=== PATIENT | male | born 1955 | race Caucasian/White ===

== ENCOUNTER 2016-06-21 17:27 | Observation (INO) | payer MEDICAID ==
[~2016-06-21] VITALS: Ht 175.3 cm; Wt 113.5 kg
[~2016-06-21 17:27] MED LIST: ASPI1TAB91 PO; CLOP75TA PO; DICL50TA PO; DONE10TA7 PO; GABA300C5 PO; HYDR-3366 PO; IBUP800T23 PO; LIPI80TA PO; LISI10TA3 PO; METO50TA PO; PANT40TA3 PO; TIZA4CAP3 PO; TRAM50TA PO; WHEEMIS3
[2016-06-21 17:30] VITALS: BP 134/78; PULSE 77; RESP 15; TEMP 98.8; O2SAT 96
[2016-06-21] MEDS ORDERED: METF1000 PO (19:03)
[2016-06-21] MEDS ORDERED: METR250T15 PO (19:03)
[2016-06-21] MEDS ORDERED: ONDA4TAB7 SL (19:03)
[2016-06-21] MEDS ORDERED: NITR1SUB3 SL (19:04)
[2016-06-21] MEDS ORDERED: SERT-129 PO (19:04)
[2016-06-21] MEDS ORDERED: MORPHINE SULFATE 4 MG/ML INJ IV PUSH ONE ×2 (19:30→23:30)
[2016-06-21] MEDS ORDERED: ONDANSETRON HCL 4 MG/2 ML VIAL IVP ONE (19:30)
[2016-06-21] MEDS ORDERED: SODIUM CHLORIDE 0.9% FLUSH 5 ML FLUSH IVF PRN (19:30)
[2016-06-21] MEDS ORDERED: FAMOTIDINE 20 MG/2 ML VIAL IV PUSH ONE (19:30)
[2016-06-21 19:50] LABS: AUTOMATED NEUTROPHIL # 3.4 TH/MM3 (1.8-7.7); BASOPHIL # 0.1 TH/MM3 (0-0.2); BASOPHIL % 2.3 % (0.0-2.0); EOSINOPHIL # 0.4 TH/MM3 (0-0.4); EOSINOPHIL % 7.4 % (0.0-4.0); HEMATOCRIT 41.7 % (39.0-51.0); HEMO FLAGS DIFF FINAL; LYMPH % 21.6 % (9.0-44.0); LYMPHOCYTE # 1.2 TH/MM3 (1.0-4.8); MEAN CELL VOLUME 87.9 FL (80.0-100.0); MEAN CORPUSCULAR HEMOGLOBIN 29.4 PG (27.0-34.0); MEAN CORPUSCULAR HGB CONC 33.4 % (32.0-36.0); MONO % 9.3 % (0.0-8.0); NEUT % 59.4 % (16.0-70.0); PLATELET COUNT 226 TH/MM3 (150-450); RED BLOOD COUNT 4.75 MIL/MM3 (4.50-5.90); RED CELL DISTRIBUTION WIDTH 14.5 % (11.6-17.2); WHITE BLOOD COUNT 5.6 TH/MM3 (4.0-11.0)
[2016-06-21 19:52] VITALS: RESP 18
[2016-06-21 19:58] LABS: APTT (PATIENT) 22.9 SEC (24.3-30.1); PROTHROMBIN TIME - PATIENT 10.7 SEC (9.8-11.6)
[2016-06-21 20:12] LABS: ANION GAP 9 MEQ/L (5-15); AST (GOT) 17 U/L (15-37); BLOOD UREA NITROGEN 5 MG/DL (7-18); CHLORIDE 105 MEQ/L (98-107); GLOMERULAR FILTRATION RATE 77 ML/MIN (>89); POTASSIUM 3.8 MEQ/L (3.5-5.1); SODIUM (NA) 141 MEQ/L (136-145)
[2016-06-21 20:16] VITALS: BP 143/73; PULSE 61; RESP 16; O2SAT 96
[2016-06-21 20:17] LABS: ALKALINE PHOSPHATASE 80 U/L (45-117); ALT (GPT) 31 U/L (12-78); INDIRECT BILIRUBIN 0.3 MG/DL (0.0-0.8); TOTAL BILIRUBIN ADULT 0.4 MG/DL (0.2-1.0)
[2016-06-21] MEDS ORDERED: IOHEXOL 350 MG/ML 10 ML VIAL (for RAD DIAG) IV ONE (20:42)
--- NOTE | 2016-06-21 21:32 | RADRPT ---
EXAM DATE/TIME: 06/21/2016 20:36 [place] COMPARISON: No previous studies available for comparison. INDICATIONS : Diffuse abdominal pain with red stool for 2 weeks. IV CONTRAST: 96 cc Omnipaque 350 (iohexol) IV ORAL CONTRAST: No oral contrast ingested. RADIATION DOSE: 9.96 CTDIvol (mGy) MEDICAL HISTORY : Hypertension. Cardiovascular disease Cerebrovascular disease.Seizures SURGICAL HISTORY : CABG left hip surgery ENCOUNTER: Initial ACUITY: 2 weeks PAIN SCALE: 8/10 LOCATION: Diffuse abdomen/pelvis TECHNIQUE: Volumetric scanning of the abdomen and pelvis was performed. Using automated exposure control and ad justment of the mA and/or kV according to patient size, radiation dose was kept as low as reasonably achievable to obtain optimal diagnostic quality images. FINDINGS: Lung bases are clear except for mild dependent atelectasis. Previous median sternotomy. Mild fatty liver. Spleen, adrenals, kidneys and pancreas unremarkable. Gallstones in gallbladder. There is some apparent mural thickening of the duodenum. No bowel obstruction. No free fluid or free air. No adenopathy. Prostate is enlarged. CONCLUSION: 1. Mural thickening of the duodenum suggesting duodenitis. No obstruction, free fluid or free air. 2. Multiple gallstones in the gallbladder. Fady Shah MD on June 21, 2016 at 21:25 Board Certified Radiologist. This report was verified electronically.
[2016-06-21] MEDS ORDERED: LIDOCAINE VISCOUS 2% SOLN 15 ML UDC PO ONE (22:00)
[2016-06-21] MEDS ORDERED: ALUMINUM/MAGNESIUM/SIMETH 30 ML CUP PO ONE (22:00)
[2016-06-21] MEDS ORDERED: DICYCLOMINE HCL 20 MG/2 ML VIAL IM ONE (22:00)
[2016-06-21 22:09] LABS: BLOOD, URINE NEG (NEG); COMMENT (UR) CULT NOT INDICATED; CULTURE IF INDICATED CULT NOT INDICATED; GLUCOSE,URINE NEG (NEG); HYALINE CAST, URINE 1 /lpf (RARE); KETONE, URINE NEG (NEG); MUCUS URINE FEW /lpf (OCC); NITRITE,URINE NEG (NEG); URINE COLOR YELLOW (YELLW/STRAW)
[2016-06-21 22:21] VITALS: BP 109/63; PULSE 76; RESP 16; O2SAT 98
[2016-06-22] VITALS (8 sets, daily range): BP systolic 98–134; BP diastolic 54–77; PULSE 45–75; RESP 13–20; TEMP 97.7–98.2; O2SAT 95–96
--- NOTE | 2016-06-22 00:48 | PD ---
HPI Chief Complaint: GI Complaint Time Seen by Provider: 19:06 Travel History International Travel<30 days: No Contact w/Intl Traveler<30days: No Traveled to known affect area: No History of Present Illness HPI Patient is a 61-year-old male who comes in complaining of abdominal pain, weakness, blood in his stool for the past 2 weeks. He says that he follows with Dr. Estrada to for GI. He says that she put him on Flagyl, and he took his last pill today. He says that he called her office and they told him to coming to the emergency department right away. He says his last bowel movement was yesterday and that is the last time he saw blood. He says he has been nauseous with some vomiting. Patient is a poor historian. He says he sometimes has chest pain or shortness of breath, but this does not seem to be acute. PFSH Past Medical History Arthritis: No Asthma: Yes Blood Disorders: No Anxiety: Yes Depression: Yes Heart Rhythm Problems: No Cardiac Catheterization: Yes (CORONARY STENT) Cardiovascular Problems: Yes High Cholesterol: Yes Chemotherapy: No Chest Pain: Yes Congestive Heart Failure: No COPD: No Cerebrovascular Accident: Yes Coronary Artery Disease: Yes Diabetes: Yes Patient Takes Glucophage: Yes (06/21/16) Diminished Hearing: No Endocrine: Yes Gastrointestinal Disorders: Yes GERD: Yes Glaucoma: No Genitourinary: No Hypertension: Yes Immune Disorder: No Implanted Vascular Access Dvce: Yes Musculoskeletal: Yes Neurologic: Yes (PREVIOUS STROKE) Psychiatric: No Reproductive: No Respiratory: Yes Immunizations Current: No Migraines: No Myocardial Infarction: No Radiation Therapy: No Sleep Apnea: No Thyroid Disease: No Tetanus Vaccination: > 5 Years Influenza Vaccination: No PNEUMOCCOCAL Vaccine (Year): 1 Past Surgical History Abdominal Surgery: No AICD: No Arteriovenous Shunt: No Body Medical Devices: PIN LEFT HIP Cardiac Surgery: No Coronary Artery Bypass Graft: Yes ( OCTOBER 2011, 5 VESSELS) Ear Surgery: No Endocrine Surgery: No Eye Surgery: No Genitourinary Surgery: No Gynecologic Surgery: No Insulin Pump: No Joint Replacement: No Neurologic Surgery: No Oral Surgery: No Pacemaker: No Thoracic Surgery: Yes (CABG october 2011 ) Tonsillectomy: Yes Other Surgery: Yes (SINUS SURGERY) Social History Alcohol Use: No Tobacco Use: No Substance Use: No Allergies-Medications (Allergen,Severity, Reaction): Coded Allergies: Bee Sting (Verified Allergy, Severe, THROAT SWELLS, 06/21/16) Penicillin (Verified Allergy, Severe, SWELLS UP, 06/21/16) Wasp (Verified Allergy, Severe, SWELLS UP, 06/21/16) Reported Meds & Prescriptions Reported Meds & Active Scripts Active Reported Sertraline (Sertraline HCl) 100 Mg Tab 100 Mg PO DAILY Nitroglycerin SL (Nitroglycerin) 0.4 Mg Subl 0.4 Mg SL DIRECTED PRN ONE TABLET UNDER THE TONGUE NEEDED FOR CHEST PAIN, MAY REPEAT EVERY FIVE MINUTES FOR A TOTAL OF 3 DOSES OR CALL 911 IF NO RELIEF Metformin (Metformin HCl) 1,000 Mg Tab 1,000 Mg PO BIDPC With meals Metronidazole 250 Mg Tab 250 Mg PO TID Ondansetron Odt 4 Mg Tab 4 Mg SL Q6HR PRN Clopidogrel (Clopidogrel Bisulfate) 75 Mg Tab 75 Mg PO DAILY [place] (Hydrocodone-Acetaminophen) 10-325 Mg Tab 1 Tab PO TID PRN Aspirin Adult Low Strength (Aspirin) 81 Mg Tabdr 81 Mg PO DAILY Gabapentin 300 Mg Cap 300 Mg PO TID Lipitor (Atorvastatin Calcium) 80 Mg Tab 80 Mg PO HS Donepezil 10 Mg Tab 10 Mg PO HS Metoprolol Tartrate 50 Mg Tab 50 Mg PO DAILY Pantoprazole (Pantoprazole Sodium) 40 Mg Tab 40 Mg PO DAILY Tizanidine (Tizanidine HCl) 4 Mg Cap 4 Mg PO TID PRN Review of Systems Except as stated in HPI: all other systems reviewed are Neg General / Constitutional: Positive: Fever, No: Chills Eyes: No: Diploplia HENT: No: Headaches Cardiovascular: Positive: Chest Pain or Discomfort Respiratory: Positive: Shortness of Breath Gastrointestinal: Positive: Nausea, Vomiting, Abdominal Pain Genitourinary: No: Dysuria Musculoskeletal: No: Edema, Pain Skin: No Rash, No Change in Pigmentation Neurologic: Positive: Weakness, No: Dizziness Physical Exam Narrative GENERAL: Awake and alert in no acute distress. SKIN: Warm and dry. HEAD: Atraumatic. Normocephalic. EYES: Pupils equal and round. No scleral icterus. ENT: Mucous membranes pink and moist. NECK: Trachea midline. No JVD. CARDIOVASCULAR: Regular rate and rhythm. No murmur appreciated. RESPIRATORY: No accessory muscle use. Clear to auscultation. Breath sounds equal bilaterally. GASTROINTESTINAL: Abdomen soft, nondistended. Diffuse tenderness to palpation, worse in the epigastric area. No rebound or guarding. MUSCULOSKELETAL: No obvious deformities. No clubbing. No cyanosis. No edema. NEUROLOGICAL: Awake and alert. No obvious cranial nerve deficits. Motor grossly within normal limits. Normal speech. PSYCHIATRIC: Appropriate mood and affect; insight and judgment normal. Data Data Last Documented VS Vital Signs Date Time Temp Pulse Resp B/P Pulse Ox O2 Delivery O2 Flow Rate FiO2 06/21/16 22:21 76 16 109/63 98 Room Air 06/21/16 17:30 98.8 Orders Basic Metabolic Panel (Bmp) (06/21/16:18) Complete Blood Count With Diff (06/21/16:18) Lipase (06/21/16:18) Prothrombin Time / Inr (Pt) (06/21/16:18) Act Partial Throm Time (Ptt) (06/21/16:18) Urinalysis - C+S If Indicated (06/21/16:18) Ua Includes Microscopic (06/21/16 19:18) Ct Abd/Pel W Iv Contrast(Rout) (06/21/16 19:18) Iv Access Insert/Monitor (06/21/16 19:18) Ecg Monitoring (06/21/16:18) Oximetry (06/21/16:18) Morphine Inj (Morphine Inj) (06/21/16 19:30) Ondansetron Inj (Zofran Inj) (06/21/16 19:30) Sodium Chloride 0.9% Flush (Ns Flush) (06/21/16 19:30) Electrocardiogram (06/21/16 19:18) Famotidine Inj (Pepcid Inj) (06/21/16 19:30) Hepatic Functional Panel (06/21/16 19:18) Troponin I (06/21/16:18) Iohexol 350 Inj (Omnipaque 350 Inj) (06/21/16 20:42) Dicyclomine Inj (Bentyl Inj) (06/21/16 22:00) Al-Mag Hy-Si 40-40-4 Mg/Ml Liq (Mag-Al P (06/21/16 22:00) Lidocaine 2% Viscous (Xylocaine 2% Visco (06/21/16 22:00) Morphine Inj (Morphine Inj) (06/21/16 23:30) Admit Order (Ed Use Only) (06/22/16 ) Labs Laboratory Tests Test 06/21/16 06/21/16 19:35 21:45 White Blood Count 5.6 TH/MM3 Red Blood Count 4.75 MIL/MM3 Hemoglobin 13.9 GM/DL Hematocrit 41.7 % Mean Corpuscular Volume 87.9 FL Mean Corpuscular Hemoglobin 29.4 PG Mean Corpuscular Hemoglobin 33.4 % Concent Red Cell Distribution Width 14.5 % Platelet Count 226 TH/MM3 Mean Platelet Volume 8.5 FL Neutrophils (%) (Auto) 59.4 % Lymphocytes (%) (Auto) 21.6 % Monocytes (%) (Auto) 9.3 % Eosinophils (%) (Auto) 7.4 % Basophils (%) (Auto) 2.3 % Neutrophils # (Auto) 3.4 TH/MM3 Lymphocytes # (Auto) 1.2 TH/MM3 Monocytes # (Auto) 0.5 TH/MM3 Eosinophils # (Auto) 0.4 TH/MM3 Basophils # (Auto) 0.1 TH/MM3 CBC Comment DIFF FINAL Differential Comment Prothrombin Time 10.7 SEC Prothromb Time International 1.0 RATIO Ratio Activated Partial 22.9 SEC Thromboplast Time Sodium Level 141 MEQ/L Potassium Level 3.8 MEQ/L Chloride Level 105 MEQ/L Carbon Dioxide Level 27.0 MEQ/L Anion Gap 9 MEQ/L Blood Urea Nitrogen 5 MG/DL Creatinine 0.99 MG/DL Estimat Glomerular Filtration 77 ML/MIN Rate Random Glucose 166 MG/DL Calcium Level 8.4 MG/DL Total Bilirubin 0.4 MG/DL Direct Bilirubin 0.1 MG/DL Indirect Bilirubin 0.3 MG/DL Aspartate Amino Transf 17 U/L (AST/SGOT) Alanine Aminotransferase 31 U/L (ALT/SGPT) Alkaline Phosphatase 80 U/L Troponin I LESS THAN 0.02 NG/ML Total Protein 7.1 GM/DL Albumin 3.8 GM/DL Lipase 238 U/L Urine Color YELLOW Urine Turbidity CLEAR Urine pH 6.0 Urine Specific [place] GREATER THAN 1.050 Urine Protein TRACE mg/dL Urine Glucose (UA) NEG mg/dL Urine Ketones NEG mg/dL Urine Occult Blood NEG Urine Nitrite NEG Urine Bilirubin NEG Urine Urobilinogen LESS THAN 2.0 MG/DL Urine Leukocyte Esterase NEG Urine WBC 1 /hpf Urine Hyaline Casts 1 /lpf Urine Mucus FEW /lpf Microscopic Urinalysis Comment CULT NOT INDICATED MDM Medical Decision Making Medical Screen Exam Complete: Yes Emergency Medical Condition: Yes Medical Record Reviewed: Yes Interpretation(s) ECG shows sinus bradycardia at 59, no ST elevation or depression, right bundle branch block. Differential Diagnosis Gastritis versus gastroenteritis versus colitis versus bleeding ulcer versus diverticulitis versus ACS Narrative Course Patient is a 61-year-old male who comes in complaining of abdominal pain and weakness along with some blood in his stool. Exam shows diffuse abdominal tenderness, worse in the epigastric area. On exam, stool is brown and negative for occult blood. IV established, patient connected to the monitor technician. Labs sent show no acute abnormalities. Patient given IV fluids, famotidine, morphine, Zofran. Patient states he still feels pain as well as a burning sensation. Given GI cocktail as well as Bentyl. Patient reports continued pain. Given a second dose of morphine. CT of the abdomen and pelvis shows duodenitis, no other acute abnormalities. Patient states she is still feeling very weak and has a lot of pain. He does not feel comfortable going home. Patient placed in observation for further management. Diagnosis Primary Impression: Abdominal pain Qualified Code: R10.13 - Epigastric pain Additional Impression: Weakness Admitting Information Admitting Physician Requests: Casandra Patrick MD Jun 22, 2016 00:48
[2016-06-22] MEDS ORDERED: SODIUM CHLORIDE 0.9% FLUSH 5 ML FLUSH FLUSH PRN (01:30)
[2016-06-22] MEDS ORDERED: NALOXONE HCL 0.4 MG/ML AMP IV PRN (01:30)
[2016-06-22] MEDS ORDERED: ONDANSETRON HCL 4 MG/2 ML VIAL IVP PRN (01:30)
[2016-06-22] MEDS ORDERED: GLUCAGON 1 MG/ML VIAL OTHER PRN (01:45)
[2016-06-22] MEDS ORDERED: DEXTROSE 50% IN WATER 50 ML VIAL(D50) IV PUSH PRN (01:45)
--- NOTE | 2016-06-22 01:45 | HHI.HP ---
[facility] Jerel Zepeda, DO Admission Diagnosis Abdominal Pain Diagnoses: Chief Complaint: Epigastric pain, hematochezia nausea vomiting Travel History International Travel<30 Days: No Contact w/Intl Traveler <30 Da: No Traveled to Known Affected Are: No History of Present Illness 61 years old male sent to the hospital by his GI due to worsening epigastric pain with some rectal bleed has been going on 3 days ago, no fever or chills, no lightheaded blurry vision or headache dizziness or headache or flulike syndrome, no diarrhea or constipation, abdominal pain is around 7 out of 10, as per the patient and makes him very weak and debilitated, he talked to his GI this morning and he was told to go to ED. In general patient is very poor historian,Patient has been placed on Flagyl by the powerbuilder, patient stated last time he saw blood was yesterday Review of Systems All 10 systems reviewed and was positive for what is mentioned in history of present illness otherwise negative Past Family Social History Past Medical History Arthritis: No Asthma: Yes Blood Disorders: No Anxiety: Yes Depression: Yes Heart Rhythm Problems: No Cardiac Catheterization: Yes (CORONARY STENT) Cardiovascular Problems: Yes High Cholesterol: Yes Chemotherapy: No Chest Pain: Yes Congestive Heart Failure: No COPD: No Cerebrovascular Accident: Yes Coronary Artery Disease: Yes Diabetes: Yes Patient Takes Glucophage: Yes (06/21/16) Diminished Hearing: No Endocrine: Yes Gastrointestinal Disorders: Yes GERD: Yes Hypertension: Yes Immune Disorder: No Implanted Vascular Access Dvce: Yes Musculoskeletal: Yes Neurologic: Yes (PREVIOUS STROKE) Tetanus Vaccination: > 5 Years Influenza Vaccination: No PNEUMOCCOCAL Vaccine (Year): 1 Past Surgical History Body Medical Devices: PIN LEFT HIP Coronary Artery Bypass Graft: Yes ( OCTOBER 2011, 5 VESSELS) Thoracic Surgery: Yes (CABG october 2011 ) Tonsillectomy: Yes Other Surgery: Yes (SINUS SURGERY) Allergies: Coded Allergies: Bee Sting (Verified Allergy, Severe, THROAT SWELLS, 06/21/16) Penicillin (Verified Allergy, Severe, SWELLS UP, 06/21/16) Wasp (Verified Allergy, Severe, SWELLS UP, 06/21/16) Family History Not aware of medical problem Protonix and his family Social History Denied tobacco alcohol or illicit drug abuse Physical Exam Vital Signs Vital Signs Date Time Temp Pulse Resp B/P Pulse Ox O2 Delivery O2 Flow Rate FiO2 06/21/16 22:21 76 16 109/63 98 Room Air 06/21/16 20:16 61 16 143/73 96 Room Air 06/21/16 19:52 18 Room Air 06/21/16 18:50 18 06/21/16 17:30 98.8 77 15 134/78 96 Physical Exam GENERAL: This is a well-nourished, well-developed patient, in no apparent distress. SKIN: No rashes, ecchymoses or lesions. Cool and dry. HEAD: Atraumatic. Normocephalic. No temporal or scalp tenderness. EYES: Pupils equal round and reactive. Extraocular motions intact. No scleral icterus. No injection or drainage. ENT: Nose without bleeding, purulent drainage or septal hematoma. Throat without erythema, tonsillar hypertrophy or exudate. Uvula midline. Airway patent. NECK: Trachea midline. No JVD or lymphadenopathy. Supple, nontender, no meningeal signs. CARDIOVASCULAR: Regular rate and rhythm without murmurs, gallops, or rubs. RESPIRATORY: Clear to auscultation. Breath sounds equal bilaterally. No wheezes , rales, or rhonchi. GASTROINTESTINAL: Abdomen soft, tender to palpation mostly in the epigastric area, nondistended. No hepato-splenomegaly, or palpable masses. No guarding. MUSCULOSKELETAL: Extremities without clubbing, cyanosis, or edema. No joint tenderness, effusion, or edema noted. No calf tenderness. Negative Homans sign bilaterally. NEUROLOGICAL: Awake and alert. Cranial nerves II through XII intact. Motor and sensory grossly within normal limits. Five out of 5 muscle strength in all muscle groups. Normal speech. Laboratory Laboratory Tests Test 06/21/16 06/21/16 19:35 21:45 White Blood Count 5.6 Red Blood Count 4.75 Hemoglobin 13.9 Hematocrit 41.7 Mean Corpuscular Volume 87.9 Mean Corpuscular Hemoglobin 29.4 Mean Corpuscular Hemoglobin 33.4 Concent Red Cell Distribution Width 14.5 Platelet Count 226 Mean Platelet Volume 8.5 Neutrophils (%) (Auto) 59.4 Lymphocytes (%) (Auto) 21.6 Monocytes (%) (Auto) 9.3 Eosinophils (%) (Auto) 7.4 Basophils (%) (Auto) 2.3 Neutrophils # (Auto) 3.4 Lymphocytes # (Auto) 1.2 Monocytes # (Auto) 0.5 Eosinophils # (Auto) 0.4 Basophils # (Auto) 0.1 CBC Comment DIFF FINAL Differential Comment Prothrombin Time 10.7 Prothromb Time International 1.0 Ratio Activated Partial 22.9 Thromboplast Time Sodium Level 141 Potassium Level 3.8 Chloride Level 105 Carbon Dioxide Level 27.0 Anion Gap 9 Blood Urea Nitrogen 5 Creatinine 0.99 Estimat Glomerular Filtration 77 Rate Random Glucose 166 Calcium Level 8.4 Total Bilirubin 0.4 Direct Bilirubin 0.1 Indirect Bilirubin 0.3 Aspartate Amino Transf 17 (AST/SGOT) Alanine Aminotransferase 31 (ALT/SGPT) Alkaline Phosphatase 80 Troponin I LESS THAN 0.02 Total Protein 7.1 Albumin 3.8 Lipase 238 Urine Color YELLOW Urine Turbidity CLEAR Urine pH 6.0 Urine Specific [place] GREATER THAN 1.050 Urine Protein TRACE Urine Glucose (UA) NEG Urine Ketones NEG Urine Occult Blood NEG Urine Nitrite NEG Urine Bilirubin NEG Urine Urobilinogen LESS THAN 2.0 Urine Leukocyte Esterase NEG Urine WBC 1 Urine Hyaline Casts 1 Urine Mucus FEW Microscopic Urinalysis Comment CULT NOT INDICATED Result Diagram: 06/21/[id number] Imaging Last Impressions Abdomen/Pelvis CT 06/21/161917 Signed Impressions: Service Date/Time: Tuesday, June 21, 2016 20:36 - CONCLUSION: 1. Mural thickening of the duodenum suggesting duodenitis. No obstruction, free fluid or free air. 2. Multiple gallstones in the gallbladder. Fady Shah MD Assessment and Plan Assessment and Plan 61 YEARS OLD male admitted with Abdominal/epigastric pain and history of recent rectal bleed Duodenitis on CT scan Weakness generalized Diabetes mellitus Hypertension DVT prophylaxis with SCD, chemical contraindication due to history of recent rectal bleed Plan: Admit for observation Nothing by mouth Protonix iv Consul GI for possible upper EGD colonoscopy Pain management with morphine PT OT CT abdomen reviewed by me No chemical DVT due to history of hematochezia Discussed Condition With He shouldn't in ED physician Katherine Barroso MD Jun 22, 2016 01:44
[2016-06-22] MEDS: PANTOPRAZOLE SODIUM 40 MG VIAL IV PUSH SCH (02:12)
[2016-06-22] MEDS: SODIUM CHLOR 0.9% 1000 ML INJ 1,000 ML IV SCH ×2 (02:12→12:00)
[2016-06-22] MEDS: INSULIN NovoLIN REGULAR SUPPLEMENTAL SCALE SQ SCH ×4 (04:29→19:46)
--- NOTE | 2016-06-22 08:38 | PD.CONS ---
HPI History of Present Illness This is a 61 year old male who came to the ER for evaluation of generalized weakness, abdominal pain, and bloody diarrhea. He started having nausea, vomiting, diarrhea with weight loss towards the beginning of May after eating breakfast in a hotel. His emesis consists of a bilious material, but no hematemesis. He complains of a "twisting-knot like" pain that is intermittent and aggravated by po intake. He also reports that he has been having frequent loose stools. He was seen in the office on 05/30 and cardiac clearance to hold plavix for egd was requested as was stool studies. He was started on Flagyl, Zofran, and a PPI. He reports that he did not have the stool studies done, but completed the course of Flagyl yesterday. His diarrhea did improve slightly while on the Flagyl, but he has continued to have nausea, vomiting, pain, and although the frequency of his diarrhea has decreased, he started having a large amount of blood in his stool earlier in the week. He reports that he actually wanted to come to the ER on Friday, but was just too weak to drive himself here. He has felt warm, but has not actually taken his temperature. He denies any recent abx use other than the Flagyl that was given to him. He denies any any sick contacts. He had a cardiac catheterization back in November with Dr. Schultz and is on Plavix. Flexible sigmoidoscopy (07/14/15)---> colonic mucosa appeared normal in the distal sigmoid colon, retroflexed views revealed internal Grade II hemorrhoids, rectal exam revealed external hemorrhoids. EGD/ Colonoscopy (12/01/14)-----> gastritis in gastric body, retroflexed views revealed no abnormalities; colonic mucosa appeared normal, retroflexed views revealed no abnormalities, no abnormalities of the rectum. 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 (Ness Song) PFSH Past Medical History N/V/D since May Anemia Asthma Hemorrhoids Gastritis CAD Cholelithiasis DM GERD Hx TIA HTN Hyperlipidemia Hx GI bleeding Hx colitis Past Surgical History EGD/Colonoscopy Flexible sigmiodoscopy CABG Cardiac catheterization Left hip surgery Sinus surgery Tonsillectomy (Ness Song) Coded Allergies: Bee Sting (Verified Allergy, Severe, THROAT SWELLS, 06/21/16) Penicillin (Verified Allergy, Severe, SWELLS UP, 06/21/16) Wasp (Verified Allergy, Severe, SWELLS UP, 06/21/16) Medications Allergies Coded Allergies Type Severity Reaction Last Updated Verified Bee Sting Allergy Severe THROAT SWELLS 06/21/16 Yes Penicillin Allergy Severe SWELLS UP 06/21/16 Yes Wasp Allergy Severe SWELLS UP 06/21/16 Yes Active Scripts Medications Dose Route/Sig Days Date Category Dose Instructions Sertraline (Sertraline HCl) 100 Mg Tab 100 Mg PO DAILY 06/21/16 Reported Nitroglycerin SL (Nitroglycerin) 0.4 Mg Subl 0.4 Mg SL DIRECTED PRN 06/21/16 Reported ONE TABLET UNDER THE TONGUE NEEDED FOR CHEST PAIN, MAY REPEAT EVERY FIVE MINUTES FOR A TOTAL OF 3 DOSES OR CALL 911 IF NO RELIEF Metformin (Metformin HCl) 1,000 Mg Tab 1,000 Mg PO BIDPC 06/21/16 Reported With meals Metronidazole 250 Mg Tab 250 Mg PO TID 06/21/16 Reported Ondansetron Odt 4 Mg Tab 4 Mg SL Q6HR PRN 06/21/16 Reported Clopidogrel (Clopidogrel Bisulfate) 75 Mg Tab 75 Mg PO DAILY 04/21/16 Reported [place] (Hydrocodone-Acetaminophen) 10-325 Mg Tab 1 Tab PO TID PRN 04/21/16 Reported Aspirin Adult Low Strength (Aspirin) 81 Mg Tabdr 81 Mg PO DAILY 04/21/16 Reported Gabapentin 300 Mg Cap 300 Mg PO TID 04/21/16 Reported Lipitor (Atorvastatin Calcium) 80 Mg Tab 80 Mg PO HS 04/21/16 Reported Donepezil 10 Mg Tab 10 Mg PO HS 04/21/16 Reported Metoprolol Tartrate 50 Mg Tab 50 Mg PO DAILY 04/21/16 Reported Pantoprazole (Pantoprazole Sodium) 40 Mg Tab 40 Mg PO DAILY 04/21/16 Reported Tizanidine (Tizanidine HCl) 4 Mg Cap 4 Mg PO TID PRN 04/21/16 Reported Family History Father had acute IN Social History Denied tobacco alcohol or illicit drug abuse (Ness Song) Review of Systems Constitutional: COMPLAINS OF: Diaphoretic episodes, Fatigue, Fever, Weight loss Respiratory: DENIES: Cough Cardiovascular: DENIES: Chest pain Gastrointestinal: COMPLAINS OF: Abdominal pain, Bloody stools, Diarrhea, Nausea , Vomiting, Swelling of Abdomen, Heartburn, DENIES: Black stools, Constipation , Hematemesis Musculoskeletal: COMPLAINS OF: Joint pain Integumentary: DENIES: Abnormal pigmentation Neurologic: COMPLAINS OF: Headache Psychiatric: DENIES: Confusion (Ness Song CHASTITY) GI Exam Vitals I&O Vital Signs Date Time Temp Pulse Resp B/P Pulse Ox O2 Delivery O2 Flow Rate FiO2 06/22/16 04:30 60 06/22/16 04:20 98.0 52 18 98/54 95 06/22/16 02:00 56 13 109/63 95 Room Air 06/21/16 22:21 76 16 109/63 98 Room Air 06/21/16 20:16 61 16 143/73 96 Room Air 06/21/16 19:52 18 Room Air 06/21/16 18:50 18 06/21/16 17:30 98.8 77 15 134/78 96 Imaging Last 24 hours Impressions Abdomen/Pelvis CT 06/21/161917 Signed Impressions: Service Date/Time: Tuesday, June 21, 2016 20:36 - CONCLUSION: 1. Mural thickening of the duodenum suggesting duodenitis. No obstruction, free fluid or free air. 2. Multiple gallstones in the gallbladder. Fady Shah MD Laboratory Test 06/21/16 06/21/16 19:35 21:45 White Blood Count 5.6 TH/MM3 Red Blood Count 4.75 MIL/MM3 Hemoglobin 13.9 GM/DL Hematocrit 41.7 % Mean Corpuscular Volume 87.9 FL Mean Corpuscular Hemoglobin 29.4 PG Mean Corpuscular Hemoglobin 33.4 % Concent Red Cell Distribution Width 14.5 % Platelet Count 226 TH/MM3 Mean Platelet Volume 8.5 FL Neutrophils (%) (Auto) 59.4 % Lymphocytes (%) (Auto) 21.6 % Monocytes (%) (Auto) 9.3 % Eosinophils (%) (Auto) 7.4 % Basophils (%) (Auto) 2.3 % Neutrophils # (Auto) 3.4 TH/MM3 Lymphocytes # (Auto) 1.2 TH/MM3 Monocytes # (Auto) 0.5 TH/MM3 Eosinophils # (Auto) 0.4 TH/MM3 Basophils # (Auto) 0.1 TH/MM3 CBC Comment DIFF FINAL Differential Comment Prothrombin Time 10.7 SEC Prothromb Time International 1.0 RATIO Ratio Activated Partial 22.9 SEC Thromboplast Time Sodium Level 141 MEQ/L Potassium Level 3.8 MEQ/L Chloride Level 105 MEQ/L Carbon Dioxide Level 27.0 MEQ/L Anion Gap 9 MEQ/L Blood Urea Nitrogen 5 MG/DL Creatinine 0.99 MG/DL Estimat Glomerular Filtration 77 ML/MIN Rate Random Glucose 166 MG/DL Calcium Level 8.4 MG/DL Total Bilirubin 0.4 MG/DL Direct Bilirubin 0.1 MG/DL Indirect Bilirubin 0.3 MG/DL Aspartate Amino Transf 17 U/L (AST/SGOT) Alanine Aminotransferase 31 U/L (ALT/SGPT) Alkaline Phosphatase 80 U/L Troponin I LESS THAN 0.02 NG/ML Total Protein 7.1 GM/DL Albumin 3.8 GM/DL Lipase 238 U/L Urine Color YELLOW Urine Turbidity CLEAR Urine pH 6.0 Urine Specific [place] GREATER THAN 1.050 Urine Protein TRACE mg/dL Urine Glucose (UA) NEG mg/dL Urine Ketones NEG mg/dL Urine Occult Blood NEG Urine Nitrite NEG Urine Bilirubin NEG Urine Urobilinogen LESS THAN 2.0 MG/DL Urine Leukocyte Esterase NEG Urine WBC 1 /hpf Urine Hyaline Casts 1 /lpf Urine Mucus FEW /lpf Microscopic Urinalysis Comment CULT NOT INDICATED Physical Examination HEENT: Normocephalic; atraumatic; no jaundice. CHEST: Chest is clear to auscultation and percussion. CARDIAC: RRR ABDOMEN: Soft, nondistended, mild mid abdominal tenderness; no hepatosplenomegaly; bowel sounds are present in all four quadrants. EXTREMITIES: No clubbing, cyanosis, or edema. SKIN: Normal; no rash; no jaundice. [employer]: No focal deficits; alert and oriented times three. (Ness SongP) Assessment and Plan Plan ASSESSMENT: - GIB with hematochezia. Pt has been having n/v/d x 1 month and started having bloody diarrhea earlier in week. States he is having one loose stool per day with large amount of red blood. Flexible sigmoidoscopy ()---> colonic mucosa appeared normal in the distal sigmoid colon, retroflexed views revealed internal Grade II hemorrhoids, rectal exam revealed external hemorrhoids. EGD/Colonoscopy (12/01/14)-----> gastritis in gastric body, retroflexed views revealed no abnormalities; colonic mucosa appeared normal, retroflexed views revealed no abnormalities, no abnormalities of the rectum. 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 HH Stable - N/V/D. Abdomen/Pelvis CT (06/21/16)----> 1. Mural thickening of the duodenum suggesting duodenitis. No obstruction, free fluid or free air. 2. Multiple gallstones in the gallbladder. LFT and Lipase normal. He was seen in the office on 05/30 and cardiac clearance to hold plavix for egd was requested as was stool studies. He was started on Flagyl, Zofran, and a PPI. He reports that he did not have the stool studies done, but completed the course of Flagyl yesterday. - Abdominal pain. Mid abdominal pain associated with food intake. - Abn. imaging of the duodenum suggesting duodenitis. PPI - CAD. S/P Cardiac cath with drug eluding stent placement in November by Dr. Welch, on Plavix at home. - Asthma, DM, Hx TIA, HTN, Hyperlipidemia. Per primary PLAN: - Clear liquids - Stool studies for CDiff, O&P, Giardia, C/S - Cont. Protonix - Plan for EGD/Colonoscopy if stool studies negative. - Clear liquids tomorrow - Golytely prep tomorrow afternon. - NPO after MN Friday night - CBC, CMP in am - Supportive care - Further recommendations to follow based on results of above - PT seen and examined by Dr. Rothman and myself and this note is written on his behalf (Ness Song) Physician Comments Seen an examined with Ms. Duncan HAYWOOD, stool studies and egd/colonoscopy ordered. Monitor for bleeding. Discussed with patient and son at the bedside. Thank you (Jia Rothman MD) Ness Song Jun 22, 2016 08:38 Jia Rothman MD Jun 22, 2016 12:50
[2016-06-22] MEDS ORDERED: CLOPIDOGREL 75 MG TAB PO SCH (09:00)
[2016-06-22] MEDS: SODIUM CHLORIDE 0.9% FLUSH 5 ML FLUSH FLUSH SCH ×2 (09:00→19:43)
[2016-06-22] MEDS ORDERED: PANTOPRAZOLE SOD 40 MG DELAYED RELEASE TAB PO SCH (09:00)
[2016-06-22 09:30] LABS: AUTOMATED NEUTROPHIL # 1.8 TH/MM3 (1.8-7.7); BASOPHIL # 0.1 TH/MM3 (0-0.2); BASOPHIL % 2.1 % (0.0-2.0); EOSINOPHIL # 0.4 TH/MM3 (0-0.4); EOSINOPHIL % 9.7 % (0.0-4.0); HEMATOCRIT 37.5 % (39.0-51.0); HEMO FLAGS DIFF FINAL; LYMPH % 35.7 % (9.0-44.0); LYMPHOCYTE # 1.5 TH/MM3 (1.0-4.8); MEAN CELL VOLUME 87.6 FL (80.0-100.0); MEAN CORPUSCULAR HEMOGLOBIN 29.2 PG (27.0-34.0); MEAN CORPUSCULAR HGB CONC 33.3 % (32.0-36.0); MONO % 10.3 % (0.0-8.0); NEUT % 42.2 % (16.0-70.0); PLATELET COUNT 181 TH/MM3 (150-450); RED BLOOD COUNT 4.28 MIL/MM3 (4.50-5.90); RED CELL DISTRIBUTION WIDTH 14.1 % (11.6-17.2); WHITE BLOOD COUNT 4.2 TH/MM3 (4.0-11.0)
--- NOTE | 2016-06-22 09:41 | HHI.PR ---
Addendum to Inpatient Note Addendum Reason: Additional Documentation Additional Information On Plavix for history of drug-eluting stent placed 11/24. Discussed with GI, recommends holding Plavix if okay with cardiology. Discussed with Dr. Madrid, okay to hold Plavix after 6 months in this situation if there significant GI bleeding and it has been 7 months, cleared to hold by cardiology. (Cayetano Mcfarlane) Cayetano Mcfarlane Jun 22, 2016 09:41 Izzy Langford MD Jun 22, 2016 14:31
[2016-06-22] MEDS: METOPROLOL TARTRATE 50 MG TAB PO SCH (09:51)
[2016-06-22] MEDS: GABAPENTIN 300 MG CAP PO SCH ×3 (09:51→17:14)
[2016-06-22 09:53] LABS: BICARBONATE 30.9 MEQ/L (21.0-32.0); POTASSIUM 3.7 MEQ/L (3.5-5.1)
[2016-06-22] MEDS: SERTRALINE HCL 100 MG TAB PO SCH (10:00)
--- NOTE | 2016-06-22 13:14 | EKG ---
Date Performed: 06/21/2016 Time Performed: 20:00:35 PTAGE: 61 years EKG: SINUS BRADYCARDIA MARKED LEFT AXIS DEVIATION RIGHT BUNDLE BRANCH BLOCK MODERATE VOLTAGE CRI TERIA FOR LVH, CONSIDER NORMAL VARIANT Compared to prior tracing no significant change ABNORMAL ECG PREVIOUS TRACING : 04/21/2016 18.15 DOCTOR: Neil Madrid Interpretating Date/Time 06/22/2016 13:12:02
[2016-06-22] MEDS: DONEPEZIL HCL 5 MG TAB PO SCH (19:42)
[2016-06-22] MEDS: ATORVASTATIN 80 MG TAB PO SCH (19:42)
[2016-06-22 22:09] LABS: C. DIFF EPI 027 PRESUMPTIVE NEGATIVE (NEGATIVE); C. DIFF TOXIN PCR NEGATIVE (NEGATIVE)
[2016-06-22] MEDS: MORPHINE SULFATE 4 MG/ML INJ IV PUSH PRN (23:46)
[2016-06-23] VITALS (10 sets, daily range): BP systolic 82–135; BP diastolic 52–74; PULSE 50–69; RESP 17–19; TEMP 97.8–98.5; O2SAT 93–98
[2016-06-23] MEDS: PANTOPRAZOLE SODIUM 40 MG VIAL IV PUSH SCH ×2 (02:04→21:56)
[2016-06-23] MEDS: SODIUM CHLOR 0.9% 1000 ML INJ 1,000 ML IV SCH ×2 (02:17→16:35)
[2016-06-23] MEDS: MORPHINE SULFATE 4 MG/ML INJ IV PUSH PRN ×3 (03:50→21:56)
[2016-06-23 05:52] LABS: AUTOMATED NEUTROPHIL # 1.9 TH/MM3 (1.8-7.7); BASOPHIL # 0.1 TH/MM3 (0-0.2); BASOPHIL % 1.4 % (0.0-2.0); EOSINOPHIL # 0.5 TH/MM3 (0-0.4); EOSINOPHIL % 12.6 % (0.0-4.0); HEMATOCRIT 36.1 % (39.0-51.0); HEMO FLAGS DIFF FINAL; LYMPH % 33.9 % (9.0-44.0); LYMPHOCYTE # 1.5 TH/MM3 (1.0-4.8); MEAN CELL VOLUME 87.9 FL (80.0-100.0); MEAN CORPUSCULAR HEMOGLOBIN 29.1 PG (27.0-34.0); MEAN CORPUSCULAR HGB CONC 33.2 % (32.0-36.0); MONO % 8.5 % (0.0-8.0); NEUT % 43.6 % (16.0-70.0); PLATELET COUNT 170 TH/MM3 (150-450); RED BLOOD COUNT 4.11 MIL/MM3 (4.50-5.90); WHITE BLOOD COUNT 4.3 TH/MM3 (4.0-11.0)
[2016-06-23] MEDS: INSULIN NovoLIN REGULAR SUPPLEMENTAL SCALE SQ SCH ×3 (05:58→21:00)
[2016-06-23 06:42] LABS: BICARBONATE 29.3 MEQ/L (21.0-32.0); INDIRECT BILIRUBIN 0.3 MG/DL (0.0-0.8); TOTAL BILIRUBIN ADULT 0.4 MG/DL (0.2-1.0)
--- NOTE | 2016-06-23 08:52 | HHI.PR ---
Subjective Remarks Follow up for epigastric pain, nausea/vomiting, diarrhea, GIB with hematochezia. The patient is able to tolerate his clear liquids today, no nausea /vomiting. He reports another episode of rectal bleeding last night. He continues to report feeling very weak. Objective Vitals Vital Signs Date Time Temp Pulse Resp B/P Pulse Ox O2 Delivery O2 Flow Rate FiO2 06/23/16 07:10 97.8 58 19 87/52 96 06/23/16 04:41 98.0 62 19 116/60 96 06/23/16 01:15 98.0 50 19 125/65 96 06/22/16 21:40 98.2 49 19 134/69 95 06/22/16 20:00 45 06/22/16 18:11 51 18 110/64 95 06/22/16 11:41 97.7 52 19 105/65 95 06/22/16 10:33 21 06/22/16 08:51 97.7 75 20 123/77 96 I/O 06/22/16 06/22/16 06/22/16 06/23/16 06/23/16 06/23/16 07:00 15:00 23:00 07:00 15:00 23:00 Intake Total 6204 ml 1836 ml Output Total 300 ml 450 ml 1300 ml Balance -300 ml 5754 ml 536 ml Intake Oral 4240 ml 1040 ml IV Total 1964 ml 796 ml Output Urine Total 300 ml 450 ml 1300 ml # Voids 1 1 # Bowel Movements 3 4 Result Diagram: 06/23/16 0340 06/23/16 0340 Imaging Last Impressions Abdomen/Pelvis CT 06/21/161917 Signed Impressions: Service Date/Time: Tuesday, June 21, 2016 20:36 - CONCLUSION: 1. Mural thickening of the duodenum suggesting duodenitis. No obstruction, free fluid or free air. 2. Multiple gallstones in the gallbladder. Fady Shah MD Objective Remarks GENERAL: Well-nourished, well-developed middle aged male patient in [facility]. SKIN: Warm and dry. No rash. HEAD: Normocephalic. Atraumatic. EYES: Pupils equal and round. No scleral icterus. No injection or drainage. ENT: No nasal bleeding or discharge. Mucous membranes pink and moist. NECK: Supple. Trachea midline. CARDIOVASCULAR: Regular rate and rhythm. S1, S2 noted. No murmur appreciated. RESPIRATORY: No accessory muscle use. Clear to auscultation. Breath sounds equal bilaterally. GASTROINTESTINAL: Abdomen soft, nondistended, mild epigastric TTP. Normoactive bowel sounds x4. MUSCULOSKELETAL: No obvious deformities. Extremities without clubbing, cyanosis , or edema. NEUROLOGICAL: Awake and alert. No obvious cranial nerve deficits. Motor grossly within normal limits. Normal speech. PSYCHIATRIC: Appropriate mood and affect; insight and judgment normal. Medications and IVs Current Medications Medications (Trade) Dose Ordered Sig/Pilar Route Start Time Stop Time Status Last Admin (NS 1000 ml Inj) 1,000 ml @ 70 mls/hr [id number] IV 06/22/16 02:00 06/23/16 02:17 (NS Flush) 2 ml UNSCH PRN FLUSH 06/22/16 01:30 (NS Flush) 2 ml BID FLUSH 06/22/16 09:00 (Tylenol) 650 mg Q4H PRN PO 06/22/16 01:30 (Zofran Inj) 4 mg Q6H PRN IVP 06/22/16 01:30 (Narcan Inj) 0.4 mg UNSCH PRN IV 06/22/16 01:30 (Lipitor) 80 mg HS PO 06/22/16 21:00 06/22/16 19:42 (Aricept) 10 mg HS PO 06/22/16 21:00 06/22/16 19:42 (Neurontin) 300 mg TID PO 06/22/16 09:00 06/22/16 17:14 (Lopressor) 50 mg DAILY PO 06/22/16 09:00 06/22/16 09:51 (Zoloft) 100 mg DAILY PO 06/22/16 09:00 06/22/16 10:00 (D50w (Vial) Inj) 25 ml UNSCH PRN IV PUSH 06/22/16 01:45 (Glucagon Inj) 1 mg UNSCH PRN OTHER 06/22/16 01:45 (Protonix Inj) 40 mg Q24H IV PUSH 06/22/16 02:00 06/23/16 02:04 (Morphine Inj) 1 mg Q4H PRN IV PUSH 06/22/16 01:45 (Morphine Inj) 2 mg Q4H PRN IV PUSH 06/22/16 01:45 06/23/16 03:50 (Colyte Liq) 4,000 ml ONCE ONCE PO 06/23/16 16:00 06/23/16 16:01 06/22/16 17:15 Tizanidine HCl 4 mg 4 mg TID PRN PO 06/22/16 12:00 (Lr 1000 ml Inj) 1,000 ml @ 30 mls/hr Q24H IV 06/22/16 23:45 Urinary Catheter: No Vascular Central Line Catheter: No A/P Problem List: (1) GIB (gastrointestinal bleeding) ICD Code: K92.2 Status: Acute (2) Abdominal pain ICD Code: R10.9 Status: Acute (3) Weakness ICD Code: R53.1 Status: Acute Assessment and Plan 61-year-old male with hx of anemia, asthma, hemorrhoids, gastritis, CAD, cholelithiasis, DM, GERD, TIA, HTN, HLD, GI bleeding, colitis, presents with: Abdominal Pain/Nausea/Vomiting/Diarrhea with GIB, Hematochezia: Failed outpatient management. CT abd images reviewed, showed mural thickening of duodenum suggesting duodenitis; multiple gallstones. Completed course of flagyl recently as outpatient. Stool studies for CDiff, O&P, Giardia, C/S. GI consulted. Continue clear liquids. Continue Protonix IV bid. Hold aspirin/ plavix. Plan for EGD/Colonoscopy tomorrow if stool studies negative. Golytely prep today, NPO after midnight. CAD with stent: On Plavix for history of drug-eluting stent placed 11/24. Discussed with GI, recommends holding Plavix if okay with cardiology. Discussed with Dr. Madird, okay to hold Plavix after 6 months in this situation if there significant GI bleeding. It has been 7 months, cleared to hold by cardiology. Generalized Weakness: likely related to dehydration with ongoing nausea/vomiting /diarrhea. Continue IVF. PT consult. HTN: chronic, continue patient's metoprolol. BP well controlled, slightly hypotensive this morning, given IVF bolus. HLD: chronic, continue patient's statin. Diabetes: chronic, hold patient's metformin for now, monitor Accu-cheks and cover with SSI. All other medical conditions stable, continue home medications as appropriate. DVT prophylaxis: SCD, chemical contraindication due to rectal bleed Written by Maribel Moya, acting as scribe for Dr. Langford on 06/23/16 at 09:32 The documentation accurately reflects the work performed [id number] by me Dr. Langford on 06/23/16 at 09:32 Problem Qualifiers (1) Abdominal pain: Qualified Code: R10.13 - Epigastric pain Maribel Moya PA-C Jun 23, 2016 08:52 Izzy Langford MD Jun 23, 2016 17:38
[2016-06-23] MEDS: METOPROLOL TARTRATE 50 MG TAB PO SCH (09:00)
[2016-06-23] MEDS: SODIUM CHLORIDE 0.9% FLUSH 5 ML FLUSH FLUSH SCH ×2 (09:00→21:00)
[2016-06-23] MEDS ORDERED: SODIUM CHLORID 0.9% 500 ML INJ 500 ML IV ONE (09:00)
[2016-06-23] MEDS: SERTRALINE HCL 100 MG TAB PO SCH (09:37)
[2016-06-23] MEDS: GABAPENTIN 300 MG CAP PO SCH ×3 (09:37→18:00)
[2016-06-23] MEDS ORDERED: SODIUM CHLOR 0.9% 1000 ML INJ 1,000 ML IV ONE (12:45)
[2016-06-23] MEDS ORDERED: PEG (High)/E-LYTE SOLN 4000 ML BTL PO ONE ×2 (16:00)
[2016-06-23] MEDS: ACETAMINOPHEN 325 MG TAB PO PRN (18:05)
[2016-06-23 19:59] LABS: CREATINE KINASE 132 U/L (39-308)
[2016-06-23] MEDS: DONEPEZIL HCL 5 MG TAB PO SCH (21:00)
[2016-06-23] MEDS: ATORVASTATIN 80 MG TAB PO SCH (21:55)
[2016-06-23] MEDS: LACTATED RINGER'S 1000 ML IV SCH (23:45)
[2016-06-24 01:12] VITALS: BP 132/76; PULSE 91; RESP 18; TEMP 97.9; O2SAT 97
[2016-06-24 02:26] LABS: AUTOMATED NEUTROPHIL # 2.2 TH/MM3 (1.8-7.7); BASOPHIL # 0.1 TH/MM3 (0-0.2); BASOPHIL % 1.2 % (0.0-2.0); EOSINOPHIL # 0.8 TH/MM3 (0-0.4); EOSINOPHIL % 16.5 % (0.0-4.0); HEMATOCRIT 36.5 % (39.0-51.0); HEMO FLAGS DIFF FINAL; LYMPH % 30.1 % (9.0-44.0); LYMPHOCYTE # 1.5 TH/MM3 (1.0-4.8); MEAN CELL VOLUME 86.7 FL (80.0-100.0); MEAN CORPUSCULAR HEMOGLOBIN 29.4 PG (27.0-34.0); MEAN CORPUSCULAR HGB CONC 33.9 % (32.0-36.0); MONO % 7.7 % (0.0-8.0); NEUT % 44.5 % (16.0-70.0); PLATELET COUNT 166 TH/MM3 (150-450); RED CELL DISTRIBUTION WIDTH 13.9 % (11.6-17.2); WHITE BLOOD COUNT 5.1 TH/MM3 (4.0-11.0)
[2016-06-24 02:28] LABS: ANION GAP 5 MEQ/L (5-15); BICARBONATE 32.3 MEQ/L (21.0-32.0); BLOOD UREA NITROGEN LESS THAN 1 MG/DL (7-18); CHLORIDE 108 MEQ/L (98-107); GLOMERULAR FILTRATION RATE 109 ML/MIN (>89); POTASSIUM 3.8 MEQ/L (3.5-5.1); SODIUM (NA) 145 MEQ/L (136-145)
[2016-06-24 02:32] LABS: CREATINE KINASE 130 U/L (39-308)
[2016-06-24] MEDS: MORPHINE SULFATE 4 MG/ML INJ IV PUSH PRN (02:52)
[2016-06-24] MEDS: SODIUM CHLOR 0.9% 1000 ML INJ 1,000 ML IV SCH ×2 (03:00→20:37)
[2016-06-24 04:50] VITALS: BP 116/81; PULSE 85; RESP 18; TEMP 98.1; O2SAT 96
[2016-06-24] MEDS: INSULIN NovoLIN REGULAR SUPPLEMENTAL SCALE SQ SCH ×4 (06:25→20:36)
--- NOTE | 2016-06-24 07:24 | HHI.PR ---
Subjective Remarks Follow up for epigastric pain, nausea/vomiting, diarrhea, GIB with hematochezia. The patient had an episode of chest "pounding" yesterday, telemetry reviewed and unremarkable, serial troponins/EKG without acute ischemic changes. Today he just has a slight discomfort of the chest substernally without radiation, states he has some mild shortness of breath, no diaphoresis/nausea/vomiting. The patient is going for EGD/colonoscopy today. He reports continued rectal bleeding overnight associated with diarrhea after bowel prep. He has continued abdominal pain located diffusely however worse at the epigastric and RUQ. No fevers/chills. He has no other medical complaints at this time. Objective Vitals Vital Signs Date Time Temp Pulse Resp B/P Pulse Ox O2 Delivery O2 Flow Rate FiO2 06/24/16 04:50 98.1 85 18 116/81 96 06/24/16 01:12 97.9 91 18 132/76 97 06/23/16 20:37 21 06/23/16 20:08 98.4 56 18 118/62 98 06/23/16 20:00 63 06/23/16 16:26 18 06/23/16 15:36 98.2 69 17 135/74 95 06/23/16 12:30 82/60 06/23/16 11:30 98.5 68 18 83/59 93 06/23/16 09:31 96 21 06/23/16 08:00 69 I/O 06/23/16 06/23/16 06/23/16 06/24/16 06/24/16 06/24/16 07:00 15:00 23:00 07:00 15:00 23:00 Intake Total 1836 ml 2700 ml 840 ml Output Total 1300 ml 2400 ml 400 ml Balance 536 ml 300 ml 440 ml Intake Oral 1040 ml 1200 ml IV Total 796 ml 1500 ml 840 ml Output Urine Total 1300 ml 2400 ml 400 ml # Voids 1 6 # Bowel Movements 4 0 Result Diagram: 06/24/16 01506/24/16156 Imaging Last Impressions Abdomen/Pelvis CT 06/21/161917 Signed Impressions: Service Date/Time: Tuesday, June 21, 2016 20:36 - CONCLUSION: 1. Mural thickening of the duodenum suggesting duodenitis. No obstruction, free fluid or free air. 2. Multiple gallstones in the gallbladder. Fady Shah MD Objective Remarks GENERAL: Well-nourished, well-developed middle aged male patient in [facility]. SKIN: Warm and dry. No rash. HEENT: Normocephalic. Atraumatic. Pupils equal and round. No scleral icterus. No injection or drainage. Mucous membranes pink and moist. NECK: Supple. Trachea midline. CARDIOVASCULAR: Regular rate and rhythm. S1, S2 noted. No murmur appreciated. RESPIRATORY: No accessory muscle use. Clear to auscultation. Breath sounds equal bilaterally. GASTROINTESTINAL: Abdomen soft, nondistended, mild RUQ TTP. Normoactive bowel sounds x4. MUSCULOSKELETAL: No obvious deformities. Extremities without clubbing, cyanosis , or edema. NEUROLOGICAL: Awake and alert. No obvious cranial nerve deficits. Motor grossly within normal limits. Normal speech. PSYCHIATRIC: Appropriate mood and affect; insight and judgment normal. Medications and IVs Current Medications Medications (Trade) Dose Ordered Sig/Pilar Route Start Time Stop Time Status Last Admin (NS 1000 ml Inj) 1,000 ml @ 70 mls/hr [id number] IV 06/22/16 02:00 06/24/16 03:00 (NS Flush) 2 ml UNSCH PRN FLUSH 06/22/16 01:30 (NS Flush) 2 ml BID FLUSH 06/22/16 09:00 (Tylenol) 650 mg Q4H PRN PO 06/22/16 01:30 06/23/16 18:05 (Zofran Inj) 4 mg Q6H PRN IVP 06/22/16 01:30 (Narcan Inj) 0.4 mg UNSCH PRN IV 06/22/16 01:30 (Lipitor) 80 mg HS PO 06/22/16 21:00 06/23/16 21:55 (Aricept) 10 mg HS PO 06/22/16 21:00 06/23/16 21:00 (Neurontin) 300 mg TID PO 06/22/16 09:00 06/23/16 16:20 (Lopressor) 50 mg DAILY PO 06/22/16 09:00 06/22/16 09:51 (Zoloft) 100 mg DAILY PO 06/22/16 09:00 06/23/16 09:37 (D50w (Vial) Inj) 25 ml UNSCH PRN IV PUSH 06/22/16 01:45 (Glucagon Inj) 1 mg UNSCH PRN OTHER 06/22/16 01:45 (Morphine Inj) 1 mg Q4H PRN IV PUSH 06/22/16 01:45 06/23/16 21:56 (Morphine Inj) 2 mg Q4H PRN IV PUSH 06/22/16 01:45 06/24/16 02:52 Tizanidine HCl 4 mg 4 mg TID PRN PO 06/22/16 12:00 06/23/16 18:04 (Lr 1000 ml Inj) 1,000 ml @ 30 mls/hr Q24H IV 06/22/16 23:45 (Protonix Inj) 40 mg BID IV PUSH 06/23/16 21:00 06/23/16 21:56 Urinary Catheter: No Vascular Central Line Catheter: No A/P Problem List: (1) GIB (gastrointestinal bleeding) ICD Code: K92.2 Status: Acute (2) Abdominal pain ICD Code: R10.9 Status: Acute (3) Weakness ICD Code: R53.1 Status: Acute Assessment and Plan 61-year-old male with hx of anemia, asthma, hemorrhoids, gastritis, CAD, cholelithiasis, DM, GERD, TIA, HTN, HLD, GI bleeding, colitis, presents with: Abdominal Pain/Nausea/Vomiting/Diarrhea with GIB, Hematochezia: Failed outpatient management. CT abd images reviewed, showed mural thickening of duodenum suggesting duodenitis; multiple gallstones. Completed course of flagyl recently as outpatient. Stool studies for CDiff, O&P, Giardia, C/S, negative so far. Continue clear liquids. Continue Protonix IV bid. Hold aspirin/plavix. GI consulted. Plan for EGD/Colonoscopy today. CAD with stent: On Plavix for history of drug-eluting stent placed 11/24. Discussed with GI, recommends holding Plavix if okay with cardiology. Discussed with Dr. Madrid, okay to hold Plavix after 6 months in this situation if there significant GI bleeding. It has been 7 months, cleared to hold by cardiology. Patient with episode of "heart pounding" yesterday, no specific pains, telemetry reviewed and unremarkable, serial troponins/EKG without acute ischemic changes. Generalized Weakness: likely related to dehydration with ongoing nausea/vomiting /diarrhea. Continue IVF. PT consult, recommends [facility] PT. HTN: chronic, continue patient's metoprolol. BP well controlled, slightly hypotensive at times, given IVF bolus, improved today. HLD: chronic, continue patient's statin. Diabetes: chronic, hold patient's metformin for now, monitor Accu-cheks and cover with SSI. All other medical conditions stable, continue home medications as appropriate. DVT prophylaxis: SCD, chemical contraindication due to rectal bleed Written by Maribel Moya, acting as scribe for Dr. Langford on 06/24/16 at 08:05. The documentation accurately reflects the work performed [id number] by me Dr. Langford on 06/24/16 at 08:05. Problem Qualifiers (1) Abdominal pain: Qualified Code: R10.13 - Epigastric pain Maribel Moya PA-C Jun 24, 2016 07:24 Izzy Langford MD Jun 24, 2016 14:26
[2016-06-24 08:00] VITALS: BP 127/67; PULSE 54; RESP 18; TEMP 97.3; O2SAT 97
[2016-06-24] MEDS: SODIUM CHLORIDE 0.9% FLUSH 5 ML FLUSH FLUSH SCH ×2 (09:00→20:29)
[2016-06-24] MEDS: GABAPENTIN 300 MG CAP PO SCH ×3 (09:00→17:07)
[2016-06-24] MEDS: METOPROLOL TARTRATE 50 MG TAB PO SCH (09:00)
[2016-06-24 10:00] VITALS: BP 127/67; PULSE 54; RESP 18; TEMP 97.3; O2SAT 97
--- NOTE | 2016-06-24 10:25 | EKG ---
Date Performed: 06/24/2016 Time Performed: 02:08:09 PTAGE: 61 years EKG: SINUS BRADYCARDIA MARKED LEFT AXIS DEVIATION RIGHT BUNDLE BRANCH BLOCK VOLTAGE CRITERIA FOR LVH ABNORMAL ECG Compared to prior tracing no significant change PREVIOUS TRACING : 06/23/2016 17.23 DOCTOR: Fausto Walker Interpretating Date/Time 06/24/2016 10:23:43
--- NOTE | 2016-06-24 10:25 | EKG ---
Date Performed: 06/23/2016 Time Performed: 17:23:46 PTAGE: 61 years EKG: SINUS BRADYCARDIA MARKED LEFT AXIS DEVIATION RIGHT BUNDLE BRANCH BLOCK VOLTAGE CRITERIA FOR LVH ABNORMAL ECG Compared to prior tracing no significant change PREVIOUS TRACING : 06/21/2016 20.00 DOCTOR: Fausto Walker Interpretating Date/Time 06/24/2016 10:23:51
[2016-06-24] MEDS ORDERED: PROPOFOL 200 MG/20 ML AMP IV ONE (14:30)
[2016-06-24 16:01] VITALS: BP 134/75; PULSE 61; RESP 18; TEMP 96.4; O2SAT 99
[2016-06-24] MEDS: SERTRALINE HCL 100 MG TAB PO SCH (16:12)
[2016-06-24] MEDS: PANTOPRAZOLE SODIUM 40 MG VIAL IV PUSH SCH ×2 (16:12→20:29)
[2016-06-24] MEDS: ACETAMINOPHEN 325 MG TAB PO PRN ×2 (18:58→23:46)
[2016-06-24 19:55] VITALS: BP 128/78; PULSE 91; RESP 18; TEMP 97.4; O2SAT 93
[2016-06-24] MEDS: DONEPEZIL HCL 5 MG TAB PO SCH (20:29)
[2016-06-24] MEDS: ATORVASTATIN 80 MG TAB PO SCH (20:29)
[2016-06-24] MEDS: LACTATED RINGER'S 1000 ML IV SCH (23:39)
[2016-06-25] VITALS (7 sets, daily range): BP systolic 96–130; BP diastolic 60–83; PULSE 56–98; RESP 18–19; TEMP 97.1–97.6; O2SAT 79–96
[2016-06-25] MEDS: INSULIN NovoLIN REGULAR SUPPLEMENTAL SCALE SQ SCH ×3 (06:29→17:55)
[2016-06-25] MEDS: MORPHINE SULFATE 4 MG/ML INJ IV PUSH PRN (06:33)
[2016-06-25] MEDS ORDERED: ACETAMINOPHEN/HYDROcodone 325 MG/10 MG TAB PO PRN (08:00)
[2016-06-25] MEDS ORDERED: PANTOPRAZOLE SOD 40 MG DELAYED RELEASE TAB PO SCH (09:00)
[2016-06-25] MEDS ORDERED: CLOPIDOGREL 75 MG TAB PO SCH (09:00)
[2016-06-25] MEDS: SODIUM CHLORIDE 0.9% FLUSH 5 ML FLUSH FLUSH SCH (09:00)
[2016-06-25] MEDS: GABAPENTIN 300 MG CAP PO SCH ×3 (09:07→17:55)
[2016-06-25] MEDS: METOPROLOL TARTRATE 50 MG TAB PO SCH (09:07)
[2016-06-25] MEDS: SERTRALINE HCL 100 MG TAB PO SCH (09:07)
[2016-06-25] MEDS ORDERED: DICYCLOMINE HCL 20 MG TAB PO PRN (12:15)
--- NOTE | 2016-06-25 12:23 | HHI.GIFU ---
Subjective Remarks Resting in bed. The patient states he is feeling better although he still has some mild abdominal cramping and generalized weakness/fatigue. Tolerating diet. (Ness Song) Objective Vitals I&O Vital Signs Date Time Temp Pulse Resp B/P Pulse Ox O2 Delivery O2 Flow Rate FiO2 06/25/16 11:46 97.4 63 19 129/66 96 06/25/16 07:55 97.1 81 18 130/83 79 06/25/16 05:17 97.4 81 18 96/60 93 06/25/16 04:16 64 06/25/16 00:17 97.4 98 18 123/67 93 06/24/16 19:55 97.4 91 18 128/78 93 06/24/16 16:01 96.4 61 18 134/75 99 06/24/16 14:51 54 16 126/66 98 06/24/16 14:46 56 16 112/65 97 06/24/16 14:41 97.9 67 16 116/64 93 I/O 06/24/16 06/24/16 06/24/16 06/25/16 06/25/16 06/25/16 07:00 15:00 23:00 07:00 15:00 23:00 Intake Total 840 ml Output Total 400 ml 750 ml Balance 440 ml -750 ml IV Total 840 ml Output Urine Total 400 ml 750 ml # Voids 6 1 2 # Bowel Movements 2 Laboratory Date/Time Procedure Status Source Growth 06/22/16 18:50 Cryptosporidium Exam - Final Complete Stool Stool NEGATIVE - NO CRYPTOSPORIDIUM ANTIGEN... 06/22/16 18:50 Stool Pus (ANETA) - Final Complete Stool Stool MODERATE WBC'S 06/22/16 18:50 Giardia Antigen (ANETA) - Final Complete Stool Stool NEGATIVE - NO GIARDIA ANTIGEN DETECTE... 06/22/16 18:50 - Final Complete Stool Stool NO ENTERIC PATHOGENS DETECTED BY PCR... Imaging Last Impressions Abdomen/Pelvis CT 06/21/161917 Signed Impressions: Service Date/Time: Tuesday, June 21, 2016 20:36 - CONCLUSION: 1. Mural thickening of the duodenum suggesting duodenitis. No obstruction, free fluid or free air. 2. Multiple gallstones in the gallbladder. Fady Shah MD Physical Exam HEENT: Normocephalic; atraumatic; no jaundice. Throat is clear. NECK: Neck is supple, no JVD, no lymphadenopathy. CHEST: CTA CARDIAC: RRR ABDOMEN: Soft, nondistended, nontender; no hepatosplenomegaly; bowel sounds are present in all four quadrants. EXTREMITIES: No clubbing, cyanosis, or edema. SKIN: Normal; no rash; no jaundice. INSIDE SALES REPRESENTATIVE: No focal deficits; alert and oriented times three. (Ness Song) Assessment and Plan Plan ASSESSMENT: - GIB with hematochezia. Pt has been having n/v/d x 1 month and started having bloody diarrhea earlier in week. States he is having one loose stool per day with large amount of red blood. S/P EGD/Colonoscopy (06/24/16) ---> gastritis, irregular Z line, internal hemorrhoids. Pathology pending. H&H 12.4/36.5 - N/V/D. Abdomen/Pelvis CT (06/21/16)----> 1. Mural thickening of the duodenum suggesting duodenitis. No obstruction, free fluid or free air. 2. Multiple gallstones in the gallbladder. LFT and Lipase normal. EGD/ colonoscopy as above. Stool studies unremarkable. Patient had a negative HIDA scan in April. Improved - Abdominal pain. Mid abdominal pain associated with food intake. States that his symptoms have been improved although he still having some mild abdominal cramping. We'll give trial of probiotics and dicyclomine as needed - Abn. imaging of the duodenum suggesting duodenitis. EGD with gastritis, irregular Z line. Pathology pending PPI - CAD. S/P Cardiac cath with drug eluding stent placement in November by Dr. Welch, Plavix resumed. - Asthma, DM, Hx TIA, HTN, Hyperlipidemia. Per primary PLAN: - Okay to d/c home from GI standpoint - Await pathology - DIMAS - Cont. PPI - Trial of probiotics - Trial of dicyclomine - FU GI 2 weeks - PT seen and examined by Dr. Rothman and myself and this note is written on his behalf (Ness Song) Physician Comments seen, examined agree with above (Paige Munson MD) Ness Song Jun 25, 2016 12:23 Paige Munson MD Jun 25, 2016 17:26
[2016-06-25] MEDS: LACTOBACILLUS ACIDOPHILUS TAB PO SCH ×2 (13:10→17:55)
[2016-06-25] MEDS: SODIUM CHLOR 0.9% 1000 ML INJ 1,000 ML IV SCH (13:10)
[2016-06-25] MEDS ORDERED: DICY20TA10 PO (13:25)
[2016-06-25] MEDS ORDERED: LACT PO (13:25)
[2016-06-25] MEDS ORDERED: PANT40TA3 PO (13:25)
--- NOTE | 2016-06-25 13:29 | HHI.DS ---
Discharge Summary Admission Date Jun 22, 2016 at 00:33 Discharge Date: Jun 25, 2016 Admitting Diagnosis Abdominal Pain (1) GIB (gastrointestinal bleeding) ICD Code: K92.2 Diagnosis: Principal (2) Abdominal pain ICD Code: R10.9 Diagnosis: Principal (3) Weakness ICD Code: R53.1 Diagnosis: Secondary Procedures Colonoscopy 06/24/16 Brief History - From Admission 61 years old male sent to the hospital by his GI due to worsening epigastric pain with some rectal bleed has been going on 3 days ago, no fever or chills, no lightheaded blurry vision or headache dizziness or headache or flulike syndrome, no diarrhea or constipation, abdominal pain is around 7 out of 10, as per the patient and makes him very weak and debilitated, he talked to his GI this morning and he was told to go to ED. In general patient is very poor historian,Patient has been placed on Flagyl by the material coordinator, patient stated last time he saw blood was yesterday CBC/BMP: 06/24/16 0157 06/24/16 015 Significant Findings Laboratory Tests Test 06/23/16 06/23/16 06/24/16 03:40 19:04 01:57 Red Blood Count 4.11 MIL/MM3 4.20 MIL/MM3 (4.50-5.90) (4.50-5.90) Hemoglobin 12.0 GM/DL 12.4 GM/DL (13.0-17.0) (13.0-17.0) Hematocrit 36.1 % 36.5 % (39.0-51.0) (39.0-51.0) Monocytes (%) (Auto) 8.5 % (0.0-8.0) Eosinophils (%) (Auto) 12.6 % 16.5 % (0.0-4.0) (0.0-4.0) Eosinophils # (Auto) 0.5 TH/MM3 0.8 TH/MM3 (0-0.4) (0-0.4) Chloride Level 108 MEQ/L 108 MEQ/L (98-107) (98-107) Blood Urea Nitrogen 2 MG/DL (7-18) LESS THAN 1 MG/DL (7-18) Calcium Level 8.3 MG/DL 8.2 MG/DL (8.5-10.1) (8.5-10.1) Total Protein 5.6 GM/DL (6.4-8.2) Albumin 3.0 GM/DL (3.4-5.0) Troponin I LESS THAN 0.02 LESS THAN 0.02 NG/ML NG/ML (0.02-0.05) (0.02-0.05) Carbon Dioxide Level 32.3 MEQ/L (21.0-32.0) Imaging Last Impressions Abdomen/Pelvis CT 06/21/161917 Signed Impressions: Service Date/Time: Tuesday, June 21, 2016 20:36 - CONCLUSION: 1. Mural thickening of the duodenum suggesting duodenitis. No obstruction, free fluid or free air. 2. Multiple gallstones in the gallbladder. Fady Shah MD PE at Discharge GENERAL: Well-nourished, well-developed middle aged male patient in [facility]. SKIN: Warm and dry. No rash. HEENT: Normocephalic. Atraumatic. Pupils equal and round. No scleral icterus. No injection or drainage. Mucous membranes pink and moist. NECK: Supple. Trachea midline. CARDIOVASCULAR: Regular rate and rhythm. S1, S2 noted. No murmur appreciated. RESPIRATORY: No accessory muscle use. Clear to auscultation. Breath sounds equal bilaterally. GASTROINTESTINAL: Abdomen soft, nondistended, mild RUQ TTP. Normoactive bowel sounds x4. MUSCULOSKELETAL: No obvious deformities. Extremities without clubbing, cyanosis , or edema. NEUROLOGICAL: Awake and alert. No obvious cranial nerve deficits. Motor grossly within normal limits. Normal speech. PSYCHIATRIC: Appropriate mood and affect; insight and judgment normal. Pt update on day of discharge Patient reports that the weakness he had when he presented with has improved. He has been ambulating. He lives at home with his godson. He still has some abdominal cramping. He states he has some pain medication at home. Hospital Course 61-year-old male with hx of anemia, asthma, hemorrhoids, gastritis, CAD, cholelithiasis, DM, GERD, TIA, HTN, HLD, GI bleeding, colitis, presents with: Abdominal Pain/Nausea/Vomiting/Diarrhea with GIB, Hematochezia: Failed outpatient management. CT abd images reviewed, showed mural thickening of duodenum suggesting duodenitis; multiple gallstones. Completed course of flagyl recently as outpatient. Stool studies for CDiff, O&P, Giardia, C/S, negative. Full diet as tolerated. Continue Protonix. Held aspirin/plavix. GI consulted and performed EGD and colonoscopy. Colonoscopy showed internal and external hemorrhoids; no signs of bleeding on enteroscopy. She had prescribed trial of Bentyl and recommended outpatient follow-up. CAD with stent: On Plavix for history of drug-eluting stent placed 11/24. Plavix held secondary to bleeding as above with cardiology permission, and bleeding improved. Cleared by GI to resume Plavix. Patient with episode of "heart pounding" during admission, no specific chest pains, telemetry unremarkable, serial troponins/EKG without acute ischemic changes. Generalized Weakness: likely related to dehydration with ongoing nausea/vomiting /diarrhea. Received IVF. PT consult, recommends [facility] PT, case management consulted to arrange. HTN: chronic, continue patient's metoprolol. BP well controlled at this time HLD: chronic, continue patient's statin. Diabetes: Continue home metformin. All other medical conditions stable, continue home medications as appropriate. Pt Condition on Discharge: Stable Discharge Disposition: Disch w/ Home Health Serv Discharge Time: > 30 minutes Discharge Instructions DIET: Follow Instructions for: Heart Healthy Diet, Diabetic Diet Activities you can perform: Regular-No Restrictions Follow up Referrals: Gastroenterology - 2 Weeks @ [facility] PCP Follow-up - 1 Week with Jerel Zepeda DO New Medications: Dicyclomine (Dicyclomine) 20 Mg Tab 20 MG PO TID PRN cramping #20 TAB Lactobacillus Acidophilus (Acidophilus/l-Sporogenes) 1 Tab Tab 1 TAB PO TID probiotic #21 TAB Pantoprazole (Pantoprazole) 40 Mg Tab 40 MG PO DAILY Reflux #30 TAB Continued Medications: Aspirin DR (Aspirin Adult Low Strength) 81 Mg Tabdr 81 MG PO DAILY TAB Atorvastatin (Lipitor) 80 Mg Tab 80 MG PO HS Cholesterol Management #30 Ref 0 TAB Clopidogrel (Clopidogrel) 75 Mg Tab 75 MG PO DAILY Blood Clot Prevention #30 Ref 0 TAB Donepezil (Donepezil) 10 Mg Tab 10 MG PO HS Dementia #30 Ref 0 TAB Gabapentin (Gabapentin) 300 Mg Cap 300 MG PO TID #90 Ref 0 CAP Hydrocodone-Acetaminophen ([place]) 10-325 Mg Tab 1 TAB PO TID PRN PAIN Ref 0 TAB Metformin (Metformin) 1,000 Mg Tab 1000 MG PO BIDPC With meals Blood Sugar Management #60 Ref 0 TAB Metoprolol Tartrate (Metoprolol Tartrate) 50 Mg Tab 50 MG PO DAILY #30 Ref 0 TAB Nitroglycerin SL (Nitroglycerin SL) 0.4 Mg Subl 0.4 MG SL DIRECTED ONE TABLET UNDER THE TONGUE NEEDED FOR CHEST PAIN, MAY REPEAT EVERY FIVE MINUTES FOR A TOTAL OF 3 DOSES OR CALL 911 IF NO RELIEF PRN CHEST PAIN #100 Ref 0 TAB.SL Ondansetron Odt (Ondansetron Odt) 4 Mg Tab 4 MG SL Q6HR PRN Nausea/Vomiting Ref 0 TAB Pantoprazole (Pantoprazole) 40 Mg Tab 40 MG PO DAILY Reflux #30 Ref 0 TAB Sertraline (Sertraline) 100 Mg Tab 100 MG PO DAILY #30 Ref 0 TAB Tizanidine (Tizanidine) 4 Mg Cap 4 MG PO TID PRN MUSCLE SPASM Ref 0 CAP Discontinued Medications: Metronidazole (Metronidazole) 250 Mg Tab 250 MG PO TID Infection Ref 0 TAB Additional Information Written by Cayetano Mcfarlane, acting as scribe for Dr. Preston on 06/25/16 at 13:29. The documentation accurately reflects the work performed [id number] by dc on at 1329. Cayetano Mcfarlane Jun 25, 2016 1:29 pm Jose Preston DO Jun 25, 2016 4:31 pm
--- NOTE | 2016-06-25 13:29 | HHI.FF ---
Face to Face Verification Diagnosis: (1) GIB (gastrointestinal bleeding) (2) Abdominal pain (3) Weakness (4) Physical deconditioning (5) History of CVA (cerebrovascular accident) Physical Therapy Order: Evaluate and Treat, Improve ambulation, Strength and gait training Home Health Nursing Order: Medical education Signs/symptoms of disease process Diabetic education Medication education-adverse effect Nursing assessment with vital signs I have seen patient Jonnathan Keller on 06/25/16. My clinical findings support the need for the requested home health care services because: Ltd mobility - disease progression Deconditioned w/ increased weakness Limited ability to care for self Need for psychosocial assistance I certify that my clinical findings support that this patient is homebound because: Unsteady gait/balance Need for psychosocial assistance Poor cardiac reserve Cayetano Mcfarlane Jun 25, 2016 13:29
== END 2016-06-25 18:50 | disposition home or self-care (01) ==
LOC: NEPA 17:27 → NEDA 06-22 00:33 → NEPFCDU 06-22 03:32
PROVIDERS: ADMIT Hospitalist; ATTEND Hospitalist
DX: K64.1 Second degree hemorrhoids (principal); K64.4 Residual hemorrhoidal skin tags; K52.9 Noninfective gastroenteritis and colitis, unspecified; K29.80 Duodenitis without bleeding; K21.9 Gastro-esophageal reflux disease without esophagitis; K80.20 Calculus of gallbladder without cholecystitis without obstruction; I10 Essential (primary) hypertension; E86.0 Dehydration; I25.10 Atherosclerotic heart disease of native coronary artery without angina pectoris; R94.31 Abnormal electrocardiogram [ECG] [EKG]; E78.5 Hyperlipidemia, unspecified; E11.9 Type 2 diabetes mellitus without complications; E78.00 Pure hypercholesterolemia, unspecified; J45.909 Unspecified asthma, uncomplicated; K31.9 Disease of stomach and duodenum, unspecified; Z95.1 Presence of aortocoronary bypass graft; Z95.5 Presence of coronary angioplasty implant and graft; Z86.73 Personal history of transient ischemic attack (TIA), and cerebral infarction without residual deficits
CPT/HCPCS: 00810; 43239; 45380; 74177; 80048; 80076; 81001; 82550; 82948; 83690; 84484; 85025; 85610; 85730; 87205; 87328; 87493; 87506; 88305; 93005; 96372; 96374; 96375; 96376; 97162; 97530; 99285; C9113; G0378; G8987; G8988; J0500; J2270; J2405; J7030; J7040; Q9967; 87329

== ENCOUNTER 2016-07-13 04:43 | Emergency (ER) | payer MEDICAID ==
[~2016-07-13] VITALS: Ht 175.3 cm; Wt 68.0 kg
[~2016-07-13 04:43] MED LIST changes: -DICL50TA PO; +DICY20TA10 PO; -IBUP800T23 PO; +LACT PO; -LISI10TA3 PO; +METF1000 PO; +NITR1SUB3 SL; +ONDA4TAB7 SL; +SERT-129 PO; -TRAM50TA PO; -WHEEMIS3
[2016-07-13 04:47] VITALS: BP 167/101; PULSE 98; RESP 16; TEMP 97.6; O2SAT 98
[2016-07-13] MEDS ORDERED: DIPHTH/TETANUS/ACEL PERTUSSIS (BOOSTER) 0.5 ML VIAL/PFS IM ONE (05:45)
--- NOTE | 2016-07-13 06:35 | RADRPT ---
EXAM DATE/TIME: 07/13/2016 05:45 [facility] COMPARISON: CT BRAIN W/O CONTRAST, April 21, 2016, 8:02. INDICATIONS : Trauma, fall. RADIATION DOSE: 56.35 CTDIvol (mGy) MEDICAL HISTORY : Hypertension. Cerebrovascular disease. SURGICAL HISTORY : None. ENCOUNTER: Initial ACUITY: 1 day PAIN SCALE: 5/10 LOCATION: cranial TECHNIQUE: Multiple contiguous axial images were obtained of the head. Using automated exposure control and adj ustment of the mA and/or kV according to patient size, radiation dose was kept as low as reasonably a chievable to obtain optimal diagnostic quality images. FINDINGS: There is stable left parietal and bilateral temporal encephalomalacia. A small area of encephalomalac ia in the left occipital region appears to been evolving at the time of the prior scan. There is no e vidence of intracranial hemorrhage or mass. There is nothing to indicate acute infarction. There is s table mucosal disease mainly in the ethmoid sinuses. There is no evidence of skull fracture. CONCLUSION: No acute intracranial injury Tin Reynoso MD on July 13, 2016 at 6:31 Board Certified Radiologist. This report was verified electronically.
--- NOTE | 2016-07-13 06:38 | RADRPT ---
EXAM DATE/TIME: 07/13/2016 05:45 [facility] COMPARISON: CT CERVICAL SPINE W/O CONTRAST, April 21, 2016, 8:02. INDICATIONS : Trauma, fall. RADIATION DOSE: 23.41 CTDIvol (mGy) MEDICAL HISTORY : Hypertension. SURGICAL HISTORY : None. ENCOUNTER: Initial ACUITY: 1 day PAIN SCALE: 5/10 LOCATION: neck TECHNIQUE: Volumetric scanning of the cervical spine was performed. Multiplanar reconstructions in the sagittal, coronal and oblique axial planes were performed. Using automated exposure control and adjustment o f the mA and/or kV according to patient size, radiation dose was kept as low as reasonably achievable to obtain optimal diagnostic quality images. FINDINGS: Cervical spine alignment is satisfactory. There is no evidence of cervical spine fracture. There are degenerative changes with disc space narrowing and endplate osteophyte formation most notably at C4-5 , C5-6 and C6-7 levels which appear basically stable. Stable mild associated canal compromise and mod erate asymmetrically left-sided foraminal stenosis in the lower cervical spine. There is no evidence of paraspinal hematoma. Right lobe thyroid cyst again noted CONCLUSION: No evidence of acute bony injury in the cervical spine Tin Reynoso MD on July 13, 2016 at 6:33 Board Certified Radiologist. This report was verified electronically.
--- NOTE | 2016-07-13 06:39 | RADRPT ---
EXAM DATE/TIME: 07/13/2016 05:45 [facility] COMPARISON: No previous studies available for comparison. INDICATIONS : Trauma, fall. RADIATION DOSE: 36.81 CTDIvol (mGy) MEDICAL HISTORY : Hypertension. SURGICAL HISTORY : None. ENCOUNTER: Initial ACUITY: 1 day PAIN SCORE: 5/10 LOCATION: facial TECHNIQUE: Volumetric scanning of the facial bones was performed. Using automated exposure control and adjustme nt of the mA and/or kV according to patient size, radiation dose was kept as low as reasonably achiev able to obtain optimal diagnostic quality images. FINDINGS: There is no evidence of facial fracture. The orbits are symmetric and intact. There is moderate mucos al sinus disease with involvement of the frontal recesses, the ethmoid sinuses and the right maxillar y antrum. CONCLUSION: Sinus disease. No evidence of facial fracture Tin Reynoso MD on July 13, 2016 at 6:37 Board Certified Radiologist. This report was verified electronically.
[2016-07-13 07:09] LABS: APTT (PATIENT) 24.8 SEC (24.3-30.1); PROTHROMBIN TIME - PATIENT 11.4 SEC (9.8-11.6)
--- NOTE | 2016-07-13 07:14 | RADRPT ---
EXAM DATE/TIME: 07/13/2016 06:00 [facility] COMPARISON: No previous studies available for comparison. INDICATIONS : Trauma, fall. MEDICAL HISTORY : None. SURGICAL HISTORY : None. ENCOUNTER: Initial ACUITY: 1 day PAIN SCORE: 5/10 LOCATION: Right wrist. FINDINGS: Three view examination of the right wrist demonstrates no soft tissue swelling, dislocation, or fract ure. The carpal bones are in normal alignment. The joint spaces are maintained. Bony mineralizatio n is normal. CONCLUSION: No acute bony injury Tin Reynoso MD on July 13, 2016 at 7:11 Board Certified Radiologist. This report was verified electronically.
--- NOTE | 2016-07-13 07:15 | RADRPT ---
EXAM DATE/TIME: 07/13/2016 06:03 [facility] COMPARISON: No previous studies available for comparison. INDICATIONS : Trauma, fall. MEDICAL HISTORY : None. SURGICAL HISTORY : None. ENCOUNTER: Initial ACUITY: 1 day PAIN SCORE: 4/10 LOCATION: Left wrist. FINDINGS: Three view examination of the left wrist demonstrates no soft tissue swelling, dislocation, or fractu re. The carpal bones are in normal alignment. The joint spaces are maintained. Bony mineralization is normal. CONCLUSION: No acute bony injury Tin Reynoso MD on July 13, 2016 at 7:13 Board Certified Radiologist. This report was verified electronically.
--- NOTE | 2016-07-13 07:15 | RADRPT ---
EXAM DATE/TIME: 07/13/2016 06:04 [facility] COMPARISON: No previous studies available for comparison. INDICATIONS : Trauma, fall. MEDICAL HISTORY : None. SURGICAL HISTORY : None. ENCOUNTER: Initial ACUITY: 1 day PAIN SCORE: 5/10 LOCATION: Left hand. FINDINGS: Three view examination of the left hand demonstrates no soft tissue swelling, dislocation, or fractur e. The carpal bones appear intact. The interphalangeal and metacarpophalangeal joints are intact. Bony mineralization is normal. CONCLUSION: No acute bony injury Tin Reynoso MD on July 13, 2016 at 7:13 Board Certified Radiologist. This report was verified electronically.
--- NOTE | 2016-07-13 08:14 | PD ---
HPI Chief Complaint: General Weakness Time Seen by Provider: 05:25 Travel History International Travel<30 days: No Contact w/Intl Traveler<30days: No Traveled to known affect area: No History of Present Illness HPI Patient is a 61-year-old male comes in after a fall today. He says he lost his balance and fell into a cactus. He tried to brace his fall with his hands, but hit his face. He has small cuts to his arms and his face. He denies any loss of consciousness. He says he has some mild neck pain. Denies any numbness or tingling of his extremities. He denies any dizziness, nausea or vomiting. He denies any chest pain or shortness of breath. PFSH Past Medical History Arthritis: No Asthma: Yes Blood Disorders: No Anxiety: Yes Depression: Yes Heart Rhythm Problems: No Cardiac Catheterization: Yes (CORONARY STENT) Cardiovascular Problems: Yes (CAGB,STENTS, HTN) High Cholesterol: Yes Chemotherapy: No Chest Pain: Yes Congestive Heart Failure: No COPD: No Cerebrovascular Accident: Yes (CVA X3) Coronary Artery Disease: Yes Diabetes: Yes Patient Takes Glucophage: No Diminished Hearing: No Endocrine: Yes Gastrointestinal Disorders: Yes GERD: Yes Glaucoma: No Genitourinary: No Heparin Induced Thrombocytopen: No Hypertension: Yes Immune Disorder: No Implanted Vascular Access Dvce: Yes Musculoskeletal: Yes Neurologic: Yes (PREVIOUS STROKE) Psychiatric: No Reproductive: No Respiratory: Yes Immunizations Current: No Migraines: No Myocardial Infarction: No Radiation Therapy: No Sleep Apnea: No Thyroid Disease: No PNEUMOCCOCAL Vaccine (Year): 1 Past Surgical History Abdominal Surgery: No AICD: No Arteriovenous Shunt: No Body Medical Devices: PIN LEFT HIP Cardiac Surgery: No Coronary Artery Bypass Graft: Yes ( OCTOBER 2011, 5 VESSELS) Ear Surgery: No Endocrine Surgery: No Eye Surgery: No Genitourinary Surgery: No Gynecologic Surgery: No Insulin Pump: No Joint Replacement: No Neurologic Surgery: No Oral Surgery: No Pacemaker: No Thoracic Surgery: Yes (CABG october 2011 ) Tonsillectomy: Yes Other Surgery: Yes (SINUS SURGERY) Family History Family Myocardial Infarction: No Social History Alcohol Use: No Tobacco Use: No Substance Use: No Allergies-Medications (Allergen,Severity, Reaction): Coded Allergies: Bee Sting (Verified Allergy, Severe, THROAT SWELLS, 07/13/16) Penicillin (Verified Allergy, Severe, SWELLS UP, 07/13/16) Wasp (Verified Allergy, Severe, SWELLS UP, 07/13/16) Reported Meds & Prescriptions Reported Meds & Active Scripts Active Acidophilus/l-Sporogenes (Lactobacillus Acidophilus) 1 Tab Tab 1 Tab PO TID Pantoprazole (Pantoprazole Sodium) 40 Mg Tab 40 Mg PO DAILY Dicyclomine (Dicyclomine HCl) 20 Mg Tab 20 Mg PO TID PRN Reported Sertraline (Sertraline HCl) 100 Mg Tab 100 Mg PO DAILY Nitroglycerin SL (Nitroglycerin) 0.4 Mg Subl 0.4 Mg SL DIRECTED PRN ONE TABLET UNDER THE TONGUE NEEDED FOR CHEST PAIN, MAY REPEAT EVERY FIVE MINUTES FOR A TOTAL OF 3 DOSES OR CALL 911 IF NO RELIEF Metformin (Metformin HCl) 1,000 Mg Tab 1,000 Mg PO BIDPC With meals Ondansetron Odt 4 Mg Tab 4 Mg SL Q6HR PRN Clopidogrel (Clopidogrel Bisulfate) 75 Mg Tab 75 Mg PO DAILY [place] (Hydrocodone-Acetaminophen) 10-325 Mg Tab 1 Tab PO TID PRN Aspirin Adult Low Strength (Aspirin) 81 Mg Tabdr 81 Mg PO DAILY Gabapentin 300 Mg Cap 300 Mg PO TID Lipitor (Atorvastatin Calcium) 80 Mg Tab 80 Mg PO HS Donepezil 10 Mg Tab 10 Mg PO HS Metoprolol Tartrate 50 Mg Tab 50 Mg PO DAILY Pantoprazole (Pantoprazole Sodium) 40 Mg Tab 40 Mg PO DAILY Tizanidine (Tizanidine HCl) 4 Mg Cap 4 Mg PO TID PRN Review of Systems Except as stated in HPI: all other systems reviewed are Neg General / Constitutional: No: Fever Eyes: No: Blurred Vision HENT: No: Headaches, Lightheadedness Cardiovascular: No: Chest Pain or Discomfort Respiratory: No: Shortness of Breath Gastrointestinal: No: Nausea, Vomiting Musculoskeletal: Positive: Pain Skin: Positive Lesions Neurologic: No: Weakness, Dizziness, Syncope Physical Exam Narrative GENERAL: Awake and alert, in no acute distress. SKIN: Warm and dry. Small abrasions to the face as well as both arms. HEAD: Atraumatic. Normocephalic. EYES: Pupils equal and round. No scleral icterus. Extraocular movements intact. ENT: Mucous membranes pink and moist. NECK: Trachea midline. No JVD. No cervical spine tenderness. CARDIOVASCULAR: Regular rate and rhythm. No murmur appreciated. RESPIRATORY: No accessory muscle use. Clear to auscultation. Breath sounds equal bilaterally. MUSCULOSKELETAL: No obvious deformities. No clubbing. No cyanosis. No edema. Tender to palpation of both elbows as well as the left hand and wrist. Pulses intact. Sensation intact. No thoracic or lumbar spine tenderness. No pelvic tenderness. NEUROLOGICAL: Awake and alert. No obvious cranial nerve deficits. Motor grossly within normal limits. Normal speech. PSYCHIATRIC: Appropriate mood and affect; insight and judgment normal. Data Data Last Documented VS Vital Signs Date Time Temp Pulse Resp B/P Pulse Ox O2 Delivery O2 Flow Rate FiO2 07/13/16 04:47 97.6 98 16 167/[address] Brain W/O Iv Contrast(Rout) (07/13/16 ) Ct Cerv Spine W/O Contrast (07/13/16 ) Ct Facial Bones W/O Iv Cont (07/13/16 ) Hand, Complete ([id number]) (07/13/16 ) Wrist, Complete ([id number]) (07/13/16 ) Wrist, Complete ([id number]) (07/13/16 ) Act Partial Throm Time (Ptt) (07/13/16 05:38) Prothrombin Time / Inr (Pt) (07/13/16 05:38) [id number] (Booster) Inj (Boostrix (07/13/16 05:45) Wound Care (07/13/16 07:41) Labs Laboratory Tests Test 07/13/16 06:30 Prothrombin Time 11.4 SEC Prothromb Time International 1.0 RATIO Ratio Activated Partial 24.8 SEC Thromboplast Time MDM Medical Decision Making Medical Screen Exam Complete: Yes Emergency Medical Condition: Yes Medical Record Reviewed: Yes Differential Diagnosis Hand fracture versus wrist fracture versus nasal bone fracture versus ICH Narrative Course Patient is a 61-year-old male comes in after a fall today. Exam shows several small abrasions. CT head, C-spine, facial bones performed, show no acute abnormalities. X-ray of the elbow and wrists performed show no acute abnormalities. Patient given tetanus vaccine. Wounds cleaned and dressed. He is advised to keep his wounds clean and dry. Advised to return any time for any worsening symptoms. Diagnosis Primary Impression: Fall Qualified Code: W19.XXXA - Fall, initial encounter Additional Impression: Abrasion Patient Instructions: Abrasion (ED), Fall Prevention (ED), General Instructions Departure Forms: Tests/Procedures Additional Instructions: Follow up with your doctor. Keep your wounds clean and dry. Return to the ED as needed for any worsening symptoms. Disposition: 01 DISCHARGE HOME Condition: Stable Casandra Cason MD Jul 13, 2016 08:14
== END 2016-07-13 09:05 | disposition home or self-care (01) ==
LOC: NEPC 04:43
DX: S00.81XA Abrasion of other part of head, initial encounter (principal); S40.812A Abrasion of left upper arm, initial encounter; S40.811A Abrasion of right upper arm, initial encounter; E11.9 Type 2 diabetes mellitus without complications; I10 Essential (primary) hypertension; I25.10 Atherosclerotic heart disease of native coronary artery without angina pectoris; F41.8 Other specified anxiety disorders; Z95.1 Presence of aortocoronary bypass graft; Z79.4 Long term (current) use of insulin; Z86.73 Personal history of transient ischemic attack (TIA), and cerebral infarction without residual deficits; Z23 Encounter for immunization; W19.XXXA Unspecified fall, initial encounter; Y93.9 Activity, unspecified; Y92.9 Unspecified place or not applicable; Y99.9 Unspecified external cause status
CPT/HCPCS: 70450; 70486; 72125; 73110; 73130; 85610; 85730; 90471; 90715

== ENCOUNTER 2016-07-13 09:46 | Inpatient (IN) | payer MEDICAID ==
[~2016-07-13] VITALS: Ht 175.3 cm; Wt 70.1 kg
[2016-07-13] VITALS (7 sets, daily range): BP systolic 124–151; BP diastolic 62–93; PULSE 88–119; RESP 18–20; TEMP 98.3–99; O2SAT 95–99
--- NOTE | 2016-07-13 09:56 | PD ---
HPI Chief Complaint: Fall Time Seen by Provider: 09:50 Travel History International Travel<30 days: No Contact w/Intl Traveler<30days: No Traveled to known affect area: No History of Present Illness HPI 61-year-old male with history of diabetes, CAD, CABG, CVA with left-sided weakness, recently discharged from the emergency department for a fall, returns by ambulance for evaluation of another fall. The patient does not recall the details of the fall, but states he woke up on the ground. He is unsure if he lost consciousness. 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 He had CT head, facial bones, cervical spine, x-rays of the left forearm and left hand which were all negative for acute process. He is now complaining of facial pain and has an obvious forehead hematoma with abrasions over his nose. He is also complaining of some neck pain as well as some chest discomfort. He is on plavix and aspirin. PFSH Past Medical History Arthritis: No Asthma: Yes Blood Disorders: No Anxiety: Yes Depression: Yes Heart Rhythm Problems: No Cardiac Catheterization: Yes (CORONARY STENT) Cardiovascular Problems: Yes (CAGB,STENTS, HTN) High Cholesterol: Yes Chemotherapy: No Chest Pain: Yes Congestive Heart Failure: No COPD: No Cerebrovascular Accident: Yes (CVA X3) Coronary Artery Disease: Yes Diabetes: Yes Diminished Hearing: No Endocrine: Yes Gastrointestinal Disorders: Yes GERD: Yes Glaucoma: No Genitourinary: No Heparin Induced Thrombocytopen: No Hypertension: Yes Immune Disorder: No Implanted Vascular Access Dvce: Yes Musculoskeletal: Yes Neurologic: Yes (PREVIOUS STROKE) Psychiatric: No Reproductive: No Respiratory: Yes Immunizations Current: No Migraines: No Myocardial Infarction: No Radiation Therapy: No Sleep Apnea: No Thyroid Disease: No PNEUMOCCOCAL Vaccine (Year): 1 Past Surgical History Abdominal Surgery: No AICD: No Arteriovenous Shunt: No Body Medical Devices: PIN LEFT HIP Cardiac Surgery: No Coronary Artery Bypass Graft: Yes ( OCTOBER 2011, 5 VESSELS) Ear Surgery: No Endocrine Surgery: No Eye Surgery: No Genitourinary Surgery: No Gynecologic Surgery: No Insulin Pump: No Joint Replacement: No Neurologic Surgery: No Oral Surgery: No Pacemaker: No Thoracic Surgery: Yes (CABG october 2011 ) Tonsillectomy: Yes Other Surgery: Yes (SINUS SURGERY) Social History Alcohol Use: No Tobacco Use: No Substance Use: No Allergies-Medications (Allergen,Severity, Reaction): Coded Allergies: Bee Sting (Verified Allergy, Severe, THROAT SWELLS, 07/13/16) Penicillin (Verified Allergy, Severe, SWELLS UP, 07/13/16) Wasp (Verified Allergy, Severe, SWELLS UP, 07/13/16) Reported Meds & Prescriptions Reported Meds & Active Scripts Active Pantoprazole (Pantoprazole Sodium) 40 Mg Tab 40 Mg PO DAILY Dicyclomine (Dicyclomine HCl) 20 Mg Tab 20 Mg PO TID PRN Reported Sertraline (Sertraline HCl) 100 Mg Tab 100 Mg PO DAILY Nitroglycerin SL (Nitroglycerin) 0.4 Mg Subl 0.4 Mg SL DIRECTED PRN ONE TABLET UNDER THE TONGUE NEEDED FOR CHEST PAIN, MAY REPEAT EVERY FIVE MINUTES FOR A TOTAL OF 3 DOSES OR CALL 911 IF NO RELIEF Metformin (Metformin HCl) 1,000 Mg Tab 1,000 Mg PO BIDPC With meals Ondansetron Odt 4 Mg Tab 4 Mg SL Q6HR PRN Clopidogrel (Clopidogrel Bisulfate) 75 Mg Tab 75 Mg PO DAILY [place] (Hydrocodone-Acetaminophen) 10-325 Mg Tab 1 Tab PO TID PRN Aspirin Adult Low Strength (Aspirin) 81 Mg Tabdr 81 Mg PO DAILY Gabapentin 300 Mg Cap 300 Mg PO TID Lipitor (Atorvastatin Calcium) 80 Mg Tab 80 Mg PO HS Donepezil 10 Mg Tab 10 Mg PO HS Metoprolol Tartrate 50 Mg Tab 50 Mg PO DAILY Tizanidine (Tizanidine HCl) 4 Mg Cap 4 Mg PO TID PRN Review of Systems Except as stated in HPI: all other systems reviewed are Neg Physical Exam Narrative GENERAL: Well-developed, well-nourished, awake, alert, GCS 15. SKIN: Warm and dry. Superficial abrasions over her nose. HEAD: Normocephalic. Superficial abrasions of her nose. Significant for head hematoma as well as anterior no swelling. No nasal septal hematoma. EYES: Pupils equal, round, 3 mm, reactive to light. EOMI. No scleral icterus. No injection or drainage. ENT: Skin exam as above. No nasal septal hematoma. Mucous membranes pink and moist. NECK: Trachea midline. No JVD. No midline cervical spine step-off or tenderness. CARDIOVASCULAR: Regular rate and rhythm. RESPIRATORY: No accessory muscle use. Clear to auscultation. Breath sounds equal bilaterally. GASTROINTESTINAL: Abdomen soft, non-tender, nondistended. MUSCULOSKELETAL: Left hand/forearm with clean/dry/intact sterile dressing. No clubbing. No cyanosis. No edema. NEUROLOGICAL: Awake and alert. No obvious cranial nerve deficits. Motor grossly within normal limits. Normal speech. PSYCHIATRIC: Appropriate mood and affect; insight and judgment normal. Data Data Last Documented VS Vital Signs Date Time Temp Pulse Resp B/P Pulse Ox O2 Delivery O2 Flow Rate FiO2 07/13/16 09:55 119 18 128/86 98 Room Air 07/13/16 09:51 98.3 Orders Electrocardiogram (07/13/16 09:51) Complete Blood Count With Diff (07/13/16 09:51) Comprehensive Metabolic Panel (07/13/16 09:51) Ckmb (Isoenzyme) Profile (07/13/16 09:51) Troponin I (07/13/16 09:51) Act Partial Throm Time (Ptt) (07/13/16 09:51) Prothrombin Time / Inr (Pt) (07/13/16 09:51) Chest, Single Ap (07/13/16 09:51) Ct Brain W/O Iv Contrast(Rout) (07/13/16 09:51) Ct Cerv Spine W/O Contrast (07/13/16 09:51) Blood Glucose (07/13/16 09:51) Ecg Monitoring (07/13/16 09:51) Iv Access Insert/Monitor (07/13/16 09:51) Oximetry (07/13/16 09:51) Sodium Chloride 0.9% Flush (Ns Flush) (07/13/16 10:00) Ct Facial Bones W/O Iv Cont (07/13/16 ) Urinalysis - C+S If Indicated (07/13/16 10:03) Lactic Acid (07/13/16 10:03) Blood Culture (07/13/16 10:03) Sodium Chlor 0.9% 1000 Ml Inj (Ns 1000 M (07/13/16 10:15) CKMB (07/13/16 10:13) CKMB% (07/13/16 10:13) Sodium Chlor 0.9% 1000 Ml Inj (Ns 1000 M (07/13/16 12:00) Sodium Chlor 0.9% 1000 Ml Inj (Ns 1000 M (07/13/16 12:00) Hand, Complete ([id number]) (07/13/16 ) Wrist, Limited (Ap&Lat) (07/13/16 ) Lactic Acid (07/13/16 13:15) Admit Order (Ed Use Only) (07/13/16 12:21) Labs Laboratory Tests Test 07/13/16 07/13/16 10:13 10:25 White Blood Count 9.9 TH/MM3 Red Blood Count 4.39 MIL/MM3 Hemoglobin 12.9 GM/DL Hematocrit 38.4 % Mean Corpuscular Volume 87.3 FL Mean Corpuscular Hemoglobin 29.4 PG Mean Corpuscular Hemoglobin 33.6 % Concent Red Cell Distribution Width 13.8 % Platelet Count 216 TH/MM3 Mean Platelet Volume 8.9 FL Neutrophils (%) (Auto) 79.7 % Lymphocytes (%) (Auto) 8.8 % Monocytes (%) (Auto) 8.2 % Eosinophils (%) (Auto) 2.7 % Basophils (%) (Auto) 0.6 % Neutrophils # (Auto) 7.9 TH/MM3 Lymphocytes # (Auto) 0.9 TH/MM3 Monocytes # (Auto) 0.8 TH/MM3 Eosinophils # (Auto) 0.3 TH/MM3 Basophils # (Auto) 0.1 TH/MM3 CBC Comment DIFF FINAL Differential Comment Prothrombin Time 11.2 SEC Prothromb Time International 1.0 RATIO Ratio Activated Partial 24.7 SEC Thromboplast Time Sodium Level 140 MEQ/L Potassium Level 3.8 MEQ/L Chloride Level 102 MEQ/L Carbon Dioxide Level 26.6 MEQ/L Anion Gap 11 MEQ/L Blood Urea Nitrogen 9 MG/DL Creatinine 1.25 MG/DL Estimat Glomerular Filtration 59 ML/MIN Rate Random Glucose 172 MG/DL Lactic Acid Level 6.0 mmol/L Calcium Level 8.8 MG/DL Total Bilirubin 0.4 MG/DL Aspartate Amino Transf 23 U/L (AST/SGOT) Alanine Aminotransferase 26 U/L (ALT/SGPT) Alkaline Phosphatase 95 U/L Total Creatine Kinase 309 U/L Creatine Kinase MB 3.9 NG/ML Creatine Kinase MB % 1.3 % Troponin I 0.02 NG/ML Total Protein 6.8 GM/DL Albumin 3.8 GM/DL Urine Color LIGHT-YELLOW Urine Turbidity CLEAR Urine pH 6.0 Urine Specific [place] 1.004 Urine Protein NEG mg/dL Urine Glucose (UA) NEG mg/dL Urine Ketones 10 mg/dL Urine Occult Blood NEG Urine Nitrite NEG Urine Bilirubin NEG Urine Urobilinogen LESS THAN 2.0 MG/DL Urine Leukocyte Esterase NEG Urine WBC LESS THAN 1 /hpf Urine Squamous Epithelial <1 /hpf Cells Urine Transitional Epithelial <1 /hpf Cells Microscopic Urinalysis Comment CULT NOT INDICATED MDM Medical Decision Making Medical Screen Exam Complete: Yes Emergency Medical Condition: Yes Medical Record Reviewed: Yes Differential Diagnosis Syncope, dysrhythmia, intracranial injury, facial bone fracture, cervical spine injury, ACS, PE Narrative Course Initial vital signs show heart rate 117, blood pressure 128/86, pulse ox 95% on room air, oral temp of 98.3F. Heart rate improved to 85 after a liter of normal saline. EKG reading reports atrial flutter, however I believe this is sinus tachycardia. CBC shows WBC 9.9, hemoglobin 12.9, hematocrit 38.4, platelets 216, neutrophils 79.7%. CMP is essentially unremarkable. Troponin is 0.02. UA is not suggestive of UTI. Lactic acid is 6.0. CT head: New frontal scalp hematoma, no skull fracture, bilateral nasal bone fractures. Cranial no acute interval change. CT facial bones: New midline frontal scalp hematoma, no adjacent fracture present, new bilateral minimally displaced nasal bone fractures, 2.3 cm polyp versus mucous retention cyst in the right maxillary antrum. CT cervical spine: No acute cervical spine abnormality, degenerative disc disease, 7 mm right thyroid nodule. Chest x-ray: No acute cardiopulmonary abnormality is identified. On exam there is marked anterior nose swelling and deformity without nasal septal hematoma. Tetanus was updated earlier today on previous visit. Patient was made aware of all findings. Again his rhythm looks to be sinus tachycardia to me. Heart rate improved from 114-85 with a liter of normal saline. Patient was seen in the emergency room and earlier today for similar presentation after a fall. He had x-rays of his left forearm and hand. After he was made aware of all findings, he is complaining of increased pain in his hand, believing that he may reinjured it. X-rays will be ordered. It is unclear why the patient keeps falling. He could be having syncopal episodes. He is clearly unsafe for discharge home. His lactic acid is 6.0. He will be given another liter of normal saline. He is afebrile, chest x-ray shows no infiltrate, UA is not suggestive of UTI. Blood cultures ordered. He will be admitted for further workup. Case discussed with hospitalist Dr. Del Angel who will admit the patient to his service. He would like the patient to be placed in the ICU. Diagnosis Primary Impression: Syncope Qualified Code: R55 - Syncope, unspecified syncope type Additional Impressions: Nasal bone fracture Qualified Code: S02.2XXA - Closed fracture of nasal bone, initial encounter Closed head injury Qualified Code: S09.90XA - Closed head injury, initial encounter Facial abrasion Qualified Code: S00.81XA - Facial abrasion, initial encounter Lactic acidosis Admitting Information Admitting Physician Requests: Admit Irwin Pizarro MD Jul 13, 2016 09:56
[2016-07-13] MEDS ORDERED: SODIUM CHLORIDE 0.9% FLUSH 5 ML FLUSH IVF PRN (10:00)
[2016-07-13] MEDS ORDERED: SODIUM CHLOR 0.9% 1000 ML INJ 1,000 ML IV ONE ×3 (10:15→12:00)
--- NOTE | 2016-07-13 10:23 | RADRPT ---
EXAM DATE/TIME: 07/13/2016 09:50 [facility] COMPARISON: CHEST SINGLE AP, April 21, 2016, 7:31. INDICATIONS : Syncope, Short of Breath, Cheest Pain after fall. MEDICAL HISTORY : Hypertension. Cerebrovascular disease. Asthma. Bronchitis. SURGICAL HISTORY : None. ENCOUNTER: Initial ACUITY: 1 day PAIN SCORE: 2/10 LOCATION: Bilateral chest FINDINGS: Portable AP view of the chest demonstrates a normal-sized cardiac silhouette with calcification of th e aorta in this patient post median sternotomy and CABG. No effusion, consolidation, or pneumothorax is visualized. Bones and soft tissues demonstrate no acute finding. CONCLUSION: No acute cardiopulmonary abnormality is identified. Tin Chauhan MD on July 13, 2016 at 10:21 Board Certified Radiologist. This report was verified electronically.
[2016-07-13 11:04] LABS: BLOOD, URINE NEG (NEG); COMMENT (UR) CULT NOT INDICATED; CULTURE IF INDICATED CULT NOT INDICATED; GLUCOSE,URINE NEG (NEG); KETONE, URINE 10 mg/dL (NEG); NITRITE,URINE NEG (NEG); SQUAMOUS EPITHELIAL CELL URINE <1 /hpf (0-5); TRANSITIONAL EPI CELLS, URINE <1 /hpf; URINE COLOR LIGHT-YELLOW (YELLW/STRAW)
--- NOTE | 2016-07-13 11:07 | RADRPT ---
EXAM DATE/TIME: 07/13/2016 10:42 [facility] COMPARISON: CT BRAIN W/O CONTRAST, July 13, 2016, 5:45. INDICATIONS : Syncope. RADIATION DOSE: 44.98 CTDIvol (mGy) MEDICAL HISTORY : Hypertension. Stroke SURGICAL HISTORY : Tonsillectomy. Sinus. ENCOUNTER: Initial ACUITY: 1 day PAIN SCALE: 4/10 LOCATION: cranial TECHNIQUE: Multiple contiguous axial images were obtained of the head. Using automated exposure control and adj ustment of the mA and/or kV according to patient size, radiation dose was kept as low as reasonably a chievable to obtain optimal diagnostic quality images. FINDINGS: Since the examination from earlier today there is a new frontal scalp hematoma measuring approximatel y 4.4 x 1.4 cm. No adjacent skull fracture is identified. However, there are bilateral minimally disp laced nasal bone fractures present. Stable mucoperiosteal thickening is present within the ethmoid si nus. Intracranially no acute abnormality or interval change is identified. There is generalized cereb ral atrophy and there is stable left parietal and temporal region encephalomalacia. No mass lesion or signs of acute infarct are identified. CONCLUSION: 1. There is a new frontal scalp hematoma since the earlier examination. No skull fracture is identifi ed but there are bilateral nasal bone fractures. 2. Intracranially no acute interval change is identified. Tin Chauhan MD on July 13, 2016 at 11:03 Board Certified Radiologist. This report was verified electronically.
--- NOTE | 2016-07-13 11:14 | RADRPT ---
EXAM DATE/TIME: 07/13/2016 10:42 [facility] COMPARISON: CT CERVICAL SPINE W/O CONTRAST, July 13, 2016, 5:45. INDICATIONS : Syncopal episode. RADIATION DOSE: 18.82 CTDIvol (mGy) MEDICAL HISTORY : Hypertension. SURGICAL HISTORY : Tonsillectomy. ENCOUNTER: Initial ACUITY: 1 day PAIN SCALE: 3/10 LOCATION: cranial TECHNIQUE: Volumetric scanning of the cervical spine was performed. Multiplanar reconstructions in the sagittal, coronal and oblique axial planes were performed. Using automated exposure control and adjustment o f the mA and/or kV according to patient size, radiation dose was kept as low as reasonably achievable to obtain optimal diagnostic quality images. FINDINGS: There is normal sagittal spine alignment of the cervical spine. No anterolisthesis or retrolisthesis is present. The atlantoaxial relationship is within normal limits. There is no prevertebral soft tiss ue swelling present. No fracture or dislocation is identified. There is degenerative disc disease at C3-C4 through C6-C7. Accessory ossicle is present at the base of the clivus. There is a 7 mm hypodense right thyroid nodule. Otherwise, the visualized portions of the posterior f anette, paraspinous soft tissues, and upper lung zones demonstrate no acute abnormality. CONCLUSION: 1. No acute cervical spine abnormality is identified. There is degenerative disc disease at C3-C4 thr ough C6-C7. 2. There is a 7 mm right thyroid nodule. Tin Chauhan MD on July 13, 2016 at 11:09 Board Certified Radiologist. This report was verified electronically.
--- NOTE | 2016-07-13 11:21 | RADRPT ---
EXAM DATE/TIME: 07/13/2016 10:42 [facility] COMPARISON: CT FACIAL BONES W/O CONTRAST, July 13, 2016, 5:45. INDICATIONS : Syncopal episode, forehead and nasal swelling. RADIATION DOSE: 64.43 CTDIvol (mGy) MEDICAL HISTORY : Hypertension. Stroke SURGICAL HISTORY : Tonsillectomy. ENCOUNTER: Initial ACUITY: 1 day PAIN SCORE: 3/10 LOCATION: Bilateral facial TECHNIQUE: Volumetric scanning of the facial bones was performed. Using automated exposure control and adjustme nt of the mA and/or kV according to patient size, radiation dose was kept as low as reasonably achiev able to obtain optimal diagnostic quality images. FINDINGS: ORBITS: The orbital structures are intact. The retroconal structures have a normal configuration. No radiop aque foreign bodies are seen. The lenses are normally located. NASAL BONE: There are bilateral nasal bone fractures that are minimally displaced and deviated to the right. ZYGOMATIC ARCHES: Symmetric without evidence of fracture. SINUSES: There is mucoperiosteal thickening within the frontal and ethmoid sinus. Mucous retention cyst versus polyp is present in the right maxillary antrum measuring 2.3 cm. No air-fluid level is present. NASAL CAVITY: The nasal septum is intact and midline. The lacrimal ducts are intact. SOFT TISSUES: No radiopaque foreign bodies seen. There is midline frontal scalp hematoma. INTRACRANIAL: No acute intracranial abnormality is seen. OTHER: The mandible and pterygoid plates are intact. CONCLUSION: 1. There is a new midline frontal scalp hematoma. No adjacent fracture is present. 2. New bilateral minimally displaced nasal bone fractures. 3. There is a 2.3 cm polyp versus mucous retention cyst in the right maxillary antrum. Tin Chauhan MD on July 13, 2016 at 11:16 Board Certified Radiologist. This report was verified electronically.
[2016-07-13 11:28] LABS: AUTOMATED NEUTROPHIL # 7.9 TH/MM3 (1.8-7.7); BASOPHIL # 0.1 TH/MM3 (0-0.2); BASOPHIL % 0.6 % (0.0-2.0); EOSINOPHIL # 0.3 TH/MM3 (0-0.4); EOSINOPHIL % 2.7 % (0.0-4.0); HEMATOCRIT 38.4 % (39.0-51.0); HEMO FLAGS DIFF FINAL; LYMPH % 8.8 % (9.0-44.0); LYMPHOCYTE # 0.9 TH/MM3 (1.0-4.8); MEAN CELL VOLUME 87.3 FL (80.0-100.0); MEAN CORPUSCULAR HEMOGLOBIN 29.4 PG (27.0-34.0); MEAN CORPUSCULAR HGB CONC 33.6 % (32.0-36.0); MONO % 8.2 % (0.0-8.0); NEUT % 79.7 % (16.0-70.0); PLATELET COUNT 216 TH/MM3 (150-450); RED BLOOD COUNT 4.39 MIL/MM3 (4.50-5.90); RED CELL DISTRIBUTION WIDTH 13.8 % (11.6-17.2); WHITE BLOOD COUNT 9.9 TH/MM3 (4.0-11.0)
[2016-07-13 11:37] LABS: APTT (PATIENT) 24.7 SEC (24.3-30.1); PROTHROMBIN TIME - PATIENT 11.2 SEC (9.8-11.6)
[2016-07-13 11:41] LABS: ANION GAP 11 MEQ/L (5-15); AST (GOT) 23 U/L (15-37); BICARBONATE 26.6 MEQ/L (21.0-32.0); BLOOD UREA NITROGEN 9 MG/DL (7-18); CHLORIDE 102 MEQ/L (98-107); GLOMERULAR FILTRATION RATE 59 ML/MIN (>89); POTASSIUM 3.8 MEQ/L (3.5-5.1); SODIUM (NA) 140 MEQ/L (136-145)
[2016-07-13 11:46] LABS: ALKALINE PHOSPHATASE 95 U/L (45-117); ALT (GPT) 26 U/L (12-78); CREATINE KINASE 309 U/L (39-308); TOTAL BILIRUBIN ADULT 0.4 MG/DL (0.2-1.0)
[2016-07-13 11:58] LABS: CKMB 3.9 NG/ML (0.5-3.6)
--- NOTE | 2016-07-13 12:52 | RADRPT ---
EXAM DATE/TIME: 07/13/2016 12:33 [facility] COMPARISON: HAND LEFT COMPLETE ([id number]), July 13, 2016, 6:04. INDICATIONS : Left hand Pain post fall MEDICAL HISTORY : None. SURGICAL HISTORY : None. ENCOUNTER: Initial ACUITY: 2 days PAIN SCORE: 8/10 LOCATION: Left upper extremity FINDINGS: Three views of the left hand demonstrate no fracture or dislocation. Mineralization is within normal limits and there is no significant arthropathy. No soft tissue abnormality or radiopaque foreign body is identified. CONCLUSION: No acute abnormality is identified. Tin Chauhan MD on July 13, 2016 at 12:48 Board Certified Radiologist. This report was verified electronically.
--- NOTE | 2016-07-13 12:53 | RADRPT ---
EXAM DATE/TIME: 07/13/2016 12:39 [facility] COMPARISON: No previous studies available for comparison. INDICATIONS : Left wrist pain post fall MEDICAL HISTORY : None. SURGICAL HISTORY : None. ENCOUNTER: Initial ACUITY: 2 days PAIN SCORE: 9/10 LOCATION: Left upper extremity FINDINGS: 2 views of the left wrist demonstrate no fracture or dislocation. Mineralization is within normal hdz its. There is no significant arthropathy. No soft tissue abnormality or radiopaque foreign body is id entified. CONCLUSION: No acute abnormality is identified. Tin Chauhan MD on July 13, 2016 at 12:50 Board Certified Radiologist. This report was verified electronically.
[2016-07-13] MEDS: SODIUM CHLOR 0.9% 1000 ML INJ 1,000 ML IV SCH ×2 (13:27→16:02)
[2016-07-13] MEDS ORDERED: NALOXONE HCL 0.4 MG/ML AMP IV PRN (13:30)
[2016-07-13] MEDS ORDERED: ACETAMINOPHEN 325 MG TAB PO PRN ×2 (13:30)
[2016-07-13] MEDS ORDERED: SODIUM CHLORIDE 0.9% FLUSH 5 ML FLUSH FLUSH PRN (13:30)
--- NOTE | 2016-07-13 16:28 | HHI.HP ---
[facility] No Primary Care Physician Admission Diagnosis syncope, head injury, nasal bone fracture, lactic acidosis Diagnoses: Chief Complaint: Falls Travel History International Travel<30 Days: No Contact w/Intl Traveler <30 Da: No Traveled to Known Affected Are: No History of Present Illness The patient is a 61-year-old male with a past medical history of CAD and CVA with left-sided weakness was presenting to the hospital after having multiple falls. The patient says that early this morning at about 3 AM he was walking outside and he fell into a cactus. He said he felt on prior to the fall but he doesn't know how to describe the sensation otherwise. He is not sure if he lost consciousness or not. He talked to his stepson who recommended the patient be taken in the hospital for treatment. The patient was evaluated in the emergency department and his wounds were dressed and he was discharged. The patient says he was walking to [employer] when once again he felt odd and fell down. He is not sure if he had any symptoms. The patient does endorse recently feeling like his heart was going to give out on him. He is unable to elaborate on the sensation further. He denies any outright chest pain. He also endorses a low energy stay and some shortness of breath. The patient is feeling like his pain level is a 9 out of 10 at this time. He denies any history of seizure. He does not endorse any palpitations. Review of Systems Except as stated in HPI: all other systems reviewed are Neg Past Family Social History Past Medical History CAD s/p CABG x 5 and 4 stents Asthma Anxiety/ Depression Dementia HTN HLP Cerebrovascular accident x 3 with left sided weakness Diabetes GERD Broken legs Broken right elbow Past Surgical History Sinus surgery Pin left hip Tonsillectomy Allergies: Coded Allergies: Bee Sting (Verified Allergy, Severe, THROAT SWELLS, 07/13/16) Penicillin (Verified Allergy, Severe, SWELLS UP, 07/13/16) Wasp (Verified Allergy, Severe, SWELLS UP, 07/13/16) Active Ordered Medications Current Medications Medications (Trade) Dose Ordered Sig/Pilar Route Start Time Stop Time Status Last Admin IV Flush 2 ml 2 ml UNSCH PRN IVF 07/13/16 10:00 (NS 1000 ml Inj) 1,000 ml @ 100 mls/hr Q10H IV 07/13/16 13:27 07/13/16 16:02 (NS Flush) 2 ml UNSCH PRN FLUSH 07/13/16 13:30 (NS Flush) 2 ml BID FLUSH 07/13/16 21:00 (Tylenol) 650 mg Q4H PRN PO 07/13/16 13:30 (Tylenol) 650 mg Q6H PRN PO 07/13/16 13:30 (Narcan Inj) 0.4 mg UNSCH PRN IV 07/13/16 13:30 (Roxicodone) 5 mg Q4H PRN PO 07/13/16 16:15 UNV (Colace) 100 mg BID PO 07/13/16 21:00 UNV (Ecotrin Ec) 81 mg DAILY PO 07/14/16 09:00 UNV (Lipitor) 80 mg HS PO 07/13/16 21:00 UNV (Plavix) 75 mg DAILY PO 07/14/16 09:00 UNV (Aricept) 10 mg HS PO 07/13/16 21:00 UNV (Neurontin) 300 mg TID PO 07/13/16 18:00 UNV (Lopressor) 50 mg DAILY PO 07/14/16 09:00 UNV (Protonix) 40 mg DAILY PO 07/14/16 09:00 UNV (Zoloft) 100 mg DAILY PO 07/14/16 09:00 UNV Family History Lung cancer Stomach cancer Social History The patient does not smoke, drink or use illicit substances. Physical Exam Vital Signs Vital Signs Date Time Temp Pulse Resp B/P Pulse Ox O2 Delivery O2 Flow Rate FiO2 07/13/16 13:00 98.5 103 18 136/76 98 07/13/16 09:55 119 18 128/86 98 Room Air 07/13/16 09:55 117 18 95 Room Air 07/13/16 09:55 18 96 Room Air 07/13/16 09:51 98.3 117 18 128/86 95 Physical Exam GENERAL: Awake and alert and in no acute distress. SKIN: Warm and dry. Superficial abrasions over nose. Left hand with multiple small wounds and evidence of gravel of sort embedded in the skin. HEAD: Normocephalic. Superficial abrasions over the nose. Significant for head hematoma as well as anterior nose swelling. No nasal septal hematoma. EYES: Pupils equal, round, 3 mm, reactive to light. EOMI. No scleral icterus. No injection or drainage. ENT: Skin exam as above. No nasal septal hematoma. Mucous membranes pink and moist. NECK: Trachea midline. No JVD. No midline cervical spine step-off or tenderness. CARDIOVASCULAR: Tachycardic and without murmur. RESPIRATORY: No accessory muscle use. Clear to auscultation. Breath sounds equal bilaterally. GASTROINTESTINAL: Abdomen soft, non-tender, nondistended. MUSCULOSKELETAL: No clubbing. No cyanosis. No edema. NEUROLOGICAL: Awake and alert. No obvious cranial nerve deficits. Weakness in the left upper extremity and left lower extremity. Normal speech. No nystagmus appreciated. Normal finger to nose test. PSYCHIATRIC: Anxious. Laboratory Laboratory Tests Test 07/13/16 07/13/16 07/13/16 10:13 10:25 13:15 White Blood Count 9.9 Red Blood Count 4.39 Hemoglobin 12.9 Hematocrit 38.4 Mean Corpuscular Volume 87.3 Mean Corpuscular Hemoglobin 29.4 Mean Corpuscular Hemoglobin 33.6 Concent Red Cell Distribution Width 13.8 Platelet Count 216 Mean Platelet Volume 8.9 Neutrophils (%) (Auto) 79.7 Lymphocytes (%) (Auto) 8.8 Monocytes (%) (Auto) 8.2 Eosinophils (%) (Auto) 2.7 Basophils (%) (Auto) 0.6 Neutrophils # (Auto) 7.9 Lymphocytes # (Auto) 0.9 Monocytes # (Auto) 0.8 Eosinophils # (Auto) 0.3 Basophils # (Auto) 0.1 CBC Comment DIFF FINAL Differential Comment Prothrombin Time 11.2 Prothromb Time International 1.0 Ratio Activated Partial 24.7 Thromboplast Time Sodium Level 140 Potassium Level 3.8 Chloride Level 102 Carbon Dioxide Level 26.6 Anion Gap 11 Blood Urea Nitrogen 9 Creatinine 1.25 Estimat Glomerular Filtration 59 Rate Random Glucose 172 Lactic Acid Level 6.0 2.7 Calcium Level 8.8 Total Bilirubin 0.4 Aspartate Amino Transf 23 (AST/SGOT) Alanine Aminotransferase 26 (ALT/SGPT) Alkaline Phosphatase 95 Total Creatine Kinase 309 Creatine Kinase MB 3.9 Creatine Kinase MB % 1.3 Troponin I 0.02 Total Protein 6.8 Albumin 3.8 Urine Color LIGHT-YELLOW Urine Turbidity CLEAR Urine pH 6.0 Urine Specific [place] 1.004 Urine Protein NEG Urine Glucose (UA) NEG Urine Ketones 10 Urine Occult Blood NEG Urine Nitrite NEG Urine Bilirubin NEG Urine Urobilinogen LESS THAN 2.0 Urine Leukocyte Esterase NEG Urine WBC LESS THAN 1 Urine Squamous Epithelial <1 Cells Urine Transitional Epithelial <1 Cells Microscopic Urinalysis Comment CULT NOT INDICATED Date/Time Procedure Status Source Growth 07/13/16 10:13 Aerobic Blood Culture Received Blood Peripheral Pending 07/13/16 10:13 Anaerobic Blood Culture Received Blood Peripheral Pending Result Diagram: 07/13/16 1013 07/13/16 1013 Imaging Last Impressions Head CT 07/13/1651 Signed Impressions: Service Date/Time: Wednesday, July 13, 2016 10:42 - CONCLUSION: 1. There is a new frontal scalp hematoma since the earlier examination. No skull fracture is identified but there are bilateral nasal bone fractures. 2. Intracranially no acute interval change is identified. Tin Chauhan MD Chest X-Ray 07/13/1651 Signed Impressions: Service Date/Time: Wednesday, July 13, 2016 09:50 - CONCLUSION: No acute cardiopulmonary abnormality is identified. Tin Chauhan MD Cervical Spine CT 07/13/1651 Signed Impressions: Service Date/Time: Wednesday, July 13, 2016 10:42 - CONCLUSION: 1. No acute cervical spine abnormality is identified. There is degenerative disc disease at C3-C4 through C6-C7. 2. There is a 7 mm right thyroid nodule. Tin Chauhan MD Wrist X-Ray 07/13/16 0000 Signed Impressions: Service Date/Time: Wednesday, July 13, 2016 12:39 - CONCLUSION: No acute abnormality is identified. Tin Chauhan MD Maxillofacial CT 07/13/16 0000 Signed Impressions: Service Date/Time: Wednesday, July 13, 2016 10:42 - CONCLUSION: 1. There is a new midline frontal scalp hematoma. No adjacent fracture is present. 2. New bilateral minimally displaced nasal bone fractures. 3. There is a 2.3 cm polyp versus mucous retention cyst in the right maxillary antrum. Tin Chauhan MD Hand X-Ray 07/13/16 0000 Signed Impressions: Service Date/Time: Wednesday, July 13, 2016 12:33 - CONCLUSION: No acute abnormality is identified. Tin Chauhan MD Assessment and Plan Assessment and Plan Repeated falls The patient fell twice on the day of admission. He describes an odd sensation but is unable to explain further. He did sustain minimally displaced bilateral nasal bone fractures. He also had a frontal hematoma. He denies any history of seizure. He appears to have a history of dementia with psychotic features. Possibly orthostatic. The patient endorses feeling like his heart may give out on him at certain times. Questionable dysrhythmia. EKG shows tachycardia, possibly atrial flutter. - Check orthostatic vital signs. - IV fluids. - carotid US, echo. - check TSH, B12, ammonia, A1c levels. - telemetry. - EKG in AM. - trend trops. - EEG to rule out seizure. - wound care nurse consult for wounds sustained from the falls. - PT/OT evals. Lactic acidosis Unsure of cause. The pt does not have an increased anion gap. Improved with fluids. CXR and UA unremarkable. - continue IVFs. - follow lactic acid level. - blood cultures pending. DM The pt is on metformin. Falls may be s/t hypoglycemic episodes. - check A1c. - insulin sliding scale. - hold metformin. Tyroid nodule 7mm, noted on imaging. - check a TSH. - outpt followup. PPx: SCDs. Discussed Condition With Pt, nurse, Dr. Pizarro. Physician Certification 2 Midnight Certification Type: Admission for Inpatient Services Order for Inpatient Services The services are ordered in accordance with Medicare regulations or non- Medicare payer requirements, as applicable. In the case of services not specified as inpatient-only, they are appropriately provided as inpatient services in accordance with the 2-midnight benchmark. Estimated LOS (days): 2 days is the estimated time the patient will need to remain in the hospital, assuming treatment plan goals are met and no additional complications. Post-Hospital Plan: Not yet determined Michael Del Angel DO Jul 13, 2016 16:28
[2016-07-13] MEDS: GABAPENTIN 300 MG CAP PO SCH (16:59)
--- NOTE | 2016-07-13 18:37 | EKG ---
Date Performed: 07/13/2016 Time Performed: 09:59:47 PTAGE: 61 years EKG: Sinus tachycardia MARKED LEFT AXIS DEVIATION RIGHT BUNDLE BRANCH BLOCK VOLTAGE CRITERIA FOR LVH ABNORMAL ECG PREVIOUS TRACING : 06/24/2016 02.08 DOCTOR: Saw Ty Interpretating Date/Time 07/13/2016 18:35:48
[2016-07-13] MEDS: INSULIN ASPART SUPPLEMENTAL SCALE SQ SCH (21:00)
[2016-07-13] MEDS: SODIUM CHLORIDE 0.9% FLUSH 5 ML FLUSH FLUSH SCH (21:00)
[2016-07-13] MEDS: DONEPEZIL HCL 5 MG TAB PO SCH (21:04)
[2016-07-13] MEDS: ATORVASTATIN 80 MG TAB PO SCH (21:04)
[2016-07-13] MEDS: DOCUSATE SODIUM 100 MG CAP PO SCH (21:04)
--- NOTE | 2016-07-13 23:39 | RADRPT ---
EXAM DATE/TIME: 07/13/2016 22:39 [facility] COMPARISON: No previous studies available for comparison. INDICATIONS : Syncope. MEDICAL HISTORY : Hypercholesterolemia. Gastroesophageal reflux disease. Hypertension. Transient ischemic attack. Seizu res. Coronary artery disease. Hyperlipidemia. Asthma. Gastritis. Diabetes. Depression. Anxiety. Blood transrusion. SURGICAL HISTORY : Tonsillectomy. CABG. Coronary artery stent. Left hip surgery. Sinus surgery. ENCOUNTER: Initial ACUITY: 1 day PAIN SCORE: 3/10 LOCATION: Bilateral neck PEAK SYSTOLIC VELOCITIES (cm/sec): ICA/CCA RATIO: Right: 1.3 Left: 0.6 ICA: Right: 156 Left: 92 CCA: Right: 123 Left: 159 ECA: Right: 163 Left: 126 VERTEBRAL: Right: 58 antegrade Left: 81 antegrade Elevated flow velocities and ICA/CCA ratios have been found to correlate with increased degrees of vessel stenosis, calculated as percentage of diameter relative to a normal segment of distal ICA/CCA FINDINGS: RIGHT CAROTID: No significant stenosis is visualized. The waveforms are within normal limits. LEFT CAROTID: No significant stenosis is visualized. The waveforms are within normal limits. VERTEBRAL ARTERIES: Antegrade flow is seen in both vertebral arteries. MISCELLANEOUS: None. CONCLUSION: No evidence of flow-limiting carotid stenosis. Tin Reynoso MD on July 13, 2016 at 23:36 Board Certified Radiologist. This report was verified electronically.
[2016-07-14] VITALS (9 sets, daily range): BP systolic 101–135; BP diastolic 51–78; PULSE 56–85; RESP 18–20; TEMP 97.6–99.3; O2SAT 93–98
[2016-07-14] MEDS: SODIUM CHLOR 0.9% 1000 ML INJ 1,000 ML IV SCH ×2 (01:14→09:19)
[2016-07-14] MEDS: INSULIN ASPART SUPPLEMENTAL SCALE SQ SCH ×4 (05:35→20:15)
[2016-07-14] MEDS: SODIUM CHLORIDE 0.9% FLUSH 5 ML FLUSH FLUSH SCH ×2 (09:00→20:14)
[2016-07-14 09:02] LABS: AUTOMATED NEUTROPHIL # 2.2 TH/MM3 (1.8-7.7); BASOPHIL % 0.9 % (0.0-2.0); EOSINOPHIL # 0.5 TH/MM3 (0-0.4); EOSINOPHIL % 10.5 % (0.0-4.0); HEMATOCRIT 32.5 % (39.0-51.0); HEMO FLAGS DIFF FINAL; LYMPH % 27.7 % (9.0-44.0); LYMPHOCYTE # 1.2 TH/MM3 (1.0-4.8); MEAN CELL VOLUME 88.3 FL (80.0-100.0); MEAN CORPUSCULAR HEMOGLOBIN 29.1 PG (27.0-34.0); MONO % 10.2 % (0.0-8.0); NEUT % 50.7 % (16.0-70.0); PLATELET COUNT 137 TH/MM3 (150-450); RED BLOOD COUNT 3.69 MIL/MM3 (4.50-5.90); RED CELL DISTRIBUTION WIDTH 13.7 % (11.6-17.2); WHITE BLOOD COUNT 4.4 TH/MM3 (4.0-11.0)
[2016-07-14] MEDS: METOPROLOL TARTRATE 50 MG TAB PO SCH (09:20)
[2016-07-14] MEDS: GABAPENTIN 300 MG CAP PO SCH ×4 (09:20→16:25)
[2016-07-14] MEDS: CLOPIDOGREL 75 MG TAB PO SCH (09:20)
[2016-07-14] MEDS: DOCUSATE SODIUM 100 MG CAP PO SCH ×2 (09:21→20:12)
[2016-07-14] MEDS: SERTRALINE HCL 100 MG TAB PO SCH (09:21)
[2016-07-14] MEDS: PANTOPRAZOLE SOD 40 MG DELAYED RELEASE TAB PO SCH (09:21)
[2016-07-14] MEDS: ASPIRIN EC 81 MG TABEC PO SCH (09:22)
[2016-07-14 09:30] LABS: BICARBONATE 26.1 MEQ/L (21.0-32.0); CALCIUM-PROTEIN CORRECTED 8.3 MG/DL (8.5-10.1); POTASSIUM 3.4 MEQ/L (3.5-5.1); TOTAL BILIRUBIN ADULT 0.3 MG/DL (0.2-1.0)
[2016-07-14] MEDS ORDERED: POTASSIUM CHLORIDE 20 MEQ CONTROLLED RELEASE TAB PO ONE (12:00)
--- NOTE | 2016-07-14 13:09 | HHI.PR ---
Subjective Remarks The patient said that his pain was still poorly controlled. He wants to know why he fell twice yesterday. He was talking to his godson on the phone and he wanted me to talk to the godson, which I did. All questions were answered. Discussed with nursing. Objective Vitals Vital Signs Date Time Temp Pulse Resp B/P Pulse Ox O2 Delivery O2 Flow Rate FiO2 07/14/16 12:00 98.0 85 20 135/78 98 07/14/16 09:34 56 07/14/16 09:05 Room Air 07/14/16 08:00 97.6 69 18 131/69 97 07/14/16 04:18 98.6 71 18 101/56 97 07/14/16 00:00 98.2 83 18 104/51 96 07/13/16 21:04 Room Air 07/13/16 20:29 99.0 93 18 124/62 96 151/71 142/74 07/13/16 20:23 107 07/13/16 18:53 88 07/13/16 18:47 18 07/13/16 16:00 98.3 88 20 139/80 99 07/13/16 16:00 149/93 07/13/16 16:00 146/89 I/O 07/13/16 07/13/16 07/13/16 07/14/16 07/14/16 07/14/16 07:00 15:00 23:00 07:00 15:00 23:00 Intake Total 1497 ml 1550 ml Output Total 1100 ml 1800 ml Balance 397 ml -250 ml Intake Oral 750 ml 1000 ml IV Total 747 ml 550 ml Output Urine Total 1100 ml 1800 ml # Bowel Movements 0 0 Result Diagram: 07/14/1672507/14/16725 Imaging Last Impressions Head CT 07/13/16950 Signed Impressions: Service Date/Time: Wednesday, July 13, 2016 10:42 - CONCLUSION: 1. There is a new frontal scalp hematoma since the earlier examination. No skull fracture is identified but there are bilateral nasal bone fractures. 2. Intracranially no acute interval change is identified. Tin Chauhan MD Chest X-Ray 07/13/16950 Signed Impressions: Service Date/Time: Wednesday, July 13, 2016 09:50 - CONCLUSION: No acute cardiopulmonary abnormality is identified. Tin Chauhan MD Cervical Spine CT 07/13/16 0951 Signed Impressions: Service Date/Time: Wednesday, July 13, 2016 10:42 - CONCLUSION: 1. No acute cervical spine abnormality is identified. There is degenerative disc disease at C3-C4 through C6-C7. 2. There is a 7 mm right thyroid nodule. Tin Chauhan MD Wrist X-Ray 07/13/16 0000 Signed Impressions: Service Date/Time: Wednesday, July 13, 2016 12:39 - CONCLUSION: No acute abnormality is identified. Tin Chauhan MD Maxillofacial CT 07/13/16 0000 Signed Impressions: Service Date/Time: Wednesday, July 13, 2016 10:42 - CONCLUSION: 1. There is a new midline frontal scalp hematoma. No adjacent fracture is present. 2. New bilateral minimally displaced nasal bone fractures. 3. There is a 2.3 cm polyp versus mucous retention cyst in the right maxillary antrum. Tin Chauhan MD Hand X-Ray 07/13/16 0000 Signed Impressions: Service Date/Time: Wednesday, July 13, 2016 12:33 - CONCLUSION: No acute abnormality is identified. Tin Chauhan MD Carotid Artery Ultrasound 07/13/16 0000 Signed Impressions: Service Date/Time: Wednesday, July 13, 2016 22:39 - CONCLUSION: No evidence of flow-limiting carotid stenosis. Tin Reynoso MD Objective Remarks GENERAL: Awake and alert and in no acute distress. SKIN: Warm and dry. Superficial abrasions over nose. Left hand with multiple small wounds and evidence of gravel embedded in the skin. HEAD: Normocephalic. Superficial abrasions over the nose. Significant for head hematoma as well as anterior nose swelling. No nasal septal hematoma. EYES: Pupils equal, round, 3 mm, reactive to light. EOMI. No scleral icterus. No injection or drainage. ENT: Skin exam as above. No nasal septal hematoma. Mucous membranes pink and moist. NECK: Trachea midline. No JVD. No midline cervical spine step-off or tenderness. CARDIOVASCULAR: Regular rate and rhythm and without murmur. RESPIRATORY: No accessory muscle use. Clear to auscultation. Breath sounds equal bilaterally. GASTROINTESTINAL: Abdomen soft, non-tender, nondistended. MUSCULOSKELETAL: No clubbing. No cyanosis. No edema. NEUROLOGICAL: Awake and alert. No obvious cranial nerve deficits. Weakness in the left upper extremity and left lower extremity. Normal speech. No nystagmus appreciated. Normal finger to nose test. PSYCHIATRIC: Mood and affect appropriate. Medications and IVs Current Medications Medications (Trade) Dose Ordered Sig/Pilar Route Start Time Stop Time Status Last Admin IV Flush 2 ml 2 ml UNSCH PRN IVF 07/13/16 10:00 (NS 1000 ml Inj) 1,000 ml @ 100 mls/hr Q10H IV 07/13/16 13:27 07/14/16 09:19 (NS Flush) 2 ml UNSCH PRN FLUSH 07/13/16 13:30 (NS Flush) 2 ml BID FLUSH 07/13/16 21:00 (Tylenol) 650 mg Q4H PRN PO 07/13/16 13:30 (Tylenol) 650 mg Q6H PRN PO 07/13/16 13:30 (Narcan Inj) 0.4 mg UNSCH PRN IV 07/13/16 13:30 (Roxicodone) 5 mg Q4H PRN PO 07/13/16 16:15 07/14/16 05:28 (Colace) 100 mg BID PO 07/13/16 21:00 07/14/16 09:21 (Ecotrin Ec) 81 mg DAILY PO 07/14/16 09:00 07/14/16 09:22 (Lipitor) 80 mg HS PO 07/13/16 21:00 07/13/16 21:04 (Plavix) 75 mg DAILY PO 07/14/16 09:00 07/14/16 09:20 (Aricept) 10 mg HS PO 07/13/16 21:00 07/13/16 21:04 (Neurontin) 300 mg TID PO 07/13/16 18:00 07/14/16 11:24 (Lopressor) 50 mg DAILY PO 07/14/16 09:00 07/14/16 09:20 (Protonix) 40 mg DAILY PO 07/14/16 09:00 07/14/16 09:21 (Zoloft) 100 mg DAILY PO 07/14/16 09:00 07/14/16 09:21 (Roxicodone) 10 mg Q4H PRN PO 3/5/17 13:15 (Senokot) 17.2 mg DAILY PO 07/15/16 09:00 A/P Assessment and Plan Repeated falls The patient fell twice on the day of admission. He describes an odd sensation but is unable to explain further. He did sustain minimally displaced bilateral nasal bone fractures. He also had a frontal hematoma. He denies any history of seizure. He appears to have a history of dementia with psychotic features. Possibly orthostatic. The patient endorses feeling like his heart may give out on him at certain times. Questionable dysrhythmia. EKG shows tachycardia, possibly atrial flutter. Orthostatic vital signs negative. Carotid ultrasound unremarkable. Ammonia level minimally elevated. Troponins have been flat. - IV fluids. - Check echo. - telemetry. - Repeat EKG. - EEG to rule out seizure. - wound care nurse consult for wounds sustained from the falls. - PT/OT evals. - MRI of the brain pending. - Consult neurology in a.m. Lactic acidosis Unsure of cause. The pt does not have an increased anion gap. Improved with fluids. CXR and UA unremarkable. Resolved. - continue IVFs. - blood cultures pending. DM The pt is on metformin. Falls may be s/t hypoglycemic episodes. - check A1c. - insulin sliding scale. - hold metformin. Tyroid nodule 7mm, noted on imaging. TSH unremarkable. - outpt followup. PPx: SCDs. Discharge Planning Awaiting clinical improvement. Michael Del Angel DO Jul 14, 2016 13:09
--- NOTE | 2016-07-14 16:25 | RADRPT ---
EXAM DATE/TIME: 07/14/2016 15:42 [facility] COMPARISON: CT BRAIN W/O CONTRAST, July 13, 2016, 10:42. INDICATIONS : Frequent falls. Ataxia, Head trama. MEDICAL HISTORY : Hypertension. Cardiovascular disease Diabetes mellitus type 2. CVAs SURGICAL HISTORY : Coronary artery stent. CABG ENCOUNTER: Initial ACUITY: 1 day PAIN SCORE: 0/10 LOCATION: cranial TECHNIQUE: Multiplanar, multisequence MRI of the brain was performed without contrast. FINDINGS: No evidence for acute infarction. Encephalomalacia from remote left temporoparietal infarct with surr ounding gliosis and mild ex vacuo dilatation of the left posterior horn. No intracranial hemorrhage i s seen. Remote right frontal periventricular lacunar infarct. Mucous retention cyst in the right maxi llary sinus. Bilateral ethmoid air cell opacification. Frontal scalp hematoma. CONCLUSION: 1. Sinusitis. 2. Remote left cerebral infarct. 3. Frontal scalp hematoma. Johnny Hernandez MD on July 14, 2016 at 16:22 Board Certified Radiologist. This report was verified electronically.
[2016-07-14] MEDS: DONEPEZIL HCL 5 MG TAB PO SCH (20:11)
[2016-07-14] MEDS: ATORVASTATIN 80 MG TAB PO SCH (20:12)
[2016-07-15] VITALS (9 sets, daily range): BP systolic 109–146; BP diastolic 55–70; PULSE 51–65; RESP 18–20; TEMP 97.1–99.1; O2SAT 94–98
[2016-07-15] MEDS: SODIUM CHLOR 0.9% 1000 ML INJ 1,000 ML IV SCH ×2 (00:32→09:32)
[2016-07-15] MEDS: INSULIN ASPART SUPPLEMENTAL SCALE SQ SCH ×4 (06:17→20:50)
[2016-07-15 07:13] LABS: HEMATOCRIT 34.1 % (39.0-51.0); MEAN CELL VOLUME 87.5 FL (80.0-100.0); MEAN CORPUSCULAR HEMOGLOBIN 29.8 PG (27.0-34.0); MEAN CORPUSCULAR HGB CONC 34.1 % (32.0-36.0); PLATELET COUNT 151 TH/MM3 (150-450); RED CELL DISTRIBUTION WIDTH 13.8 % (11.6-17.2); REVIEW FLAG FINAL; WHITE BLOOD COUNT 7.4 TH/MM3 (4.0-11.0)
[2016-07-15 07:37] LABS: BICARBONATE 28.3 MEQ/L (21.0-32.0); MAGNESIUM 1.3 MG/DL (1.5-2.5); POTASSIUM 3.7 MEQ/L (3.5-5.1)
[2016-07-15 08:51] LABS: HEMOGLOBIN A1a 0.9 %; HEMOGLOBIN LA1C 2.1 %; HEMOGLOBIN P3 3.9 %
[2016-07-15] MEDS: PANTOPRAZOLE SOD 40 MG DELAYED RELEASE TAB PO SCH (09:22)
[2016-07-15] MEDS: ASPIRIN EC 81 MG TABEC PO SCH (09:22)
[2016-07-15] MEDS: GABAPENTIN 300 MG CAP PO SCH ×3 (09:23→16:26)
[2016-07-15] MEDS: SENNOSIDES 8.6 MG TAB PO SCH (09:23)
[2016-07-15] MEDS: CLOPIDOGREL 75 MG TAB PO SCH (09:23)
[2016-07-15] MEDS: METOPROLOL TARTRATE 50 MG TAB PO SCH (09:23)
[2016-07-15] MEDS: SERTRALINE HCL 100 MG TAB PO SCH (09:23)
[2016-07-15] MEDS: DOCUSATE SODIUM 100 MG CAP PO SCH ×2 (09:23→20:49)
[2016-07-15] MEDS: SODIUM CHLORIDE 0.9% FLUSH 5 ML FLUSH FLUSH SCH ×2 (09:23→20:49)
[2016-07-15] MEDS: MAGNESIUM SULFATE 1 GM PREMIX 100 ML IV SCH ×3 (09:31→12:57)
--- NOTE | 2016-07-15 10:17 | MB ---
cc: ADRIANO STOLL DATE OF CONSULTATION: 07/15/2016 HISTORY OF PRESENT ILLNESS The patient is a 61-year-old left-handed man who actually started Q.branch, hypertension, non-insulin dependent diabetes, hypercholesterolemia, CABG x5, four stents, asthma, some chest pain recently, gallbladder problems, three strokes which left him with some mild left-sided weakness, although he does not use a cane or a walker. He is followed by Dr. Alonso. He has seen neurology several times over the years, the last was Dr. Vivas in December of 2014 with a history of prior stroke. He was having some headaches. At that time he was on some Aricept. He had recommended an LP. The LP was negative. He was put on Topamax. Nevertheless, he says in November of last year he had a brief episode of syncope. He saw Dr. Alonso at that time and ___ with chest pain. He was admitted two days ago. He says he lost his balance, fell into a cactus and then he had another fall at [facility]. It is unclear if he actually passed out. About 3:00 a.m. he was walking outside. From his history it is unclear because he has had the strokes, he does not articulate himself all that well, but I get the impression that he may have passed out. PAST MEDICAL HISTORY 1. CAD. 2. CABG x 5, four stents. 3. Asthma. 4. Anxiety. 5. Depression. 6. Some dementia. 7. Hypertension. 8. Left-sided weakness. 9. Stroke. 10. Diabetes. 11. GERD. 12. Broken legs and elbows. ALLERGIES BEE STINGS, PENICILLIN, WASPS. MEDICATIONS Meds at home: 1. Zoloft. 2. Protonix. 3. Dicyclomine. 4. Nitroglycerin. 5. Metformin. 6. Zofran. 7. Plavix 75 a day. 8. Elkins. 9. 81 of Aspirin. 10. Neurontin 300 t.i.d. 11. Lipitor. 12. Metoprolol. 13. Tizanidine. PHYSICAL EXAMINATION VITAL SIGNS: On exam it looks like he may have some kind of conduction block on his EKG, otherwise sinus rhythm, afebrile, 64, 20, 146/70. A standing blood pressure was 142/74, he had several standing blood pressures checked. NECK: There were no carotid bruits. HEART: Heart was regular rhythm, I do not detect a murmur. Pupils are equal, visual costello are full. Extraocular movements intact without nystagmus. Face is symmetric with normal sensation. Tongue was midline. No drift. He had normal strength in upper and lower extremities bilaterally, except the left wrist is swollen and limited there, also says he is a little weak on that left arm from his old stroke, so a little hard to test due to the pain in the wrist. Toes are downgoing bilaterally. Pinprick is intact throughout. There is no Sheffield's sign. He has some ecchymosis around both eyes. LABORATORY DATA HIV has been negative in the past. ROBIN was positive 1:640 in 2010. Rheumatoid factor is negative in the past. His LP was essentially unremarkable in the past, except for elevated protein to 108. UA on this admission normal. Urine drug screen negative in April of last year. Coags normal. Basic metabolic profile has been essentially normal. Calcium a little bit low. Magnesium low 1.3, albumin is only 2.7. B12 and thyroid are normal. LDL cholesterol has been normal in November of last year. CPK on this admission was 309. Troponin this admission was normal. CBC is generally unremarkable. IMAGING STUDIES He had MRI of his brain done yesterday, remote left stroke, otherwise negative. Review of those films, MRI does not show any acute infarct, he has an old large left posterior MCA infarct which gives him some aphasia and a small left occipital lobe infarct all old, no hemorrhage is noted except some residual in the old infarct. He had a CT scan of the cervical spine, this showed some DJD, right thyroid nodule. Carotid ultrasound done two days ago was normal. IMPRESSION I think probably more likely cardiac. I would have cardiology see him for syncope or what was likely a syncopal episode considering what his face looks like. Will check an EEG, but otherwise I thought he looked well neurologically. MD PEACE Acevedo/GRIS /9:14 AM /9:42 AM
--- NOTE | 2016-07-15 11:16 | HHI.PR ---
Subjective Remarks The pt wanted to know what was going on with him. He said he still has pain. He feels tired. He said he spoke with neurology earlier. Objective Vitals Vital Signs Date Time Temp Pulse Resp B/P Pulse Ox O2 Delivery O2 Flow Rate FiO2 07/15/16 10:41 51 07/15/16 10:04 97 21 07/15/16 09:36 Room Air 07/15/16 08:00 97.5 64 20 146/70 96 07/15/16 00:00 97.6 55 18 113/63 96 07/14/16 20:42 93 21 07/14/16 20:20 76 07/14/16 20:12 Room Air 07/14/16 20:00 98.2 84 20 105/56 95 07/14/16 16:00 99.3 66 18 122/72 96 07/14/16 12:00 98.0 85 20 135/78 98 I/O 07/14/16 07/14/16 07/14/16 07/15/16 07/15/16 07/15/16 07:00 15:00 23:00 07:00 15:00 23:00 Intake Total 1550 ml 1959 ml 464 ml 739 ml Output Total 1800 ml 2150 ml 750 ml 2550 ml Balance -250 ml -191 ml -286 ml -1811 ml Intake Oral 1000 ml 1080 ml 464 ml IV Total 550 ml 879 ml 739 ml Output Urine Total 1800 ml 2150 ml 750 ml 2550 ml # Bowel Movements 0 0 Result Diagram: 07/15/16 0551 07/15/16 0551 Imaging Last Impressions Brain MRI 07/14/16 0000 Signed Impressions: Service Date/Time: Thursday, July 14, 2016 15:42 - CONCLUSION: 1. Sinusitis. 2. Remote left cerebral infarct. 3. Frontal scalp hematoma. Johnny Hernandez MD Head CT 07/13/16950 Signed Impressions: Service Date/Time: Wednesday, July 13, 2016 10:42 - CONCLUSION: 1. There is a new frontal scalp hematoma since the earlier examination. No skull fracture is identified but there are bilateral nasal bone fractures. 2. Intracranially no acute interval change is identified. Tin Chauhan MD Chest X-Ray 07/13/16950 Signed Impressions: Service Date/Time: Wednesday, July 13, 2016 09:50 - CONCLUSION: No acute cardiopulmonary abnormality is identified. Tin Chauhan MD Cervical Spine CT 07/13/16 0951 Signed Impressions: Service Date/Time: Wednesday, July 13, 2016 10:42 - CONCLUSION: 1. No acute cervical spine abnormality is identified. There is degenerative disc disease at C3-C4 through C6-C7. 2. There is a 7 mm right thyroid nodule. Tin Chauhan MD Wrist X-Ray 07/13/16 0000 Signed Impressions: Service Date/Time: Wednesday, July 13, 2016 12:39 - CONCLUSION: No acute abnormality is identified. Tin Chauhan MD Maxillofacial CT 07/13/16 0000 Signed Impressions: Service Date/Time: Wednesday, July 13, 2016 10:42 - CONCLUSION: 1. There is a new midline frontal scalp hematoma. No adjacent fracture is present. 2. New bilateral minimally displaced nasal bone fractures. 3. There is a 2.3 cm polyp versus mucous retention cyst in the right maxillary antrum. Tin Chauhan MD Hand X-Ray 07/13/16 0000 Signed Impressions: Service Date/Time: Wednesday, July 13, 2016 12:33 - CONCLUSION: No acute abnormality is identified. Tin Chauhan MD Carotid Artery Ultrasound 07/13/16 0000 Signed Impressions: Service Date/Time: Wednesday, July 13, 2016 22:39 - CONCLUSION: No evidence of flow-limiting carotid stenosis. Tin Reynoso MD Objective Remarks GENERAL: Awake and alert and in no acute distress. SKIN: Warm and dry. Superficial abrasions over nose. Left hand with multiple small wounds and evidence of gravel embedded in the skin. Circular clear to brown lesions on upper chest. HEAD: Normocephalic. Superficial abrasions over the nose. Significant for head hematoma as well as anterior nose swelling. No nasal septal hematoma. EYES: Pupils equal, round, 3 mm, reactive to light. EOMI. No scleral icterus. No injection or drainage. ENT: Skin exam as above. No nasal septal hematoma. Mucous membranes pink and moist. NECK: Trachea midline. No JVD. No midline cervical spine step-off or tenderness. CARDIOVASCULAR: Regular rate and rhythm and without murmur. RESPIRATORY: No accessory muscle use. Clear to auscultation. Breath sounds equal bilaterally. GASTROINTESTINAL: Abdomen soft, non-tender, nondistended. MUSCULOSKELETAL: No clubbing. No cyanosis. No edema. NEUROLOGICAL: Awake and alert. No obvious cranial nerve deficits. Weakness in the left upper extremity and left lower extremity. Normal speech. No nystagmus appreciated. Normal finger to nose test. PSYCHIATRIC: Mood and affect appropriate. Medications and IVs Current Medications Medications (Trade) Dose Ordered Sig/Pilar Route Start Time Stop Time Status Last Admin IV Flush 2 ml 2 ml UNSCH PRN IVF 07/13/16 10:00 (NS 1000 ml Inj) 1,000 ml @ 100 mls/hr Q10H IV 07/13/16 13:27 07/15/16 09:32 (NS Flush) 2 ml UNSCH PRN FLUSH 07/13/16 13:30 (NS Flush) 2 ml BID FLUSH 07/13/16 21:00 (Tylenol) 650 mg Q4H PRN PO 07/13/16 13:30 (Tylenol) 650 mg Q6H PRN PO 07/13/16 13:30 (Narcan Inj) 0.4 mg UNSCH PRN IV 07/13/16 13:30 (Roxicodone) 5 mg Q4H PRN PO 07/13/16 16:15 07/14/16 05:28 (Colace) 100 mg BID PO 07/13/16 21:00 07/15/16 09:23 (Ecotrin Ec) 81 mg DAILY PO 07/14/16 09:00 07/15/16 09:22 (Lipitor) 80 mg HS PO 07/13/16 21:00 07/14/16 20:12 (Plavix) 75 mg DAILY PO 07/14/16 09:00 07/15/16 09:23 (Aricept) 10 mg HS PO 07/13/16 21:00 07/14/16 20:11 (Neurontin) 300 mg TID PO 07/13/16 18:00 07/15/16 09:23 (Protonix) 40 mg DAILY PO 07/14/16 09:00 07/15/16 09:22 (Zoloft) 100 mg DAILY PO 07/14/16 09:00 07/15/16 09:23 (Roxicodone) 10 mg Q4H PRN PO 07/14/16 13:15 3/6/17 09:31 Sennosides 17.2 mg 17.2 mg DAILY PO 07/15/16 09:00 07/15/16 09:23 (Magnesium Sulfate 1 Gm Premix) 100 ml @ 100 mls/hr Q1H IV 07/15/16 09:00 07/15/16 11:59 07/15/16 09:31 A/P Assessment and Plan Repeated falls The patient fell twice on the day of admission. He describes an odd sensation but is unable to explain further. He did sustain minimally displaced bilateral nasal bone fractures. He also had a frontal hematoma. He denies any history of seizure. He appears to have a history of dementia with psychotic features. Possibly orthostatic. The patient endorses feeling like his heart may give out on him at certain times. Questionable dysrhythmia. EKG shows tachycardia, possibly atrial flutter. Orthostatic vital signs negative. Carotid ultrasound unremarkable. Ammonia level minimally elevated. Troponins have been flat. MRI brain without acute process. - Check echo. - telemetry. - EEG to rule out seizure. - wound care nurse consult for wounds sustained from the falls. - PT/OT evals. - MRI of the brain pending. - neurology following and requested cardiology evaluation which is pending. - change Lopressor to 25 mg BID as pt has been having bradycardia on the monitor. Reduce as needed. Lactic acidosis Unsure of cause. The pt does not have an increased anion gap. Improved with fluids. CXR and UA unremarkable. Resolved. - blood cultures NGTD. Rash On upper chest, appears fungal. - start clotrimazole cream and monitor. DM The pt is on metformin. Falls may be s/t hypoglycemic episodes. A1c 6.6%. - insulin sliding scale. - hold metformin. Tyroid nodule 7mm, noted on imaging. TSH unremarkable. - outpt followup. PPx: SCDs. Discharge Planning Awaiting clinical improvement. Michael Del Angel DO Jul 15, 2016 11:16
--- NOTE | 2016-07-15 11:53 | MB ---
cc: KAREEM ALONSO MD DATE OF CONSULTATION 07/15/2016 REASON FOR CONSULTATION Syncope. HISTORY OF PRESENT ILLNESS Mr. Keller is a 61-year-old man who does have a history of CABG x 5 with subsequent stenting. He had a cardiac catheterization in November of 2014 that she showed three out of five patent vein grafts to the LAD, OM and PDA/RCA. The vein graft to the ramus 1 and 2 were noted to be occluded. Subsequently, he had a nuclear stress test in November of 2015 that showed a moderate-sized, predominantly fixed lateral defect which was felt to be consistent with his occluded ramus 1 and 2 vein gragfts. The patient has done well with medical management. The patient also follows with Neurology for history of CVA and some dementia. The patient was admitted after losing his balance and falling into a cactus. He apparently had another fall at [facility]. It is not clear if he passed out or not. The patient denies any cardiac complaints or any prodromal symptoms other than not feeling right. PAST MEDICAL HISTORY 1. Significant for CAD with previous CABG and stents as above. 2. Asthma. 3. Anxiety. 4. Depression. 5. Dementia. 6. CVA with residual left-sided weakness. 7. Hypertension. 8. Diabetes. 9. GERD. ALLERGIES BEE STINGS. PENICILLIN. WASPS. OUTPATIENT MEDICATIONS 1. Zoloft. 2. Protonix. 3. Dicyclomine. 4. Nitroglycerin. 5. Metformin. 6. Zofran. 7. Plavix. 8. Atlantic. 9. Neurontin. 10. Lipitor. 11. Metoprolol. 12. Tizanidine. REVIEW OF SYSTEMS Except as mentioned in the HPI, all 12 systems are negative. FAMILY HISTORY Noncontributory. PHYSICAL EXAMINATION VITAL SIGNS: 97.5, 64, 20, 146/70. IN GENERAL: He is well-appearing man who is in no apparent distress. NECK: Free from JVD. LUNGS: Bilaterally clear to auscultation. CARDIOVASCULAR EXAMINATION: He has a normal S1 and S2. I did not appreciate any murmurs, rubs or gallops. ABDOMEN: Soft. EXTREMITIES: Free from edema. HEENT: His face is noted for ecchymotic lesions over the periorbital area. LAB VALUES Significant for creatinine of 0.62. His troponin is 0.03/0.04/ 0.0 cm. His initial lactic acid was 6.0 and total CK was 309 with an MB of 3.9 and MB% of 1.3 TELEMETRY Shows sinus rhythm with right bundle branch block. IMPRESSION Syncope - there is no overt cardiac etiology. The patient does not give any real prodrome. He has been a bit bradycardiac and thus I will stop his metoprolol. The patient has had multiple falls and this is not clear if this is simply another fall or a true syncopal episode. I do agree with following him on telemetry. At this point I would not repeat the stress test as it was done approximately eight months ago. An echocardiogram has been requested. CAD - The patient is seemingly stable without any CV complaints. His troponin and CK-MB percent are negative. Elevated lactic acid - This occurs in the setting of mildly elevated CPK. This is being managed by the primary team. Sincerely, Kareem Alonso M.D. AGA/JOSE CARLOS /10:58 AM /11:38 AM
[2016-07-15] MEDS: CLOTRIMAZOLE 1% CREAM 15 GM TOPICAL SCH ×2 (12:57→22:50)
--- NOTE | 2016-07-15 15:34 | EC ---
Study Study Date:07/15/2016 STUDY CONCLUSIONS SUMMARY - Left ventricle: The cavity size was normal. Wall thickness was normal. Systolic function was normal. The estimated ejection fraction was in the range of 55% to 60%. Wall motion was normal; there were no regional wall motion abnormalities. - Aortic valve: Mild regurgitation. Valve area: 2.13cm^2(VTI). Valve area: 2.23cm^2 (Vmax). - Mitral valve: Mild regurgitation. If LV function is below 40, please consider prescribing an ACEI or ARB or document rationale for non-use. PROCEDURE DATA STUDY STATUS: Elective. Procedure: Transthoracic echocardiography. Image quality was good. Scanning was performed from the parasternal, apical, and subcostal acoustic windows. Study completion: The patient tolerated the procedure well. Transthoracic echocardiography. M-mode, complete 2D, complete spectral Doppler, and color Doppler. Height: Height: 69in. Weight: Weight: 153.7lb. Body mass index: BMI: 22.7kg/m^2. Body surface area: BSA: 1.85m^2. Patient status: Inpatient. CARDIAC ANATOMY LEFT VENTRICLE: The cavity size was normal. Wall thickness was normal. Systolic function was normal. The estimated ejection fraction was in the range of 55% to 60%. Wall motion was normal; there were no regional wall motion abnormalities. AORTIC VALVE: Trileaflet; normal thickness leaflets. Doppler: Transvalvular velocity was within the normal range. There was no stenosis. Mild regurgitation. Valve area: 2.13cm^2(VTI). Indexed valve area: 1.15cm^2/m^2 (VTI). Valve area: 2.23cm^2 (Vmax). Indexed valve area: 1.21cm^2/m^2 (Vmax). Mean gradient: 5mm Hg (S). AORTA: Aortic root: The aortic root was normal in size. MITRAL VALVE: Structurally normal valve. Doppler: Transvalvular velocity was within the normal range. There was no evidence for stenosis. Mild regurgitation. Peak gradient: 5mm Hg (D). LEFT ATRIUM: The atrium was normal in size. RIGHT VENTRICLE: The cavity size was normal. Wall thickness was normal. PULMONIC VALVE: Doppler: Transvalvular velocity was within the normal range. There was no evidence for stenosis. Trace to mild regurgitation. TRICUSPID VALVE: Structurally normal valve. Doppler: Transvalvular velocity was within the normal range. Trace to mild regurgitation. PULMONARY ARTERY: The main pulmonary artery was normal-sized. Systolic pressure was within the normal range. RIGHT ATRIUM: The atrium was normal in size. PERICARDIUM: There was no pericardial effusion. SYSTEMIC VEINS: Inferior vena cava: The vessel was normal in size. Patient weight: 153.7lb _Ejection fraction:_ 65-75% _Fractional shortening:_ 32% up to 5Kg 5-11.5Kg 11.6-22.9Kg 23-45Kg 45-57Kg Aortic Root 7-13 <17 13-22 17-27 17-27 LA diam 6-13 <23 24-38 33-47 37-40 RVID 10-17 7-15 7-15 7-18 8-17 LVIDd 12-22 <32 24-38 33-47 37-40 LVPW 2-4 3-6 5-7 6-8 7-8 IVS 2-4 3-6 5-7 6-8 7-8 BASIC MEASUREMENTS ADULT NORMAL Left ventricle LV internal dimension, ED, chordal 45.3 mm 43-52 level, PLAX LV internal dimension, ES, chordal 31.7 mm 23-38 level, PLAX Fractional shortening, chordal level, 30 % >29 PLAX LV posterior wall thickness, ED 10.4 mm IVS/LVPW ratio, ED 0.98 <1.3 Ventricular septum Septal thickness, ED 10.2 mm Aortic valve Leaflet separation 23 mm 15-26 Aorta Root diameter, ED 36 mm Left atrium Anterior-posterior dimension 38 mm Anterior-posterior dimension index 2.05 cm/m^2 <2.2 BASIC MEASUREMENTS ADULT NORMAL Aortic valve Leaflet separation 23 mm 15-26 DOPPLER MEASUREMENTS ADULT NORMAL Main pulmonary artery Pressure, S 26 mm Hg =30 Aortic valve Peak velocity, S 141 cm/s Mean velocity, S 107 cm/s VTI, S 32.6 cm Mean gradient, S 5 mm Hg Valve area, VTI 2.13 cm^2 Valve area index, VTI 1.15 cm^2/m^2 Valve area, Vmax 2.23 cm^2 Valve area index, Vmax 1.21 cm^2/m^2 Regurgitant velocity, ED 400 cm/s Regurgitant deceleration 1740 cm/s^2 Regurgitant pressure half-time 673 ms Regurgitant gradient, ED 64 mm Hg Mitral valve Peak E-wave velocity 110 cm/s Peak A-wave velocity 37.5 cm/s Deceleration time 180 ms 150-230 Peak gradient, D 5 mm Hg Peak E/A ratio 2.9 Tricuspid valve Regurgitant peak velocity 241 cm/s Peak RV-RA gradient, S 23 mm Hg Maximal regurgitant velocity 241 cm/s Systemic veins Estimated CVP 5 mm Hg Right ventricle RV pressure, S 28 mm Hg <30 Pulmonic valve Peak velocity, S 65.6 cm/s LEGEND: Mean values are shown as u=mean value. Asterisk (*) parekh values outside specified normal range. Prepared and signed by Miles Coelho [id number]
[2016-07-15] MEDS: DONEPEZIL HCL 5 MG TAB PO SCH (20:49)
[2016-07-15] MEDS: ATORVASTATIN 80 MG TAB PO SCH (20:49)
[2016-07-16] VITALS (9 sets, daily range): BP systolic 103–139; BP diastolic 56–78; PULSE 51–70; RESP 18; TEMP 97–98.2; O2SAT 94–97
[2016-07-16] MEDS: SODIUM CHLOR 0.9% 1000 ML INJ 1,000 ML IV SCH ×3 (03:22→20:17)
[2016-07-16] MEDS: INSULIN ASPART SUPPLEMENTAL SCALE SQ SCH ×4 (06:38→20:21)
--- NOTE | 2016-07-16 07:01 | PD.CARD.PN ---
Subjective Subjective Remarks Pt without complaints Objective Medications Current Medications Medications (Trade) Dose Ordered Sig/Pilar Route Start Time Stop Time Status Last Admin IV Flush 2 ml 2 ml UNSCH PRN IVF 07/13/16 10:00 (NS 1000 ml Inj) 1,000 ml @ 100 mls/hr Q10H IV 07/13/16 13:27 07/16/16 03:22 (NS Flush) 2 ml UNSCH PRN FLUSH 07/13/16 13:30 (NS Flush) 2 ml BID FLUSH 07/13/16 21:00 (Tylenol) 650 mg Q4H PRN PO 07/13/16 13:30 (Tylenol) 650 mg Q6H PRN PO 07/13/16 13:30 (Narcan Inj) 0.4 mg UNSCH PRN IV 07/13/16 13:30 (Roxicodone) 5 mg Q4H PRN PO 07/13/16 16:15 07/14/16 05:28 (Colace) 100 mg BID PO 07/13/16 21:00 07/15/16 20:49 (Ecotrin Ec) 81 mg DAILY PO 07/14/16 09:00 07/15/16 09:22 (Lipitor) 80 mg HS PO 07/13/16 21:00 07/15/16 20:49 (Plavix) 75 mg DAILY PO 07/14/16 09:00 07/15/16 09:23 (Aricept) 10 mg HS PO 07/13/16 21:00 07/15/16 20:49 (Neurontin) 300 mg TID PO 07/13/16 18:00 07/15/16 16:26 (Protonix) 40 mg DAILY PO 07/14/16 09:00 07/15/16 09:22 (Zoloft) 100 mg DAILY PO 07/14/16 09:00 07/15/16 09:23 (Roxicodone) 10 mg Q4H PRN PO 07/14/16 13:15 07/16/16 03:20 (Senokot) 17.2 mg DAILY PO 07/15/16 09:00 07/15/16 09:23 (Lotrimin 1% Cream) 1 applic Q12HR TOPICAL 07/15/16 11:15 07/15/16 22:50 Vital Signs / I&O Vital Signs Date Time Temp Pulse Resp B/P Pulse Ox O2 Delivery O2 Flow Rate FiO2 07/16/16 04:00 98.2 66 18 103/56 96 07/16/16 00:00 98.2 55 18 109/61 94 07/15/16 21:00 56 07/15/16 20:50 Room Air 07/15/16 20:05 94 21 07/15/16 20:00 97.3 57 18 121/64 96 07/15/16 16:00 98.2 57 20 119/69 98 07/15/16 12:00 97.1 60 20 128/68 96 07/15/16 10:41 51 07/15/16 10:04 97 21 07/15/16 09:36 Room Air 07/15/16 08:00 97.5 64 20 146/70 96 I/O 07/15/16 07/15/16 07/15/16 07/16/16 07/16/16 07/16/16 07:00 15:00 23:00 07:00 15:00 23:00 Intake Total 739 ml 480 ml 1939 ml 870 ml Output Total 2550 ml 2855 ml 970 ml 550 ml Balance -1811 ml -2375 ml 969 ml 320 ml Intake Oral 480 ml 720 ml 240 ml IV Total 739 ml 1219 ml 630 ml Output Urine Total 2550 ml 2855 ml 970 ml 550 ml # Voids 1 # Bowel Movements 0 0 0 Physical Exam GENERAL: Well developed, well nourished. No acute distress. HEENT: Jugular venous pressure is normal. CHEST: Lungs clear to auscultation bilaterally. Unlabored respiratory effort. CARDIAC: Regular rate and rhythm without S3, S4, or murmur. ABDOMEN: Soft, nontender, no hepatosplenomegaly. Bowel sounds present. EXTREMITIES: No clubbing, cyanosis, or edema. Assessment and Plan Assessment and Plan Syncope - there is no overt cardiac etiology. I would not repeat the stress test as it was done approximately eight months ago. An echocardiogram showed normal EF. Tele is unremarkable -consider polypharmacy CAD - The patient is seemingly stable without any CV complaints. His troponin and CK-MB percent are negative. Stable; no further work up Elevated lactic acid - Dispo- ok for d/c from CV perspective\ Available Bailee Walton MD Jul 16, 2016 07:01
[2016-07-16] MEDS ORDERED: METOPROLOL TARTRATE 25 MG TAB PO SCH (09:00)
[2016-07-16 09:05] LABS: HEMATOCRIT 33.3 % (39.0-51.0); MEAN CORPUSCULAR HEMOGLOBIN 29.1 PG (27.0-34.0); MEAN CORPUSCULAR HGB CONC 33.1 % (32.0-36.0); PLATELET COUNT 154 TH/MM3 (150-450); RED BLOOD COUNT 3.78 MIL/MM3 (4.50-5.90); RED CELL DISTRIBUTION WIDTH 13.6 % (11.6-17.2); REVIEW FLAG FINAL; WHITE BLOOD COUNT 6.4 TH/MM3 (4.0-11.0)
--- NOTE | 2016-07-16 09:27 | HHI.PR ---
Subjective Remarks Says he feels very tired. Has blurry vision./ Multiple abrations. No pain. No n/ v/d/c. No new motor/sensory deficit. no palpitations. Feels heart is slowed down. Objective Vitals Vital Signs Date Time Temp Pulse Resp B/P Pulse Ox O2 Delivery O2 Flow Rate FiO2 07/16/16 08:00 98.2 54 18 129/60 96 07/16/16 04:00 98.2 66 18 103/56 96 07/16/16 00:00 98.2 55 18 109/61 94 07/15/16 21:00 56 07/15/16 20:50 Room Air 07/15/16 20:05 94 21 07/15/16 20:00 97.3 57 18 121/64 96 07/15/16 16:00 98.2 57 20 119/69 98 07/15/16 12:00 97.1 60 20 128/68 96 07/15/16 10:41 51 07/15/16 10:04 97 21 07/15/16 09:36 Room Air I/O 07/15/16 07/15/16 07/15/16 07/16/16 07/16/16 07/16/16 07:00 15:00 23:00 07:00 15:00 23:00 Intake Total 739 ml 480 ml 1939 ml 870 ml Output Total 2550 ml 2855 ml 970 ml 550 ml Balance -1811 ml -2375 ml 969 ml 320 ml Intake Oral 480 ml 720 ml 240 ml IV Total 739 ml 1219 ml 630 ml Output Urine Total 2550 ml 2855 ml 970 ml 550 ml # Voids 1 # Bowel Movements 0 0 0 Result Diagram: 07/15/16 0551 07/15/16 0551 Imaging Last Impressions Brain MRI 07/14/16 0000 Signed Impressions: Service Date/Time: Thursday, July 14, 2016 15:42 - CONCLUSION: 1. Sinusitis. 2. Remote left cerebral infarct. 3. Frontal scalp hematoma. Johnny Hernandez MD Head CT 07/13/16 0951 Signed Impressions: Service Date/Time: Wednesday, July 13, 2016 10:42 - CONCLUSION: 1. There is a new frontal scalp hematoma since the earlier examination. No skull fracture is identified but there are bilateral nasal bone fractures. 2. Intracranially no acute interval change is identified. Tin Chauhan MD Chest X-Ray 07/13/1651 Signed Impressions: Service Date/Time: Wednesday, July 13, 2016 09:50 - CONCLUSION: No acute cardiopulmonary abnormality is identified. Tin Chauhan MD Cervical Spine CT 07/13/1651 Signed Impressions: Service Date/Time: Wednesday, July 13, 2016 10:42 - CONCLUSION: 1. No acute cervical spine abnormality is identified. There is degenerative disc disease at C3-C4 through C6-C7. 2. There is a 7 mm right thyroid nodule. Tin Chauhan MD Wrist X-Ray 07/13/16 0000 Signed Impressions: Service Date/Time: Wednesday, July 13, 2016 12:39 - CONCLUSION: No acute abnormality is identified. Tin Chauhan MD Maxillofacial CT 07/13/16 0000 Signed Impressions: Service Date/Time: Wednesday, July 13, 2016 10:42 - CONCLUSION: 1. There is a new midline frontal scalp hematoma. No adjacent fracture is present. 2. New bilateral minimally displaced nasal bone fractures. 3. There is a 2.3 cm polyp versus mucous retention cyst in the right maxillary antrum. Tin Chauhan MD Hand X-Ray 07/13/16 0000 Signed Impressions: Service Date/Time: Wednesday, July 13, 2016 12:33 - CONCLUSION: No acute abnormality is identified. Tin Chauhan MD Carotid Artery Ultrasound 07/13/16 0000 Signed Impressions: Service Date/Time: Wednesday, July 13, 2016 22:39 - CONCLUSION: No evidence of flow-limiting carotid stenosis. Tin Reynoso MD Objective Remarks GENERAL: Awake and alert and in no acute distress. SKIN: Warm and dry. Superficial abrasions over nose. Left hand with multiple small wounds and evidence of gravel embedded in the skin. Circular clear to brown lesions on upper chest. HEAD: Normocephalic. Superficial abrasions over the nose. Significant for head hematoma as well as anterior nose swelling. No nasal septal hematoma. EYES: Pupils equal, round, 3 mm, reactive to light. EOMI. No scleral icterus. No injection or drainage. ENT: Skin exam as above. No nasal septal hematoma. Mucous membranes pink and moist. NECK: Trachea midline. No JVD. No midline cervical spine step-off or tenderness. CARDIOVASCULAR: Regular rate and rhythm and without murmur. RESPIRATORY: No accessory muscle use. Clear to auscultation. Breath sounds equal bilaterally. GASTROINTESTINAL: Abdomen soft, non-tender, nondistended. MUSCULOSKELETAL: No clubbing. No cyanosis. No edema. NEUROLOGICAL: Awake and alert. No obvious cranial nerve deficits. Weakness in the left upper extremity and left lower extremity. Normal speech. No nystagmus appreciated. Normal finger to nose test. PSYCHIATRIC: Mood and affect appropriate. A/P Assessment and Plan Frequent multiple falls Remote left cerebral infarct The patient fell twice on the day of admission. He describes an odd sensation but is unable to explain further. He did sustain minimally displaced bilateral nasal bone fractures. He also had a frontal hematoma. He denies any history of seizure. He appears to have a history of dementia with psychotic features. Possibly orthostatic. The patient endorses feeling like his heart may give out on him at certain times. Questionable dysrhythmia. EKG shows tachycardia, possibly atrial flutter. Orthostatic vital signs negative. Carotid ultrasound unremarkable. Ammonia level minimally elevated. Troponins have been flat. MRI brain without acute process. ECHO reviewed trace MV and Aortic valve regurgitation, normal EF 55%. Monitor on telemetry. EEG to rule out seizure. Wound care nurse consult for wounds sustained from the falls. PT/OT evals. MRI of the brain reviewed. 1. Sinusitis. 2. Remote left cerebral infarct. 3. Frontal scalp hematoma. Neurology following and requested cardiology evaluation which is pending. Change Lopressor to 25 mg BID as pt has been having bradycardia on the monitor. Reduce as needed. Josemanuel hold lopresdor if HR< 65. Ordered Holter monitor. Check B12 into a lower side, start B12 supplement. Lactic acidosis Unsure of cause. The pt does not have an increased anion gap. Improved with fluids. CXR and UA unremarkable. Resolved. Blood cultures NGTD. Rash On upper chest, appears fungal. Continue clotrimazole cream and monitor. Multiple skin abrations, partial thickness/skinloss right hand, nose, forehead. Cleanse wounds with wound clenser and apply bacitracin on open areas as instructed. Discussed with the nurse, orders placed. DM2, controlled, A1c 6.6 The pt is on metformin. Falls may be s/t hypoglycemic episodes. A1c 6.6%. Insulin sliding scale, accuchecks. . Hold metformin. Tyroid nodule 7mm, noted on imaging. TSH unremarkable. Outpt followup. PPx: SCDs. Discharge Planning Pending clinical improvement. Izzy Langford MD Jul 16, 2016 09:27
[2016-07-16] MEDS ORDERED: CYANOCOBALAMIN 1000 MCG/ML VIAL IM ONE (09:30)
[2016-07-16 09:31] LABS: BICARBONATE 28.7 MEQ/L (21.0-32.0); MAGNESIUM 1.6 MG/DL (1.5-2.5); POTASSIUM 4.2 MEQ/L (3.5-5.1)
[2016-07-16] MEDS: SODIUM CHLORIDE 0.9% FLUSH 5 ML FLUSH FLUSH SCH ×2 (09:31→20:15)
[2016-07-16] MEDS: DOCUSATE SODIUM 100 MG CAP PO SCH ×2 (09:31→20:16)
[2016-07-16] MEDS: SERTRALINE HCL 100 MG TAB PO SCH (09:31)
[2016-07-16] MEDS: CLOPIDOGREL 75 MG TAB PO SCH (09:31)
[2016-07-16] MEDS: SENNOSIDES 8.6 MG TAB PO SCH (09:31)
[2016-07-16] MEDS: ASPIRIN EC 81 MG TABEC PO SCH (09:31)
[2016-07-16] MEDS: GABAPENTIN 300 MG CAP PO SCH ×3 (09:31→16:27)
[2016-07-16] MEDS: PANTOPRAZOLE SOD 40 MG DELAYED RELEASE TAB PO SCH (09:31)
[2016-07-16] MEDS: CLOTRIMAZOLE 1% CREAM 15 GM TOPICAL SCH ×2 (09:33→20:18)
[2016-07-16] MEDS ORDERED: CYANOCOBALAMIN 1000 MCG/ML VIAL IM SCH (10:00)
--- NOTE | 2016-07-16 10:11 | MG ---
cc: JACQUELINE NUNEZ M.D. Lab No: [id number] Date: 07/14/2016 Age: Sex: M TECHNIQUE This is a 17-channel EEG. DESCRIPTION The background rhythm reveals a symmetrical alpha rhythm with a frequency of 8-9 Hz. There is some slowing in the theta range related to drowsiness. There are no lateralizing features and no epileptiform features. Hyperventilation was not done. Photic stimulation was done in a stepwise fashion with a fairly symmetric driving response. INTERPRETATION Normal EEG. MD RUSS Lipscomb/EDITH /10:04 AM /10:08 AM
[2016-07-16] MEDS: MAGNESIUM OXIDE 400 MG TAB PO SCH ×2 (11:45→20:27)
[2016-07-16] MEDS: BACITRACIN/POLYMYXIN B 15 GM TUBE TOPICAL SCH ×2 (13:41→20:18)
[2016-07-16] MEDS: ATORVASTATIN 80 MG TAB PO SCH (20:16)
[2016-07-16] MEDS: DONEPEZIL HCL 5 MG TAB PO SCH (20:16)
[2016-07-17] VITALS (7 sets, daily range): BP systolic 121–149; BP diastolic 62–79; PULSE 57–75; RESP 18–20; TEMP 97.2–98.6; O2SAT 93–96
[2016-07-17] MEDS: SODIUM CHLOR 0.9% 1000 ML INJ 1,000 ML IV SCH ×3 (04:54→20:35)
[2016-07-17] MEDS: INSULIN ASPART SUPPLEMENTAL SCALE SQ SCH ×4 (05:00→21:00)
[2016-07-17 07:33] LABS: AUTOMATED NEUTROPHIL # 4.2 TH/MM3 (1.8-7.7); BASOPHIL # 0.1 TH/MM3 (0-0.2); BASOPHIL % 1.2 % (0.0-2.0); EOSINOPHIL # 0.6 TH/MM3 (0-0.4); EOSINOPHIL % 10.2 % (0.0-4.0); HEMATOCRIT 35.1 % (39.0-51.0); HEMO FLAGS DIFF FINAL; LYMPHOCYTE # 0.5 TH/MM3 (1.0-4.8); MEAN CELL VOLUME 87.7 FL (80.0-100.0); MEAN CORPUSCULAR HEMOGLOBIN 28.9 PG (27.0-34.0); MEAN CORPUSCULAR HGB CONC 32.9 % (32.0-36.0); MONO % 6.3 % (0.0-8.0); NEUT % 73.3 % (16.0-70.0); PLATELET COUNT 149 TH/MM3 (150-450); RED BLOOD COUNT 4.01 MIL/MM3 (4.50-5.90); RED CELL DISTRIBUTION WIDTH 13.6 % (11.6-17.2); WHITE BLOOD COUNT 5.7 TH/MM3 (4.0-11.0)
[2016-07-17 07:59] LABS: BICARBONATE 29.3 MEQ/L (21.0-32.0); MAGNESIUM 1.5 MG/DL (1.5-2.5); POTASSIUM 4.1 MEQ/L (3.5-5.1)
--- NOTE | 2016-07-17 08:09 | HHI.PR ---
Objective Vital Signs Date Time Temp Pulse Resp B/P Pulse Ox O2 Delivery O2 Flow Rate FiO2 07/17/16 04:00 98.6 72 18 131/64 95 07/17/16 00:00 98.1 58 18 149/71 95 07/16/16 20:30 Room Air 07/16/16 20:00 97.6 64 18 139/78 97 07/16/16 19:33 96 21 07/16/16 16:00 98.1 70 18 116/60 97 07/16/16 12:00 97.0 67 18 110/60 97 07/16/16 10:30 95 21 07/16/16 09:43 51 07/16/16 09:43 Room Air I/O 07/16/16 07/16/16 07/16/16 07/17/16 07/17/16 07/17/16 07:00 15:00 23:00 07:00 15:00 23:00 Intake Total 870 ml 1569 ml 720 ml 480 ml Output Total 550 ml 2700 ml 1230 ml 1475 ml Balance 320 ml -1131 ml -510 ml -995 ml Intake Oral 240 ml 960 ml 720 ml 480 ml IV Total 630 ml 609 ml Output Urine Total 550 ml 2700 ml 1230 ml 1475 ml # Voids 1 2 # Bowel Movements 0 1 0 0 Result Diagram: 07/17/1661407/17/16614 Objective Remarks awake alert moves all Assessment and Plan Assessment and Plan imp eeg no cards cleared i think he would benefit from 30 day electronic device monitor and we can set up o/p other possibility small sz? uncler not to drive fu office Fausto Coe MD Jul 17, 2016 08:09
[2016-07-17] MEDS: SODIUM CHLORIDE 0.9% FLUSH 5 ML FLUSH FLUSH SCH ×2 (09:00→20:34)
[2016-07-17] MEDS: GABAPENTIN 300 MG CAP PO SCH ×3 (09:23→18:00)
[2016-07-17] MEDS: DOCUSATE SODIUM 100 MG CAP PO SCH ×2 (09:23→20:32)
[2016-07-17] MEDS: ASPIRIN EC 81 MG TABEC PO SCH (09:23)
[2016-07-17] MEDS: CLOPIDOGREL 75 MG TAB PO SCH (09:23)
[2016-07-17] MEDS: PANTOPRAZOLE SOD 40 MG DELAYED RELEASE TAB PO SCH (09:24)
[2016-07-17] MEDS: CLOTRIMAZOLE 1% CREAM 15 GM TOPICAL SCH ×2 (09:24→20:34)
[2016-07-17] MEDS: SENNOSIDES 8.6 MG TAB PO SCH (09:24)
[2016-07-17] MEDS: CYANOCOBALAMIN 1,000 MCG TAB PO SCH (09:24)
[2016-07-17] MEDS: SERTRALINE HCL 100 MG TAB PO SCH (09:24)
[2016-07-17] MEDS: BACITRACIN/POLYMYXIN B 15 GM TUBE TOPICAL SCH ×2 (09:24→20:35)
[2016-07-17] MEDS: MAGNESIUM OXIDE 400 MG TAB PO SCH (12:09)
--- NOTE | 2016-07-17 13:48 | HHI.PR ---
Subjective Remarks In bed. says he has some blurry vision however improved since yesterday. No new motor deficit. No n/v/d/c. No seizures. Pain is fairly controlled by meds. Objective Vitals Vital Signs Date Time Temp Pulse Resp B/P Pulse Ox O2 Delivery O2 Flow Rate FiO2 07/17/16 10:45 20 07/17/16 10:13 96 21 07/17/16 04:00 98.6 72 18 131/64 95 07/17/16 00:00 98.1 58 18 149/71 95 07/16/16 20:30 Room Air 07/16/16 20:00 97.6 64 18 139/78 97 07/16/16 19:33 96 21 07/16/16 16:00 98.1 70 18 116/60 97 I/O 07/16/16 07/16/16 07/16/16 07/17/16 07/17/16 07/17/16 07:00 15:00 23:00 07:00 15:00 23:00 Intake Total 870 ml 1569 ml 720 ml 480 ml Output Total 550 ml 2700 ml 1230 ml 1475 ml Balance 320 ml -1131 ml -510 ml -995 ml Intake Oral 240 ml 960 ml 720 ml 480 ml IV Total 630 ml 609 ml Output Urine Total 550 ml 2700 ml 1230 ml 1475 ml # Voids 1 2 # Bowel Movements 0 1 0 0 Result Diagram: 07/17/16 0615 07/17/16 0615 Imaging Last Impressions Brain MRI 07/14/16 0000 Signed Impressions: Service Date/Time: Thursday, July 14, 2016 15:42 - CONCLUSION: 1. Sinusitis. 2. Remote left cerebral infarct. 3. Frontal scalp hematoma. Johnny Hernandez MD Head CT 07/13/16950 Signed Impressions: Service Date/Time: Wednesday, July 13, 2016 10:42 - CONCLUSION: 1. There is a new frontal scalp hematoma since the earlier examination. No skull fracture is identified but there are bilateral nasal bone fractures. 2. Intracranially no acute interval change is identified. Tin Chauhan MD Chest X-Ray 07/13/16950 Signed Impressions: Service Date/Time: Wednesday, July 13, 2016 09:50 - CONCLUSION: No acute cardiopulmonary abnormality is identified. Tin Chauhan MD Cervical Spine CT 07/13/16 0951 Signed Impressions: Service Date/Time: Wednesday, July 13, 2016 10:42 - CONCLUSION: 1. No acute cervical spine abnormality is identified. There is degenerative disc disease at C3-C4 through C6-C7. 2. There is a 7 mm right thyroid nodule. Tin Chauhan MD Wrist X-Ray 07/13/16 0000 Signed Impressions: Service Date/Time: Wednesday, July 13, 2016 12:39 - CONCLUSION: No acute abnormality is identified. Tin Chauhan MD Maxillofacial CT 07/13/16 0000 Signed Impressions: Service Date/Time: Wednesday, July 13, 2016 10:42 - CONCLUSION: 1. There is a new midline frontal scalp hematoma. No adjacent fracture is present. 2. New bilateral minimally displaced nasal bone fractures. 3. There is a 2.3 cm polyp versus mucous retention cyst in the right maxillary antrum. Tin Chauhan MD Hand X-Ray 07/13/16 0000 Signed Impressions: Service Date/Time: Wednesday, July 13, 2016 12:33 - CONCLUSION: No acute abnormality is identified. Tin Chauhan MD Carotid Artery Ultrasound 07/13/16 0000 Signed Impressions: Service Date/Time: Wednesday, July 13, 2016 22:39 - CONCLUSION: No evidence of flow-limiting carotid stenosis. Tin Reynoso MD Objective Remarks GENERAL: Awake and alert and in no acute distress. SKIN: Warm and dry. Superficial abrasions over nose. Left hand with multiple small wounds and evidence of gravel embedded in the skin. Circular clear to brown lesions on upper chest. HEAD: Normocephalic. Superficial abrasions over the nose. Significant for head hematoma as well as anterior nose swelling. No nasal septal hematoma. EYES: Pupils equal, round, 3 mm, reactive to light. EOMI. No scleral icterus. No injection or drainage. ENT: Skin exam as above. No nasal septal hematoma. Mucous membranes pink and moist. NECK: Trachea midline. No JVD. No midline cervical spine step-off or tenderness. CARDIOVASCULAR: Regular rate and rhythm and without murmur. RESPIRATORY: No accessory muscle use. Clear to auscultation. Breath sounds equal bilaterally. GASTROINTESTINAL: Abdomen soft, non-tender, nondistended. MUSCULOSKELETAL: No clubbing. No cyanosis. No edema. NEUROLOGICAL: Awake and alert. No obvious cranial nerve deficits. Weakness in the left upper extremity and left lower extremity. Normal speech. No nystagmus appreciated. Normal finger to nose test. PSYCHIATRIC: Mood and affect appropriate. A/P Assessment and Plan Frequent multiple falls Remote left cerebral infarct The patient fell twice on the day of admission. He describes an odd sensation but is unable to explain further. He did sustain minimally displaced bilateral nasal bone fractures. He also had a frontal hematoma. He denies any history of seizure. He appears to have a history of dementia with psychotic features. Possibly orthostatic. The patient endorses feeling like his heart may give out on him at certain times. Questionable dysrhythmia. EKG shows tachycardia, possibly atrial flutter. Orthostatic vital signs negative. Carotid ultrasound unremarkable. Ammonia level minimally elevated. Troponins have been flat. MRI brain without acute process. ECHO reviewed trace MV and Aortic valve regurgitation, normal EF 55%. Monitor on telemetry. EEG to rule out seizure. Wound care nurse consult for wounds sustained from the falls. PT/OT evals. MRI of the brain reviewed. 1. Sinusitis. 2. Remote left cerebral infarct. 3. Frontal scalp hematoma. Neurology following and requested cardiology evaluation which is pending. Change Lopressor to 25 mg BID as pt has been having bradycardia on the monitor. Reduce as needed. Josemanuel hold lopresdor if HR< 65. Ordered Holter monitor. Check B12 into a lower side, start B12 supplement. EEG no seizure, he might have small seizures per neuro. Patient is adviced DO NOT DRIVE until cleared by neurology Lactic acidosis Unsure of cause. The pt does not have an increased anion gap. Improved with fluids. CXR and UA unremarkable. Resolved. Blood cultures NGTD. Rash On upper chest, appears fungal. Continue clotrimazole cream and monitor. Multiple skin abrations, partial thickness/skinloss right hand, nose, forehead. Cleanse wounds with wound clenser and apply bacitracin on open areas as instructed. Discussed with the nurse, orders placed. DM2, controlled, A1c 6.6 The pt is on metformin. Falls may be s/t hypoglycemic episodes. A1c 6.6%. Insulin sliding scale, accuchecks. . Hold metformin. Tyroid nodule 7mm, noted on imaging. TSH unremarkable. Outpt followup. PT/OT PPx: SCDs. Discharge Planning Improving. Cleared by neurology for DC. Patient needs Holter monitor for 1 year per neurology. Follow up as OP with PCP and consultants. Patient might benefit from SNF. CM consult for DC plan. Izzy Langford MD Jul 17, 2016 13:48
[2016-07-17] MEDS ORDERED: OXYC1CAP PO (13:54)
[2016-07-17] MEDS ORDERED: POLY.9T TOPICAL (13:54)
[2016-07-17] MEDS ORDERED: VITA10002 PO (13:54)
--- NOTE | 2016-07-17 13:55 | HHI.DS ---
Discharge Summary Admission Date Jul 13, 2016 at 12:23 Discharge Date: Jul 18, 2016 Admitting Diagnosis syncope, head injury, nasal bone fracture, lactic acidosis (1) Syncope ICD Code: R55 Diagnosis: Principal (2) Abrasion ICD Code: T14.8 Diagnosis: Principal (3) Nasal bone fracture ICD Code: S02.2XXA Diagnosis: Principal (4) Encephalopathy ICD Code: G93.40 Diagnosis: Secondary (5) Dementia with psychosis ICD Code: F03.91 Diagnosis: Secondary (6) Disorder of coronary artery ICD Code: 447.9 Diagnosis: Secondary (7) Dyslipidemia ICD Code: 272.8 Diagnosis: Secondary (8) Essential hypertension ICD Code: 401.9 Diagnosis: Secondary (9) Adjustment disorder with mixed anxiety and depressed mood ICD Code: F43.23 Diagnosis: Secondary (10) Expressive language disorder ICD Code: 315.31 Diagnosis: Secondary (11) Major depressive disorder, recurrent, severe with psychotic features ICD Code: F33.3 Diagnosis: Secondary (12) Diabetes mellitus type 2 ICD Code: 250.00 Diagnosis: Secondary (13) CAD (coronary artery disease) of artery bypass graft ICD Code: I25.810 Diagnosis: Secondary (14) Hypertension ICD Code: I10 Diagnosis: Secondary (15) Weakness ICD Code: R53.1 Diagnosis: Secondary (16) History of CVA (cerebrovascular accident) ICD Code: Z86.73 Diagnosis: Secondary (17) Facial abrasion ICD Code: S00.81XA (18) Cognitive impairment ICD Code: R41.89 Procedures none Brief History - From Admission The patient is a 61-year-old male with a past medical history of CAD and CVA with left-sided weakness was presenting to the hospital after having multiple falls. The patient says that early this morning at about 3 AM he was walking outside and he fell into a cactus. He said he felt on prior to the fall but he doesn't know how to describe the sensation otherwise. He is not sure if he lost consciousness or not. He talked to his stepson who recommended the patient be taken in the hospital for treatment. The patient was evaluated in the emergency department and his wounds were dressed and he was discharged. The patient says he was walking to [employer] when once again he felt odd and fell down. He is not sure if he had any symptoms. The patient does endorse recently feeling like his heart was going to give out on him. He is unable to elaborate on the sensation further. He denies any outright chest pain. He also endorses a low energy stay and some shortness of breath. The patient is feeling like his pain level is a 9 out of 10 at this time. He denies any history of seizure. He does not endorse any palpitations. CBC/BMP: 07/17/16 0615 07/17/16 0615 Significant Findings Laboratory Tests Test 07/15/16 07/16/16 07/17/16 05:51 08:06 06:15 Red Blood Count 3.90 MIL/MM3 3.78 MIL/MM3 4.01 MIL/MM3 (4.50-5.90) (4.50-5.90) (4.50-5.90) Hemoglobin 11.6 GM/DL 11.0 GM/DL 11.6 GM/DL (13.0-17.0) (13.0-17.0) (13.0-17.0) Hematocrit 34.1 % 33.3 % 35.1 % (39.0-51.0) (39.0-51.0) (39.0-51.0) Random Glucose 125 MG/DL 142 MG/DL 113 MG/DL (74-106) (74-106) (74-106) Calcium Level 8.1 MG/DL 7.8 MG/DL (8.5-10.1) (8.5-10.1) Magnesium Level 1.3 MG/DL (1.5-2.5) Platelet Count 149 TH/MM3 (150-450) Neutrophils (%) (Auto) 73.3 % (16.0-70.0) Eosinophils (%) (Auto) 10.2 % (0.0-4.0) Lymphocytes # (Auto) 0.5 TH/MM3 (1.0-4.8) Eosinophils # (Auto) 0.6 TH/MM3 (0-0.4) Imaging Last Impressions Brain MRI 07/14/16 0000 Signed Impressions: Service Date/Time: Thursday, July 14, 2016 15:42 - CONCLUSION: 1. Sinusitis. 2. Remote left cerebral infarct. 3. Frontal scalp hematoma. Johnny Hernandez MD Head CT 07/13/1651 Signed Impressions: Service Date/Time: Wednesday, July 13, 2016 10:42 - CONCLUSION: 1. There is a new frontal scalp hematoma since the earlier examination. No skull fracture is identified but there are bilateral nasal bone fractures. 2. Intracranially no acute interval change is identified. Tin Chauhan MD Chest X-Ray 07/13/16950 Signed Impressions: Service Date/Time: Wednesday, July 13, 2016 09:50 - CONCLUSION: No acute cardiopulmonary abnormality is identified. Tin Chauhan MD Cervical Spine CT 07/13/16950 Signed Impressions: Service Date/Time: Wednesday, July 13, 2016 10:42 - CONCLUSION: 1. No acute cervical spine abnormality is identified. There is degenerative disc disease at C3-C4 through C6-C7. 2. There is a 7 mm right thyroid nodule. Tin Chauhan MD Wrist X-Ray 07/13/16 Signed Impressions: Service Date/Time: Wednesday, July 13, 2016 12:39 - CONCLUSION: No acute abnormality is identified. Tin Chauhan MD Maxillofacial CT 07/13/16 Signed Impressions: Service Date/Time: Wednesday, July 13, 2016 10:42 - CONCLUSION: 1. There is a new midline frontal scalp hematoma. No adjacent fracture is present. 2. New bilateral minimally displaced nasal bone fractures. 3. There is a 2.3 cm polyp versus mucous retention cyst in the right maxillary antrum. Tin Chauhan MD Hand X-Ray 07/13/16 Signed Impressions: Service Date/Time: Wednesday, July 13, 2016 12:33 - CONCLUSION: No acute abnormality is identified. Tin Chauhan MD Carotid Artery Ultrasound 07/13/16 Signed Impressions: Service Date/Time: Wednesday, July 13, 2016 22:39 - CONCLUSION: No evidence of flow-limiting carotid stenosis. Tin Reynoso MD PE at Discharge GENERAL: Awake and alert and in no acute distress. SKIN: Warm and dry. Superficial abrasions over nose. Left hand with multiple small wounds and evidence of gravel embedded in the skin. Circular clear to brown lesions on upper chest. HEAD: Normocephalic. Superficial abrasions over the nose. Significant for head hematoma as well as anterior nose swelling. No nasal septal hematoma. EYES: Pupils equal, round, 3 mm, reactive to light. EOMI. No scleral icterus. No injection or drainage. ENT: Skin exam as above. No nasal septal hematoma. Mucous membranes pink and moist. NECK: Trachea midline. No JVD. No midline cervical spine step-off or tenderness. CARDIOVASCULAR: Regular rate and rhythm and without murmur. RESPIRATORY: No accessory muscle use. Clear to auscultation. Breath sounds equal bilaterally. GASTROINTESTINAL: Abdomen soft, non-tender, nondistended. MUSCULOSKELETAL: No clubbing. No cyanosis. No edema. NEUROLOGICAL: Awake and alert. No obvious cranial nerve deficits. Weakness in the left upper extremity and left lower extremity. Normal speech. No nystagmus appreciated. Normal finger to nose test. PSYCHIATRIC: Mood and affect appropriate. Pt update on day of discharge Feels much better today. Says she feels comfortable to go home as he has care at home all the time. Denies having any pain. No n/v/d/c. No fever or chills. No palpitations or lightheadedness. Discussed with the patient, nurse, case management. Hospital Course Frequent multiple falls Remote left cerebral infarct The patient fell twice on the day of admission. He describes an odd sensation but is unable to explain further. He did sustain minimally displaced bilateral nasal bone fractures. He also had a frontal hematoma. He denies any history of seizure. He appears to have a history of dementia with psychotic features. Possibly orthostatic. The patient endorses feeling like his heart may give out on him at certain times. Questionable dysrhythmia. EKG shows tachycardia, possibly atrial flutter. Orthostatic vital signs negative. Carotid ultrasound unremarkable. Ammonia level minimally elevated. Troponins have been flat. MRI brain without acute process. ECHO reviewed trace MV and Aortic valve regurgitation, normal EF 55%. Monitor on telemetry. EEG to rule out seizure. Wound care nurse consult for wounds sustained from the falls. PT/OT evals. MRI of the brain reviewed. 1. Sinusitis. 2. Remote left cerebral infarct. 3. Frontal scalp hematoma. Neurology following and requested cardiology evaluation which is pending. Change Lopressor to 25 mg BID as pt has been having bradycardia on the monitor. Reduce as needed. Josemanuel hold lopresdor if HR< 65. Ordered Holter monitor. Check B12 into a lower side, start B12 supplement. EEG no seizure, he might have small seizures per neuro. Patient is adviced DO NOT DRIVE until cleared by neurology Lactic acidosis Unsure of cause. The pt does not have an increased anion gap. Improved with fluids. CXR and UA unremarkable. Resolved. Blood cultures NGTD. Rash On upper chest, appears fungal. Continue clotrimazole cream and monitor. Multiple skin abrations, partial thickness/skinloss right hand, nose, forehead. Cleanse wounds with wound clenser and apply bacitracin on open areas as instructed. Discussed with the nurse, orders placed. DM2, controlled, A1c 6.6 The pt is on metformin. Falls may be s/t hypoglycemic episodes. A1c 6.6%. Insulin sliding scale, accuchecks. . Hold metformin. Tyroid nodule 7mm, noted on imaging. TSH unremarkable. Outpt followup. PT/OT PPx: SCDs. Discharge Planning Improving. Cleared by neurology for DC. Patient needs Holter monitor for 1 year per neurology. Follow up as OP with PCP and consultants. Patient is DC home to have PT/OT as OP Pt Condition on Discharge: Stable Discharge Disposition: Discharge Home Discharge Time: > 30 minutes Discharge Instructions DIET: Follow Instructions for: Heart Healthy Diet Activities you can perform: Regular-No Restrictions Follow up Referrals: Cardiology - 1 Week Neurology - 1 Week PCP Follow-up - 3-5 Days New Orders: HOLTER MONITOR New Medications: Oxycodone (Oxycodone) 5 Mg Cap 5 MG PO Q8H PRN PAIN #20 Ref 0 CAP Bacitracin-Polymyxin B Topical (Double Antibiotic Topical) 500-10,000 Unit/Gm Oint 1 APPLIC TOPICAL Q12HR abrations Days 7 TUBE Cyanocobalamin (Vitamin B-12) 1,000 Mcg Tab 1000 MCG PO DAILY vit b12 supplement #15 TAB Continued Medications: Aspirin DR (Aspirin Adult Low Strength) 81 Mg Tabdr 81 MG PO DAILY TAB Atorvastatin (Lipitor) 80 Mg Tab 80 MG PO HS Cholesterol Management #30 Ref 0 TAB Clopidogrel (Clopidogrel) 75 Mg Tab 75 MG PO DAILY Blood Clot Prevention #30 Ref 0 TAB Dicyclomine (Dicyclomine) 20 Mg Tab 20 MG PO TID PRN cramping #20 TAB Donepezil (Donepezil) 10 Mg Tab 10 MG PO HS Dementia #30 Ref 0 TAB Gabapentin (Gabapentin) 300 Mg Cap 300 MG PO TID #90 Ref 0 CAP Metformin (Metformin) 1,000 Mg Tab 1000 MG PO BIDPC With meals Blood Sugar Management #60 Ref 0 TAB Metoprolol Tartrate (Metoprolol Tartrate) 50 Mg Tab 50 MG PO DAILY #30 Ref 0 TAB Nitroglycerin SL (Nitroglycerin SL) 0.4 Mg Subl 0.4 MG SL DIRECTED ONE TABLET UNDER THE TONGUE NEEDED FOR CHEST PAIN, MAY REPEAT EVERY FIVE MINUTES FOR A TOTAL OF 3 DOSES OR CALL 911 IF NO RELIEF PRN CHEST PAIN #100 Ref 0 TAB.SL Ondansetron Odt (Ondansetron Odt) 4 Mg Tab 4 MG SL Q6HR PRN Nausea/Vomiting Ref 0 TAB Pantoprazole (Pantoprazole) 40 Mg Tab 40 MG PO DAILY Reflux #30 TAB Sertraline (Sertraline) 100 Mg Tab 100 MG PO DAILY #30 Ref 0 TAB Tizanidine (Tizanidine) 4 Mg Cap 4 MG PO TID PRN MUSCLE SPASM Ref 0 CAP Discontinued Medications: Hydrocodone-Acetaminophen ([place]) 10-325 Mg Tab 1 TAB PO TID PRN PAIN Ref 0 TAB Izzy Langford MD Jul 17, 2016 13:55
[2016-07-17] MEDS: DONEPEZIL HCL 5 MG TAB PO SCH (20:32)
[2016-07-17] MEDS: ATORVASTATIN 80 MG TAB PO SCH (20:32)
[2016-07-18] VITALS: BP 124/58; PULSE 62; RESP 21; TEMP 98.6; O2SAT 96
[2016-07-18] MEDS: MAGNESIUM OXIDE 400 MG TAB PO SCH ×2 (00:09→12:08)
[2016-07-18 04:00] VITALS: BP 135/61; PULSE 60; RESP 20; TEMP 98; O2SAT 96
[2016-07-18] MEDS: INSULIN ASPART SUPPLEMENTAL SCALE SQ SCH ×2 (05:21→12:09)
[2016-07-18 08:00] VITALS: BP 131/61; PULSE 57; RESP 20; TEMP 97.8; O2SAT 97
[2016-07-18 08:08] VITALS: PULSE 50
[2016-07-18] MEDS: SODIUM CHLORIDE 0.9% FLUSH 5 ML FLUSH FLUSH SCH (09:00)
[2016-07-18] MEDS: ASPIRIN EC 81 MG TABEC PO SCH (09:30)
[2016-07-18] MEDS: DOCUSATE SODIUM 100 MG CAP PO SCH (09:30)
[2016-07-18] MEDS: CLOPIDOGREL 75 MG TAB PO SCH (09:30)
[2016-07-18] MEDS: GABAPENTIN 300 MG CAP PO SCH (09:30)
[2016-07-18] MEDS: SERTRALINE HCL 100 MG TAB PO SCH (09:31)
[2016-07-18] MEDS: BACITRACIN/POLYMYXIN B 15 GM TUBE TOPICAL SCH (09:31)
[2016-07-18] MEDS: SENNOSIDES 8.6 MG TAB PO SCH (09:31)
[2016-07-18] MEDS: CYANOCOBALAMIN 1,000 MCG TAB PO SCH (09:31)
[2016-07-18] MEDS: PANTOPRAZOLE SOD 40 MG DELAYED RELEASE TAB PO SCH (09:31)
[2016-07-18] MEDS: CLOTRIMAZOLE 1% CREAM 15 GM TOPICAL SCH (09:31)
--- NOTE | 2016-07-18 11:53 | HHI.PR ---
Subjective Remarks Feels much better today. Says she feels comfortable to go home as he has care at home all the time. Denies having any pain. No n/v/d/c. No fever or chills. No palpitations or lightheadedness. Objective Vitals Vital Signs Date Time Temp Pulse Resp B/P Pulse Ox O2 Delivery O2 Flow Rate FiO2 07/18/16 08:08 50 07/18/16 08:00 97.8 57 20 131/61 97 07/18/16 04:00 98.0 60 20 135/61 96 07/18/16 00:00 98.6 62 21 124/58 96 07/17/16 20:30 Room Air 07/17/16 20:00 97.7 71 20 132/75 93 07/17/16 18:00 18 07/17/16 16:00 97.2 75 20 121/79 94 07/17/16 12:00 94 Room Air 07/17/16 12:00 97.2 57 20 129/62 94 I/O 07/17/16 07/17/16 07/17/16 07/18/16 07/18/16 07/18/16 07:00 15:00 23:00 07:00 15:00 23:00 Intake Total 480 ml 680 ml 240 ml Output Total 1475 ml 1000 ml 2400 ml Balance -995 ml -320 ml -2160 ml Intake Oral 480 ml 480 ml 240 ml IV Total 200 ml Output Urine Total 1475 ml 1000 ml 2400 ml # Voids 2 # Bowel Movements 0 0 0 Result Diagram: 07/17/1615 07/17/1615 Imaging Last Impressions Brain MRI 07/14/16 0000 Signed Impressions: Service Date/Time: Thursday, July 14, 2016 15:42 - CONCLUSION: 1. Sinusitis. 2. Remote left cerebral infarct. 3. Frontal scalp hematoma. Johnny Hernandez MD Head CT 07/13/16950 Signed Impressions: Service Date/Time: Wednesday, July 13, 2016 10:42 - CONCLUSION: 1. There is a new frontal scalp hematoma since the earlier examination. No skull fracture is identified but there are bilateral nasal bone fractures. 2. Intracranially no acute interval change is identified. Tin Chauhan MD Chest X-Ray 07/13/16950 Signed Impressions: Service Date/Time: Wednesday, July 13, 2016 09:50 - CONCLUSION: No acute cardiopulmonary abnormality is identified. Tin Chauhan MD Cervical Spine CT 07/13/16 0951 Signed Impressions: Service Date/Time: Wednesday, July 13, 2016 10:42 - CONCLUSION: 1. No acute cervical spine abnormality is identified. There is degenerative disc disease at C3-C4 through C6-C7. 2. There is a 7 mm right thyroid nodule. Tin Chauhan MD Wrist X-Ray 07/13/16 0000 Signed Impressions: Service Date/Time: Wednesday, July 13, 2016 12:39 - CONCLUSION: No acute abnormality is identified. Tin Chauhan MD Maxillofacial CT 07/13/16 0000 Signed Impressions: Service Date/Time: Wednesday, July 13, 2016 10:42 - CONCLUSION: 1. There is a new midline frontal scalp hematoma. No adjacent fracture is present. 2. New bilateral minimally displaced nasal bone fractures. 3. There is a 2.3 cm polyp versus mucous retention cyst in the right maxillary antrum. Tin Chauhan MD Hand X-Ray 07/13/16 0000 Signed Impressions: Service Date/Time: Wednesday, July 13, 2016 12:33 - CONCLUSION: No acute abnormality is identified. Tin Chauhan MD Carotid Artery Ultrasound 07/13/16 0000 Signed Impressions: Service Date/Time: Wednesday, July 13, 2016 22:39 - CONCLUSION: No evidence of flow-limiting carotid stenosis. Tin Reynoso MD Objective Remarks GENERAL: Awake and alert and in no acute distress. SKIN: Warm and dry. Superficial abrasions over nose. Left hand with multiple small wounds and evidence of gravel embedded in the skin. Circular clear to brown lesions on upper chest. HEAD: Normocephalic. Superficial abrasions over the nose. Significant for head hematoma as well as anterior nose swelling. No nasal septal hematoma. EYES: Pupils equal, round, 3 mm, reactive to light. EOMI. No scleral icterus. No injection or drainage. ENT: Skin exam as above. No nasal septal hematoma. Mucous membranes pink and moist. NECK: Trachea midline. No JVD. No midline cervical spine step-off or tenderness. CARDIOVASCULAR: Regular rate and rhythm and without murmur. RESPIRATORY: No accessory muscle use. Clear to auscultation. Breath sounds equal bilaterally. GASTROINTESTINAL: Abdomen soft, non-tender, nondistended. MUSCULOSKELETAL: No clubbing. No cyanosis. No edema. NEUROLOGICAL: Awake and alert. No obvious cranial nerve deficits. Weakness in the left upper extremity and left lower extremity. Normal speech. No nystagmus appreciated. Normal finger to nose test. PSYCHIATRIC: Mood and affect appropriate. A/P Assessment and Plan Frequent multiple falls Remote left cerebral infarct The patient fell twice on the day of admission. He describes an odd sensation but is unable to explain further. He did sustain minimally displaced bilateral nasal bone fractures. He also had a frontal hematoma. He denies any history of seizure. He appears to have a history of dementia with psychotic features. Possibly orthostatic. The patient endorses feeling like his heart may give out on him at certain times. Questionable dysrhythmia. EKG shows tachycardia, possibly atrial flutter. Orthostatic vital signs negative. Carotid ultrasound unremarkable. Ammonia level minimally elevated. Troponins have been flat. MRI brain without acute process. ECHO reviewed trace MV and Aortic valve regurgitation, normal EF 55%. Monitor on telemetry. Wound care nurse consult for wounds sustained from the falls. PT/OT evals. MRI of the brain reviewed. 1. Sinusitis. 2. Remote left cerebral infarct. 3. Frontal scalp hematoma. Neurology following and requested cardiology evaluation. Seen by cardiology, cleared for DC to follow up as OP, plan to repeat stress test as OP later on. Change Lopressor to 25 mg BID as pt has been having bradycardia on the monitor. Reduce as needed. Will hold lopresor if HR< 65. Ordered Holter monitor. Check B12 into a lower side, start B12 supplement. EEG no seizure, he might have small seizures per neuro. Patient is adviced DO NOT DRIVE until cleared by neurology Lactic acidosis Unsure of cause. The pt does not have an increased anion gap. Improved with fluids. CXR and UA unremarkable. Resolved. Blood cultures NGTD. Rash On upper chest, appears fungal. Continue clotrimazole cream and monitor. Multiple skin abrations, partial thickness/skinloss right hand, nose, forehead. Cleanse wounds with wound clenser and apply bacitracin on open areas as instructed. Discussed with the nurse, orders placed. DM2, controlled, A1c 6.6 The pt is on metformin. Falls may be s/t hypoglycemic episodes. A1c 6.6%. Insulin sliding scale, accuchecks. . Hold metformin. Tyroid nodule 7mm, noted on imaging. TSH unremarkable. Outpt followup. PT/OT PPx: SCDs. Discharge Planning Improving. Cleared by neurology for DC. Patient needs Holter monitor for 1 year per neurology. Follow up as OP with PCP and consultants. Patient might benefit from SNF. CM consult for DC plan. Discussed with the patient, nurse, case management. Izzy Langford MD Jul 18, 2016 11:53
[2016-07-18 12:00] VITALS: BP 143/84; PULSE 79; RESP 18; TEMP 98.1; O2SAT 96
--- NOTE | 2016-07-18 14:01 | HM ---
Date Performed: 07/16/2016 Time Performed: 10:30:00 HOOKUP DATE: 07/16/16 10:30:00 AM Tue ANALYSIS START TIME: 07/16/2016 10:35:00 AM ANALYSIS END TIME: 07/17/2016 10:38:59 AM PATIENT AGE: 61 PATIENT HEIGHT PATIENT WEIGHT DRUG LIST PATIENT DIAGNOSIS: SYNCOPE HEAD INJURY TEST NARRATIVE: The patient's average heart rate was 66 BPM. No episodes of tachycardia wer e noted. Heart rates less than 50 BPM were noted 2% of the time. No pauses exceeding 2.0 seconds were noted. 2 ventricular ectopics, which represented < 1% of the total beat count, were noted. The highest ventricular ectopic frequency occurred from 05:00 PM to 06:00 PM Tue. During this time 2 VE(s) occurred. Ventricular ectopics were observed as 2 isolated beat(s) only. No couplets or run s were noted. 9 supraventricular ectopics, which represented < 1% of the total beat count, were n oted. The highest supraventricular ectopic frequency occurred from 02:00 AM to 03:00 AM Wed. During this time 2 SVE(s) occurred. No episodes of ST depression (defined as -1.0 mm or more) were note d in channel 1. No episodes of ST depression (defined as -1.0 mm or more) were noted in channel 2. No episodes of ST depression (defined as -1.0 mm or more) were noted in channel 3. PT DIARY WAS NOT R ETURNED WITH HOLTER MONITOR. TEST INTERPRETATION: 1. The patient is in Sinus rhythm throughout the recording with an average heart rate of 66. The minimum heart rate is 47 and the peak heart rate is 118 beats per minute. 2. There are only 2 ventricular premature beats. 3. There are on ly 7 atrial premature beats. 4. There are no pauses and no diary was returned. COCLUSIONS: Unremarkea ble Holter monitor recording. Sign ed by : Miles Coelho
== END 2016-07-18 16:38 | disposition home or self-care (01) | DRG 312 ==
LOC: NEPC 09:46 → NEDA 12:23 → N04A 15:50
PROVIDERS: ADMIT Hospitalist; ATTEND Hospitalist
DX: R55 Syncope and collapse (principal); E87.2 Acidosis; F33.3 Major depressive disorder, recurrent, severe with psychotic symptoms; F03.90 Unspecified dementia, unspecified severity, without behavioral disturbance, psychotic disturbance, mood disturbance, and anxiety; I69.354 Hemiplegia and hemiparesis following cerebral infarction affecting left non-dominant side; S02.2XXA Fracture of nasal bones, initial encounter for closed fracture; H53.8 Other visual disturbances; I25.810 Atherosclerosis of coronary artery bypass graft(s) without angina pectoris; S00.81XA Abrasion of other part of head, initial encounter; S00.03XA Contusion of scalp, initial encounter; E04.1 Nontoxic single thyroid nodule; R00.0 Tachycardia, unspecified; K21.9 Gastro-esophageal reflux disease without esophagitis; I10 Essential (primary) hypertension; E11.9 Type 2 diabetes mellitus without complications; E78.00 Pure hypercholesterolemia, unspecified; Z95.5 Presence of coronary angioplasty implant and graft; Z95.1 Presence of aortocoronary bypass graft; J45.909 Unspecified asthma, uncomplicated; Z79.02 Long term (current) use of antithrombotics/antiplatelets; W19.XXXA Unspecified fall, initial encounter; Z91.81 History of falling; Z88.0 Allergy status to penicillin; Z91.030 Bee allergy status; Z79.84 Long term (current) use of oral hypoglycemic drugs; R29.6 Repeated falls; F32.9 Major depressive disorder, single episode, unspecified; F41.9 Anxiety disorder, unspecified; Y93.01 Activity, walking, marching and hiking; Y92.511 Restaurant or cafe as the place of occurrence of the external cause; E78.5 Hyperlipidemia, unspecified; Z80.1 Family history of malignant neoplasm of trachea, bronchus and lung; Z80.0 Family history of malignant neoplasm of digestive organs; Y71.1 Therapeutic (nonsurgical) and rehabilitative cardiovascular devices associated with adverse incidents; Y92.9 Unspecified place or not applicable; R21 Rash and other nonspecific skin eruption; I08.0 Rheumatic disorders of both mitral and aortic valves; F43.23 Adjustment disorder with mixed anxiety and depressed mood; F80.1 Expressive language disorder; S60.512A Abrasion of left hand, initial encounter; S00.31XA Abrasion of nose, initial encounter
CPT/HCPCS: 70450; 70486; 70551; 71010; 72125; 73100; 73110; 73130; 80048; 80053; 81001; 82140; 82550; 82552; 82607; 82948; 83036; 83605; 83735; 84443; 84484; 85025; 85027; 85610; 85730; 87040; 90471; 90715; 93005; 93225; 93226; 93306; 93880; 95819; 96360; G8987-GO; G8988-GO; J1815; J3420; J3475; J7030

== ENCOUNTER 2016-08-08 02:35 | Inpatient (IN) | payer MEDICAID ==
[2016-08-08] VITALS (15 sets, daily range): BP systolic 84–134; BP diastolic 52–93; PULSE 63–97; RESP 16–20; TEMP 96–98.2; O2SAT 94–97
[~2016-08-08] VITALS: Ht 175.3 cm; Wt 69.0 kg
[~2016-08-08 02:35] MED LIST changes: -HYDR-3366 PO; -LACT PO; +OXYC1CAP PO; +POLY.9T TOPICAL; +VITA10002 PO
[2016-08-08] MEDS ORDERED: PANT40TA3 PO (03:59)
[2016-08-08] MEDS ORDERED: BACL10TA PO (03:59)
[2016-08-08] MEDS ORDERED: SODIUM CHLOR 0.9% 1000 ML INJ 1,000 ML IV ONE (04:25)
[2016-08-08] MEDS ORDERED: SODIUM CHLORIDE 0.9% FLUSH 10 ML FLUSH IVF PRN (04:30)
--- NOTE | 2016-08-08 04:32 | PD ---
HPI Chief Complaint: Fall Time Seen by Provider: 04:14 Travel History International Travel<30 days: No Contact w/Intl Traveler<30days: No Traveled to known affect area: No History of Present Illness HPI The patient is a 61-year-old male that states he fell 4 times tonight at [employer]. 3 times in the restaurant and 1 outside the restaurant. He scraped his right lower anterior chest during his last fall. He was recently admitted from July 13 2 July 18 this month for falling spells. He states his whole body goes week and he collapses. He has chest pain on the right where his abrasion is. No seizure activity has been noted. On this admission the patient had a slightly elevated ammonia and lactic acid level. The lactic acid level resolved. The patient was cleared by neurology for discharge. He needed a Holter monitor for one year but has not had this put on yet. He has a history of ischemic CVA with left-sided paresis. He also has a history of coronary artery disease. PFSH Past Medical History Arthritis: No Asthma: Yes Blood Disorders: No Anxiety: Yes Depression: Yes Heart Rhythm Problems: No Cancer: No Cardiac Catheterization: Yes (CORONARY STENT) Cardiovascular Problems: Yes (CAGB,STENTS, HTN) High Cholesterol: Yes Chemotherapy: No Chest Pain: Yes Congestive Heart Failure: No COPD: No Cerebrovascular Accident: Yes (CVA X3) Coronary Artery Disease: Yes Diabetes: Yes Patient Takes Glucophage: Yes Diminished Hearing: No Endocrine: Yes Gastrointestinal Disorders: Yes GERD: Yes Glaucoma: No Genitourinary: No Heparin Induced Thrombocytopen: No Hypertension: Yes Immune Disorder: No Implanted Vascular Access Dvce: Yes Musculoskeletal: Yes Neurologic: Yes (PREVIOUS STROKE, NEUROPATHY BILAT FEET) Psychiatric: No Reproductive: No Respiratory: Yes Immunizations Current: No Migraines: No Myocardial Infarction: No Radiation Therapy: No Sleep Apnea: No Thyroid Disease: No Influenza Vaccination: No (WAS TOLD HE COULD NOT TAKE IT.) PNEUMOCCOCAL Vaccine (Year): 1 Past Surgical History Abdominal Surgery: No AICD: No Arteriovenous Shunt: No Body Medical Devices: PIN LEFT HIP Cardiac Surgery: No Coronary Artery Bypass Graft: Yes ( OCTOBER 2011, 5 VESSELS) Ear Surgery: No Endocrine Surgery: No Eye Surgery: No Genitourinary Surgery: No Gynecologic Surgery: No Insulin Pump: No Joint Replacement: No Neurologic Surgery: No Oral Surgery: No Pacemaker: No Thoracic Surgery: Yes (CABG october 2011 ) Tonsillectomy: Yes Other Surgery: Yes (SINUS SURGERY) Social History Alcohol Use: No Tobacco Use: No Substance Use: No Allergies-Medications (Allergen,Severity, Reaction): Coded Allergies: Bee Sting (Verified Allergy, Severe, THROAT SWELLS, 07/13/16) Penicillin (Verified Allergy, Severe, SWELLS UP, 07/13/16) Wasp (Verified Allergy, Severe, SWELLS UP, 07/13/16) Reported Meds & Prescriptions Reported Meds & Active Scripts Active Reported Baclofen 10 Mg Tab 10 Mg PO Q8HR PRN Pantoprazole (Pantoprazole Sodium) 40 Mg Tab 40 Mg PO BID Sertraline (Sertraline HCl) 100 Mg Tab 100 Mg PO DAILY Nitroglycerin SL (Nitroglycerin) 0.4 Mg Subl 0.4 Mg SL DIRECTED PRN ONE TABLET UNDER THE TONGUE NEEDED FOR CHEST PAIN, MAY REPEAT EVERY FIVE MINUTES FOR A TOTAL OF 3 DOSES OR CALL 911 IF NO RELIEF Metformin (Metformin HCl) 1,000 Mg Tab 1,000 Mg PO BIDPC With meals Ondansetron Odt 4 Mg Tab 4 Mg SL Q6HR PRN Clopidogrel (Clopidogrel Bisulfate) 75 Mg Tab 75 Mg PO DAILY Aspirin Adult Low Strength (Aspirin) 81 Mg Tabdr 81 Mg PO DAILY Gabapentin 300 Mg Cap 300 Mg PO TID Lipitor (Atorvastatin Calcium) 80 Mg Tab 80 Mg PO HS Donepezil 10 Mg Tab 10 Mg PO HS Metoprolol Tartrate 50 Mg Tab 50 Mg PO DAILY Review of Systems Except as stated in HPI: all other systems reviewed are Neg Physical Exam Narrative GENERAL: The patient is alert, oriented 3 and minimal apparent distress with these abrasion on his left anterior chest wall. His vital signs show blood pressure 97/71 with pulse rate of 92 but otherwise normal. Orthostatic vital signs show blood pressure 106/56 supine and 102/66 standing and the pulse went from 73 supine to 78 standing. SKIN: Focused skin assessment warm/dry. HEAD: Atraumatic. Normocephalic. EYES: Pupils equal and round. No scleral icterus. No injection or drainage. ENT: No nasal bleeding or discharge. Mucous membranes pink and moist. NECK: Trachea midline. No JVD. CARDIOVASCULAR: Regular rate and rhythm. No murmur appreciated. RESPIRATORY: No accessory muscle use. Clear to auscultation. Breath sounds equal bilaterally. GASTROINTESTINAL: Abdomen soft, non-tender, nondistended. Hepatic and splenic margins not palpable. MUSCULOSKELETAL: No obvious deformities. No clubbing. No cyanosis. No edema. NEUROLOGICAL: Awake and alert. No obvious cranial nerve deficits. Motor grossly within normal limits. Normal speech. PSYCHIATRIC: Appropriate mood and affect; insight and judgment normal. Data Data Last Documented VS Vital Signs Date Time Temp Pulse Resp B/P Pulse Ox O2 Delivery O2 Flow Rate FiO2 08/08/16 05:10 64 16 84/54 94 Room Air 08/08/16 02:46 98.2 Orders Electrocardiogram (08/08/16 04:25) Complete Blood Count With Diff (08/08/16 04:25) Comprehensive Metabolic Panel (08/08/16 04:25) Magnesium (Mg) (08/08/16 04:25) Ckmb (Isoenzyme) Profile (08/08/16 04:25) Troponin I (08/08/16 04:25) Urinalysis - C+S If Indicated (08/08/16 04:25) Ecg Monitoring (08/08/16 04:25) Iv Access Insert/Monitor (08/08/16 04:25) Oximetry (08/08/16 04:25) Sodium Chloride 0.9% Flush (Ns Flush) (08/08/16 04:30) Sodium Chlor 0.9% 1000 Ml Inj (Ns 1000 M (08/08/16 04:25) Orthostatic Vital Signs (08/08/16 04:25) Ammonia (08/08/16 04:32) Lactic Acid (08/08/16 04:32) Admit Order (Ed Use Only) (08/08/16 05:15) CKMB (08/08/16 04:50) CKMB% (08/08/16 04:50) Labs Laboratory Tests Test 08/08/16 04:50 White Blood Count 11.5 TH/MM3 Red Blood Count 4.26 MIL/MM3 Hemoglobin 11.5 GM/DL Hematocrit 36.6 % Mean Corpuscular Volume 85.9 FL Mean Corpuscular Hemoglobin 27.1 PG Mean Corpuscular Hemoglobin 31.5 % Concent Red Cell Distribution Width 13.1 % Platelet Count 214 TH/MM3 Mean Platelet Volume 8.5 FL Neutrophils (%) (Auto) 66.4 % Lymphocytes (%) (Auto) 7.8 % Monocytes (%) (Auto) 8.2 % Eosinophils (%) (Auto) 16.6 % Basophils (%) (Auto) 1.0 % Neutrophils # (Auto) 7.7 TH/MM3 Lymphocytes # (Auto) 0.9 TH/MM3 Monocytes # (Auto) 0.9 TH/MM3 Eosinophils # (Auto) 1.9 TH/MM3 Basophils # (Auto) 0.1 TH/MM3 CBC Comment DIFF FINAL Differential Comment Sodium Level 143 MEQ/L Potassium Level 4.0 MEQ/L Chloride Level 106 MEQ/L Carbon Dioxide Level 30.4 MEQ/L Anion Gap 7 MEQ/L Blood Urea Nitrogen 7 MG/DL Creatinine 0.79 MG/DL Estimat Glomerular Filtration 100 ML/MIN Rate Random Glucose 151 MG/DL Lactic Acid Level 1.3 mmol/L Calcium Level 8.1 MG/DL Magnesium Level 1.6 MG/DL Total Bilirubin 0.5 MG/DL Aspartate Amino Transf 15 U/L (AST/SGOT) Alanine Aminotransferase 24 U/L (ALT/SGPT) Alkaline Phosphatase 96 U/L Ammonia 37 MCMOL/L Total Creatine Kinase 125 U/L Creatine Kinase MB 1.2 NG/ML Troponin I LESS THAN 0.02 NG/ML Total Protein 5.9 GM/DL Albumin 2.9 GM/DL MDM Medical Decision Making Medical Screen Exam Complete: Yes Emergency Medical Condition: Yes Medical Record Reviewed: Yes Differential Diagnosis Postural hypotension, malingering with pseudo-syncopal spells, cardiac syncope, neurologic syncope Narrative Course The patient has frequent syncopal spells, he has had 4 tonight at [facility]. He did suffer an abrasion to the right anterior chest wall and this appears not to be pseudo-syncopal spells. He says he suddenly collapses and everything "gets weak". The patient does have hypotension here in emergency department. Impression: Syncopal spells, hypotension Physician Communication Physician Communication I discussed the patient with Dr. Felton, the patient will be admitted to him here at [place]. Diagnosis Primary Impression: Syncope Additional Impression: Hypotension Admitting Information Admitting Physician Requests: Admit Vinicio Hernandez MD Aug 08, 2016 04:32
[2016-08-08 05:04] LABS: AUTOMATED NEUTROPHIL # 7.7 TH/MM3 (1.8-7.7); BASOPHIL # 0.1 TH/MM3 (0-0.2); EOSINOPHIL # 1.9 TH/MM3 (0-0.4); EOSINOPHIL % 16.6 % (0.0-4.0); HEMATOCRIT 36.6 % (39.0-51.0); HEMO FLAGS DIFF FINAL; LYMPH % 7.8 % (9.0-44.0); LYMPHOCYTE # 0.9 TH/MM3 (1.0-4.8); MEAN CELL VOLUME 85.9 FL (80.0-100.0); MEAN CORPUSCULAR HEMOGLOBIN 27.1 PG (27.0-34.0); MEAN CORPUSCULAR HGB CONC 31.5 % (32.0-36.0); MONO % 8.2 % (0.0-8.0); NEUT % 66.4 % (16.0-70.0); PLATELET COUNT 214 TH/MM3 (150-450); RED BLOOD COUNT 4.26 MIL/MM3 (4.50-5.90); RED CELL DISTRIBUTION WIDTH 13.1 % (11.6-17.2); WHITE BLOOD COUNT 11.5 TH/MM3 (4.0-11.0)
[2016-08-08 05:10] LABS: CHLORIDE 106 MEQ/L (98-107); SODIUM (NA) 143 MEQ/L (136-145)
[2016-08-08 05:14] LABS: ANION GAP 7 MEQ/L (5-15); BICARBONATE 30.4 MEQ/L (21.0-32.0); BLOOD UREA NITROGEN 7 MG/DL (7-18); MAGNESIUM 1.6 MG/DL (1.5-2.5)
[2016-08-08 05:17] LABS: ALT (GPT) 24 U/L (12-78); AST (GOT) 15 U/L (15-37); GLOMERULAR FILTRATION RATE 100 ML/MIN (>89)
[2016-08-08 05:19] LABS: TOTAL BILIRUBIN ADULT 0.5 MG/DL (0.2-1.0)
[2016-08-08 05:20] LABS: ALKALINE PHOSPHATASE 96 U/L (45-117); CREATINE KINASE 125 U/L (39-308)
[2016-08-08 05:32] LABS: CKMB 1.2 NG/ML (0.5-3.6)
[2016-08-08 05:57] LABS: BLOOD, URINE NEG (NEG); GLUCOSE,URINE NEG (NEG); KETONE, URINE NEG (NEG); NITRITE,URINE NEG (NEG); PH, URINE 6.5 (5.0-8.5)
[2016-08-08] MEDS ORDERED: SODIUM CHLOR 0.9% 1000 ML INJ 1,000 ML IV SCH ×2 (05:58→06:00)
[2016-08-08] MEDS ORDERED: MAGNESIUM HYDROXIDE SUSP 30 ML CUP PO PRN (06:00)
[2016-08-08] MEDS ORDERED: SENNOSIDES 8.6 MG TAB PO PRN (06:00)
[2016-08-08] MEDS ORDERED: SODIUM CHLORIDE 0.9% FLUSH 10 ML FLUSH IV FLUSH PRN (06:00)
[2016-08-08] MEDS ORDERED: BISACODYL 10 MG SUPP RECTAL PRN (06:00)
[2016-08-08] MEDS ORDERED: NALOXONE HCL 0.4 MG/ML AMP IV PRN (06:00)
[2016-08-08 06:04] LABS: URINE COLOR YELLOW (YELLW/STRAW)
[2016-08-08 06:05] LABS: COMMENT (UR) CULT NOT INDICATED; CULTURE IF INDICATED CULT NOT INDICATED; RBC, URINE 0-2 /hpf (0-3); SQUAMOUS EPITHELIAL CELL URINE 0-5 /hpf (0-5); WBC, URINE 0-2 /hpf (0-5)
[2016-08-08] MEDS: INSULIN NovoLIN REGULAR SUPPLEMENTAL SCALE SQ SCH ×4 (06:50→20:31)
[2016-08-08] MEDS: SODIUM CHLORIDE 0.9% FLUSH 10 ML FLUSH IV FLUSH SCH ×2 (09:00→20:31)
[2016-08-08] MEDS: GABAPENTIN 300 MG CAP PO SCH ×3 (09:43→17:35)
[2016-08-08] MEDS: CLOPIDOGREL 75 MG TAB PO SCH (09:43)
[2016-08-08] MEDS: SERTRALINE HCL 100 MG TAB PO SCH (09:43)
[2016-08-08] MEDS: PANTOPRAZOLE SOD 40 MG DELAYED RELEASE TAB PO SCH ×2 (09:43→20:45)
[2016-08-08] MEDS: ASPIRIN EC 81 MG TABEC PO SCH (09:45)
--- NOTE | 2016-08-08 10:23 | HHI.HP ---
[facility] Service [facility] Primary Care Physician Jerel Zepeda DO Admission Diagnosis acute renal insufficiency, dehydration Diagnoses: Travel History International Travel<30 Days: No Contact w/Intl Traveler <30 Da: No Traveled to Known Affected Are: No History of Present Illness This is a 61-year-old male with past medical history of prior strokes 3 with residual left-sided paresis and expressive aphasia, diabetic peripheral neuropathy, possible mild dementia, coronary artery disease status post CABG and stents, recurrent history of falls versus syncope who presents to the ER last night after complaining of fall versus syncope 3. It should be noted that the patient is a poor historian due to his mild expressive aphasia as well as he is sleepy and keeps nodding off during the exam. From what I'm able to ascertain, his friend drove him to [facility] yesterday. He stated that he was feeling very dizzy. He stated that he did fall several times. He states he is not sure if he passed out but he felt like he was dizzy and if "I was about to ." He denied any chest pain or chest pressure or shortness of breath. He did complain of some pain to the ER physician at the site of an abrasion on his chest from where he fell. He told the ER physician "my whole body gave out." The patient was admitted to this hospital earlier this month for evaluation of the same similar presentation with fall versus syncope. He was evaluated by cardiology Dr. Alonso as well as neurology Dr. Coe. It was noted by both of them that it was not clear if the patient had syncope versus just falls. It was felt by cardiology to be noncardiac in etiology and possibly due to polypharmacy. Neurology wanted the patient to follow-up in his office to arrange remote cardiac event monitor for 1 month. However the patient tells me that "I don't think I followed up" with the neurologist. The patient lives with his godson and he does not drive. Earlier this month he did have an echocardiogram showing normal LV function and valves. He also had an EEG which was negative. Telemetry had not revealed any arrhythmias. He has had a negative stress test about 8 months ago. Throughout the night and this morning he has had somewhat low blood pressure. Upon review of his chart it appears that his blood pressure does tend to fluctuate. I reviewed his medications and he is only on metoprolol which has been held. The patient states that he does not walk with any assistive device and never has. I do know from his previous admission that the physical therapist noted that his gait was impaired to fair. As noted above the patient is a poor historian at this time and further review systems is not obtainable. Review of Systems ROS Limitations: Poor Historian Past Family Social History Past Medical History CAD s/p CABG x 5 vessel and 4 stents Asthma Anxiety/ Depression Possible mild dementia Recurrent falls Possible history of syncope Hypertension Hyperlipidemia Cerebrovascular accident x 3 with left sided weakness and mild expressive aphasia Diabetes type II with peripheral neuropathy GERD Past Surgical History Broken legs Broken right elbow Sinus surgery Pin left hip Tonsillectomy Reported Medications Allergies Coded Allergies Type Severity Reaction Last Updated Verified Bee Sting Allergy Severe THROAT SWELLS 07/13/16 Yes Penicillin Allergy Severe SWELLS UP 07/13/16 Yes Wasp Allergy Severe SWELLS UP 07/13/16 Yes Active Scripts Medications Dose Route/Sig Days Date Category Dose Instructions Baclofen 10 Mg Tab 10 Mg PO Q8HR PRN 08/08/16 Reported Pantoprazole (Pantoprazole Sodium) 40 Mg Tab 40 Mg PO BID 08/08/16 Reported Sertraline (Sertraline HCl) 100 Mg Tab 100 Mg PO DAILY 06/21/16 Reported Nitroglycerin SL (Nitroglycerin) 0.4 Mg Subl 0.4 Mg SL DIRECTED PRN 06/21/16 Reported ONE TABLET UNDER THE TONGUE NEEDED FOR CHEST PAIN, MAY REPEAT EVERY FIVE MINUTES FOR A TOTAL OF 3 DOSES OR CALL 911 IF NO RELIEF Metformin (Metformin HCl) 1,000 Mg Tab 1,000 Mg PO BIDPC 06/21/16 Reported With meals Ondansetron Odt 4 Mg Tab 4 Mg SL Q6HR PRN 06/21/16 Reported Clopidogrel (Clopidogrel Bisulfate) 75 Mg Tab 75 Mg PO DAILY 04/21/16 Reported Aspirin Adult Low Strength (Aspirin) 81 Mg Tabdr 81 Mg PO DAILY 04/21/16 Reported Gabapentin 300 Mg Cap 300 Mg PO TID 04/21/16 Reported Lipitor (Atorvastatin Calcium) 80 Mg Tab 80 Mg PO HS 04/21/16 Reported Donepezil 10 Mg Tab 10 Mg PO HS 04/21/16 Reported Metoprolol Tartrate 50 Mg Tab 50 Mg PO DAILY 04/21/16 Reported Allergies: Coded Allergies: Bee Sting (Verified Allergy, Severe, THROAT SWELLS, 07/13/16) Penicillin (Verified Allergy, Severe, SWELLS UP, 07/13/16) Wasp (Verified Allergy, Severe, SWELLS UP, 07/13/16) Family History Lung cancer and stomach cancer Social History The patient denies alcohol or drug use Physical Exam Vital Signs Vital Signs Date Time Temp Pulse Resp B/P Pulse Ox O2 Delivery O2 Flow Rate FiO2 08/08/16 06:40 66 16 100/60 95 Room Air 08/08/16 06:10 66 16 95/55 95 Room Air 08/08/16 05:40 64 16 88/52 97 Room Air 08/08/16 05:10 64 16 84/54 94 Room Air 08/08/16 04:40 72 16 102/61 94 Room Air 08/08/16 04:10 72 16 98/59 95 Room Air 08/08/16 04:07 80 16 96 08/08/16 03:40 72 16 97/59 96 Room Air 08/08/16 03:15 82 16 102/66 95 Room Air 08/08/16 03:15 82 18 106/56 99 20 102/66 08/08/16 03:10 16 95 Room Air 08/08/16 02:46 98.2 92 18 97/71 96 Physical Exam GENERAL: Well-nourished, well-developed patient. SKIN: Warm and dry. HEAD: Normocephalic. EYES: No scleral icterus. No injection or drainage. NECK: Supple, trachea midline. No JVD or lymphadenopathy. CARDIOVASCULAR: Regular rate and rhythm without murmurs, gallops, or rubs. RESPIRATORY: Breath sounds equal and clear to auscultation bilaterally. No accessory muscle use on room air. GASTROINTESTINAL: Bowel sounds present, Abdomen soft, non-tender, nondistended. EXTREMITIES: 1+ ankle edema. NEUROLOGICAL: The patient is quite sleepy and nods off during the interview. He will become awake and alert enough to determine that he is oriented 3. He does have left arm paresis. Laboratory Laboratory Tests Test 08/08/16 08/08/16 04:50 05:45 White Blood Count 11.5 Red Blood Count 4.26 Hemoglobin 11.5 Hematocrit 36.6 Mean Corpuscular Volume 85.9 Mean Corpuscular Hemoglobin 27.1 Mean Corpuscular Hemoglobin 31.5 Concent Red Cell Distribution Width 13.1 Platelet Count 214 Mean Platelet Volume 8.5 Neutrophils (%) (Auto) 66.4 Lymphocytes (%) (Auto) 7.8 Monocytes (%) (Auto) 8.2 Eosinophils (%) (Auto) 16.6 Basophils (%) (Auto) 1.0 Neutrophils # (Auto) 7.7 Lymphocytes # (Auto) 0.9 Monocytes # (Auto) 0.9 Eosinophils # (Auto) 1.9 Basophils # (Auto) 0.1 CBC Comment DIFF FINAL Differential Comment Sodium Level 143 Potassium Level 4.0 Chloride Level 106 Carbon Dioxide Level 30.4 Anion Gap 7 Blood Urea Nitrogen 7 Creatinine 0.79 Estimat Glomerular Filtration 100 Rate Random Glucose 151 Lactic Acid Level 1.3 Calcium Level 8.1 Magnesium Level 1.6 Total Bilirubin 0.5 Aspartate Amino Transf 15 (AST/SGOT) Alanine Aminotransferase 24 (ALT/SGPT) Alkaline Phosphatase 96 Ammonia 37 Total Creatine Kinase 125 Creatine Kinase MB 1.2 Troponin I LESS THAN 0.02 Total Protein 5.9 Albumin 2.9 Urine Color YELLOW Urine Turbidity CLEAR Urine pH 6.5 Urine Specific Basom 1.015 Urine Protein NEG Urine Glucose (UA) NEG Urine Ketones NEG Urine Occult Blood NEG Urine Nitrite NEG Urine Bilirubin NEG Urine Leukocyte Esterase NEG Urine RBC 0-2 Urine WBC 0-2 Urine Squamous Epithelial 0-5 Cells Urine Bacteria NONE Microscopic Urinalysis Comment CULT NOT INDICATED Result Diagram: 08/08/1644908/08/16449 Imaging EKG reviewed shows normal sinus rhythm, right ventricular hypertrophy, intraventricular conduction delay Assessment and Plan Problem List: (1) Impaired gait and mobility ICD Code: R26.89 Status: Acute (2) Falls frequently ICD Code: R29.6 Status: Acute (3) Dizziness ICD Code: R42 Status: Acute (4) Syncope ICD Code: R55 Status: Acute (5) Hypotension ICD Code: I95.9 Status: Acute (6) Expressive language disorder ICD Code: 315.31 Status: Chronic (7) Diabetes mellitus type 2 ICD Code: 250.00 Status: Chronic (8) CAD (coronary artery disease) of artery bypass graft ICD Code: I25.810 Status: Chronic (9) History of CVA (cerebrovascular accident) ICD Code: Z86.73 Status: Chronic (10) Diabetic peripheral neuropathy ICD Code: E11.42 Status: Chronic Assessment and Plan 61-year-old male presents with dizziness, falls 3, questionable syncope -Recurrent falls - multifactorial due to history of stroke with left paresis, disequilibrium, diabetic peripheral neuropathy. This all may have been compounded by his hypotension. The patient does not own a blood pressure cuff or check his blood pressure. He does not appear to have great insight into his health although it is difficult to get a history from him at this time as he is quite sleepy, and has mild expressive aphasia. I will get a physical therapy consultation. He may require an assistive device although he does not want to use one. It was noted in his last physical therapy evaluation earlier this month that his gait was fair at best and impaired at other times. I do think he would be safer for him to have a walker. -Dizziness and questionable syncope. I suspect likely related to his low blood pressure but would like to get neurology input to ensure we are not missing anything else. He had a brain MRI earlier this month showing a remote left cerebral infarct. Doppler carotid ultrasound was negative at that time for any carotid artery stenosis. The patient had intense workup earlier this month including brain MRI, EEG, echocardiogram, telemetry monitoring which were all negative. It is not clear if he had syncope at that time and it is not clear on this admission if he actually syncopized. Cardiology earlier this month felt it was noncardiac in nature and more likely related to polypharmacy. He was supposed to follow-up with Dr. Coe for an event monitor however he never did. It doesn't appear that he has great family support. He does not drive. -Will ask neurology to see him again. Will check serial orthostatics 3 times a day. His metoprolol has been held and this is the only medication he is on which could cause hypotension. I will give him a trial of Midodrine. Also a trial of meclizine to see if it helps with the dizziness. The patient will need some education as to the source and treatment of his dizziness. It sounds like he continue trying to walk and fell recurrently yesterday at [facility]. He also needs some improved social support and I will ask case management if we can get him into a nursing facility or if that is not possible at least some home health care or someone in the family that can help ensure that he gets to his appointment and follows up as recommended. -Possible mild dementia. He was placed on Aricept last year by neurology. I will get an ST cognitive evaluation. I suspect he needs more social support at home. -CAD s/p CABG x 5 vessel and 4 stents - we'll hold the metoprolol due to hypotension, continue aspirin and Plavix. He had negative stress test about 8 months ago. -Asthma - no wheezing on exam. Will observe. -Anxiety/ Depression - continue Zoloft. -Cerebrovascular accident x 3 with left sided weakness and mild expressive aphasia - continue aspirin, Plavix and Lipitor. -Diabetes type II with peripheral neuropathy - sliding-scale insulin, and continue Neurontin. -GERD - continue Protonix. -DVT prophylaxis with SAMANTA marcano, YUMIKOs. Farideh Zarate MD Aug 08, 2016 10:23
[2016-08-08] MEDS ORDERED: MECLIZINE HCL 25 MG TAB PO PRN (10:30)
[2016-08-08 10:43] LABS: AMPHETAMINE, URINE NEG (NEG); BARBITURATES, URINE NEG (NEG); COCAINE, URINE NEG (NEG)
[2016-08-08] MEDS: MIDODRINE 5 MG TAB PO SCH ×2 (15:00→17:35)
--- NOTE | 2016-08-08 15:06 | EKG ---
Date Performed: 08/08/2016 Time Performed: 03:08:02 PTAGE: 61 years EKG: Sinus rhythm . Left axis deviation Right bundle branch block. Right ventricular hypertrophy Septal ST-T changes ar e probably due to ventricular hypertrophy Since previous tracing, no significant change noted Abnorma l ECG PREVIOUS TRACING : 07/13/2016 09.59 DOCTOR: Fausto Walker Interpretating Date/Time 08/08/2016 15:05:18
[2016-08-08] MEDS ORDERED: ATORVASTATIN 40 MG TAB PO SCH (21:00)
[2016-08-08] MEDS ORDERED: DONEPEZIL HCL 5 MG TAB PO SCH (21:00)
[2016-08-08] MEDS ORDERED: ACETAMINOPHEN 325 MG TAB PO PRN (23:30)
[2016-08-09] VITALS: BP 106/67; PULSE 67; RESP 18; TEMP 96.6; O2SAT 96
[2016-08-09 04:00] VITALS: BP 104/63; PULSE 62; RESP 18; TEMP 97.2; O2SAT 96
[2016-08-09 05:53] LABS: BASOPHIL % 0.6 % (0.0-2.0); EOSINOPHIL # 1.7 TH/MM3 (0-0.4); EOSINOPHIL % 23.4 % (0.0-4.0); HEMATOCRIT 32.1 % (39.0-51.0); HEMO FLAGS DIFF FINAL; LYMPH % 16.4 % (9.0-44.0); LYMPHOCYTE # 1.2 TH/MM3 (1.0-4.8); MEAN CELL VOLUME 86.5 FL (80.0-100.0); MEAN CORPUSCULAR HEMOGLOBIN 27.8 PG (27.0-34.0); MEAN CORPUSCULAR HGB CONC 32.1 % (32.0-36.0); MONO % 7.2 % (0.0-8.0); NEUT % 52.4 % (16.0-70.0); PLATELET COUNT 191 TH/MM3 (150-450); RED BLOOD COUNT 3.71 MIL/MM3 (4.50-5.90); WHITE BLOOD COUNT 7.4 TH/MM3 (4.0-11.0)
[2016-08-09 06:01] LABS: CHLORIDE 110 MEQ/L (98-107); POTASSIUM 3.6 MEQ/L (3.5-5.1); SODIUM (NA) 145 MEQ/L (136-145)
[2016-08-09 06:27] LABS: ALKALINE PHOSPHATASE 83 U/L (45-117); ALT (GPT) 19 U/L (12-78); ANION GAP 7 MEQ/L (5-15); AST (GOT) 12 U/L (15-37); BICARBONATE 28.5 MEQ/L (21.0-32.0); BLOOD UREA NITROGEN 8 MG/DL (7-18); GLOMERULAR FILTRATION RATE 106 ML/MIN (>89); TOTAL BILIRUBIN ADULT 0.3 MG/DL (0.2-1.0)
[2016-08-09] MEDS: MIDODRINE 5 MG TAB PO SCH ×2 (06:32→11:22)
[2016-08-09] MEDS: INSULIN NovoLIN REGULAR SUPPLEMENTAL SCALE SQ SCH ×2 (06:33→11:22)
--- NOTE | 2016-08-09 07:14 | MB ---
cc: JACQUELINE NUNEZ M.D. DATE OF CONSULTATION 08/08/2016 REASON FOR CONSULTATION Frequent falls HISTORY OF PRESENT ILLNESS Mr. Keller is a 61-year-old man who has a history of several strokes in the past with residual left-sided weakness who has been having episodes where he states she suddenly falls. Usually when he is walking for a period time, he feels lightheaded as though all the energy is drained out of his body and then he falls, sometimes loses consciousness for a minute or two. No tonic-clonic activity. He has no new of new focal deficits, feels weak on the left side. PAST MEDICAL HISTORY 1. He has a history of strokes with residual left-sided weakness, three strokes in the past. 2. Hypertension 3. Hyperlipidemia 4. Anxiety, depression, dementia 5. CABG procedure 6. Leg fracture 7. Right elbow fracture 8. Sinus surgery 9. Left hip fracture 10. Tonsillectomy MEDICATIONS Current medications are: 1. Lipitor 80 mg daily 2. Aricept 10 mg daily 3. Midodrine 5 mg t.i.d. 4. Meclizine 25 mg daily 5. Aspirin 81- daily 6. Plavix 75- daily 7. Protonix 40 mg daily 8. Gabapentin 300 mg t.i.d. 9. Zoloft 100 mg daily NEUROLOGIC EXAMINATION Blood pressure supine 134/93, sitting 121/83. Higher cortical functions normal. Cranial nerves, motor exam he has a mild left hemiparesis 4/5 arm and leg. IMAGING STUDIES He had a recent brain MRI and 07/14/2016 showing an old left cerebellar stroke, frontal scalp hematoma. He, as well, had a carotid ultrasound 07/13/2016 which was normal. ECHOCARDIOGRAM 07/15/2016 EF 55-60%. Left ventricular cavity size normal. Systolic function, normal. Aortic valve, no stenosis, mild regurgitation. Aortic root was normal. The left atrium size normal. Right ventricle is normal. Mitral valve, mild regurgitation. Tricuspid valve, mild regurgitation. Pulmonic valve, trace to mild regurgitation. LABORATORY DATA The white count is 5700, hemoglobin 11.6, hematocrit 35%, platelet count 149,000. Sodium is 142, potassium 4.1, chloride 105, CO2 29.3, BUN is 8, creatinine 0.72. IMPRESSION The patient's episodes sound to be probably presyncopal due to orthostatic hypotension. RECOMMENDATIONS Continue with the Midodrine. If he still has episodes, may add low-dose Florinef 0.1 mg in the morning. MD RUSS Lipscomb/DELANEY /9:30 PM /7:01 AM
[2016-08-09 08:01] VITALS: BP 130/84; PULSE 51; RESP 20; TEMP 98.1; O2SAT 97
[2016-08-09] MEDS: CLOPIDOGREL 75 MG TAB PO SCH (08:57)
[2016-08-09] MEDS: SODIUM CHLORIDE 0.9% FLUSH 10 ML FLUSH IV FLUSH SCH (08:57)
[2016-08-09] MEDS: SERTRALINE HCL 100 MG TAB PO SCH (08:57)
[2016-08-09] MEDS: GABAPENTIN 300 MG CAP PO SCH ×2 (08:57→11:22)
[2016-08-09] MEDS: PANTOPRAZOLE SOD 40 MG DELAYED RELEASE TAB PO SCH (08:57)
[2016-08-09] MEDS: ASPIRIN EC 81 MG TABEC PO SCH (09:00)
[2016-08-09 12:00] VITALS: BP 109/65; PULSE 62; RESP 20; TEMP 97.3; O2SAT 97
[2016-08-09] MEDS ORDERED: MIDO5TAB PO (14:25)
--- NOTE | 2016-08-09 14:27 | HHI.PR ---
Subjective Remarks Patient is doing well today. Orthostatics negative. He ambulated 200 feet independently in the hallway with fair minus balance. The patient does not use a walker. He states that he was feeling dizzy prior to coming in while standing and walking and the next thing he knew he was on the ground. He is not sure if he passed out or not. He states that when he came in to the hospital earlier this month after falling, he had no prodromal symptoms. That time he was not sure if he just fell or passed out. Objective Vitals Vital Signs Date Time Temp Pulse Resp B/P Pulse Ox O2 Delivery O2 Flow Rate FiO2 08/09/16 12:00 97.3 62 20 109/65 97 08/09/16 08:01 98.1 51 20 130/84 97 08/09/16 04:00 97.2 62 18 104/63 96 08/09/16 00:45 20 08/09/16 00:00 96.6 67 18 106/67 96 08/08/16 20:00 93 08/08/16 20:00 96.5 88 18 119/84 96 08/08/16 16:00 96.9 96 20 133/75 97 I/O 08/08/16 08/08/16 08/08/16 08/09/16 08/09/16 08/09/16 07:00 15:00 23:00 07:00 15:00 23:00 Intake Total 2600 ml 420 ml 480 ml 1050 ml Output Total 800 ml 400 ml 1450 ml Balance 1800 ml 20 ml -970 ml 1050 ml Intake Oral 600 ml 420 ml 480 ml 1050 ml IV Total 2000 ml Output Urine Total 800 ml 400 ml 1450 ml # Voids 4 # Bowel Movements 0 0 0 1 Result Diagram: 08/09/1644 08/09/16 0544 Objective Remarks GENERAL: Well-nourished, well-developed patient. SKIN: Warm and dry. HEAD: Normocephalic. EYES: No scleral icterus. No injection or drainage. NECK: Supple, trachea midline. No JVD or lymphadenopathy. CARDIOVASCULAR: Regular rate and rhythm without murmurs, gallops, or rubs. RESPIRATORY: Breath sounds equal and clear to auscultation bilaterally. No accessory muscle use on room air. GASTROINTESTINAL: Bowel sounds present, Abdomen soft, non-tender, nondistended. EXTREMITIES: 1+ ankle edema. NEUROLOGICAL: Awake alert and oriented 3. He does have left arm paresis. Mild left leg paresis. Speech within normal limits other than mild stuttering. A/P Problem List: (1) Impaired gait and mobility ICD Code: R26.89 Status: Acute (2) Falls frequently ICD Code: R29.6 Status: Acute (3) Dizziness ICD Code: R42 Status: Acute (4) Syncope ICD Code: R55 Status: Acute (5) Hypotension ICD Code: I95.9 Status: Acute (6) Expressive language disorder ICD Code: 315.31 Status: Chronic (7) Diabetes mellitus type 2 ICD Code: 250.00 Status: Chronic (8) CAD (coronary artery disease) of artery bypass graft ICD Code: I25.810 Status: Chronic (9) History of CVA (cerebrovascular accident) ICD Code: Z86.73 Status: Chronic (10) Diabetic peripheral neuropathy ICD Code: E11.42 Status: Chronic Assessment and Plan -Recurrent falls - multifactorial due to history of stroke with left paresis, disequilibrium, diabetic peripheral neuropathy. This all may have been compounded by his hypotension. The patient does not own a blood pressure cuff or check his blood pressure and I did encourage him to do this. He ambulated independently 200 feet with physical therapy today although with fair minus balance. I do think he would be safer for him to have a walker and have ordered one for him. -Dizziness and questionable syncope. Dizziness has resolved today. Appreciate neurology input. It is not clear if his previous episodes were syncope versus just falling. He had a brain MRI earlier this month showing a remote left cerebral infarct. Doppler carotid ultrasound was negative at that time for any carotid artery stenosis. The patient had intense workup earlier this month including brain MRI, EEG, echocardiogram, telemetry monitoring which were all negative. Cardiology earlier this month felt it was noncardiac in nature and more likely related to polypharmacy. He was supposed to follow-up with Dr. Coe for an event monitor however he never did. He does not drive. -Appreciate neurology evaluation with Dr. Vivas who was in agreement that this episode was likely secondary to the hypertension which is now improved on the midodrine. Status post PT evaluation today and he ambulated independently with fair minus balance. I do recommend to the patient that the next time he feels dizzy he ensures that he sits down. I also recommend he hold his metoprolol until follows up with his PCP Dr. Zepeda next week. I also encouraged him to follow-up with neurology for the cardiac event monitor. Patient declines to consider senior care facility, apparently his insurance does not cover home health care, however his god son is very involved in his care. -Possible mild dementia. He was placed on Aricept last year by neurology. He has independent functioning as per ST cognitive evaluation. -CAD s/p CABG x 5 vessel and 4 stents - we'll hold the metoprolol due to hypotension, continue aspirin and Plavix. He had negative stress test about 8 months ago. -Asthma - no wheezing on exam. Will observe. -Anxiety/ Depression - continue Zoloft. -Cerebrovascular accident x 3 with left sided weakness and mild expressive aphasia - continue aspirin, Plavix and Lipitor. -Diabetes type II with peripheral neuropathy - sliding-scale insulin, and continue Neurontin. -GERD - continue Protonix. -DVT prophylaxis with Brandon Canela. Discharge Planning Discharge home today. Follow-up with neurology, patient instructed to call on Friday for appointment with either Dr. Vivas or Dr. Coe. Follow-up with PCP within one week Dr. Zepeda. Prescriptions for midodrine and walker provided. Hold metoprolol due to the hypotension on admission. Time in discharge planning 45 minutes. Farideh Zarate MD Aug 09, 2016 14:27
[2016-08-09] MEDS ORDERED: WALKER WHEELS/F1 MIS (15:19)
== END 2016-08-09 16:31 | disposition home or self-care (01) | DRG 312 ==
LOC: PHED 02:35 → PHEDA 05:16 → PH3B 06:51
PROVIDERS: ADMIT Family Medicine; ATTEND Family Medicine
DX: I95.1 Orthostatic hypotension (principal); E11.42 Type 2 diabetes mellitus with diabetic polyneuropathy; I69.354 Hemiplegia and hemiparesis following cerebral infarction affecting left non-dominant side; R55 Syncope and collapse; I69.320 Aphasia following cerebral infarction; I10 Essential (primary) hypertension; R29.6 Repeated falls; R42 Dizziness and giddiness; I25.10 Atherosclerotic heart disease of native coronary artery without angina pectoris; J45.909 Unspecified asthma, uncomplicated; F32.9 Major depressive disorder, single episode, unspecified; F41.9 Anxiety disorder, unspecified; E78.5 Hyperlipidemia, unspecified; K21.9 Gastro-esophageal reflux disease without esophagitis; S20.312A Abrasion of left front wall of thorax, initial encounter; W18.30XA Fall on same level, unspecified, initial encounter; Z95.5 Presence of coronary angioplasty implant and graft; Z91.81 History of falling; Z95.1 Presence of aortocoronary bypass graft; Z79.84 Long term (current) use of oral hypoglycemic drugs; Z88.0 Allergy status to penicillin; Y92.511 Restaurant or cafe as the place of occurrence of the external cause
CPT/HCPCS: 80053; 80307; 81001; 82140; 82550; 82552; 83605; 83735; 84484; 85025; 93005; J7030

== ENCOUNTER 2016-08-23 01:11 | Emergency (ER) | payer MEDICAID ==
[2016-08-23] VITALS (9 sets, daily range): BP systolic 98–146; BP diastolic 62–95; PULSE 96–129; RESP 16–20; TEMP 97.6–98.3; O2SAT 93–100
[~2016-08-23] VITALS: Ht 175.3 cm; Wt 64.8 kg
[~2016-08-23 01:11] MED LIST changes: +BACL10TA PO; -DICY20TA10 PO; -METO50TA PO; +MIDO5TAB PO; -OXYC1CAP PO; -POLY.9T TOPICAL; -TIZA4CAP3 PO; -VITA10002 PO; +WALKER WHEELS/F1 MIS
[2016-08-23] MEDS: NITROGLYCERIN 0.4 MG SL 25 TABS/BTL SL SCH ×3 (01:42→02:10)
[2016-08-23] MEDS ORDERED: SODIUM CHLORIDE 0.9% FLUSH 10 ML FLUSH IVF PRN ×2 (01:45→02:45)
[2016-08-23] MEDS ORDERED: ASPIRIN 81 MG CHEW TAB PO ONE (01:45)
[2016-08-23 01:50] LABS: AUTOMATED NEUTROPHIL # 6.8 TH/MM3 (1.8-7.7); BASOPHIL # 0.1 TH/MM3 (0-0.2); BASOPHIL % 0.6 % (0.0-2.0); EOSINOPHIL # 1.7 TH/MM3 (0-0.4); EOSINOPHIL % 15.5 % (0.0-4.0); HEMATOCRIT 38.3 % (39.0-51.0); HEMO FLAGS DIFF FINAL; LYMPH % 15.7 % (9.0-44.0); LYMPHOCYTE # 1.7 TH/MM3 (1.0-4.8); MEAN CELL VOLUME 85.8 FL (80.0-100.0); MEAN CORPUSCULAR HEMOGLOBIN 28.4 PG (27.0-34.0); MEAN CORPUSCULAR HGB CONC 33.1 % (32.0-36.0); MONO % 6.3 % (0.0-8.0); NEUT % 61.9 % (16.0-70.0); PLATELET COUNT 309 TH/MM3 (150-450); RED BLOOD COUNT 4.46 MIL/MM3 (4.50-5.90); RED CELL DISTRIBUTION WIDTH 13.3 % (11.6-17.2)
[2016-08-23 01:56] LABS: CHLORIDE 108 MEQ/L (98-107); POTASSIUM 4.3 MEQ/L (3.5-5.1); SODIUM (NA) 144 MEQ/L (136-145)
[2016-08-23 02:00] LABS: ANION GAP 11 MEQ/L (5-15); BICARBONATE 25.1 MEQ/L (21.0-32.0); BLOOD UREA NITROGEN 16 MG/DL (7-18); MAGNESIUM 1.7 MG/DL (1.5-2.5)
[2016-08-23 02:02] LABS: APTT (PATIENT) 23.5 SEC (24.3-30.1); PROTHROMBIN TIME - PATIENT 11.2 SEC (9.8-11.6)
[2016-08-23 02:03] LABS: ALT (GPT) 23 U/L (12-78); AST (GOT) 13 U/L (15-37); GLOMERULAR FILTRATION RATE 68 ML/MIN (>89)
[2016-08-23 02:05] LABS: TOTAL BILIRUBIN ADULT 0.5 MG/DL (0.2-1.0)
[2016-08-23 02:06] LABS: ALKALINE PHOSPHATASE 90 U/L (45-117)
--- NOTE | 2016-08-23 02:08 | PD ---
HPI Chief Complaint: Chest Pain Time Seen by Provider: 01:33 Travel History International Travel<30 days: No Contact w/Intl Traveler<30days: No Traveled to known affect area: No History of Present Illness HPI The patient is a 61-year-old male with a history of COPD and heart disease who complains of shortness of breath yesterday evening about 4 PM along with chest pain. The chest pain is constant, sharp, pleuritic and associated with diaphoresis and shortness of breath and radiation to the jaw. He denies any nausea. The patient came to this emergency department by walking from home. PFSH Past Medical History Arthritis: No Asthma: Yes Blood Disorders: No Anxiety: Yes Depression: Yes Heart Rhythm Problems: No Cancer: No Cardiac Catheterization: Yes (CORONARY STENT) Cardiovascular Problems: Yes (CAGB,STENTS, HTN) High Cholesterol: Yes Chemotherapy: No Chest Pain: Yes Congestive Heart Failure: No COPD: No Cerebrovascular Accident: Yes (CVA X3) Coronary Artery Disease: Yes Diabetes: Yes Patient Takes Glucophage: No Diminished Hearing: No Endocrine: Yes Gastrointestinal Disorders: Yes GERD: Yes Glaucoma: No Genitourinary: No Heparin Induced Thrombocytopen: No Hypertension: Yes Immune Disorder: No Implanted Vascular Access Dvce: Yes Musculoskeletal: Yes Neurologic: Yes (PREVIOUS STROKE, NEUROPATHY BILAT FEET) Psychiatric: No Reproductive: No Respiratory: Yes Immunizations Current: No Migraines: No Myocardial Infarction: No Radiation Therapy: No Sleep Apnea: No Thyroid Disease: No Tetanus Vaccination: < 5 Years PNEUMOCCOCAL Vaccine (Year): 1 Past Surgical History Abdominal Surgery: No AICD: No Arteriovenous Shunt: No Body Medical Devices: PIN LEFT HIP Cardiac Surgery: No Coronary Artery Bypass Graft: Yes ( OCTOBER 2011, 5 VESSELS) Ear Surgery: No Endocrine Surgery: No Eye Surgery: No Genitourinary Surgery: No Gynecologic Surgery: No Insulin Pump: No Joint Replacement: No Neurologic Surgery: No Oral Surgery: No Pacemaker: No Thoracic Surgery: Yes (CABG october 2011 ) Tonsillectomy: Yes Other Surgery: Yes (SINUS SURGERY) Social History Alcohol Use: No Tobacco Use: No Substance Use: No Allergies-Medications (Allergen,Severity, Reaction): Coded Allergies: Bee Sting (Verified Allergy, Severe, THROAT SWELLS, 08/23/16) Penicillin (Verified Allergy, Severe, SWELLS UP, 08/23/16) Wasp (Verified Allergy, Severe, SWELLS UP, 08/23/16) Reported Meds & Prescriptions Reported Meds & Active Scripts Active Midodrine 5 Mg Tab 5 Mg PO TID@ Reported Baclofen 10 Mg Tab 10 Mg PO Q8HR PRN Pantoprazole (Pantoprazole Sodium) 40 Mg Tab 40 Mg PO BID Sertraline (Sertraline HCl) 100 Mg Tab 100 Mg PO DAILY Nitroglycerin SL (Nitroglycerin) 0.4 Mg Subl 0.4 Mg SL DIRECTED PRN ONE TABLET UNDER THE TONGUE NEEDED FOR CHEST PAIN, MAY REPEAT EVERY FIVE MINUTES FOR A TOTAL OF 3 DOSES OR CALL 911 IF NO RELIEF Metformin (Metformin HCl) 1,000 Mg Tab 1,000 Mg PO BIDPC With meals Ondansetron Odt 4 Mg Tab 4 Mg SL Q6HR PRN Clopidogrel (Clopidogrel Bisulfate) 75 Mg Tab 75 Mg PO DAILY Aspirin Adult Low Strength (Aspirin) 81 Mg Tabdr 81 Mg PO DAILY Gabapentin 300 Mg Cap 300 Mg PO TID Lipitor (Atorvastatin Calcium) 80 Mg Tab 80 Mg PO HS Donepezil 10 Mg Tab 10 Mg PO HS Review of Systems Except as stated in HPI: all other systems reviewed are Neg Physical Exam Narrative GENERAL: The patient is slender, alert, oriented 3 in moderate apparent distress with his sharp chest pain. SKIN: Focused skin assessment warm/dry. HEAD: Atraumatic. Normocephalic. EYES: Pupils equal and round. No scleral icterus. No injection or drainage. The patient clenches his eyes shut it can open them, he states that his left eye bothers him and wants to keep it closed. He states he wants to keep his eyes closed since June because it irritates him to open them. ENT: No nasal bleeding or discharge. Mucous membranes pink and moist. NECK: Trachea midline. No JVD. CARDIOVASCULAR: Regular rate and rhythm. No murmur appreciated. RESPIRATORY: No accessory muscle use. Clear to auscultation. Breath sounds equal bilaterally. GASTROINTESTINAL: Abdomen soft, non-tender, nondistended. Hepatic and splenic margins not palpable. MUSCULOSKELETAL: No obvious deformities. No clubbing. No cyanosis. No edema. NEUROLOGICAL: Awake and alert. No obvious cranial nerve deficits. Motor grossly within normal limits. Normal speech. PSYCHIATRIC: Appropriate mood and affect; insight and judgment normal. Data Data Last Documented VS Vital Signs Date Time Temp Pulse Resp B/P Pulse Ox O2 Delivery O2 Flow Rate FiO2 08/23/16 02:17 96 98/67 08/23/16 02:10 93 Nasal Cannula 2 08/23/16 02:09 20 08/23/16 02:04 98.3 Orders Electrocardiogram (08/23/16 01:33) B-Type Natriuretic Peptide (08/23/16 01:33) Complete Blood Count With Diff (08/23/16 01:33) Comprehensive Metabolic Panel (08/23/16 01:33) Magnesium (Mg) (08/23/16 01:33) Prothrombin Time / Inr (Pt) (08/23/16 01:33) Act Partial Throm Time (Ptt) (08/23/16 01:33) Troponin I (08/23/16 01:33) Ecg Monitoring (08/23/16 01:33) Bilateral Bp Monitoring (08/23/16 01:33) Iv Access Insert/Monitor (08/23/16 01:33) Oximetry (08/23/16 01:33) Oxygen Administration (08/23/16 01:33) Aspirin Chew (Aspirin Chew) (08/23/16 01:45) Sodium Chloride 0.9% Flush (Ns Flush) (08/23/16 01:45) Nitroglycerin Sl (Nitrostat Sl) (08/23/16 01:45) Chest, Pa & Lat (08/23/16 01:33) D-Dimer (08/23/16 01:40) Ct Pulmonary Angiogram (08/23/16 02:37) Sodium Chloride 0.9% Flush (Ns Flush) (08/23/16 02:45) Arterial Blood Gas (Abg) (08/23/16 ) Iohexol 350 Inj (Omnipaque 350 Inj) (08/23/16 03:22) Labs Laboratory Tests Test 08/23/16 08/23/16 01:40 03:12 White Blood Count 11.0 TH/MM3 Red Blood Count 4.46 MIL/MM3 Hemoglobin 12.7 GM/DL Hematocrit 38.3 % Mean Corpuscular Volume 85.8 FL Mean Corpuscular Hemoglobin 28.4 PG Mean Corpuscular Hemoglobin 33.1 % Concent Red Cell Distribution Width 13.3 % Platelet Count 309 TH/MM3 Mean Platelet Volume 8.0 FL Neutrophils (%) (Auto) 61.9 % Lymphocytes (%) (Auto) 15.7 % Monocytes (%) (Auto) 6.3 % Eosinophils (%) (Auto) 15.5 % Basophils (%) (Auto) 0.6 % Neutrophils # (Auto) 6.8 TH/MM3 Lymphocytes # (Auto) 1.7 TH/MM3 Monocytes # (Auto) 0.7 TH/MM3 Eosinophils # (Auto) 1.7 TH/MM3 Basophils # (Auto) 0.1 TH/MM3 CBC Comment DIFF FINAL Differential Comment Prothrombin Time 11.2 SEC Prothromb Time International 1.0 RATIO Ratio Activated Partial 23.5 SEC Thromboplast Time D-Dimer Quantitative (PE/DVT) 0.56 MG/L FEU Sodium Level 144 MEQ/L Potassium Level 4.3 MEQ/L Chloride Level 108 MEQ/L Carbon Dioxide Level 25.1 MEQ/L Anion Gap 11 MEQ/L Blood Urea Nitrogen 16 MG/DL Creatinine 1.10 MG/DL Estimat Glomerular Filtration 68 ML/MIN Rate Random Glucose 199 MG/DL Calcium Level 10.0 MG/DL Magnesium Level 1.7 MG/DL Total Bilirubin 0.5 MG/DL Aspartate Amino Transf 13 U/L (AST/SGOT) Alanine Aminotransferase 23 U/L (ALT/SGPT) Alkaline Phosphatase 90 U/L Troponin I LESS THAN 0.02 NG/ML B-Type Natriuretic Peptide 8 PG/ML Total Protein 7.1 GM/DL Albumin 3.7 GM/DL Blood Gas Puncture Site RT BRACHIAL Blood Gas Patient Temperature 98.6 Blood Gas HCO3 26 mmol/L Blood Gas Base Excess 1.5 mmol/L Blood Gas Oxygen Saturation 93 % Arterial Blood pH 7.37 Arterial Blood Partial 47 mmHG Pressure CO2 Arterial Blood Partial 83 mmHG Pressure O2 Arterial Blood Oxygen Content 15.1 Vol % Arterial Blood 1.3 % Carboxyhemoglobin Arterial Blood Methemoglobin 1.4 % Blood Gas Hemoglobin 11.5 G/DL Oxygen Delivery Device ROOM AIR Blood Gas Inspired Oxygen 21 % MDM Medical Decision Making Medical Screen Exam Complete: Yes Emergency Medical Condition: Yes Medical Record Reviewed: Yes Interpretation(s) The CBC is normal except for hemoglobin of 12.7 and hematocrit of 38.3. The complete metabolic profile shows a GFR of 68, glucose of 199 but is otherwise normal. The troponin I is normal. The BNP is normal. The d-dimer is elevated at 0.56. The coagulation profile shows an APTT of 23.5 but is otherwise normal. The blood gases show pH 7.37, CO2 47, PO2 83 and O2 sat [address] pulmonary angiogram shows no evidence of pulmonary embolism. It does show mild parenchymal changes in both lung bases with small focal bulla in the left posterior lower lung. Differential Diagnosis Acute coronary syndrome, pulmonary embolus, pleuritic pain, esophageal pain, chest wall pain, gastrointestinal pain, electrolyte disorder Narrative Course The patient appears to have COPD with mild exacerbation. He also has atypical chest pain. The patient is on Plavix and nonsteroidal anti-inflammatory medications are somewhat risky with him. Plan: The patient will be given Lortab 5 for pain and follow-up with his primary care physician. Diagnosis Primary Impression: Atypical chest pain Additional Impression: COPD with acute exacerbation Additional Instructions: The chest pain does not appear to be from your heart. Follow-up with her primary care physician. Do not drink alcohol or drive on the Lortab 5. Med/Other Pt SpecificInfo: Prescription(s) given Scripts Hydrocodone-Acetaminophen (Lortab)5-325 Mg Tab1 Tab PO Q6H PRN (PAIN) #28 TAB Ref 0 Prov:Vinicio Hernandez MD 08/23/16 Disposition: 01 DISCHARGE HOME Condition: Stable Vinicio Hernandez MD Aug 23, 2016 02:08
--- NOTE | 2016-08-23 02:22 | RADHPO ---
EXAM DATE/TIME: 08/23/2016 01:49 [facility] COMPARISON: CHEST PA & LAT, December 08, 2015, 0:55. INDICATIONS : Left sided chest pain, shortness of breath MEDICAL HISTORY : Hypertension. Cerebrovascular disease. Asthma. Bronchitis SURGICAL HISTORY : CABG. ENCOUNTER: Initial ACUITY: 1 day PAIN SCORE: 10/10 LOCATION: Left chest FINDINGS: PA and lateral views of the chest demonstrate the lungs to be symmetrically aerated without evidence of mass, infiltrate or effusion. The cardiomediastinal contours are stable. Evidence of previous car diothoracic surgery.. Osseous structures are intact and stable. CONCLUSION: No acute disease. No significant change has occurred. Carlyle Maldonado MD on August 23, 2016 at 2:20 Board Certified Radiologist. This report was verified electronically.
[2016-08-23 03:22] LABS: BLOOD GAS BASE EXCESS 1.5 mmol/L (-2-2); BLOOD GAS CARBOXYHEMOGLOBIN 1.3 % (0-4); BLOOD GAS HCO3 26 mmol/L (22-26); BLOOD GAS METHEMOGLOBIN 1.4 % (0-2); BLOOD GAS O2 HGB SATURATION 93 % (90-100); BLOOD GAS OXYGEN CONTENT 15.1 Vol % (12.0-20.0); BLOOD GAS PCO2 47 mmHG (38-42); BLOOD GAS PO2 83 mmHG (61-120); BLOOD GAS TOTAL HGB 11.5 G/DL (12.0-16.0); CRITICAL VALUE NO; DRAW SITE RT BRACHIAL; FIO2 21 %; NUMBER OF ARTERIAL PUNCTURES 1; OXYGEN DEVICE ROOM AIR; STAT YES; TEMP CORR TO 98.6
[2016-08-23] MEDS ORDERED: IOHEXOL 350 MG/ML 10 ML VIAL (for RAD DIAG) IV ONE (03:22)
--- NOTE | 2016-08-23 03:31 | RADHPO ---
EXAM DATE/TIME: 08/23/2016 02:56 [facility] COMPARISON: No previous studies available for comparison. INDICATIONS : Chest pain. Shortness of breath. IV CONTRAST: 75 cc Omnipaque 350 (iohexol) IV RADIATION DOSE: 10.16 CTDIvol (mGy) MEDICAL HISTORY : Diabetes mellitus type 2. Hypertension. SURGICAL HISTORY : CABG ENCOUNTER: Initial ACUITY: 1 day PAIN SCALE: 8/10 LOCATION: Bilateral chest TECHNIQUE: Volumetric scanning of the chest was performed using a pulmonary embolism protocol MIP images were re constructed. Using automated exposure control and adjustment of the mA and/or kV according to patien t size, radiation dose was kept as low as reasonably achievable to obtain optimal diagnostic quality images. FINDINGS: PULMONARY ARTERIES: No filling defects are seen in the pulmonary arteries through the segmental level. LUNGS: Mild parenchymal changes in both lung bases. There is a small bulla in the left lower lung. Otherwise , the lungs are clear and well-aerated. PLEURAE: There is no pleural thickening or pleural effusion. MEDIASTINUM: There is good visualization of the great vessels of the middle mediastinum. No evidence of mediastin al or hilar adenopathy/mass. MUSCULOSKELETAL: Within normal limits for patient age. MISCELLANEOUS: The visualized upper abdominal organs demonstrate no acute abnormality. CONCLUSION: 1. No evidence of pulmonary embolism. 2. Mild parenchymal changes in both lung bases. Small focal bulla in the left lower posterior lung. Carlyle Maldonado MD on August 23, 2016 at 3:27 Board Certified Radiologist. This report was verified electronically.
[2016-08-23] MEDS ORDERED: HYDR-3533 PO (03:44)
--- NOTE | 2016-08-23 10:28 | EKG ---
Date Performed: 08/23/2016 Time Performed: 01:27:32 PTAGE: 61 years EKG: Sinus tachycardia with 1st degree A-V block Left axis deviation RBBB with left anterior fas cicular block Nonspecific lateral ST abnormality Abnormal ECG NO PREVIOUS TRACING DOCTOR: Roni Grewal Interpretating Date/Time 08/23/2016 10:27:57
== END 2016-08-23 04:25 | disposition home or self-care (01) ==
LOC: PHED 01:11
DX: R07.89 Other chest pain (principal); J44.1 Chronic obstructive pulmonary disease with (acute) exacerbation; Z95.1 Presence of aortocoronary bypass graft; I10 Essential (primary) hypertension; I25.10 Atherosclerotic heart disease of native coronary artery without angina pectoris; E11.9 Type 2 diabetes mellitus without complications; K21.9 Gastro-esophageal reflux disease without esophagitis; R00.0 Tachycardia, unspecified; I45.2 Bifascicular block; R94.31 Abnormal electrocardiogram [ECG] [EKG]; R06.02 Shortness of breath; E78.00 Pure hypercholesterolemia, unspecified
CPT/HCPCS: 36600; 71020; 71275; 80053; 82805; 83735; 83880; 84484; 85025; 85379; 85610; 85730; 93005; 99285; Q9967

== ENCOUNTER 2016-08-27 21:38 | Observation (INO) | payer MEDICAID ==
[~2016-08-27] VITALS: Ht 175.3 cm; Wt 65.0 kg
[~2016-08-27 21:38] MED LIST changes: +HYDR-3533 PO; -WALKER WHEELS/F1 MIS
[2016-08-27 21:45] VITALS: BP 135/83; PULSE 83; RESP 16; TEMP 98.7; O2SAT 99
--- NOTE | 2016-08-27 22:09 | PD ---
HPI Chief Complaint: Chest Pain Time Seen by Provider: 21:45 Travel History International Travel<30 days: No Contact w/Intl Traveler<30days: No Traveled to known affect area: No History of Present Illness HPI 61-year-old male complains of headache and chest pain. EMS was called to patient's place this evening for headache and chest pain. Patient reported to EMS personnel that headache started 3 days ago and chest pain started yesterday. Patient was transported to the ED. Patient was talking normally on the way to the ED until arrival to the ED when his started having stuttering and not able to provide much information. In reviewing medical record, patient has history of COPD, CAD, status post CABG and stent placement. Patient also has 3 of hypertension, diabetes, hyperlipidemia, CVA 3 with resulting in left- sided weakness. Patient's on Plavix and aspirin 81 mg daily. Patient also has history of anxiety, depression, dementia. Patient was seen at [place] emergency room 4 days ago for chest pain. EKG, cardiac enzymes and CT pulmonary angiogram negative for acute pathology. Patient was discharged with diagnosis of atypical chest pain. PFSH Past Medical History Arthritis: No Asthma: Yes Blood Disorders: No Anxiety: Yes Depression: Yes Heart Rhythm Problems: No Cancer: No Cardiac Catheterization: Yes (CORONARY STENT) Cardiovascular Problems: Yes (CAGB,STENTS, HTN) High Cholesterol: Yes Chemotherapy: No Chest Pain: Yes Congestive Heart Failure: No COPD: No Cerebrovascular Accident: Yes (CVA X3) Coronary Artery Disease: Yes Diabetes: Yes Diminished Hearing: No Endocrine: Yes Gastrointestinal Disorders: Yes GERD: Yes Glaucoma: No Genitourinary: No Heparin Induced Thrombocytopen: No Hypertension: Yes Immune Disorder: No Implanted Vascular Access Dvce: Yes Musculoskeletal: Yes Neurologic: Yes (PREVIOUS STROKE, NEUROPATHY BILAT FEET) Psychiatric: No Reproductive: No Respiratory: Yes Immunizations Current: No Migraines: No Myocardial Infarction: No Radiation Therapy: No Sleep Apnea: No Thyroid Disease: No Tetanus Vaccination: < 5 Years Influenza Vaccination: No PNEUMOCCOCAL Vaccine (Year): 1 Past Surgical History Abdominal Surgery: No AICD: No Arteriovenous Shunt: No Body Medical Devices: PIN LEFT HIP Cardiac Surgery: No Coronary Artery Bypass Graft: Yes ( OCTOBER 2011, 5 VESSELS) Ear Surgery: No Endocrine Surgery: No Eye Surgery: No Genitourinary Surgery: No Gynecologic Surgery: No Insulin Pump: No Joint Replacement: No Neurologic Surgery: No Oral Surgery: No Pacemaker: No Thoracic Surgery: Yes (CABG october 2011 ) Tonsillectomy: Yes Other Surgery: Yes (SINUS SURGERY) Social History Alcohol Use: No Tobacco Use: No Substance Use: No Allergies-Medications (Allergen,Severity, Reaction): Coded Allergies: Bee Sting (Verified Allergy, Severe, THROAT SWELLS, 08/27/16) Penicillin (Verified Allergy, Severe, SWELLS UP, 08/27/16) Wasp (Verified Allergy, Severe, SWELLS UP, 08/27/16) Reported Meds & Prescriptions Reported Meds & Active Scripts Active Lortab (Hydrocodone-Acetaminophen) 5-325 Mg Tab 1 Tab PO Q6H PRN Midodrine 5 Mg Tab 5 Mg PO TID@, Reported Baclofen 10 Mg Tab 10 Mg PO Q8HR PRN Pantoprazole (Pantoprazole Sodium) 40 Mg Tab 40 Mg PO BID Sertraline (Sertraline HCl) 100 Mg Tab 100 Mg PO DAILY Nitroglycerin SL (Nitroglycerin) 0.4 Mg Subl 0.4 Mg SL DIRECTED PRN ONE TABLET UNDER THE TONGUE NEEDED FOR CHEST PAIN, MAY REPEAT EVERY FIVE MINUTES FOR A TOTAL OF 3 DOSES OR CALL 911 IF NO RELIEF Metformin (Metformin HCl) 1,000 Mg Tab 1,000 Mg PO BIDPC With meals Ondansetron Odt 4 Mg Tab 4 Mg SL Q6HR PRN Clopidogrel (Clopidogrel Bisulfate) 75 Mg Tab 75 Mg PO DAILY Aspirin Adult Low Strength (Aspirin) 81 Mg Tabdr 81 Mg PO DAILY Gabapentin 300 Mg Cap 300 Mg PO TID Lipitor (Atorvastatin Calcium) 80 Mg Tab 80 Mg PO HS Donepezil 10 Mg Tab 10 Mg PO HS Review of Systems General / Constitutional: No: Fever Eyes: No: Visual changes HENT: Positive: Headaches Cardiovascular: Positive: Chest Pain or Discomfort Respiratory: No: Shortness of Breath Gastrointestinal: No: Abdominal Pain Genitourinary: No: Dysuria Musculoskeletal: No: Pain Skin: No Rash Neurologic: No: Weakness Psychiatric: No: Depression Endocrine: No: Polydipsia Hematologic/Lymphatic: No: Easy Bruising Physical Exam Narrative GENERAL: Well-nourished, well-developed patient. SKIN: Focused skin assessment warm/dry. HEAD: Normocephalic. EYES: No scleral icterus. No injection or drainage. Pupils 3 mm equal reactive. NECK: Supple, trachea midline. No JVD or lymphadenopathy. CARDIOVASCULAR: Regular rate and rhythm without murmurs, gallops, or rubs. RESPIRATORY: Breath sounds equal bilaterally. No accessory muscle use. GASTROINTESTINAL: Abdomen soft, non-tender, nondistended. MUSCULOSKELETAL: No cyanosis, or edema. BACK: Nontender without obvious deformity. No CVA tenderness. Neurologic exam: Patient's lying in bed, with eye closing and blinking of the eyelids, trembling of the lips, stuttering. Patient has left-sided weakness from previous CVA. Unitary reflex 2+ and equal. Negative Babinski. Data Data Last Documented VS Vital Signs Date Time Temp Pulse Resp B/P Pulse Ox O2 Delivery O2 Flow Rate FiO2 08/27/16 22:26 99 Room Air 08/27/16 21:45 98.7 83 16 135/83 Orders Electrocardiogram (08/27/16 21:58) Complete Blood Count With Diff (08/27/16 21:58) Comprehensive Metabolic Panel (08/27/16 21:58) Creatine Kinase (Cpk) (08/27/16 21:58) Troponin I (08/27/16 21:58) Prothrombin Time / Inr (Pt) (08/27/16 21:58) Act Partial Throm Time (Ptt) (08/27/16 21:58) Urinalysis - C+S If Indicated (08/27/16 21:58) Thyroid Stimulating Hormone (08/27/16 21:58) Chest, Single Ap (08/27/16 21:58) Ct Brain W/O Iv Contrast(Rout) (08/27/16 21:58) Iv Access Insert/Monitor (08/27/16 21:58) Ecg Monitoring (08/27/16 21:58) Oximetry (08/27/16 21:58) Sodium Chlor 0.9% 1000 Ml Inj (Ns 1000 M (08/27/16 22:00) Labs Laboratory Tests Test 08/27/16 22:15 White Blood Count 5.8 TH/MM3 Red Blood Count 4.40 MIL/MM3 Hemoglobin 12.1 GM/DL Hematocrit 37.6 % Mean Corpuscular Volume 85.6 FL Mean Corpuscular Hemoglobin 27.4 PG Mean Corpuscular Hemoglobin 32.1 % Concent Red Cell Distribution Width 14.3 % Platelet Count 228 TH/MM3 Mean Platelet Volume 8.6 FL Neutrophils (%) (Auto) 42.0 % Lymphocytes (%) (Auto) 23.6 % Monocytes (%) (Auto) 9.1 % Eosinophils (%) (Auto) 23.1 % Basophils (%) (Auto) 2.2 % Neutrophils # (Auto) 2.4 TH/MM3 Lymphocytes # (Auto) 1.4 TH/MM3 Monocytes # (Auto) 0.5 TH/MM3 Eosinophils # (Auto) 1.3 TH/MM3 Basophils # (Auto) 0.1 TH/MM3 CBC Comment DIFF FINAL Differential Comment Prothrombin Time 10.9 SEC Prothromb Time International 1.0 RATIO Ratio Activated Partial 26.3 SEC Thromboplast Time Sodium Level 140 MEQ/L Potassium Level 4.0 MEQ/L Chloride Level 104 MEQ/L Carbon Dioxide Level 26.9 MEQ/L Anion Gap 9 MEQ/L Blood Urea Nitrogen 5 MG/DL Creatinine 0.78 MG/DL Estimat Glomerular Filtration 101 ML/MIN Rate Random Glucose 104 MG/DL Calcium Level 8.7 MG/DL Total Bilirubin 0.5 MG/DL Aspartate Amino Transf 14 U/L (AST/SGOT) Alanine Aminotransferase 21 U/L (ALT/SGPT) Alkaline Phosphatase 81 U/L Total Creatine Kinase 118 U/L Troponin I LESS THAN 0.02 NG/ML Total Protein 6.6 GM/DL Albumin 3.5 GM/DL Thyroid Stimulating Hormone 4.910 uIU/ML [address] [place] [address] Medical Decision Making Medical Screen Exam Complete: Yes Emergency Medical Condition: Yes Medical Record Reviewed: Yes Interpretation(s) 22:09 PM. EKG shows sinus rhythm nonspecific ST-T wave changes. Right bundle branch block. Last Impressions Head CT 08/[id number] Signed Impressions: Service Date/Time: Saturday, August 27, 2016 22:20 - CONCLUSION: 1. Remote left MCA distribution and left occipital lobe infarcts. No acute findings compared with July 13. Fady Shah MD Chest X-Ray 08/[id number] Signed Impressions: Service Date/Time: Saturday, August 27, 2016 22:10 - CONCLUSION: 1. Minimal basilar atelectasis. No significant change from July 13. Fady Shah MD 23:47 PM. CBC within normal limit. CMP within normal limit. Cardiac enzymes are normal. TSH 4.91 Differential Diagnosis Differential diagnosis including tension headache, cluster headache, migraine headache, TIA, CVA, angina, NM, PE, pneumothorax, atypical chest pain, dementia. Narrative Course 61-year-old male with headache, chest pain, altered mental status with blinking of the eyelids and trembling of the lips. History of CVA with left sided weakness in the past. History of CAD status post CABG and stent placement. Patient's on Plavix. Diagnosis Primary Impression: Chest pain Qualified Code: R07.9 - Chest pain, unspecified type Additional Impression: Cephalgia Qualified Code: R51 - Acute nonintractable headache, unspecified headache type Aime Esqueda MD Aug 27, 2016 22:09
--- NOTE | 2016-08-27 22:25 | RADRPT ---
EXAM DATE/TIME: 08/27/2016 22:10 [facility] COMPARISON: CHEST SINGLE AP, July 13, 2016, 9:50. INDICATIONS : Chest pain. MEDICAL HISTORY : Hypertension. Cerebrovascular disease. Asthma. Bronchitis. SURGICAL HISTORY : CABG. ENCOUNTER: Initial ACUITY: 1 day PAIN SCORE: 0/10 LOCATION: Bilateral chest FINDINGS: There is cardiomegaly with minimal basilar atelectasis. Postop CABG. No effusion. No pneumothorax. CONCLUSION: 1. Minimal basilar atelectasis. No significant change from July 13. Fady Shah MD on August 27, 2016 at 22:22 Board Certified Radiologist. This report was verified electronically.
[2016-08-27 22:26] VITALS: O2SAT 99
--- NOTE | 2016-08-27 22:46 | RADRPT ---
EXAM DATE/TIME: 08/27/2016 22:20 [facility] COMPARISON: No previous studies available for comparison. INDICATIONS : Altered mental status past 4 days. RADIATION DOSE: 56.35 CTDIvol (mGy) MEDICAL HISTORY : Cerebrovascular disease. Hypertension. Seizures. SURGICAL HISTORY : CABG ENCOUNTER: Initial ACUITY: 4 - 6 days PAIN SCALE: 0/10 LOCATION: cranial TECHNIQUE: Multiple contiguous axial images were obtained of the head. Using automated exposure control and adj ustment of the mA and/or kV according to patient size, radiation dose was kept as low as reasonably a chievable to obtain optimal diagnostic quality images. FINDINGS: There is a remote left MCA distribution infarct similar to July 13. No mass effect or midline shift. No hydrocephalus. No recent infarct identified. No hydrocephalus. No abnormal extra-axial fluid colle ctions. There is a retention cyst in the right maxillary sinus and mucosal thickening of the ethmoid air cell s. There is also a remote small infarct in the left occipital lobe. CONCLUSION: 1. Remote left MCA distribution and left occipital lobe infarcts. No acute findings compared with Jul. Fady Shah MD on August 27, 2016 at 22:42 Board Certified Radiologist. This report was verified electronically.
[2016-08-27 22:51] LABS: AUTOMATED NEUTROPHIL # 2.4 TH/MM3 (1.8-7.7); BASOPHIL # 0.1 TH/MM3 (0-0.2); BASOPHIL % 2.2 % (0.0-2.0); EOSINOPHIL # 1.3 TH/MM3 (0-0.4); EOSINOPHIL % 23.1 % (0.0-4.0); HEMATOCRIT 37.6 % (39.0-51.0); HEMO FLAGS DIFF FINAL; LYMPH % 23.6 % (9.0-44.0); LYMPHOCYTE # 1.4 TH/MM3 (1.0-4.8); MEAN CELL VOLUME 85.6 FL (80.0-100.0); MEAN CORPUSCULAR HEMOGLOBIN 27.4 PG (27.0-34.0); MEAN CORPUSCULAR HGB CONC 32.1 % (32.0-36.0); MONO % 9.1 % (0.0-8.0); PLATELET COUNT 228 TH/MM3 (150-450); RED CELL DISTRIBUTION WIDTH 14.3 % (11.6-17.2); WHITE BLOOD COUNT 5.8 TH/MM3 (4.0-11.0)
[2016-08-27] MEDS: SODIUM CHLOR 0.9% 1000 ML INJ 1,000 ML IV SCH (22:51)
[2016-08-27 22:56] LABS: APTT (PATIENT) 26.3 SEC (24.3-30.1); PROTHROMBIN TIME - PATIENT 10.9 SEC (9.8-11.6)
[2016-08-27 23:00] LABS: ANION GAP 9 MEQ/L (5-15); AST (GOT) 14 U/L (15-37); BICARBONATE 26.9 MEQ/L (21.0-32.0); BLOOD UREA NITROGEN 5 MG/DL (7-18); CHLORIDE 104 MEQ/L (98-107); GLOMERULAR FILTRATION RATE 101 ML/MIN (>89); SODIUM (NA) 140 MEQ/L (136-145)
[2016-08-27 23:10] LABS: ALKALINE PHOSPHATASE 81 U/L (45-117); ALT (GPT) 21 U/L (12-78); CREATINE KINASE 118 U/L (39-308); TOTAL BILIRUBIN ADULT 0.5 MG/DL (0.2-1.0)
[2016-08-28] VITALS (9 sets, daily range): BP systolic 11–173; BP diastolic 56–88; PULSE 59–84; RESP 16–20; TEMP 97.7–98; O2SAT 97–100
[2016-08-28] MEDS ORDERED: SODIUM CHLORIDE 0.9% FLUSH 10 ML FLUSH IV FLUSH PRN (01:15)
[2016-08-28] MEDS ORDERED: NALOXONE HCL 0.4 MG/ML AMP IV PRN (01:15)
[2016-08-28 01:37] LABS: BLOOD, URINE NEG (NEG); GLUCOSE,URINE NEG (NEG); KETONE, URINE NEG (NEG); NITRITE,URINE NEG (NEG); PH, URINE 6.5 (5.0-8.5); URINE COLOR LIGHT-YELLOW (YELLW/STRAW)
[2016-08-28 01:47] LABS: COMMENT (UR) CULT NOT INDICATED; CULTURE IF INDICATED CULT NOT INDICATED
[2016-08-28] MEDS: SODIUM CHLOR 0.9% 1000 ML INJ 1,000 ML IV SCH ×3 (06:00→22:00)
[2016-08-28] MEDS ORDERED: NITROGLYCERIN 0.4 MG SL 25 TABS/BTL SL PRN (08:30)
--- NOTE | 2016-08-28 08:57 | HHI.HP ---
[facility] Jerel Zepeda DO Admission Diagnosis chest pain. Cephalgia Diagnoses: (1) Cephalgia Diagnosis: Principal (2) Chest pain Diagnosis: Secondary (3) Photophobia Diagnosis: Secondary (4) Expressive aphasia Diagnosis: Principal (5) Spasticity Diagnosis: Secondary (6) Receptive aphasia Diagnosis: Principal (7) Recurrent falls Diagnosis: Principal (8) Acute onset of severe vertigo Diagnosis: Secondary Travel History International Travel<30 Days: No Contact w/Intl Traveler <30 Da: No Traveled to Known Affected Are: No History of Present Illness Mr. Keller is a 61 year old male. 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 He has a history of 3 'big' strokes and one 'small' stroke. He has no history of alcohol or drug abuse and has never smoked. 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 Last night he had an acute onset of a severe cephalgia at his frontal and bilateral temporal areas. He also complains of difficulty speaking both from word finding and word substitutions and from a sensation of spasticity of his lips and tongue. He has some photophobia, but also feels dizziness when he opens his eyes. His hearing is intact bilaterally, but he feels as if things are louder and he also feels that all the words he is hearing are not making it 'in' to his brain, though this has improved through time. His previous strokes have caused a chronic left sided hemiplegia (arm>leg). Despite this he has remained active and pushes himself to carry on normal functions. Nevertheless, starting about 2 months ago he has been feeling relatively weak and reports recurrent falls starting then (June). He denies fevers, chills or night sweats. He is not aware of any change to medications (he is on an SSRI). No nausea reported when seen. Additional areas of pain, which came with the onset of his cephalgia and neurologic symptoms where his right leg and chest. The leg and chest pains have improved. The cephalgia remains. He does have a history of CAD and has had a 5 vessel bypass surgery in the past and stent placements after bypass surgery (he can not recall the exact times during out visit, but says both are years ago). No other complaints. Review of Systems Constitutional: DENIES: Fever, Chills, Change in appetite Endocrine: DENIES: Heat/cold intolerance Eyes: COMPLAINS OF: Photosensitivity, DENIES: Blurred vision, Eye pain Ears, nose, mouth, throat: COMPLAINS OF: Vertigo, DENIES: Hearing loss Respiratory: DENIES: Hemoptysis, Shortness of breath Cardiovascular: COMPLAINS OF: Chest pain, DENIES: Palpitations, Syncope Gastrointestinal: DENIES: Abdominal pain, Diarrhea, Nausea, Vomiting Musculoskeletal: COMPLAINS OF: Joint pain, DENIES: Back pain Integumentary: DENIES: Abnormal pigmentation, Rash Neurologic: COMPLAINS OF: Headache, Localized weakness, Speech Problems, Poor Balance, DENIES: Seizures, Tremor Psychiatric: DENIES: Mood changes, Depression, Hallucinations, Suicidal Ideation Except as stated in HPI: all other systems reviewed are Neg Past Family Social History Past Medical History CVA x 4 CAD Past Surgical History [id number] Reported Medications Reported Meds & Active Scripts Active Lortab (Hydrocodone-Acetaminophen) 5-325 Mg Tab 1 Tab PO Q6H PRN Midodrine 5 Mg Tab 5 Mg PO TID@07,12,17 Reported Baclofen 10 Mg Tab 10 Mg PO Q8HR PRN Pantoprazole (Pantoprazole Sodium) 40 Mg Tab 40 Mg PO BID Sertraline (Sertraline HCl) 100 Mg Tab 100 Mg PO DAILY Nitroglycerin SL (Nitroglycerin) 0.4 Mg Subl 0.4 Mg SL DIRECTED PRN ONE TABLET UNDER THE TONGUE NEEDED FOR CHEST PAIN, MAY REPEAT EVERY FIVE MINUTES FOR A TOTAL OF 3 DOSES OR CALL 911 IF NO RELIEF Metformin (Metformin HCl) 1,000 Mg Tab 1,000 Mg PO BIDPC With meals Ondansetron Odt 4 Mg Tab 4 Mg SL Q6HR PRN Clopidogrel (Clopidogrel Bisulfate) 75 Mg Tab 75 Mg PO DAILY Aspirin Adult Low Strength (Aspirin) 81 Mg Tabdr 81 Mg PO DAILY Gabapentin 300 Mg Cap 300 Mg PO TID Lipitor (Atorvastatin Calcium) 80 Mg Tab 80 Mg PO HS Donepezil 10 Mg Tab 10 Mg PO HS Allergies: Coded Allergies: Bee Sting (Verified Allergy, Severe, THROAT SWELLS, 08/27/16) Penicillin (Verified Allergy, Severe, SWELLS UP, 08/27/16) Wasp (Verified Allergy, Severe, SWELLS UP, 08/27/16) Active Ordered Medications Current Medications Medications (Trade) Dose Ordered Sig/Pilar Route PRN Reason Start Time Stop Time Status Last Admin Dose Admin Sodium Chloride (NS 1000 ml Inj) 1,000 ml @ 125 mls/hr Q8H IV 08/27/16 22:00 08/27/16 22:51 Sodium Chloride (NS Flush) 2 ml UNSCH PRN IV FLUSH FLUSH AFTER USING IV ACCESS 08/28/16 01:15 Sodium Chloride (NS Flush) 2 ml BID IV FLUSH 08/28/16 09:00 Naloxone HCl (Narcan Inj) 0.4 mg UNSCH PRN IV SEE LABEL COMMENTS 08/28/16 01:15 Family History CVA in father and paternal grandfather Social History No smoking No alcohol No drug use Physical Exam Vital Signs Vital Signs Date Time Temp Pulse Resp B/P Pulse Ox O2 Delivery O2 Flow Rate FiO2 08/28/16 06:03 82 16 131/71 98 Room Air 08/28/16 02:54 60 16 11/56 100 Room Air 08/28/16 01:00 60 16 102/57 98 Room Air 08/28/16 00:00 62 16 101/59 98 Room Air 08/27/16 22:26 99 Room Air 08/27/16 21:45 98.7 83 16 135/83 99 Physical Exam GENERAL: A&Ox3, Mild Distress SKIN: Warm and dry. HEAD: Atraumatic. Normocephalic. EYES: Pupils equal and round. Equal pupillary reflexes bilaterally. No scleral icterus. No injection or drainage. ENT: No nasal bleeding or discharge. Mucous membranes pink and moist. NECK: Trachea midline. No JVD. No carotid bruits heard. CARDIOVASCULAR: Regular rate and rhythm. No murmur. No tenderness of chest. Midline sternal scar. RESPIRATORY: No accessory muscle use. Clear to auscultation. Breath sounds equal bilaterally. GASTROINTESTINAL: Abdomen soft, non-tender, nondistended. Hepatic and splenic margins not palpable. MUSCULOSKELETAL: Extremities without clubbing, cyanosis, or edema. No obvious deformities. NEUROLOGICAL: Awake and alert. No obvious cranial nerve deficits. Expressive aphasia with stuttering (new). Left sided hemiplegia (chronic); 4/5 at left leg , 3/5 at left arm. PSYCHIATRIC: Appropriate mood and affect; insight and judgment normal. Laboratory Laboratory Tests Test 08/27/16 08/28/16 22:15 00:00 White Blood Count 5.8 Red Blood Count 4.40 Hemoglobin 12.1 Hematocrit 37.6 Mean Corpuscular Volume 85.6 Mean Corpuscular Hemoglobin 27.4 Mean Corpuscular Hemoglobin 32.1 Concent Red Cell Distribution Width 14.3 Platelet Count 228 Mean Platelet Volume 8.6 Neutrophils (%) (Auto) 42.0 Lymphocytes (%) (Auto) 23.6 Monocytes (%) (Auto) 9.1 Eosinophils (%) (Auto) 23.1 Basophils (%) (Auto) 2.2 Neutrophils # (Auto) 2.4 Lymphocytes # (Auto) 1.4 Monocytes # (Auto) 0.5 Eosinophils # (Auto) 1.3 Basophils # (Auto) 0.1 CBC Comment DIFF FINAL Differential Comment Prothrombin Time 10.9 Prothromb Time International 1.0 Ratio Activated Partial 26.3 Thromboplast Time Sodium Level 140 Potassium Level 4.0 Chloride Level 104 Carbon Dioxide Level 26.9 Anion Gap 9 Blood Urea Nitrogen 5 Creatinine 0.78 Estimat Glomerular Filtration 101 Rate Random Glucose 104 Calcium Level 8.7 Total Bilirubin 0.5 Aspartate Amino Transf 14 (AST/SGOT) Alanine Aminotransferase 21 (ALT/SGPT) Alkaline Phosphatase 81 Total Creatine Kinase 118 Troponin I LESS THAN 0.02 Total Protein 6.6 Albumin 3.5 Thyroid Stimulating Hormone 4.910 3rd Gen Urine Color LIGHT-YELLOW Urine Turbidity CLEAR Urine pH 6.5 Urine Specific [place] 1.003 Urine Protein NEG Urine Glucose (UA) NEG Urine Ketones NEG Urine Occult Blood NEG Urine Nitrite NEG Urine Bilirubin NEG Urine Urobilinogen LESS THAN 2.0 Urine Leukocyte Esterase NEG Urine WBC LESS THAN 1 Microscopic Urinalysis Comment CULT NOT INDICATED Result Diagram: 08/27/16221408/27/162214 Imaging Last Impressions Head CT 08/27/162157 Signed Impressions: Service Date/Time: Saturday, August 27, 2016 22:20 - CONCLUSION: 1. Remote left MCA distribution and left occipital lobe infarcts. No acute findings compared with July 13. Fady Shah MD Chest X-Ray 08/27/16 2158 Signed Impressions: Service Date/Time: Saturday, August 27, 2016 22:10 - CONCLUSION: 1. Minimal basilar atelectasis. No significant change from July 13. Fady Shah MD Assessment and Plan Problem List: (1) Cephalgia ICD Code: R51 Status: Acute (2) Chest pain ICD Code: R07.9 Status: Resolved (3) Photophobia ICD Code: H53.149 Status: Acute (4) Expressive aphasia ICD Code: R47.01 Status: Acute (5) Receptive aphasia ICD Code: R47.01 Status: Acute (6) Spasticity ICD Code: R25.2 Status: Acute Plan: Less likely to be SSRI related given this also started acutely with other neurological findings suggestive of CVA (7) Recurrent falls ICD Code: R29.6 Status: Acute Plan: May be related to acute onset of neurological findings. Evaluate for PT after initial CVA work up. (8) Acute onset of severe vertigo ICD Code: R42 Status: Acute Assessment and Plan Possible Acute CVA CT shows no signs of bleed MRI and MRA of brain Neurology consulted Aspirin and Plavix daily continued May need an LP if MRI shows no evidence of cause Sed Rate ordered Chest Pain Appears related to his acute Cephalgia and Neurologic Change Currently improved Monitor for recurrence Continue aspirin, statin, PRN NTG Follow serial troponin markers Consider further cardiac work up if pain returns or if troponin trend shows positivity All other Home Treatments are placed on hold for now Code Status Full Code Physician Certification 2 Midnight Certification Type: Admission for Inpatient Services Order for Inpatient Services The services are ordered in accordance with Medicare regulations or non- Medicare payer requirements, as applicable. In the case of services not specified as inpatient-only, they are appropriately provided as inpatient services in accordance with the 2-midnight benchmark. Estimated LOS (days): 2 days is the estimated time the patient will need to remain in the hospital, assuming treatment plan goals are met and no additional complications. Post-Hospital Plan: Home Problem Qualifiers (1) Cephalgia: Qualified Code: R51 - Acute nonintractable headache, unspecified headache type (2) Chest pain: Qualified Code: R07.9 - Chest pain, unspecified type Farhat Walker MD Aug 28, 2016 08:57
[2016-08-28] MEDS: SODIUM CHLORIDE 0.9% FLUSH 10 ML FLUSH IV FLUSH SCH ×2 (09:00→20:12)
--- NOTE | 2016-08-28 10:03 | RADRPT ---
EXAM DATE/TIME: 08/28/2016 09:23 [facility] COMPARISON: MRI BRAIN W/O CONTRAST, July 14, 2016, 15:42. INDICATIONS : Right sided weakness. MEDICAL HISTORY : Hypertension. Stroke SURGICAL HISTORY : CABG Coronary artery stent. Left hip surgery. ENCOUNTER: Initial ACUITY: 2 day PAIN SCORE: Nonresponsive. LOCATION: Head TECHNIQUE: Multiplanar, multisequence MRI of the brain was performed without contrast. FINDINGS: There is mild atrophy with evidence for an old infarct in the left posterior Sylvian region. There i s no restricted diffusion in this region to suggest an extension of this infarct. The right hemisphere showed scattered periventricular white matter changes. These have remained stab le in the interval. The posterior fossa shows evidence for an interval subacute area of infarction in the occipital hannah x. This has progressed slightly from the comparison study but again there is no restricted diffusion evident. There are no extraaxial fluid collections appreciated. Mucous retention cyst is present in the right maxillary sinus stable in the interval. CONCLUSION: 1. There is no restricted diffusion suggesting evolving area of ischemia. 2. There is evidence for an old stable infarct in the left mid Sylvian region. There is minimal inc rease in the amount of white matter changes in the left occipital cortex that could be evidence for a n extension of a subacute infarction. Hunter Valentine MD FACR on August 28, 2016 at 9:52 Board Certified Radiologist. This report was verified electronically.
--- NOTE | 2016-08-28 10:03 | RADRPT ---
EXAM DATE/TIME: 08/28/2016 09:23 [facility] COMPARISON: No previous studies available for comparison. INDICATIONS : Right sided weakness. MEDICAL HISTORY : Hypertension. Stroke SURGICAL HISTORY : CABG Coronary artery stent. Left hip. ENCOUNTER: Initial ACUITY: 2 day PAIN SCORE: Nonresponsive. LOCATION: Head Please note a normal MRA of the brain does not entirely exclude the possibility of a small aneurysm, nor the possibility of distal intracranial vessel disease. TECHNIQUE: 3D time of flight MRA was performed. Source images, multiplanar STS MIP, and 3D volume MIP reconstru ctions were reviewed. FINDINGS: Moderate intracranial atherosclerotic vascular disease is evident. There is no major branch vessel o cclusion. There is a large posterior communicating artery on the right. The left vertebral is small and diminu tive. Basilar artery is patent. CONCLUSION: There is no evidence for major branch vessel occlusion. Hunter Valentine MD FACR on August 28, 2016 at 9:56 Board Certified Radiologist. This report was verified electronically.
[2016-08-28] MEDS: ASPIRIN EC 81 MG TABEC PO SCH (10:09)
[2016-08-28] MEDS: CLOPIDOGREL 75 MG TAB PO SCH (10:09)
[2016-08-28] MEDS: ACETAMINOPHEN/HYDROcodone 325 MG/5 MG TAB PO PRN ×2 (10:10→20:09)
--- NOTE | 2016-08-28 11:03 | MB ---
cc: ADRIANO STOLL DATE OF CONSULTATION 08/28/2016 REASON FOR CONSULTATION This is a 61-year-old left-handed man who was in [facility] a one-time. He tells me he lives with his god son with a history of hypertension, non-insulin diabetes, hypercholesterolemia, CABG x5, four stents, asthma, chest pain in the past, gallbladder problems, three strokes with some left arm weakness, although does not use a cane or a walker followed by Dr. Alonso. He has seen neurology in the past. History of headaches. He says he has daily headaches in the back of his head and he has had some chest pain for about three days and a headache on the top of his head. At one time, he was on Aricept. An LP was done in the past which was negative. He has been on Topamax in the past for headaches. Last year, he had a brief episode of syncope. I saw him on 07/15/2016. He had lost his balance and fell into a cactus and another fall at [facility]. He could not articulate himself well at that time. There was some history of depression at that time, possible some dementia. Nevertheless, I thought he needed a 30-day monitor. I note his HIV has been negative. An ROBIN 1:640 in 2010. A rheumatoid factor had been negative. LP was negative except for an elevated protein of 108, but he does have a history of diabetes which would do that. LDL cholesterol has been negative. He had an MRI of his brain showing a remote left stroke, otherwise negative. He had an old large left posterior MCA infarct which gave IM some aphasia and a small left occipital lobe infarct also old. He had a CT of his cervical spine which showed some DJD. Carotid ultrasound was negative. He also saw Dr. Vivas who saw him for near-syncope on 08/09. He noted some left-sided weakness. He has periods of time where he feels lightheaded and all of his energy is drained out. Also noted an echocardiogram that showed a normal EF, a normal BMP. He recommended continuing midodrine and Florinef. PAST MEDICAL HISTORY 1. CAD 2. CABG 3. Asthma 4. Anxiety 5. Depression 6. Some dementia 7. Hypertension 8. Left-sided weakness, stroke 9. Diabetes 10. GERD 11. Broken legs and elbow ALLERGIES ALLERGIC TO BEE STINGS, PENICILLIN AND WASPS. CURRENT MEDICATIONS He is on: 1. Lortab 2. Midodrine 3. Baclofen 10 q8h 4. Protonix 5. Sertraline 6. Nitroglycerin 7. Metformin 8. Plavix 9. Zofran 10. 81 of Aspirin 11. Gabapentin 300 t.i.d. 12. Lipitor 13. Aricept 10 mg a day PHYSICAL EXAM On exam, he has been in sinus rhythm, afebrile, 59, 16, 130/73. Standing blood pressure has been normal on the last admission. NECK: There are no carotid bruits. HEART: Regular rhythm. I did not detect a murmur. He sits with his eyes closed, but will open them up when asked. NEUROLOGIC: His visual costello are full. Extraocular intact without nystagmus. Face symmetric. Tongue was midline. Face sensation was intact. He tells me he had some decreased pinprick on the back of his head bilaterally. Pinprick was intact, however in all four extremities. The toes are downgoing bilaterally. He had normal strength in the right upper and bilateral lower extremities. The left upper extremity he gave a poor effort about 4/5 there throughout. DTRs are trace to 1+ throughout. He tends to mumble a little bit, but no major aphasia at this time. He follows commands well. LABORATORY DATA CBC is essentially normal. Sed rate normal at 2015. HIV has been negative. ROBIN 1:640 in the past. Rheumatoid factor has been negative. Urine drug screen negative multiple times. The LP in 2015 negative as noted. CSF VDRL negative. Coags normal. Basic metabolic profile normal. LFTs normal. Troponin negative. TSH essentially normal. B12 normal. LDL cholesterol normal in November of last year. Albumin is normal. Troponin is negative. ABG normal several days ago. He had a CTA which was negative for pulmonary embolism which was negative several days ago. MRI of the brain showed the old stroke last year. CT scan here did show the old stroke. Chest x-ray here was negative. MRI of the brain was just performed and shows the old left MCA and occipital infarct. No acute infarct is seen. There is actually a rather sizable left posterior MCA infarct. MRA [facility] [place] preliminary looks normal. IMPRESSION I think overall he looks at his baseline when I saw him the last time. We will check a sed rate on him and continue him on his Plavix and aspirin. I will check an MRI of the cervical spine with the numbness in the back of his head. I think that probably will be normal, however. As for the chest pain, I defer to the med team. I note his EEG early last month was normal. I put in a call to his stepson. We will check an MR venogram with a history of stroke, although I thought he looked at his baseline neurologically. He does have a history of chronic headaches. We could consider some Depakote or Topamax we can retry again. MD PEACE Acevedo/DELANEY /10:11 AM /10:41 AM
--- NOTE | 2016-08-28 11:35 | RADRPT ---
EXAM DATE/TIME: 08/28/2016 10:52 [facility] COMPARISON: MRI CERVICAL SPINE W/O CONTRAST, December 20, 2014, 16:02. INDICATIONS : Myelopathy. Right sided weakness. MEDICAL HISTORY : Cardiovascular disease Hypertension. Neuropathy. SURGICAL HISTORY : Coronary artery stent. CABG Left hip. ENCOUNTER: Subsequent ACUITY: 1 day PAIN SCORE: 0/10 LOCATION: neck. TECHNIQUE: Multiplanar, multisequence MRI examination of the cervical spine was performed. FINDINGS: Prior MRI in 2014 and demonstrate epidural impression C4-C7 due to disc protrusions at degenerative c hanges. No cord compression was seen on the prior MRI. On today's examination, there is normal lumb ar vertebral bodies of the cervical spine preservation of vertebral body height. No signal abnormali ties in the marrow the cervical vertebral bodies. There is undulating ventral impression upon the ce rvical cord at C4-C6 which appears more prominent than on prior MR and there is loss of CSF of the ce rvical cord at the space levels. The visualized posterior fossa structures are intact.. C2-C3: The thecal sac has a normal configuration. There is no evidence of disc herniation or spinal canal s tenosis. The neural foramina are patent bilaterally. C3-C4: Central bulging of the disc causes flattening of the ventral intrathecal sac. The bony neural forami na remain patent.. C4-C5: There is a central protrusion of the disc which causes loss of CSF of the cervical cord, but no cord compression. No lateral extension. The bony neural foramina are patent bilaterally. C5-C6: There is a dominant protrusion of the disc slightly larger left parasagittal than on the right which does cause some cord compression on the left side. The findings have progressed in severity when com pared to 2014. There is moderate severity bilateral bony neural foraminal stenosis. C6-C7: There is a central disc protrusion which causes indentation on the thecal sac and some minimal flatte antonio the ventral margin of the cervical cord on the right side. The severity of findings as progress ed since prior examination in 2014. Severe bilateral bony neural foraminal stenosis. C7-T1: The thecal sac has a normal configuration. There is no evidence of disc herniation or spinal canal s tenosis. The neural foramina are patent bilaterally. CONCLUSION: Disc protrusions C4-5, C5-6, and C6-7 with evidence of progression of severity C5-7 when compared to prior MRI in December 2014. There is no evidence of some mild impression upon the cervical cord at the se 2 levels. No evidence of syrinx and no intrinsic signal abnormalities within the cervical cord. Cole Heller MD on August 28, 2016 at 11:28 Board Certified Radiologist. This report was verified electronically.
--- NOTE | 2016-08-28 11:55 | RADRPT ---
EXAM DATE/TIME: 08/28/2016 10:52 COMPARISON: MRA BRAIN W/O CONTRAST, August 28, 2016, 9:23. MRI BRAIN W/O CONTRAST, August 28, 2016, 9:23. INDICATIONS : Cephalgia. Right sided weakness. CONTRAST: 20 cc Omniscan (gadodiamide) IV MEDICAL HISTORY : Hypertension. Cerebrovascular disease. Neuropathy. SURGICAL HISTORY : Coronary artery stent. CABG Left hip. ENCOUNTER: Subsequent ACUITY: 1 day PAIN SCORE: 0/10 LOCATION: head. FINDINGS: Intact flow in the sagittal and straight sinuses. The left torcula is slightly larger than the right . A sagittal sinuses are symmetric. Flow is seen in both internal cerebral veins and in the high co nvexity draining veins. CONCLUSION: Negative MRV brain. Cole Heller MD on August 28, 2016 at 11:51 Board Certified Radiologist. This report was verified electronically.
[2016-08-28] MEDS ORDERED: GADODIAMIDE PF 287 MG/ML 20 ML VIAL (for RAD MRI) IV ONE (12:10)
[2016-08-28] MEDS: ATORVASTATIN 80 MG TAB PO SCH (20:09)
--- NOTE | 2016-08-28 22:34 | EKG ---
Date Performed: 08/27/2016 Time Performed: 21:49:09 PTAGE: 61 years EKG: Sinus rhythm MARKED LEFT AXIS DEVIATION RIGHT BUNDLE BRANCH BLOCK MODERATE VOLTAGE CRITERIA FOR LVH, CONSIDER NOR MAL VARIANT ABNORMAL ECG PREVIOUS TRACING : 08/23/2016 01.27 Compared to prior tracing no significant change DOCTOR: Jose Antonio Granger Interpretating Date/Time 08/28/2016 22:33:28
[2016-08-29] VITALS (10 sets, daily range): BP systolic 138–155; BP diastolic 76–92; PULSE 60–79; RESP 16–20; TEMP 97.5–98.3; O2SAT 77–99
[2016-08-29 04:40] LABS: BASOPHIL # 0.1 TH/MM3 (0-0.2); BASOPHIL % 1.8 % (0.0-2.0); EOSINOPHIL # 1.3 TH/MM3 (0-0.4); EOSINOPHIL % 25.4 % (0.0-4.0); HEMATOCRIT 34.1 % (39.0-51.0); HEMO FLAGS DIFF FINAL; LYMPH % 25.9 % (9.0-44.0); LYMPHOCYTE # 1.3 TH/MM3 (1.0-4.8); MEAN CELL VOLUME 86.4 FL (80.0-100.0); MEAN CORPUSCULAR HEMOGLOBIN 27.7 PG (27.0-34.0); MONO % 7.4 % (0.0-8.0); NEUT % 39.5 % (16.0-70.0); PLATELET COUNT 212 TH/MM3 (150-450); RED BLOOD COUNT 3.95 MIL/MM3 (4.50-5.90); RED CELL DISTRIBUTION WIDTH 13.9 % (11.6-17.2); WHITE BLOOD COUNT 4.9 TH/MM3 (4.0-11.0)
[2016-08-29 05:01] LABS: APTT (PATIENT) 26.4 SEC (24.3-30.1); PROTHROMBIN TIME - PATIENT 11.3 SEC (9.8-11.6)
[2016-08-29 05:26] LABS: ALT (GPT) 18 U/L (12-78); ANION GAP 7 MEQ/L (5-15); AST (GOT) 14 U/L (15-37); BICARBONATE 24.8 MEQ/L (21.0-32.0); BLOOD UREA NITROGEN 6 MG/DL (7-18); CHLORIDE 111 MEQ/L (98-107); GLOMERULAR FILTRATION RATE 111 ML/MIN (>89); POTASSIUM 3.7 MEQ/L (3.5-5.1); SODIUM (NA) 143 MEQ/L (136-145)
[2016-08-29 05:42] LABS: ALKALINE PHOSPHATASE 68 U/L (45-117); TOTAL BILIRUBIN ADULT 0.6 MG/DL (0.2-1.0)
[2016-08-29] MEDS: SODIUM CHLOR 0.9% 1000 ML INJ 1,000 ML IV SCH ×3 (06:00→23:20)
--- NOTE | 2016-08-29 08:27 | HHI.PR ---
Subjective Remarks co speech off Objective Vital Signs Date Time Temp Pulse Resp B/P Pulse Ox O2 Delivery O2 Flow Rate FiO2 08/29/16 07:37 97.5 70 16 155/87 98 08/29/16 04:10 62 08/29/16 01:19 79 18 138/76 97 08/28/16 21:09 18 08/28/16 20:09 97.7 84 18 142/71 97 08/28/16 14:05 97.8 69 20 154/74 98 08/28/16 13:25 59 20 121/68 98 Room Air 08/28/16 10:02 61 20 173/88 98 Room Air I/O 08/28/16 08/28/16 08/28/16 08/29/16 08/29/16 08/29/16 07:00 15:00 23:00 07:00 15:00 23:00 Output Total 600 ml 975 ml Balance -600 ml -975 ml Output Urine Total 600 ml 975 ml # Voids 1 Result Diagram: 08/29/16 0346 08/29/16 0346 Other Results mri no change from last mri i reviewed films eeg nl 07/26 mrv nl esr nl crp nl mri c spine mod spinal stenosis no cord compression Objective Remarks awake speech ok some minor not too bad moves all well this am Assessment and Plan Assessment and Plan imp try depakote for chronic minor and it will rx any sz and mood start 5oo hs and check lft cbc bmp and vpa level 5 days outpt i rec have social worker palliative care look into if he is with son or out of house and how much of this is a social visit he has hx large left mca cva which can effect language and chronic plavis statin Fausto Coe MD Aug 29, 2016 08:27
[2016-08-29] MEDS: SODIUM CHLORIDE 0.9% FLUSH 10 ML FLUSH IV FLUSH SCH ×2 (09:00→20:48)
[2016-08-29] MEDS: CLOPIDOGREL 75 MG TAB PO SCH (09:41)
[2016-08-29] MEDS: ACETAMINOPHEN/HYDROcodone 325 MG/5 MG TAB PO PRN ×3 (09:41→23:20)
[2016-08-29] MEDS: ASPIRIN EC 81 MG TABEC PO SCH (09:41)
--- NOTE | 2016-08-29 16:37 | HHI.PR ---
Subjective Remarks Headache remains, though it is not as intense. No chest pain or leg pain today. MRI/MRA and Cervical studies show no infarcts. Some DDD in the neck, but this doesn't appear to be the cause of his symptoms. Neurology has started Depakote as a treatment. Objective Vital Signs Date Time Temp Pulse Resp B/P Pulse Ox O2 Delivery O2 Flow Rate FiO2 08/29/16 15:25 97.7 76 20 141/79 98 08/29/16 11:43 70 99 08/29/16 11:38 97.9 77 20 155/92 77 08/29/16 08:00 60 08/29/16 07:37 97.5 70 16 155/87 98 08/29/16 04:10 62 08/29/16 01:19 79 18 138/76 97 08/28/16 21:09 18 08/28/16 20:09 97.7 84 18 142/71 97 I/O 08/28/16 08/28/16 08/28/16 08/29/16 08/29/16 08/29/16 07:00 15:00 23:00 07:00 15:00 23:00 Output Total 600 ml 975 ml Balance -600 ml -975 ml Output Urine Total 600 ml 975 ml # Voids 1 Result Diagram: 08/29/16 0346 08/29/16 0346 Objective Remarks GENERAL: A&Ox3, NAD SKIN: Warm and dry. HEAD: Normocephalic. EYES: No scleral icterus. No injection or drainage. NECK: Supple, trachea midline. No JVD or lymphadenopathy. CARDIOVASCULAR: Regular rate and rhythm without murmurs, gallops, or rubs. RESPIRATORY: Breath sounds equal bilaterally. No accessory muscle use. GASTROINTESTINAL: Abdomen soft, non-tender, nondistended. MUSCULOSKELETAL: No cyanosis, or edema. BACK: Nontender without obvious deformity. No CVA tenderness. Medications and IVs Administered Medications Medications (Trade) Dose Ordered Sig/Pilar Route PRN Reason Start Time Stop Time Status Last Admin Dose Admin Sodium Chloride (NS 1000 ml Inj) 1,000 ml @ 125 mls/hr Q8H IV 08/27/16 22:00 08/29/16 15:31 Aspirin (Ecotrin Ec) 81 mg DAILY PO 08/28/16 10:00 08/29/16 09:41 Atorvastatin Calcium (Lipitor) 80 mg HS PO 08/28/16 21:00 08/28/16 20:09 Clopidogrel Bisulfate (Plavix) 75 mg DAILY PO 08/28/16 10:00 08/29/16 09:41 Acetaminophen/ Hydrocodone Bitart ([place] 5-325 Mg) 1 tab Q6H PRN PO PAIN 08/28/16 08:30 08/29/16 15:30 A/P Problem List: (1) Cephalgia ICD Code: R51 Assessment & Plan: Depakote started Negative CVA work up PRN pain treatments Follow for improvement Neurology following also (2) Chest pain ICD Code: R07.9 Assessment & Plan: Resolved No elevations in troponin No chest pain prior to time of admit or since admit Not suspected to be of cardiac origin. Problem Qualifiers (1) Cephalgia: Qualified Code: R51 - Acute nonintractable headache, unspecified headache type (2) Chest pain: Qualified Code: R07.9 - Chest pain, unspecified type Farhat Walker MD Aug 29, 2016 16:37
[2016-08-29] MEDS: DIVALPROEX SODIUM E.R. 500 MG TAB PO SCH (20:48)
[2016-08-29] MEDS: ATORVASTATIN 80 MG TAB PO SCH (20:48)
[2016-08-30 03:25] VITALS: BP 145/90; PULSE 72; RESP 19; TEMP 98.1; O2SAT 99
[2016-08-30] MEDS: ACETAMINOPHEN/HYDROcodone 325 MG/5 MG TAB PO PRN ×2 (03:59→21:51)
[2016-08-30] MEDS ORDERED: DEXAMETHASONE SOD PHOS 20 MG/5 ML VIAL IM ONE (07:45)
[2016-08-30] MEDS ORDERED: FAMOTIDINE 20 MG TAB PO ONE (07:45)
--- NOTE | 2016-08-30 07:45 | HHI.PR ---
Subjective Remarks co minor now Objective Vital Signs Date Time Temp Pulse Resp B/P Pulse Ox O2 Delivery O2 Flow Rate FiO2 08/30/16 03:25 98.1 72 19 145/90 99 08/29/16 23:31 98.3 73 19 145/92 99 08/29/16 20:02 78 08/29/16 19:18 98.2 75 19 151/84 99 08/29/16 15:25 97.7 76 20 141/79 98 08/29/16 11:43 70 99 08/29/16 11:38 97.9 77 20 155/92 77 08/29/16 08:00 60 Result Diagram: 08/29/16 0346 08/29/16 0346 Objective Remarks awake speech ok some minor bad this am he states moves all well this am Assessment and Plan Assessment and Plan imp try depakote for chronic minor and it will rx any sz and mood day one start 5oo hs and check lft cbc bmp and vpa level 5 days outpt i rec have social service assistant look into if he is with son or out of house and how much of this is a social visit consult in he has hx large left mca cva which can effect language and chronic plavis statin try decadron he can dc neurowise after that Fausto Coe MD Aug 30, 2016 07:45
[2016-08-30 08:00] VITALS: PULSE 82
[2016-08-30] MEDS: ASPIRIN EC 81 MG TABEC PO SCH (08:17)
[2016-08-30] MEDS: SODIUM CHLORIDE 0.9% FLUSH 10 ML FLUSH IV FLUSH SCH ×2 (08:17→21:00)
[2016-08-30] MEDS: SODIUM CHLOR 0.9% 1000 ML INJ 1,000 ML IV SCH ×3 (08:17→21:52)
[2016-08-30] MEDS: CLOPIDOGREL 75 MG TAB PO SCH (08:17)
[2016-08-30 08:27] VITALS: BP 143/74; PULSE 63; RESP 18; TEMP 97.8; O2SAT 98
[2016-08-30 10:48] LABS: ANA SCREEN POS (NEG)
[2016-08-30 11:47] VITALS: BP 169/85; PULSE 83; RESP 18; O2SAT 95
--- NOTE | 2016-08-30 14:07 | HHI.PR ---
Subjective Remarks Headache not improved. He has been started on Steroids. No chest pain or leg pain today. MRI/MRA and Cervical studies show no infarcts. Some DDD in the neck, but this doesn't appear to be the cause of his symptoms. Objective Vital Signs Date Time Temp Pulse Resp B/P Pulse Ox O2 Delivery O2 Flow Rate FiO2 08/30/16 11:47 83 18 169/85 95 08/30/16 08:27 97.8 63 18 143/74 98 08/30/16 08:00 82 08/30/16 03:25 98.1 72 19 145/90 99 08/29/16 23:31 98.3 73 19 145/92 99 08/29/16 20:02 78 08/29/16 19:18 98.2 75 19 151/84 99 08/29/16 15:25 97.7 76 20 141/79 98 Result Diagram: 08/29/16 0346 08/29/16 034 Objective Remarks GENERAL: A&Ox3, NAD SKIN: Warm and dry. HEAD: Normocephalic. EYES: No scleral icterus. No injection or drainage. NECK: Supple, trachea midline. No JVD or lymphadenopathy. CARDIOVASCULAR: Regular rate and rhythm without murmurs, gallops, or rubs. RESPIRATORY: Breath sounds equal bilaterally. No accessory muscle use. GASTROINTESTINAL: Abdomen soft, non-tender, nondistended. MUSCULOSKELETAL: No cyanosis, or edema. BACK: Nontender without obvious deformity. No CVA tenderness. Medications and IVs Administered Medications Medications (Trade) Dose Ordered Sig/Pilar Route PRN Reason Start Time Stop Time Status Last Admin Dose Admin Sodium Chloride (NS 1000 ml Inj) 1,000 ml @ 125 mls/hr Q8H IV 08/27/16 22:00 08/30/16 08:17 Aspirin (Ecotrin Ec) 81 mg DAILY PO 08/28/16 10:00 08/30/16 08:17 Atorvastatin Calcium (Lipitor) 80 mg HS PO 08/28/16 21:00 08/29/16 20:48 Clopidogrel Bisulfate (Plavix) 75 mg DAILY PO 08/28/16 10:00 08/30/16 08:17 Acetaminophen/ Hydrocodone Bitart ([place] 5-325 Mg) 1 tab Q6H PRN PO PAIN 08/28/16 08:30 08/30/16 03:59 Divalproex Sodium (Depakote Er) 500 mg HS PO 08/29/16 21:00 08/29/16 20:48 A/P Problem List: (1) Cephalgia ICD Code: R51 Assessment & Plan: Not yet resolved Depakote continued Systemic Steroids initiated Negative CVA work up PRN pain treatments Follow for improvement (2) Chest pain ICD Code: R07.9 Assessment & Plan: Resolved No elevations in troponin No chest pain prior to time of admit or since admit Not suspected to be of cardiac origin. Problem Qualifiers (1) Cephalgia: Qualified Code: R51 - Acute nonintractable headache, unspecified headache type (2) Chest pain: Qualified Code: R07.9 - Chest pain, unspecified type Farhat Walker MD Aug 30, 2016 14:07
[2016-08-30] MEDS: NAPROXEN 500 MG TAB PO SCH ×2 (17:49→21:50)
[2016-08-30 19:23] VITALS: BP 129/79; PULSE 106; RESP 19; TEMP 98
[2016-08-30] MEDS: DIVALPROEX SODIUM E.R. 500 MG TAB PO SCH (21:50)
[2016-08-30] MEDS: ATORVASTATIN 80 MG TAB PO SCH (21:50)
[2016-08-30 23:45] VITALS: BP 131/69; PULSE 102; RESP 18; TEMP 98.1; O2SAT 95
[2016-08-31] VITALS (7 sets, daily range): BP systolic 134–148; BP diastolic 60–84; PULSE 68–99; RESP 18–20; TEMP 97.9–98.2; O2SAT 95–96
[2016-08-31] MEDS: SODIUM CHLOR 0.9% 1000 ML INJ 1,000 ML IV SCH ×3 (05:57→17:53)
[2016-08-31] MEDS: CLOPIDOGREL 75 MG TAB PO SCH (08:30)
[2016-08-31] MEDS: NAPROXEN 500 MG TAB PO SCH ×2 (08:30→20:04)
[2016-08-31] MEDS: ASPIRIN EC 81 MG TABEC PO SCH (08:30)
[2016-08-31] MEDS: SODIUM CHLORIDE 0.9% FLUSH 10 ML FLUSH IV FLUSH SCH ×2 (08:30→20:02)
--- NOTE | 2016-08-31 12:18 | HHI.PR ---
Subjective Remarks Headache not improved. He says he would hit himself on his head with a bat if it would make his pain better. Steroids and NSAIDS have had no benefit. Treatment for migraine/cluster headache has had no benefit. ROBIN screen is positive and titers are pending. Objective Vital Signs Date Time Temp Pulse Resp B/P Pulse Ox O2 Delivery O2 Flow Rate FiO2 08/31/16 11:41 74 08/31/16 08:10 97.9 68 18 138/60 95 08/31/16 04:04 98.1 86 19 134/80 95 08/31/16 03:24 99 08/30/16 23:45 98.1 102 18 131/69 95 08/30/16 19:23 98.0 106 19 129/79 Result Diagram: 08/29/1634508/29/16345 Objective Remarks GENERAL: A&Ox3, NAD SKIN: Warm and dry. HEAD: Normocephalic. EYES: No scleral icterus. No injection or drainage. NECK: Supple, trachea midline. No JVD or lymphadenopathy. CARDIOVASCULAR: Regular rate and rhythm without murmurs, gallops, or rubs. RESPIRATORY: Breath sounds equal bilaterally. No accessory muscle use. GASTROINTESTINAL: Abdomen soft, non-tender, nondistended. MUSCULOSKELETAL: No cyanosis, or edema. BACK: Nontender without obvious deformity. No CVA tenderness. Medications and IVs Administered Medications Medications (Trade) Dose Ordered Sig/Pilar Route PRN Reason Start Time Stop Time Status Last Admin Dose Admin Sodium Chloride (NS 1000 ml Inj) 1,000 ml @ 125 mls/hr Q8H IV 08/27/16 22:00 08/31/16 08:32 Aspirin (Ecotrin Ec) 81 mg DAILY PO 08/28/16 10:00 Hold 08/31/16 08:30 Atorvastatin Calcium (Lipitor) 80 mg HS PO 08/28/16 21:00 08/30/16 21:50 Clopidogrel Bisulfate (Plavix) 75 mg DAILY PO 08/28/16 10:00 Hold 08/31/16 08:30 Acetaminophen/ Hydrocodone Bitart ([place] 5-325 Mg) 1 tab Q6H PRN PO PAIN 08/28/16 08:30 08/30/16 21:51 Divalproex Sodium (Depakote Er) 500 mg HS PO 08/29/16 21:00 08/30/16 21:50 Naproxen (Naprosyn) 500 mg Q12HR PO 08/30/16 15:00 08/31/16 08:30 A/P Problem List: (1) Cephalgia ICD Code: R51 Assessment & Plan: Not yet resolved Not improved Depakote continued Systemic Steroids continued NSAIDs continued Negative CVA work up PRN pain treatments Lumbar Puncture ordered Screening autoimmunity, tick-bourne illnesses, and latent STDs for possible cause. (2) Chest pain ICD Code: R07.9 Assessment & Plan: Resolved No recurrence Problem Qualifiers (1) Cephalgia: Qualified Code: R51 - Acute nonintractable headache, unspecified headache type (2) Chest pain: Qualified Code: R07.9 - Chest pain, unspecified type Farhat Walker MD Aug 31, 2016 12:18
[2016-08-31 16:19] LABS: APTT (PATIENT) 24.7 SEC (24.3-30.1); PROTHROMBIN TIME - PATIENT 11.3 SEC (9.8-11.6)
[2016-08-31 16:26] LABS: RHEUMATOID FACTOR TRIGGER LESS THAN 10.0 IU/ML (0.0-14.9)
[2016-08-31] MEDS: ACETAMINOPHEN/HYDROcodone 325 MG/5 MG TAB PO PRN ×2 (17:56→23:33)
[2016-08-31] MEDS: ATORVASTATIN 80 MG TAB PO SCH (20:03)
[2016-08-31] MEDS: DIVALPROEX SODIUM E.R. 500 MG TAB PO SCH (20:04)
[2016-09-01] VITALS (9 sets, daily range): BP systolic 120–140; BP diastolic 60–80; PULSE 56–80; RESP 18–19; TEMP 97.9–98.3; O2SAT 95–96
[2016-09-01] MEDS: SODIUM CHLOR 0.9% 1000 ML INJ 1,000 ML IV SCH ×3 (01:29→20:46)
[2016-09-01] MEDS: ACETAMINOPHEN/HYDROcodone 325 MG/5 MG TAB PO PRN ×2 (05:43→16:34)
[2016-09-01] MEDS: NAPROXEN 500 MG TAB PO SCH ×2 (09:35→20:46)
[2016-09-01] MEDS: SODIUM CHLORIDE 0.9% FLUSH 10 ML FLUSH IV FLUSH SCH ×2 (09:35→20:45)
--- NOTE | 2016-09-01 15:45 | HHI.PR ---
Subjective Remarks Headache not improved, he actually feels that it worsened overnight. He now recalls that prior to the acute onset of his headache he had fallen and struck his forehead. CT and MRI show no signs of acute bleed. Lumbar puncture ( pending) would evaluate for microbleed. Other etiologies being evaluated for are viral (bacterial unlikely), autoimmune, or neurodegenerative conditions. Objective Vital Signs Date Time Temp Pulse Resp B/P Pulse Ox O2 Delivery O2 Flow Rate FiO2 09/01/16 11:52 68 18 140/62 96 09/01/16 09:00 56 09/01/16 07:54 98.3 58 18 127/75 96 09/01/16 03:32 98.0 67 18 137/73 95 09/01/16 00:09 98.1 72 19 133/79 96 08/31/16 20:00 89 08/31/16 19:14 98.2 88 20 148/84 96 08/31/16 17:08 68 18 142/60 96 I/O 08/31/16 08/31/16 08/31/16 09/01/16 09/01/16 09/01/16 07:00 15:00 23:00 07:00 15:00 23:00 Intake Total 1500 ml 960 ml Output Total 3300 ml Balance 1500 ml -2340 ml Intake Oral 960 ml IV Total 1500 ml Output Urine Total 3300 ml Result Diagram: 08/29/16 0346 08/29/16 0346 Imaging Last Impressions Head/Brain Mag Res Venography 08/28/16 0000 Signed Impressions: Service Date/Time: Sunday, August 28, 2016 10:52 - CONCLUSION: Negative MRV brain. Cole Heller MD Head Magnetic Resonance Angiography 08/28/16 0000 Signed Impressions: Service Date/Time: Sunday, August 28, 2016 09:23 - CONCLUSION: There is no evidence for major branch vessel occlusion. Hunter Valentine MD FACR Cervical Spine MRI 08/28/16 0000 Signed Impressions: Service Date/Time: Sunday, August 28, 2016 10:52 - CONCLUSION: Disc protrusions C4-5, C5-6, and C6-7 with evidence of progression of severity C5-7 when compared to prior MRI in December 2014. There is no evidence of some mild impression upon the cervical cord at these 2 levels. No evidence of syrinx and no intrinsic signal abnormalities within the cervical cord. Cole Heller MD Brain MRI 08/28/16 0000 Signed Impressions: Service Date/Time: Sunday, August 28, 2016 09:23 - CONCLUSION: 1. There is no restricted diffusion suggesting evolving area of ischemia. 2. There is evidence for an old stable infarct in the left mid Sylvian region. There is minimal increase in the amount of white matter changes in the left occipital cortex that could be evidence for an extension of a subacute infarction. Hunter Valentine MD FACR Head CT 08/27/162157 Signed Impressions: Service Date/Time: Saturday, August 27, 2016 22:20 - CONCLUSION: 1. Remote left MCA distribution and left occipital lobe infarcts. No acute findings compared with July 13. Fady Shah MD Chest X-Ray [id number]/27/162157 Signed Impressions: Service Date/Time: Saturday, August 27, 2016 22:10 - CONCLUSION: 1. Minimal basilar atelectasis. No significant change from July 13. Fady Shah MD Objective Remarks GENERAL: A&Ox3, NAD SKIN: Warm and dry. HEAD: Normocephalic. EYES: No scleral icterus. No injection or drainage. NECK: Supple, trachea midline. No JVD or lymphadenopathy. CARDIOVASCULAR: Regular rate and rhythm without murmurs, gallops, or rubs. RESPIRATORY: Breath sounds equal bilaterally. No accessory muscle use. GASTROINTESTINAL: Abdomen soft, non-tender, nondistended. MUSCULOSKELETAL: No cyanosis, or edema. BACK: Nontender without obvious deformity. No CVA tenderness. Medications and IVs Administered Medications Medications (Trade) Dose Ordered Sig/Pilar Route PRN Reason Start Time Stop Time Status Last Admin Dose Admin Sodium Chloride (NS 1000 ml Inj) 1,000 ml @ 125 mls/hr Q8H IV 08/27/16 22:00 09/01/16 01:29 Sodium Chloride (NS Flush) 2 ml BID IV FLUSH 08/28/16 09:00 09/01/16 09:35 Aspirin (Ecotrin Ec) 81 mg DAILY PO 08/28/16 10:00 Hold 08/31/16 08:30 Atorvastatin Calcium (Lipitor) 80 mg HS PO 08/28/16 21:00 4/22/17 20:03 Clopidogrel Bisulfate (Plavix) 75 mg DAILY PO 08/28/16 10:00 Hold 08/31/16 08:30 Acetaminophen/ Hydrocodone Bitart ([place] 5-325 Mg) 1 tab Q6H PRN PO PAIN 08/28/16 08:30 09/01/16 05:43 Divalproex Sodium (Depakote Er) 500 mg HS PO 08/29/16 21:00 08/31/16 20:04 Naproxen (Naprosyn) 500 mg Q12HR PO 08/30/16 15:00 09/01/16 09:35 A/P Problem List: (1) Cephalgia ICD Code: R51 Assessment & Plan: Worsened overnight Not improved Depakote continued Systemic Steroids continued NSAIDs continued Negative CVA work up PRN pain treatments Lumbar Puncture ordered Screening autoimmunity, tick-bourne illnesses, and latent STDs for possible cause. (2) Chest pain ICD Code: R07.9 Assessment & Plan: Resolved No recurrence Problem Qualifiers (1) Cephalgia: Qualified Code: R51 - Acute nonintractable headache, unspecified headache type (2) Chest pain: Qualified Code: R07.9 - Chest pain, unspecified type Farhat Walker MD Sep 01, 2016 15:45
[2016-09-01] MEDS: ATORVASTATIN 80 MG TAB PO SCH (20:46)
[2016-09-01] MEDS: DIVALPROEX SODIUM E.R. 500 MG TAB PO SCH (20:47)
[2016-09-02 04:23] VITALS: BP 133/76; PULSE 65; RESP 18; TEMP 97.8; O2SAT 97
[2016-09-02] MEDS: SODIUM CHLOR 0.9% 1000 ML INJ 1,000 ML IV SCH ×3 (06:00→22:10)
[2016-09-02] MEDS: ACETAMINOPHEN/HYDROcodone 325 MG/5 MG TAB PO PRN ×3 (06:52→22:09)
[2016-09-02 08:00] VITALS: BP 135/83; PULSE 62; RESP 20; TEMP 97.2; O2SAT 97
--- NOTE | 2016-09-02 08:33 | HHI.PR ---
Subjective Remarks co minor now throbbing Objective Vital Signs Date Time Temp Pulse Resp B/P Pulse Ox O2 Delivery O2 Flow Rate FiO2 09/02/16 08:00 97.2 62 20 135/83 97 09/02/16 04:23 97.8 65 18 133/76 97 09/01/16 23:12 97.9 77 18 134/80 96 09/01/16 21:15 71 09/01/16 19:46 97.9 74 18 132/76 95 09/01/16 16:01 80 18 120/60 95 09/01/16 11:52 68 18 140/62 96 09/01/16 09:00 56 I/O 09/01/16 09/01/16 09/01/16 09/02/16 09/02/16 09/02/16 07:00 15:00 23:00 07:00 15:00 23:00 Intake Total 960 ml 240 ml 1375 ml Output Total 3300 ml 400 ml 2200 ml Balance -2340 ml -160 ml -825 ml Intake Oral 960 ml 240 ml IV Total 1375 ml Output Urine Total 3300 ml 400 ml 2200 ml Result Diagram: 08/29/16 0346 08/29/16 0346 Objective Remarks awake speech ok some minor this am he states moves all well this am nl gait like to keep eyes closed but can open speech fine moving lue well Assessment and Plan Assessment and Plan imp try depakote for chronic minor and it will rx any sz and mood day one start 5oo hs and check lft cbc bmp and vpa level 5 days outpt i rec have social security benefits interviewer look into if he is with son or out of house and how much of this is a social visit consult in he has hx large left mca cva which can effect language and chronic plavis statin try decadron he can dc neurowise after that // 09/02/16 stable unlikley lp will be positive as he has chronic minor hx and i think some malingering as has nowhere to live tanner neg add topamax if LP done make sure check opening pressure in LP orders given by med team check vpa labs oob ambulate in chair most of day good po would dc iv fluids and i would not get him started on chronic narcotics here and rec just tyleonol for the minor Fausto Coe MD Sep 02, 2016 08:33
[2016-09-02] MEDS: SODIUM CHLORIDE 0.9% FLUSH 10 ML FLUSH IV FLUSH SCH ×2 (09:30→21:00)
[2016-09-02] MEDS: NAPROXEN 500 MG TAB PO SCH (09:30)
[2016-09-02 12:00] VITALS: BP 150/84; PULSE 86; RESP 20; TEMP 96.5; O2SAT 99
[2016-09-02 14:53] LABS: BICARBONATE 30.1 MEQ/L (21.0-32.0); POTASSIUM 3.8 MEQ/L (3.5-5.1)
[2016-09-02 15:52] LABS: AUTOMATED NEUTROPHIL # 2.8 TH/MM3 (1.8-7.7); BASOPHIL # 0.1 TH/MM3 (0-0.2); BASOPHIL % 1.3 % (0.0-2.0); EOSINOPHIL # 0.5 TH/MM3 (0-0.4); EOSINOPHIL % 10.4 % (0.0-4.0); HEMATOCRIT 37.4 % (39.0-51.0); HEMO FLAGS DIFF FINAL; LYMPH % 20.9 % (9.0-44.0); MEAN CELL VOLUME 85.5 FL (80.0-100.0); MEAN CORPUSCULAR HEMOGLOBIN 27.2 PG (27.0-34.0); MEAN CORPUSCULAR HGB CONC 31.8 % (32.0-36.0); MONO % 9.2 % (0.0-8.0); NEUT % 58.2 % (16.0-70.0); PLATELET COUNT 225 TH/MM3 (150-450); RED BLOOD COUNT 4.37 MIL/MM3 (4.50-5.90); RED CELL DISTRIBUTION WIDTH 14.1 % (11.6-17.2); WHITE BLOOD COUNT 4.8 TH/MM3 (4.0-11.0)
[2016-09-02 15:53] VITALS: BP 152/88; PULSE 100; RESP 20; TEMP 96.8; O2SAT 98
--- NOTE | 2016-09-02 18:03 | HHI.PR ---
Subjective Remarks Headache remains. Screen is positive for Lupus, secondary testing is ordered. Lupus could be causing his problems. He reports GI Bleeding, but a collected stool is negative for blood. A repeat study is ordered. A lumbar puncture is pending and because he was on Aspirin and Plavix it is scheduled for September 05. Objective Vital Signs Date Time Temp Pulse Resp B/P Pulse Ox O2 Delivery O2 Flow Rate FiO2 09/02/16 15:53 96.8 100 20 152/88 98 09/02/16 12:00 96.5 86 20 150/84 99 09/02/16 08:00 97.2 62 20 135/83 97 09/02/16 04:23 97.8 65 18 133/76 97 09/01/16 23:12 97.9 77 18 134/80 96 09/01/16 21:15 71 09/01/16 19:46 97.9 74 18 132/76 95 I/O 09/01/16 09/01/16 09/01/16 09/02/16 09/02/16 09/02/16 07:00 15:00 23:00 07:00 15:00 23:00 Intake Total 960 ml 240 ml 1375 ml 240 ml 360 ml Output Total 3300 ml 400 ml 2200 ml 725 ml 1200 ml Balance -2340 ml -160 ml -825 ml -485 ml -840 ml Intake Oral 960 ml 240 ml 240 ml 360 ml IV Total 1375 ml Output Urine Total 3300 ml 400 ml 2200 ml 725 ml 1200 ml # Bowel Movements 0 Result Diagram: 09/02/16 1525 09/02/16 1355 Objective Remarks GENERAL: A&Ox3, NAD SKIN: Warm and dry. HEAD: Normocephalic. EYES: No scleral icterus. No injection or drainage. NECK: Supple, trachea midline. No JVD or lymphadenopathy. CARDIOVASCULAR: Regular rate and rhythm without murmurs, gallops, or rubs. RESPIRATORY: Breath sounds equal bilaterally. No accessory muscle use. GASTROINTESTINAL: Abdomen soft, non-tender, nondistended. MUSCULOSKELETAL: No cyanosis, or edema. BACK: Nontender without obvious deformity. No CVA tenderness. Medications and IVs Administered Medications Medications (Trade) Dose Ordered Sig/Pilar Route PRN Reason Start Time Stop Time Status Last Admin Dose Admin Sodium Chloride (NS 1000 ml Inj) 1,000 ml @ 125 mls/hr Q8H IV 08/27/16 22:00 09/02/16 15:33 Sodium Chloride (NS Flush) 2 ml BID IV FLUSH 08/28/16 09:00 09/02/16 09:30 Aspirin (Ecotrin Ec) 81 mg DAILY PO 08/28/16 10:00 Hold 08/31/16 08:30 Atorvastatin Calcium (Lipitor) 80 mg HS PO 08/28/16 21:00 09/01/16 20:46 Clopidogrel Bisulfate (Plavix) 75 mg DAILY PO 08/28/16 10:00 Hold 08/31/16 08:30 Acetaminophen/ Hydrocodone Bitart ([place] 5-325 Mg) 1 tab Q6H PRN PO PAIN 08/28/16 08:30 09/02/16 16:22 Divalproex Sodium (Depakote Er) 500 mg HS PO 08/29/16 21:00 09/01/16 20:47 A/P Problem List: (1) Cephalgia ICD Code: R51 Assessment & Plan: Pain remains Depakote continued Topamax has been added Systemic Steroids (prednisone) for potential lupus etiology NSAIDs stopped (no benefit) Negative CVA work up PRN pain treatments Lumbar Puncture ordered, will occur on the 05 of September. Pending screening results for autoimmunity, tick-bourne illnesses, and latent STDs for possible cause. (2) Chest pain ICD Code: R07.9 Assessment & Plan: Resolved No recurrence (3) Anemia ICD Code: D64.9 Assessment & Plan: GI Bleed reported by the patient, but not confirmed. Repeat stool for occult blood testing Follow CBC If he tests positive for blood in his stool, GI consult and a change to inpatient status will be considered. Problem Qualifiers (1) Cephalgia: Qualified Code: R51 - Acute nonintractable headache, unspecified headache type (2) Chest pain: Qualified Code: R07.9 - Chest pain, unspecified type Farhat Walker MD Sep 02, 2016 18:03
[2016-09-02 20:00] VITALS: BP 139/76; PULSE 94; RESP 18; TEMP 97.9; O2SAT 97
[2016-09-02] MEDS: ATORVASTATIN 80 MG TAB PO SCH (22:08)
[2016-09-02] MEDS: DIVALPROEX SODIUM E.R. 500 MG TAB PO SCH (22:08)
[2016-09-02] MEDS: TOPIRAMATE 25 MG TAB PO SCH (22:08)
[2016-09-02] MEDS: predniSONE 20 MG TAB PO SCH (22:12)
[2016-09-03] VITALS (7 sets, daily range): BP systolic 130–146; BP diastolic 68–83; PULSE 71–100; RESP 16–20; TEMP 96–97.8; O2SAT 95–97
[2016-09-03] MEDS: HYDROmorphone HCL PF 1 MG/ML VIAL IV PUSH PRN (01:09)
[2016-09-03] MEDS: SODIUM CHLOR 0.9% 1000 ML INJ 1,000 ML IV SCH ×3 (05:18→22:34)
[2016-09-03] MEDS: SODIUM CHLORIDE 0.9% FLUSH 10 ML FLUSH IV FLUSH SCH ×2 (09:00→21:00)
--- NOTE | 2016-09-03 10:43 | HHI.PR ---
Subjective Remarks Follow-up for cephalgia. The patient was sleeping upon arrival. He continues to complain of frontal headache. He also reports some blurred vision. He denies any chest pain or shortness of breath. He does complain of dry mouth. He has chronic left-sided weakness from a previous stroke. Objective Vitals Vital Signs Date Time Temp Pulse Resp B/P Pulse Ox O2 Delivery O2 Flow Rate FiO2 09/03/16 07:59 97.7 86 16 145/79 95 09/03/16 04:00 96.2 76 16 143/76 97 09/03/16 02:25 71 09/03/16 00:00 97.7 78 16 145/82 97 09/02/16 20:00 97.9 94 18 139/76 97 09/02/16 15:53 96.8 100 20 152/88 98 09/02/16 12:00 96.5 86 20 150/84 99 I/O 09/02/16 09/02/16 09/02/16 09/03/16 09/03/16 09/03/16 07:00 15:00 23:00 07:00 15:00 23:00 Intake Total 1375 ml 240 ml 600 ml 720 ml Output Total 2200 ml 725 ml 1850 ml 500 ml 500 ml Balance -825 ml -485 ml -1250 ml 220 ml -500 ml Intake Oral 240 ml 600 ml 720 ml IV Total 1375 ml Output Urine Total 2200 ml 725 ml 1850 ml 500 ml 500 ml # Voids 2 # Bowel Movements 0 Result Diagram: 09/02/16 1525 09/02/16 1355 Imaging Last Impressions Head/Brain Mag Res Venography 08/28/16 0000 Signed Impressions: Service Date/Time: Sunday, August 28, 2016 10:52 - CONCLUSION: Negative MRV brain. Cole Heller MD Head Magnetic Resonance Angiography 08/28/16 0000 Signed Impressions: Service Date/Time: Sunday, August 28, 2016 09:23 - CONCLUSION: There is no evidence for major branch vessel occlusion. Hunter Valentine MD FACR Cervical Spine MRI 08/28/16 0000 Signed Impressions: Service Date/Time: Sunday, August 28, 2016 10:52 - CONCLUSION: Disc protrusions C4-5, C5-6, and C6-7 with evidence of progression of severity C5-7 when compared to prior MRI in December 2014. There is no evidence of some mild impression upon the cervical cord at these 2 levels. No evidence of syrinx and no intrinsic signal abnormalities within the cervical cord. Cole Heller MD Brain MRI 08/28/16 0000 Signed Impressions: Service Date/Time: Sunday, August 28, 2016 09:23 - CONCLUSION: 1. There is no restricted diffusion suggesting evolving area of ischemia. 2. There is evidence for an old stable infarct in the left mid Sylvian region. There is minimal increase in the amount of white matter changes in the left occipital cortex that could be evidence for an extension of a subacute infarction. Hunter Valentine MD FACR Head CT 08/27/162157 Signed Impressions: Service Date/Time: Saturday, August 27, 2016 22:20 - CONCLUSION: 1. Remote left MCA distribution and left occipital lobe infarcts. No acute findings compared with July 13. Fady Shah MD Chest X-Ray 08/27/162157 Signed Impressions: Service Date/Time: Saturday, August 27, 2016 22:10 - CONCLUSION: 1. Minimal basilar atelectasis. No significant change from July 13. Fady Shah MD Objective Remarks GENERAL: Well-developed well-nourished. In no acute distress. Sleeping on arrival. Appears comfortable. SKIN: Warm and dry. No lesions noted. HEENT: Normocephalic. Pupils equal and round. EOMs intact. Vision grossly intact, although patient reports blurriness. Dry mucous membranes with some white plaquing. CARDIOVASCULAR: Regular rate and rhythm. No murmur appreciated. RESPIRATORY: No accessory muscle use. Clear to auscultation. Breath sounds equal bilaterally. GASTROINTESTINAL: Abdomen soft, non-tender, nondistended. Bowel sounds x4. MUSCULOSKELETAL: No obvious deformities. No clubbing or cyanosis. No edema. NEUROLOGICAL: Awake and alert. Left-sided weakness. Normal speech. No meningeal signs. PSYCHIATRIC: Appropriate mood and affect; insight and judgment fair to normal. A/P Problem List: (1) Cephalgia ICD Code: R51 Status: Acute (2) Chest pain ICD Code: R07.9 Status: Resolved (3) Photophobia ICD Code: H53.149 Status: Acute (4) Expressive aphasia ICD Code: R47.01 Status: Acute (5) Receptive aphasia ICD Code: R47.01 Status: Acute (6) Spasticity ICD Code: R25.2 Status: Acute (7) Recurrent falls ICD Code: R29.6 Status: Acute (8) Acute onset of severe vertigo ICD Code: R42 Status: Acute Assessment and Plan 61-year-old male with a past medical history of CVA, CAD who presented with headache Cephalgia: Imaging reviewed: Brain MRI with no acute process, does show old strokes. Brain MRI with no major branch vessel occlusion. C-spine MRI with disc protrusions and mild impression on the cervical cord. MRV brain negative. Head CT with no acute findings. Neurology on board, appreciate specialists input Depakote continued Topamax has been added Systemic Steroids (prednisone) for potential lupus etiology NSAIDs stopped (no benefit) Oral Newton as needed and IV Dilaudid for breakthrough for pain Lumbar Puncture ordered, will occur on the 05 of September. Pending screening results for autoimmunity, tick-bourne illnesses, and latent STDs for possible cause. Coronary artery disease: Chronic. Hold aspirin and Plavix pending lumbar puncture. Continue statin. Thrush: Start Magic mouthwash. Positive ROBIN: Follow-up testing pending. Diabetes mellitus: Hold home metformin for now. SSI with Accu-Cheks. DVT prophylaxis: SCDs Written by Cayetano Mcfarlane, acting as scribe for Dr. Langford on 09/03/16 at 10:43. This note was transcribed by jaspal BANKS. I, Dr. Izzy Langford personally performed the history, physical exam, and medical decision making; and confirmed the accuracy of the information in the transcribed note. Authenticated by Dr. Izzy Langford on 09/03/16 at 10:43. Discharge Planning Awaiting results of lumbar puncture 09/05 Problem Qualifiers (1) Cephalgia: Qualified Code: R51 - Acute nonintractable headache, unspecified headache type (2) Chest pain: Qualified Code: R07.9 - Chest pain, unspecified type Cayetano Mcfarlane Sep 03, 2016 10:43 Izzy Langford MD Sep 03, 2016 14:47
[2016-09-03] MEDS ORDERED: DEXTROSE 50% IN WATER 50 ML VIAL(D50) IV PUSH PRN (11:00)
[2016-09-03] MEDS ORDERED: GLUCAGON 1 MG/ML VIAL OTHER PRN (11:00)
[2016-09-03] MEDS: predniSONE 20 MG TAB PO SCH ×2 (11:42→22:33)
[2016-09-03] MEDS: INSULIN ASPART SUPPLEMENTAL SCALE SQ SCH ×3 (11:47→22:30)
[2016-09-03] MEDS: NYSTAT/DIPHENHY/LIDO MOUTHWASH (Adult) 120ML SWISH-SWAL SCH ×3 (13:00→22:15)
[2016-09-03] MEDS: ACETAMINOPHEN/HYDROcodone 325 MG/5 MG TAB PO PRN ×2 (15:53→22:30)
[2016-09-03] MEDS: ATORVASTATIN 80 MG TAB PO SCH (22:30)
[2016-09-03] MEDS: TOPIRAMATE 25 MG TAB PO SCH (22:31)
[2016-09-03] MEDS: DIVALPROEX SODIUM E.R. 500 MG TAB PO SCH (22:33)
[2016-09-04] VITALS (10 sets, daily range): BP systolic 107–152; BP diastolic 62–89; PULSE 60–102; RESP 14–20; TEMP 97.6–98.3; O2SAT 60–97
[2016-09-04] MEDS: SODIUM CHLOR 0.9% 1000 ML INJ 1,000 ML IV SCH ×3 (05:36→21:02)
[2016-09-04] MEDS: INSULIN ASPART SUPPLEMENTAL SCALE SQ SCH ×4 (06:02→21:02)
[2016-09-04] MEDS: ACETAMINOPHEN/HYDROcodone 325 MG/5 MG TAB PO PRN ×2 (06:02→21:00)
[2016-09-04] MEDS: NYSTAT/DIPHENHY/LIDO MOUTHWASH (Adult) 120ML SWISH-SWAL SCH ×4 (09:00→21:00)
--- NOTE | 2016-09-04 09:46 | HHI.PR ---
Subjective Remarks Follow-up for headache. Today the patient states he feels tired. He complains that his hands were flushed yesterday, but not anymore today. When asked about fevers or chills, he states he felt hot. When asked about chest pain, he states "a little". When asked about timing he states off and on, but does not elaborate further. When asked if this chest pain is similar to his previous pains before his CABG, he states that the chest pain really isn't bothering him it's the severe headache. Objective Vitals Vital Signs Date Time Temp Pulse Resp B/P Pulse Ox O2 Delivery O2 Flow Rate FiO2 09/04/16 08:23 98.3 60 14 107/62 60 09/04/16 04:47 97.6 97 20 143/85 97 09/04/16 02:20 96 21 09/04/16 01:48 81 09/04/16 00:38 90 20 152/79 95 09/03/16 19:47 96.0 82 20 130/68 96 09/03/16 15:25 97.8 90 16 146/83 96 09/03/16 11:37 96.3 100 16 141/81 95 I/O 09/03/16 09/03/16 09/03/16 09/04/16 09/04/16 09/04/16 07:00 15:00 23:00 07:00 15:00 23:00 Intake Total 720 ml Output Total 500 ml 500 ml 800 ml 750 ml Balance 220 ml -500 ml -800 ml -750 ml Intake Oral 720 ml Output Urine Total 500 ml 500 ml 800 ml 750 ml # Voids 2 Result Diagram: 09/02/16 1525 09/02/16 1355 Imaging Last Impressions Head/Brain Mag Res Venography 08/28/16 0000 Signed Impressions: Service Date/Time: Sunday, August 28, 2016 10:52 - CONCLUSION: Negative MRV brain. Cole Heller MD Head Magnetic Resonance Angiography 08/28/16 0000 Signed Impressions: Service Date/Time: Sunday, August 28, 2016 09:23 - CONCLUSION: There is no evidence for major branch vessel occlusion. Hunter Valentine MD FACR Cervical Spine MRI 08/28/16 0000 Signed Impressions: Service Date/Time: Sunday, August 28, 2016 10:52 - CONCLUSION: Disc protrusions C4-5, C5-6, and C6-7 with evidence of progression of severity C5-7 when compared to prior MRI in December 2014. There is no evidence of some mild impression upon the cervical cord at these 2 levels. No evidence of syrinx and no intrinsic signal abnormalities within the cervical cord. Cole Heller MD Brain MRI 08/28/16 0000 Signed Impressions: Service Date/Time: Sunday, August 28, 2016 09:23 - CONCLUSION: 1. There is no restricted diffusion suggesting evolving area of ischemia. 2. There is evidence for an old stable infarct in the left mid Sylvian region. There is minimal increase in the amount of white matter changes in the left occipital cortex that could be evidence for an extension of a subacute infarction. Hunter Valentine MD FACR Head CT 08/27/162157 Signed Impressions: Service Date/Time: Saturday, August 27, 2016 22:20 - CONCLUSION: 1. Remote left MCA distribution and left occipital lobe infarcts. No acute findings compared with July 13. Fady Shah MD Chest X-Ray 08/27/162157 Signed Impressions: Service Date/Time: Saturday, August 27, 2016 22:10 - CONCLUSION: 1. Minimal basilar atelectasis. No significant change from July 13. Fady Shah MD Objective Remarks GENERAL: Well-developed well-nourished. In no acute distress. Appears comfortable. SKIN: Warm and dry. No lesions noted. HEENT: Normocephalic. Pupils equal and round. EOMs intact. Vision grossly intact, although patient reports blurriness. CARDIOVASCULAR: Regular rate and rhythm. No murmur appreciated. RESPIRATORY: No accessory muscle use. Clear to auscultation. Breath sounds equal bilaterally. GASTROINTESTINAL: Abdomen soft, non-tender, nondistended. Bowel sounds x4. MUSCULOSKELETAL: No obvious deformities. No clubbing or cyanosis. No edema. NEUROLOGICAL: Awake and alert. Left-sided weakness. Normal speech. PSYCHIATRIC: Appropriate mood and affect; insight and judgment fair. A/P Problem List: (1) Cephalgia ICD Code: R51 Status: Acute (2) Chest pain ICD Code: R07.9 Status: Resolved (3) Photophobia ICD Code: H53.149 Status: Acute (4) Expressive aphasia ICD Code: R47.01 Status: Acute (5) Receptive aphasia ICD Code: R47.01 Status: Acute (6) Spasticity ICD Code: R25.2 Status: Acute (7) Recurrent falls ICD Code: R29.6 Status: Acute (8) Acute onset of severe vertigo ICD Code: R42 Status: Acute Assessment and Plan 61-year-old male with a past medical history of CVA, CAD who presented with headache Cephalgia: Imaging reviewed: Brain MRI with no acute process, does show old strokes. Brain MRI with no major branch vessel occlusion. C-spine MRI with disc protrusions and mild impression on the cervical cord. MRV brain negative. Head CT with no acute findings. Neurology on board, appreciate specialists input Depakote continued Topamax has been added Systemic Steroids (prednisone) for potential lupus etiology Oral Bailey as needed and IV Dilaudid for breakthrough for pain Lumbar Puncture ordered, will occur on the 05 of September. Pending screening results for autoimmunity, tick-bourne illnesses, and latent STDs for possible cause. Coronary artery disease: Chronic. Hold aspirin and Plavix pending lumbar puncture. Continue statin. Vague complaints of chest pain, check EKG and serial troponins. Thrush: Continue Magic mouthwash. Positive ROBIN: Follow-up testing pending. Diabetes mellitus: Hold home metformin for now. SSI with Accu-Cheks. DVT prophylaxis: SCDs Written by Cayetano Mcfarlane, acting as scribe for Dr. Langford on 09/04/16 at 09:45. This note was transcribed by scribWill BANKS. I, Dr. Izzy Langford personally performed the history, physical exam, and medical decision making; and confirmed the accuracy of the information in the transcribed note. Authenticated by Dr. Izzy Langford on 09/04/16 at 09:45. Discharge Planning Awaiting results of lumbar puncture 09/05 May need SNF at [place] Problem Qualifiers (1) Cephalgia: Qualified Code: R51 - Acute nonintractable headache, unspecified headache type (2) Chest pain: Qualified Code: R07.9 - Chest pain, unspecified type Cayetano Mcfarlane Sep 04, 2016 09:46 Izzy Langford MD Sep 04, 2016 14:35
[2016-09-04] MEDS: SODIUM CHLORIDE 0.9% FLUSH 10 ML FLUSH IV FLUSH SCH ×2 (10:08→21:02)
[2016-09-04] MEDS: predniSONE 20 MG TAB PO SCH ×2 (10:08→21:00)
[2016-09-04] MEDS: HYDROmorphone HCL PF 1 MG/ML VIAL IV PUSH PRN (17:37)
--- NOTE | 2016-09-04 19:07 | EKG ---
Date Performed: 09/04/2016 Time Performed: 10:12:41 PTAGE: 61 years EKG: Sinus rhythm MARKED LEFT AXIS DEVIATION RIGHT BUNDLE BRANCH BLOCK MODERATE VOLTAGE CRITERIA FOR LVH, CONSIDER NOR MAL VARIANT ABNORMAL ECG Since PREVIOUS TRACING , no significant change noted PREVIOUS TRACIN08/27/2016 21.49 DOCTOR: Bailee Alonso Interpretating Date/Time 09/04/2016 19:06:27
[2016-09-04] MEDS: ATORVASTATIN 80 MG TAB PO SCH (20:59)
[2016-09-04] MEDS: DIVALPROEX SODIUM E.R. 500 MG TAB PO SCH (21:00)
[2016-09-04] MEDS: TOPIRAMATE 25 MG TAB PO SCH (21:00)
[2016-09-05] VITALS (9 sets, daily range): BP systolic 122–161; BP diastolic 64–95; PULSE 67–96; RESP 16–20; TEMP 97.3–98.6; O2SAT 94–98
[2016-09-05] MEDS: HYDROmorphone HCL PF 1 MG/ML VIAL IV PUSH PRN ×2 (00:29→05:54)
[2016-09-05] MEDS: ACETAMINOPHEN/HYDROcodone 325 MG/5 MG TAB PO PRN ×2 (03:41→21:21)
[2016-09-05 03:50] LABS: ACTIN AB IGG <20 U (()); C3 SERUM 93 mg/dL (()); C4 SERUM 18 mg/dL (ADULTS: 16-47); RHEUMATOID FACTOR 7 IU/mL (<14)
[2016-09-05] MEDS: SODIUM CHLOR 0.9% 1000 ML INJ 1,000 ML IV SCH (05:01)
[2016-09-05] MEDS: INSULIN ASPART SUPPLEMENTAL SCALE SQ SCH ×4 (05:53→21:22)
[2016-09-05] MEDS: predniSONE 20 MG TAB PO SCH ×2 (08:20→21:20)
[2016-09-05] MEDS: SODIUM CHLORIDE 0.9% FLUSH 10 ML FLUSH IV FLUSH SCH ×2 (08:20→21:25)
[2016-09-05] MEDS: NYSTAT/DIPHENHY/LIDO MOUTHWASH (Adult) 120ML SWISH-SWAL SCH ×4 (08:20→21:26)
--- NOTE | 2016-09-05 10:34 | PD.RAD ---
Post Procedure Progress Note Pre Procedure Diagnosis: (1) Intractable headache Post Procedure Diagnosis: (1) Intractable headache Procedure Date: Sep 05, 2016 Supervising Radiologist: Fasuto Castro Proceduralist/Assist: Maribel Mitchell, RT(R), Shea Alcaraz RT(R)(), Dev Cavazos RT(R)() Anesthesia: Local Plan of Activity Patient to Unit: Nursing Unit Patient Condition: Fair See PACS Report for procedural detail/treatment Spinal Procedure Lumbar Puncture L2-L3 Fluid Removal (CCs): 13 Fluid Description: Fausto Knight MD Sep 05, 2016 10:33
[2016-09-05 11:20] LABS: LACTIC ACID,CSF 2.5 MMOL/L (0.0-3.0)
[2016-09-05 11:45] LABS: CSF LYMPHOCYTES 25 %; CSF MONOCYTES 75 %; CSF NEUTROPHILS 0 %; GROSS BLOOD TUBE #1 0 (0); GROSS BLOOD TUBE #2 0 (0); GROSS BLOOD TUBE #3 0 (0); GROSS BLOOD TUBE #4 0 (0); SUPERNATE COLOR TUBE #1 CLEAR (CLEAR); SUPERNATE COLOR TUBE #2 CLEAR (CLEAR); SUPERNATE COLOR TUBE #3 CLEAR (CLEAR); SUPERNATE COLOR TUBE #4 CLEAR (CLEAR); VOLUME TUBE # 1 2.8 ML; VOLUME TUBE # 3 2.4 ML; VOLUME TUBE # 4 4.5 ML
[2016-09-05 11:46] LABS: WBC TUBE #1 1 /MM3 (0-10)
--- NOTE | 2016-09-05 13:15 | HHI.PR ---
Subjective Remarks Follow-up for numerous medical complaints. The patient has numerous complaints overnight. He states that last night he had a lot of sweating and felt cold. He states he had some nausea, no vomiting, has been tolerating diet. He reports that he's been itching. He states that he's had 2 episodes of diarrhea today. He states that he feels tired. He still has intermittent episodes of right-sided chest discomfort, essentially unchanged from interview yesterday. He denies any anxiety or depression. He states that sometimes he feels confused. Objective Vitals Vital Signs Date Time Temp Pulse Resp B/P Pulse Ox O2 Delivery O2 Flow Rate FiO2 09/05/16 12:00 97.5 78 18 140/86 98 09/05/16 08:00 98.3 88 18 161/95 96 09/05/16 07:25 67 09/05/16 04:00 98.6 70 16 122/64 95 09/05/16 02:26 96 09/05/16 00:00 97.6 78 18 132/78 96 09/04/16 20:00 98.0 97 16 145/81 96 09/04/16 17:00 97.8 102 18 151/74 96 09/04/16 17:00 88 09/04/16 15:44 98.2 76 16 133/89 97 I/O 09/04/16 09/04/16 09/04/16 09/05/16 09/05/16 09/05/16 07:00 15:00 23:00 07:00 15:00 23:00 Intake Total 240 ml 960 ml Output Total 750 ml 900 ml 1400 ml Balance -750 ml -660 ml -440 ml Intake Oral 240 ml 960 ml Output Urine Total 750 ml 900 ml 1400 ml # Bowel Movements 0 0 Result Diagram: 09/02/16 1525 09/02/16 1355 Imaging Last Impressions Head/Brain Mag Res Venography 08/28/16 0000 Signed Impressions: Service Date/Time: Sunday, August 28, 2016 10:52 - CONCLUSION: Negative MRV brain. Cole Heller MD Head Magnetic Resonance Angiography 08/28/16 0000 Signed Impressions: Service Date/Time: Sunday, August 28, 2016 09:23 - CONCLUSION: There is no evidence for major branch vessel occlusion. Hunter Valentine MD FACR Cervical Spine MRI 08/28/16 0000 Signed Impressions: Service Date/Time: Sunday, August 28, 2016 10:52 - CONCLUSION: Disc protrusions C4-5, C5-6, and C6-7 with evidence of progression of severity C5-7 when compared to prior MRI in December 2014. There is no evidence of some mild impression upon the cervical cord at these 2 levels. No evidence of syrinx and no intrinsic signal abnormalities within the cervical cord. Cole Heller MD Brain MRI 08/28/16 0000 Signed Impressions: Service Date/Time: Sunday, August 28, 2016 09:23 - CONCLUSION: 1. There is no restricted diffusion suggesting evolving area of ischemia. 2. There is evidence for an old stable infarct in the left mid Sylvian region. There is minimal increase in the amount of white matter changes in the left occipital cortex that could be evidence for an extension of a subacute infarction. Hunter Valentine MD FACR Head CT 08/27/162157 Signed Impressions: Service Date/Time: Saturday, August 27, 2016 22:20 - CONCLUSION: 1. Remote left MCA distribution and left occipital lobe infarcts. No acute findings compared with July 13. Fady Shah MD Chest X-Ray 08/27/162157 Signed Impressions: Service Date/Time: Saturday, August 27, 2016 22:10 - CONCLUSION: 1. Minimal basilar atelectasis. No significant change from July 13. Fady Shah MD Objective Remarks GENERAL: Well-developed well-nourished. In no acute distress. Appears comfortable. SKIN: Warm and dry. No lesions noted. HEENT: Normocephalic. Pupils equal and round. CARDIOVASCULAR: Regular rate and rhythm. No murmur appreciated. RESPIRATORY: No accessory muscle use. Clear to auscultation. Breath sounds equal bilaterally. GASTROINTESTINAL: Abdomen soft, non-tender, nondistended. Bowel sounds x4. MUSCULOSKELETAL: No obvious deformities. No clubbing or cyanosis. No edema. NEUROLOGICAL: Awake and alert. Left-sided weakness. Normal speech. PSYCHIATRIC: Appropriate mood and odd affect; insight and judgment fair. A/P Problem List: (1) Cephalgia ICD Code: R51 Status: Acute (2) Chest pain ICD Code: R07.9 Status: Resolved (3) Photophobia ICD Code: H53.149 Status: Acute (4) Expressive aphasia ICD Code: R47.01 Status: Acute (5) Receptive aphasia ICD Code: R47.01 Status: Acute (6) Spasticity ICD Code: R25.2 Status: Acute (7) Recurrent falls ICD Code: R29.6 Status: Acute (8) Acute onset of severe vertigo ICD Code: R42 Status: Acute Assessment and Plan 61-year-old male with a past medical history of CVA, CAD who presented with headache Cephalgia: Imaging reviewed: Brain MRI with no acute process, does show old strokes. Brain MRI with no major branch vessel occlusion. C-spine MRI with disc protrusions and mild impression on the cervical cord. MRV brain negative. Head CT with no acute findings. Neurology on board, appreciate specialists input Depakote continued Topamax has been added Systemic Steroids (prednisone) for potential lupus etiology Oral Hamilton as needed and IV Dilaudid for breakthrough for pain Lumbar Puncture performed 09/05, shows slight elevation of glucose and total protein, further specialty testing pending, follow-up neurology recommendations. Pending screening results for autoimmunity, tick-bourne illnesses, and latent STDs for possible cause. Coronary artery disease: Chronic. Hold aspirin and Plavix for 24 hours after lumbar puncture. Continue statin. Vague complaints of chest pain. Checked EKG which showed RBBB and no significant change from previous. Troponin negative 2. Reported diarrhea: Rule out C. difficile. Multiple somatic complaints: Supportive care. Consult psychiatry. Reported confusion: Possible mild vascular dementia. Cognitive eval with speech therapy. Thrush: Continue Magic mouthwash. Positive ROBIN: Follow-up testing pending. Diabetes mellitus: Hold home metformin for now. SSI with Accu-Cheks. DVT prophylaxis: SCDs Written by Cayetano Mcfarlane, acting as scribe for Dr. Langford on 09/05/16 at 13:14. This note was transcribed by jaspal BANKS. I, Dr. Izzy Langford personally performed the history, physical exam, and medical decision making; and confirmed the accuracy of the information in the transcribed note. Authenticated by Dr. Izzy Langford on 09/05/16 at 13:14. Discharge Planning Disposition pending clinical course and results of above May need SNF at [place] Problem Qualifiers (1) Cephalgia: Qualified Code: R51 - Acute nonintractable headache, unspecified headache type (2) Chest pain: Qualified Code: R07.9 - Chest pain, unspecified type Cayetano Mcfarlane Sep 05, 2016 13:15 Izzy Langford MD Sep 05, 2016 14:48
[2016-09-05 13:52] LABS: SCL-70 AB <1.0 NEG AI (<1.0 NEGATIVE)
--- NOTE | 2016-09-05 14:56 | RADRPT ---
EXAM DATE/TIME: 09/05/2016 11:06 [facility] COMPARISON: LUMBAR PUNCTURE W/OPENING PRESSURES, December 23, 2014, 15:12. INDICATIONS : Patient is in need of a lumbar puncture due to cephalgia, persisent photophobia, spasticity. MEDICAL HISTORY : History of multiple CVA, expressive and receptive aphasia, severe vertigo, CAD. SURGICAL HISTORY : History of CABG x 5 with stent placement. ENCOUNTER: Initial ACUITY: 1 week PAIN SCORE: 3/10 LOCATION: head LUMBAR PUNCTURE TIME: 1023 hours FLUORO TIME: 1.0 minutes 1 ACCESS LEVEL: L3-4 OPENING PRESSURE: 16 cm of water CLOSING PRESSURE: Not requested. FLUID: 13 cc of clear CSF was collected and sent to the laboratory for analysis. PROCEDURE : 1. Fluoroscopic guided lumbar puncture. 2. Recording of opening pressure. The risks, benefits and alternatives to the procedure were explained and verbal and written consent w as obtained. The site was prepped in sterile fashion. Full sterile technique was used, including ca p, mask, sterile gloves and gown and a large sterile sheet. Hand hygiene and 2% chlorhexidine and/or betadine/alcohol prep was utilized per protocol for cutaneous antisepsis. The skin and subcutaneous tissues were infiltrated with local anesthetic solution. With fluoroscopic guidance the lumbar thecal sac was punctured at the above level described above and the opening pressure was recorded. The above described fluid was removed without difficulty. The patient tolerated the procedure well and there were no complications. CONCLUSION: Uncomplicated fluoroscopically guided lumbar puncture with pressures as above. Fausto Castro MD on September 05, 2016 at 14:54 Board Certified Radiologist. This report was verified electronically.
[2016-09-05 18:38] LABS: C. DIFF EPI 027 PRESUMPTIVE NEGATIVE (NEGATIVE); C. DIFF TOXIN PCR NEGATIVE (NEGATIVE)
[2016-09-05] MEDS: DIVALPROEX SODIUM E.R. 500 MG TAB PO SCH (21:20)
[2016-09-05] MEDS: TOPIRAMATE 25 MG TAB PO SCH (21:21)
[2016-09-05] MEDS: ATORVASTATIN 80 MG TAB PO SCH (21:21)
[2016-09-05 23:53] LABS: LYME DISEASE 18KD IGG BAND NON-REACTIVE (()); LYME DISEASE 23 IGG BAND NON-REACTIVE (()); LYME DISEASE 23KD IGM BAND NON-REACTIVE (()); LYME DISEASE 28KD IGG BAND NON-REACTIVE (()); LYME DISEASE 30KD IGG BAND NON-REACTIVE (()); LYME DISEASE 39 KD IGG BAND NON-REACTIVE (()); LYME DISEASE 39KD IGM BAND NON-REACTIVE (()); LYME DISEASE 41KD IGG BAND REACTIVE (()); LYME DISEASE 41KD IGM BAND NON-REACTIVE (()); LYME DISEASE 45KD IGG BAND NON-REACTIVE (()); LYME DISEASE 58KD IGG BAND NON-REACTIVE (()); LYME DISEASE 66KD IGG BAND NON-REACTIVE (()); LYME DISEASE 93KD IGG BAND NON-REACTIVE (()); LYME DISEASE IGM WB NEGATIVE (())
[2016-09-06 00:01] VITALS: BP 123/69; PULSE 70; RESP 20; TEMP 97.2; O2SAT 96
[2016-09-06 04:00] VITALS: BP 142/80; PULSE 70; RESP 16; TEMP 97.6; O2SAT 97
[2016-09-06] MEDS: ACETAMINOPHEN/HYDROcodone 325 MG/5 MG TAB PO PRN ×3 (05:55→17:22)
[2016-09-06] MEDS: INSULIN ASPART SUPPLEMENTAL SCALE SQ SCH ×4 (05:56→20:50)
[2016-09-06 08:00] VITALS: BP 121/67; PULSE 72; PULSE 74; RESP 16; TEMP 97.5; O2SAT 97
--- NOTE | 2016-09-06 08:30 | HHI.PR ---
Subjective Remarks Says he had diarrhea 4 times last night. Not eating much. No n/v. No fevers or chills. Denies chest pain or sob. Feels weak. Objective Vitals Vital Signs Date Time Temp Pulse Resp B/P Pulse Ox O2 Delivery O2 Flow Rate FiO2 09/06/16 04:00 97.6 70 16 142/80 97 09/06/16 00:01 97.2 70 20 123/69 96 09/05/16 20:35 77 09/05/16 20:00 97.3 77 20 137/81 97 09/05/16 16:00 98.2 81 18 143/81 94 09/05/16 12:00 97.5 78 18 140/86 98 I/O 09/05/16 09/05/16 09/05/16 09/06/16 09/06/16 09/06/16 07:00 15:00 23:00 07:00 15:00 23:00 Intake Total 960 ml 980 ml 240 ml Output Total 1400 ml 430 ml Balance -440 ml 980 ml 240 ml -430 ml Intake Oral 960 ml 980 ml 240 ml Output Urine Total 1400 ml 430 ml # Voids 3 2 # Bowel Movements 0 2 2 Result Diagram: 09/02/16 1525 09/02/16 1355 Imaging Last Impressions Lumbar Puncture Fluoroscopy 09/05/16 0000 Signed Impressions: Service Date/Time: August 11:06 - CONCLUSION: Uncomplicated fluoroscopically guided lumbar puncture with pressures as above. Fausto Castro MD Head/Brain Mag Res Venography 08/28/16 0000 Signed Impressions: Service Date/Time: Sunday, August 28, 2016 10:52 - CONCLUSION: Negative MRV brain. Cole Heller MD Head Magnetic Resonance Angiography 08/28/16 0000 Signed Impressions: Service Date/Time: Sunday, August 28, 2016 09:23 - CONCLUSION: There is no evidence for major branch vessel occlusion. Hunter Valentine MD FACR Cervical Spine MRI 08/28/16 0000 Signed Impressions: Service Date/Time: Sunday, August 28, 2016 10:52 - CONCLUSION: Disc protrusions C4-5, C5-6, and C6-7 with evidence of progression of severity C5-7 when compared to prior MRI in December 2014. There is no evidence of some mild impression upon the cervical cord at these 2 levels. No evidence of syrinx and no intrinsic signal abnormalities within the cervical cord. Cole Heller MD Brain MRI 08/28/16 0000 Signed Impressions: Service Date/Time: Sunday, August 28, 2016 09:23 - CONCLUSION: 1. There is no restricted diffusion suggesting evolving area of ischemia. 2. There is evidence for an old stable infarct in the left mid Sylvian region. There is minimal increase in the amount of white matter changes in the left occipital cortex that could be evidence for an extension of a subacute infarction. Hunter Valentine MD FACR Head CT 08/27/162157 Signed Impressions: Service Date/Time: Saturday, August 27, 2016 22:20 - CONCLUSION: 1. Remote left MCA distribution and left occipital lobe infarcts. No acute findings compared with July 13. Fady Shah MD Chest X-Ray 08/27/162157 Signed Impressions: Service Date/Time: Saturday, August 27, 2016 22:10 - CONCLUSION: 1. Minimal basilar atelectasis. No significant change from July 13. Fady Shah MD Objective Remarks GENERAL: Well-developed well-nourished. In no acute distress. Appears comfortable. SKIN: Warm and dry. No lesions noted. HEENT: Normocephalic. Pupils equal and round. CARDIOVASCULAR: Regular rate and rhythm. No murmur appreciated. RESPIRATORY: No accessory muscle use. Clear to auscultation. Breath sounds equal bilaterally. GASTROINTESTINAL: Abdomen soft, non-tender, nondistended. Bowel sounds x4. MUSCULOSKELETAL: No obvious deformities. No clubbing or cyanosis. No edema. NEUROLOGICAL: Awake and alert. Left-sided weakness. Normal speech. PSYCHIATRIC: Appropriate mood and odd affect; insight and judgment fair. A/P Problem List: (1) Cephalgia ICD Code: R51 Status: Acute (2) Chest pain ICD Code: R07.9 Status: Resolved (3) Photophobia ICD Code: H53.149 Status: Acute (4) Expressive aphasia ICD Code: R47.01 Status: Acute (5) Receptive aphasia ICD Code: R47.01 Status: Acute (6) Spasticity ICD Code: R25.2 Status: Acute (7) Recurrent falls ICD Code: R29.6 Status: Acute (8) Acute onset of severe vertigo ICD Code: R42 Status: Acute Assessment and Plan 61-year-old male with a past medical history of CVA, CAD who presented with headache Cephalgia: Imaging reviewed: Brain MRI with no acute process, does show old strokes. Brain MRI with no major branch vessel occlusion. C-spine MRI with disc protrusions and mild impression on the cervical cord. MRV brain negative. Head CT with no acute findings. Neurology on board, appreciate specialists input Depakote continued Topamax has been added Systemic Steroids (prednisone) for potential lupus etiology Oral Wiley as needed and IV Dilaudid for breakthrough for pain Lumbar Puncture performed 09/05, shows slight elevation of glucose and total protein, further specialty testing pending, follow-up neurology recommendations. Pending screening results for autoimmunity, tick-bourne illnesses, and latent STDs for possible cause. Coronary artery disease: Chronic. Hold aspirin and Plavix for 24 hours after lumbar puncture. Continue statin. Vague complaints of chest pain. Checked EKG which showed RBBB and no significant change from previous. Troponin negative 2. Diarrhea: Check C diff is negative. Will start probiotic. Reported diarrhea: Rule out C. difficile. Multiple somatic complaints: Supportive care. Consult psychiatry. Reported confusion: Possible mild vascular dementia. Cognitive eval with speech therapy pending. Thrush: Continue Magic mouthwash. Positive ROBIN: Follow-up testing pending. Diabetes mellitus: Hold home metformin for now. SSI with Accu-Cheks. DVT prophylaxis: SCDs Discussed with the patient, nurse DC plan: when improved and cleared by consultants Problem Qualifiers (1) Cephalgia: Qualified Code: R51 - Acute nonintractable headache, unspecified headache type (2) Chest pain: Qualified Code: R07.9 - Chest pain, unspecified type Izzy Langford MD Sep 06, 2016 08:30
[2016-09-06] MEDS: SODIUM CHLORIDE 0.9% FLUSH 10 ML FLUSH IV FLUSH SCH ×2 (09:06→20:49)
[2016-09-06] MEDS: predniSONE 20 MG TAB PO SCH ×2 (09:06→20:48)
[2016-09-06] MEDS: NYSTAT/DIPHENHY/LIDO MOUTHWASH (Adult) 120ML SWISH-SWAL SCH ×4 (09:06→20:50)
--- NOTE | 2016-09-06 11:26 | PD.CONS ---
Provisional Diagnosis Admission Date Aug 28, 2016 at 01:08 [place]. Adjustment disorder with depressed mood and anxiety, history of depression, history of cognitive disorder [place] II. Unspecified personality disorder History of Present Illness Service Psychiatry Consult Requested By Primary Care Physician DO MARIA TERESA Thornton The patient is a 61-year-old man, domiciled alone, single, unemployed , on SSI, with psychiatric history of adjustment disorder with depression, 1 previous hospitalizations, no previous suicide attempts, konwn by service, PMH significant for CABG, coronary stenting, and CVA, hospitalized due to [place]. He was consulted to psychiatry due to depression and anxiety. Today I find the patient calm and cooperative and pleasant in the medical floor. Patient reports okay mood, he denies depression, anxiety, thu and perceptual disturbances. He denies visual and auditory hallucinations, he denies suicidal or homicidal ideation. Patient is fully oriented 3, Mini-Mental stay was performed, he scored 24 of 30, with clear deficiency in abstract thought, recent memory and executive. Review of Systems Constitutional: DENIES: Diaphoretic episodes, Fatigue, Fever, Weight gain, Weight loss, Chills, Dizziness, Change in appetite, Night Sweats Endocrine: DENIES: Heat/cold intolerance, Polydipsia, Polyuria, Polyphagia Eyes: DENIES: Blurred vision, Diplopia, Eye inflammation, Eye pain, Vision loss , Photosensitivity, Double Vision Ears, nose, mouth, throat: DENIES: Tinnitus, Hearing loss, Vertigo, Nasal discharge, Oral lesions, Throat pain, Hoarseness, Ear Pain, Running Nose, Epistaxis, Sinus Pain, Toothache, Odynophagia Respiratory: DENIES: Apneas, Cough, Snoring, Wheezing, Hemoptysis, Sputum production, Shortness of breath Cardiovascular: DENIES: Chest pain, Palpitations, Syncope, Dyspnea on Exertion , PND, Lower Extremity Edema, Orthopnea, Claudication Gastrointestinal: DENIES: Abdominal pain, Black stools, Bloody stools, Constipation, Diarrhea, Nausea, Vomiting, Difficulty Swallowing, Anorexia Genitourinary: DENIES: Sexual dysfunction, Urinary frequency, Urinary incontinence, Urgency, Hematuria, Dysuria, Nocturia, Penile Discharge, Testicular Pain, Testicular Swelling Musculoskeletal: DENIES: Joint pain, Muscle aches, Stiffness, Joint Swelling, Back pain, Neck pain Integumentary: DENIES: Abnormal pigmentation, Nail changes, Pruritus, Rash Hematologic/lymphatic: DENIES: Bruising, Lymphadenopathy Immunologic/allergic: DENIES: Eczema, Urticaria Neurologic: DENIES: Abnormal gait, Headache, Localized weakness, Paresthesias, Seizures, Speech Problems, Tremor, Poor Balance Past Family Social History Coded Allergies: Bee Sting (Verified Allergy, Severe, THROAT SWELLS, 08/27/16) Penicillin (Verified Allergy, Severe, SWELLS UP, 08/27/16) Wasp (Verified Allergy, Severe, SWELLS UP, 08/27/16) Active Scripts Hydrocodone-Acetaminophen (Lortab)5-325 Mg Tab1 Tab PO Q6H PRN (PAIN) #28 TAB Ref 0 Prov:Vinicio Hernandez MD 08/23/16 Midodrine 5 Mg Tab5 Mg PO TID@ #90 TAB Prov:Farideh Zarate MD 08/09/16 Reported Medications Baclofen 10 Mg Tab10 Mg PO Q8HR PRN (MUSCLE SPASM) Ref 0 08/08/16 Pantoprazole 40 Mg Tab40 Mg PO BID #30 TAB Ref 0 08/08/16 Sertraline 100 Mg Iug437 Mg PO DAILY #30 TAB Ref 0 06/21/16 Nitroglycerin SL 0.4 Mg Subl0.4 Mg SL DIRECTED PRN (CHEST PAIN) #100 TAB.SL Ref 0 ONE TABLET UNDER THE TONGUE NEEDED FOR CHEST PAIN, MAY REPEAT EVERY FIVE MINUTES FOR A TOTAL OF 3 DOSES OR CALL 911 IF NO RELIEF 06/21/16 Metformin 1,000 Mg Tab1,000 Mg PO BIDPC #60 TAB Ref 0 With meals 06/21/16 Ondansetron Odt 4 Mg Tab4 Mg SL Q6HR PRN (Nausea/Vomiting) Ref 0 06/21/16 Clopidogrel 75 Mg Tab75 Mg PO DAILY #30 TAB Ref 0 04/21/[address] (Aspirin Adult Low Strength)81 Mg Tabdr81 Mg PO DAILY 04/21/16 Gabapentin 300 Mg Acv273 Mg PO TID #90 CAP Ref 0 04/21/16 Atorvastatin (Lipitor)80 Mg Tab80 Mg PO HS #30 TAB Ref 0 04/21/16 Donepezil 10 Mg Tab10 Mg PO HS #30 TAB Ref 0 04/21/16 Current Medications Medications (Trade) Dose Ordered Sig/Pilar Route Start Time Stop Time Status Last Admin (NS Flush) 2 ml UNSCH PRN IV FLUSH 08/28/16 01:15 (NS Flush) 2 ml BID IV FLUSH 08/28/16 09:00 09/06/16 09:06 (Narcan Inj) 0.4 mg UNSCH PRN IV 08/28/16 01:15 (Ecotrin Ec) 81 mg DAILY PO 08/28/16 10:00 Hold 08/31/16 08:30 (Lipitor) 80 mg HS PO 08/28/16 21:00 09/05/16 21:21 (Plavix) 75 mg DAILY PO 08/28/16 10:00 Hold 08/31/16 08:30 ([place] 5-325 Mg) 1 tab Q6H PRN PO 08/28/16 08:30 09/06/16 11:10 (Depakote Er) 500 mg HS PO 08/29/16 21:00 09/05/16 21:20 (Dilaudid Pf Inj) 0.5 mg Q4H PRN IV PUSH 09/01/16 15:45 09/05/16 05:54 (Topamax) 25 mg HS PO 09/02/16 21:00 09/05/16 21:21 (Deltasone) 20 mg BID PO 09/02/16 21:00 09/06/16 09:06 (Magic Mouthwash Adult Liq) 10 ml QID SWISH-SWAL 09/03/16 13:00 09/06/16 11:10 (D50w (Vial) Inj) 25 ml UNSCH PRN IV PUSH 09/03/16 11:00 (Glucagon Inj) 1 mg UNSCH PRN OTHER 09/03/16 11:00 Family History Patient denies past family psychiatric history Physical Exam Vital Signs Vital Signs Date Time Temp Pulse Resp B/P Pulse Ox O2 Delivery O2 Flow Rate FiO2 09/06/16 08:00 97.5 72 16 121/67 97 09/04/16 02:20 21 I/O 09/05/16 09/05/16 09/06/16 08:00 16:00 00:00 Intake Total 960 ml 980 ml 240 ml Output Total 1400 ml Balance -440 ml 980 ml 240 ml Mental Status Examination Appearance man, [facility], good hygiene, Cooperative and pleasant Speech: Unremarkable Orientation: x3 Memory: Impaired (describe) Thought Process: Logical Thought Content: Unremarkable Hallucination Type: None Attention and Concentration: Good Suicidal Ideation: No Previous Suicide Attempts: No Homicidal Ideation: No Previous Homicide Attempts: No Judgment: WNL Affect: Good Mood: Appropriate Motor Activity: Normal gait Assessment & Plan Problem List: (1) Adjustment disorder with mixed anxiety and depressed mood Assessment & Plan: On psychiatric evaluation the patient does not present any evidence of depression, anxiety, thu or perceptual disturbances. Patient denies suicidal ideation. Mild to moderate cognition impairment are present, as showed in MMS of , essentially in recent memory, abstraction and executive function. This cognitive impairment most probably has its etiology in previous CVAs. The patient does not need any immediate psychiatric intervention, he doesn't meet criteria for psychiatric admission. No psychotropics indicated, extensive support, motivation psycho education provided. Consult appreciated. ICD Code: F43.23 Assessment & Plan Estimated LOS: Monty Blount MD Sep 06, 2016 11:26
[2016-09-06 12:00] VITALS: BP 141/83; PULSE 94; RESP 16; TEMP 97.3; O2SAT 99
[2016-09-06 14:48] LABS: IGG CSF 3.2 mg/dL (<=8.1); IGG INDEX CSF 0.48 (<=0.85); IGG/ALBUMIN CSF 0.1 (<=0.21); IGG/ALBUMIN SERUM 0.21 (<=0.40); SYNTHESIS RATE CSF 0.51 mg/24 h (<=12)
[2016-09-06 20:00] VITALS: BP 112/63; PULSE 110; RESP 16; TEMP 97.8; O2SAT 97
[2016-09-06] MEDS: DIVALPROEX SODIUM E.R. 500 MG TAB PO SCH (20:48)
[2016-09-06] MEDS: TOPIRAMATE 25 MG TAB PO SCH (20:48)
[2016-09-06] MEDS: ATORVASTATIN 80 MG TAB PO SCH (20:48)
[2016-09-07] VITALS (9 sets, daily range): BP systolic 124–136; BP diastolic 68–82; PULSE 65–108; RESP 16–22; TEMP 97.3–98; O2SAT 92–99
[2016-09-07] MEDS: ACETAMINOPHEN/HYDROcodone 325 MG/5 MG TAB PO PRN ×4 (00:34→20:34)
[2016-09-07] MEDS: INSULIN ASPART SUPPLEMENTAL SCALE SQ SCH ×4 (06:26→20:35)
[2016-09-07] MEDS: CLOPIDOGREL 75 MG TAB PO SCH (09:27)
[2016-09-07] MEDS: predniSONE 20 MG TAB PO SCH ×2 (09:27→20:33)
[2016-09-07] MEDS: ASPIRIN EC 81 MG TABEC PO SCH (09:27)
[2016-09-07] MEDS: NYSTAT/DIPHENHY/LIDO MOUTHWASH (Adult) 120ML SWISH-SWAL SCH ×4 (09:28→20:34)
[2016-09-07] MEDS: SODIUM CHLORIDE 0.9% FLUSH 10 ML FLUSH IV FLUSH SCH ×2 (09:33→20:35)
[2016-09-07 13:50] LABS: AUTOMATED NEUTROPHIL # 7.5 TH/MM3 (1.8-7.7); BASOPHIL % 0.3 % (0.0-2.0); EOSINOPHIL # 0.2 TH/MM3 (0-0.4); EOSINOPHIL % 1.6 % (0.0-4.0); HEMATOCRIT 38.8 % (39.0-51.0); HEMO FLAGS DIFF FINAL; LYMPH % 12.6 % (9.0-44.0); LYMPHOCYTE # 1.3 TH/MM3 (1.0-4.8); MEAN CELL VOLUME 85.5 FL (80.0-100.0); MEAN CORPUSCULAR HEMOGLOBIN 27.1 PG (27.0-34.0); MEAN CORPUSCULAR HGB CONC 31.7 % (32.0-36.0); MONO % 12.1 % (0.0-8.0); NEUT % 73.4 % (16.0-70.0); PLATELET COUNT 212 TH/MM3 (150-450); RED BLOOD COUNT 4.54 MIL/MM3 (4.50-5.90); RED CELL DISTRIBUTION WIDTH 14.1 % (11.6-17.2); WHITE BLOOD COUNT 10.3 TH/MM3 (4.0-11.0)
[2016-09-07 14:02] LABS: BICARBONATE 25.3 MEQ/L (21.0-32.0); POTASSIUM 3.7 MEQ/L (3.5-5.1)
[2016-09-07] MEDS: ATORVASTATIN 80 MG TAB PO SCH (20:32)
[2016-09-07] MEDS: TOPIRAMATE 25 MG TAB PO SCH (20:33)
[2016-09-07] MEDS: DIVALPROEX SODIUM E.R. 500 MG TAB PO SCH (20:33)
--- NOTE | 2016-09-07 23:46 | HHI.PR ---
Subjective Remarks Patient seen this morning. Says he is feeling all right. Continues with headache. Denies any chest pain or shortness of breath. Objective Vital Signs Date Time Temp Pulse Resp B/P Pulse Ox O2 Delivery O2 Flow Rate FiO2 09/07/16 22:59 97 18 09/07/16 20:00 97.3 106 22 131/81 98 09/07/16 18:40 65 09/07/16 16:00 98.0 89 16 127/68 96 09/07/16 15:56 20 09/07/16 12:00 97.5 88 18 132/70 99 09/07/16 09:35 99 Room Air 09/07/16 08:00 97.6 70 18 136/76 99 09/07/16 04:00 97.7 75 18 124/70 92 09/07/16 01:54 108 09/07/16 00:00 97.8 98 16 133/82 95 I/O 09/06/16 09/06/16 09/06/16 09/07/16 09/07/16 09/07/16 07:00 15:00 23:00 07:00 15:00 23:00 Intake Total 800 ml 480 ml 360 ml 820 ml 0 ml Output Total 430 ml 800 ml 700 ml 350 ml 1000 ml Balance -430 ml 0 ml -220 ml 10 ml -180 ml 0 ml Intake Oral 800 ml 480 ml 360 ml 820 ml IV Total 0 ml Output Urine Total 430 ml 800 ml 700 ml 350 ml 1000 ml # Bowel Movements 2 0 0 1 Result Diagram: 09/07/16 1300 09/07/16 1300 Objective Remarks GENERAL: patient lying in bed. Appears comfortable. Alert,oriented to person, place, not to year. Oriented to month. SKIN: Warm and dry. HEAD: Normocephalic. EYES: No scleral icterus. No injection or drainage. NECK: Supple, trachea midline. No JVD or lymphadenopathy. CARDIOVASCULAR: Regular rate and rhythm without murmurs, gallops, or rubs. RESPIRATORY: Breath sounds equal bilaterally. No accessory muscle use. GASTROINTESTINAL: Abdomen soft, non-tender, nondistended. MUSCULOSKELETAL: No cyanosis, or edema. BACK: Nontender without obvious deformity. No CVA tenderness. A/P Assessment and Plan 61-year-old male with a past medical history of CVA, CAD who presented with headache //Cephalgia: Imaging reviewed: Brain MRI with no acute process, does show old strokes. Brain MRI with no major branch vessel occlusion. C-spine MRI with disc protrusions and mild impression on the cervical cord. MRV brain negative. Head CT with no acute findings. Neurology on board, appreciate specialists input Depakote continued Topamax has been added Systemic Steroids (prednisone) for potential lupus etiology Oral [place] as needed and IV Dilaudid for breakthrough for pain -Lumbar Puncture performed 09/05, shows slight elevation of glucose and total protein, further specialty testing pending, follow-up neurology recommendations. -Pending screening results for autoimmunity, tick-bourne illnesses, and latent STDs for possible cause. -Positive ROBIN, however negative crithidia. Continue symptomatic treatment. Negative lupus testing. //Coronary artery disease: Chronic. Hold aspirin and Plavix for 24 hours after lumbar puncture. Continue statin. Vague complaints of chest pain. Checked EKG which showed RBBB and no significant change from previous. Troponin negative 2. //Diarrhea: Check C diff is negative. Will start probiotic. Reported diarrhea: Rule out C. difficile. //Multiple somatic complaints: Supportive care. Consult psychiatry. //Reported confusion: Possible mild vascular dementia. Cognitive eval with speech therapy pending. //Thrush: Continue Magic mouthwash. //Positive ROBIN: Follow-up testing pending. //Diabetes mellitus: Hold home metformin for now. SSI with Accu-Cheks. //DVT prophylaxis: Paco Sharma MD Sep 07, 2016 23:46
[2016-09-08] VITALS: BP 122/58; PULSE 93; RESP 20; TEMP 97.6; O2SAT 95
[2016-09-08] MEDS: HYDROmorphone HCL PF 1 MG/ML VIAL IV PUSH PRN ×2 (01:14→16:21)
[2016-09-08 04:00] VITALS: BP 135/63; PULSE 84; RESP 20; TEMP 97.8; O2SAT 95
[2016-09-08] MEDS: INSULIN ASPART SUPPLEMENTAL SCALE SQ SCH ×4 (06:04→21:08)
[2016-09-08] MEDS: ACETAMINOPHEN/HYDROcodone 325 MG/5 MG TAB PO PRN ×3 (06:04→21:07)
[2016-09-08 08:00] VITALS: BP 145/81; PULSE 82; RESP 20; TEMP 98.2; O2SAT 100
[2016-09-08] MEDS: CLOPIDOGREL 75 MG TAB PO SCH (08:03)
[2016-09-08] MEDS: ASPIRIN EC 81 MG TABEC PO SCH (08:03)
[2016-09-08] MEDS: predniSONE 20 MG TAB PO SCH ×2 (08:03→21:07)
[2016-09-08] MEDS: NYSTAT/DIPHENHY/LIDO MOUTHWASH (Adult) 120ML SWISH-SWAL SCH ×4 (08:04→21:08)
[2016-09-08] MEDS: SODIUM CHLORIDE 0.9% FLUSH 10 ML FLUSH IV FLUSH SCH ×2 (08:04→21:07)
[2016-09-08 12:00] VITALS: BP 141/81; PULSE 100; RESP 20; TEMP 98.1; O2SAT 99
[2016-09-08 16:00] VITALS: BP 125/81; PULSE 105; RESP 20; TEMP 97.7; O2SAT 98
[2016-09-08 20:00] VITALS: BP 118/71; PULSE 95; PULSE 97; RESP 20; TEMP 97.6; O2SAT 96
[2016-09-08] MEDS: ATORVASTATIN 80 MG TAB PO SCH (21:07)
[2016-09-08] MEDS: DIVALPROEX SODIUM E.R. 500 MG TAB PO SCH (21:07)
[2016-09-08] MEDS: TOPIRAMATE 25 MG TAB PO SCH (21:08)
--- NOTE | 2016-09-08 23:35 | HHI.PR ---
Subjective Remarks patient seen this afternoon around 2 PM. Says he is feeling all right. Denies any chest pain or shortness of breath. Headache continues unchanged. Discussed with outpatient case manager. She'll discuss with SNFs on Friday. Objective Vital Signs Date Time Temp Pulse Resp B/P Pulse Ox O2 Delivery O2 Flow Rate FiO2 09/08/16 20:00 97.6 97 20 118/71 96 09/08/16 16:00 97.7 105 20 125/81 98 09/08/16 12:00 98.1 100 20 141/81 99 09/08/16 08:04 Room Air 09/08/16 08:00 98.2 82 20 145/81 100 09/08/16 04:00 97.8 84 20 135/63 95 09/08/16 00:00 97.6 93 20 122/58 95 I/O 09/07/16 09/07/16 09/07/16 09/08/16 09/08/16 09/08/16 07:00 15:00 23:00 07:00 15:00 23:00 Intake Total 360 ml 820 ml 640 ml 720 ml 480 ml Output Total 350 ml 1000 ml 600 ml 1000 ml 700 ml 500 ml Balance 10 ml -180 ml 40 ml -280 ml -220 ml -500 ml Intake Oral 360 ml 820 ml 640 ml 720 ml 480 ml IV Total 0 ml Output Urine Total 350 ml 1000 ml 600 ml 1000 ml 700 ml 500 ml # Bowel Movements 0 1 1 Result Diagram: 09/07/16 1300 09/07/16 1300 Objective Remarks GENERAL: sitting up in bed. Appears comfortable. Alert to person, place, month and day of week. does not answer year despite multiple attempts. SKIN: Warm and dry. HEAD: Normocephalic. EYES: No scleral icterus. No injection or drainage. NECK: Supple, trachea midline. No JVD or lymphadenopathy. CARDIOVASCULAR: Regular rate and rhythm without murmurs, gallops, or rubs. RESPIRATORY: Breath sounds equal bilaterally. No accessory muscle use. GASTROINTESTINAL: Abdomen soft, non-tender, nondistended. MUSCULOSKELETAL: No cyanosis, or edema. BACK: Nontender without obvious deformity. No CVA tenderness. A/P Assessment and Plan 61-year-old male with a past medical history of CVA, CAD who presented with headache //Cephalgia: Imaging reviewed: Brain MRI with no acute process, does show old strokes. Brain MRI with no major branch vessel occlusion. C-spine MRI with disc protrusions and mild impression on the cervical cord. MRV brain negative. Head CT with no acute findings. Neurology on board, appreciate specialists input Depakote continued Topamax has been added Systemic Steroids (prednisone) for potential lupus etiology Oral [place] as needed and IV Dilaudid for breakthrough for pain -Lumbar Puncture performed 09/05, shows slight elevation of glucose and total protein, further specialty testing pending, follow-up neurology recommendations. -Pending screening results for autoimmunity, tick-bourne illnesses, and latent STDs for possible cause. -Positive ROBIN, however negative crithidia. Continue symptomatic treatment. Negative lupus testing. = Plan to discontinue prednisone. Discharge planning. Patient will need SNF. //Coronary artery disease: Chronic. -Continue statin. Vague complaints of chest pain. Checked EKG which showed RBBB and no significant change from previous. Troponin negative 2. -Continue to monitor vitals. Continue aspirin and Plavix. //Diarrhea: Check C diff is negative. Will start probiotic. Reported diarrhea: neg C. difficile. = Improved. Monitor. //Multiple somatic complaints: Supportive care. Appreciate psychiatry input. No acute treatment at this time. //Reported confusion: Possible mild vascular dementia. Cognitive eval with speech therapy pending. //Thrush: Continue Magic mouthwash. //Positive ROBIN: Follow-up testing pending. //Diabetes mellitus: Hold home metformin for now. SSI with Accu-Cheks. //DVT prophylaxis: SCDs Discharge Planning discussed with case management. patient not oriented enough to take care of himself at home. Newly family he has is his godson who is currently in penitentiary, and she does not have a home to go to at this time.We will work on SNF placement. Paco Felton MD Sep 08, 2016 23:35
[2016-09-09] VITALS (7 sets, daily range): BP systolic 121–147; BP diastolic 67–90; PULSE 67–104; RESP 17–22; TEMP 97.5–98.2; O2SAT 96–99
[2016-09-09] MEDS: HYDROmorphone HCL PF 1 MG/ML VIAL IV PUSH PRN ×2 (00:23→13:47)
[2016-09-09] MEDS: ACETAMINOPHEN/HYDROcodone 325 MG/5 MG TAB PO PRN ×3 (03:40→16:50)
[2016-09-09] MEDS: INSULIN ASPART SUPPLEMENTAL SCALE SQ SCH ×4 (05:33→22:08)
[2016-09-09] MEDS: CLOPIDOGREL 75 MG TAB PO SCH (10:12)
[2016-09-09] MEDS: ASPIRIN EC 81 MG TABEC PO SCH (10:12)
[2016-09-09] MEDS: SODIUM CHLORIDE 0.9% FLUSH 10 ML FLUSH IV FLUSH SCH ×2 (10:13→22:08)
[2016-09-09] MEDS: NYSTAT/DIPHENHY/LIDO MOUTHWASH (Adult) 120ML SWISH-SWAL SCH ×4 (10:13→22:07)
--- NOTE | 2016-09-09 18:59 | HHI.PR ---
Subjective Remarks patient seen this afternoon around 1 PM. Says he is feeling about the same as yesterday. Headache continues. He refuses to go to SNF. He says that gone son will take care of him after he gets his legal troubles taking care of. dining services manager called cande and left a message on answering service. Objective Vital Signs Date Time Temp Pulse Resp B/P Pulse Ox O2 Delivery O2 Flow Rate FiO2 09/09/16 12:31 94 09/09/16 12:06 97.9 104 18 139/81 98 09/09/16 10:18 Room Air 09/09/16 08:06 98.0 67 18 135/77 96 09/09/16 04:00 97.5 76 20 145/77 97 09/09/16 02:00 Room Air 09/09/16 00:00 97.7 96 22 130/90 99 09/08/16 20:00 95 09/08/16 20:00 97.6 97 20 118/71 96 I/O 09/08/16 09/08/16 09/08/16 09/09/16 09/09/16 09/09/16 07:00 15:00 23:00 07:00 15:00 23:00 Intake Total 720 ml 480 ml 280 ml Output Total 1000 ml 700 ml 1400 ml Balance -280 ml -220 ml -1120 ml Intake Oral 720 ml 480 ml 280 ml Output Urine Total 1000 ml 700 ml 1400 ml # Bowel Movements 1 0 Result Diagram: 09/07/16 1300 09/07/16 1300 Objective Remarks GENERAL: sitting up in bed. Appears comfortable. Alert to person, place, month and day of week. again,does not answer year despite multiple attempts. SKIN: Warm and dry. HEAD: Normocephalic. EYES: No scleral icterus. No injection or drainage. NECK: Supple, trachea midline. No JVD or lymphadenopathy. CARDIOVASCULAR: Regular rate and rhythm without murmurs, gallops, or rubs. RESPIRATORY: Breath sounds equal bilaterally. No accessory muscle use. GASTROINTESTINAL: Abdomen soft, non-tender, nondistended. MUSCULOSKELETAL: No cyanosis, or edema. BACK: Nontender without obvious deformity. No CVA tenderness. A/P Assessment and Plan 61-year-old male with a past medical history of CVA, CAD who presented with headache //Cephalgia: Imaging reviewed: Brain MRI with no acute process, does show old strokes. Brain MRI with no major branch vessel occlusion. C-spine MRI with disc protrusions and mild impression on the cervical cord. MRV brain negative. Head CT with no acute findings. Neurology on board, appreciate specialists input Depakote continued Topamax has been added Systemic Steroids (prednisone) for potential lupus etiology Oral [place] as needed and IV Dilaudid for breakthrough for pain -Lumbar Puncture performed 09/05, shows slight elevation of glucose and total protein, further specialty testing pending, follow-up neurology recommendations. -Pending screening results for autoimmunity, tick-bourne illnesses, and latent STDs for possible cause. -Positive ROBIN, however negative crithidia. Continue symptomatic treatment. Negative lupus testing. = prednisone has been discontinued. Pain appears to be functional. patient refusing SNF. Awaiting callback from cande. //Coronary artery disease: Chronic. -Continue statin. Vague complaints of chest pain. Checked EKG which showed RBBB and no significant change from previous. Troponin negative 2. -Continue to monitor vitals. Continue aspirin and Plavix. //Diarrhea: Check C diff is negative. Will start probiotic. Reported diarrhea: neg C. difficile. = Improved. Monitor. //Multiple somatic complaints: Supportive care. Appreciate psychiatry input. No acute treatment at this time. //Reported confusion: Possible mild vascular dementia. Cognitive eval with speech therapy pending. //Thrush: Continue Magic mouthwash. //Positive ROBIN: Follow-up testing pending. //Diabetes mellitus: Hold home metformin for now. SSI with Accu-Cheks. //DVT prophylaxis: SCDs Discharge Planning discussed with case managementagain.. patient not oriented enough to take care of himself at home. Newly family he has is his cande who is currently in snf , and he does not have a home to go to at this time. -patient refuses SNF. Awaiting callback from cande. Paco Felton MD September 09, 2016 18:59
[2016-09-09] MEDS: ATORVASTATIN 80 MG TAB PO SCH (22:07)
[2016-09-09] MEDS: DIVALPROEX SODIUM E.R. 500 MG TAB PO SCH (22:07)
[2016-09-09] MEDS: TOPIRAMATE 25 MG TAB PO SCH (22:08)
[2016-09-10] VITALS: BP 117/64; PULSE 76; RESP 17; TEMP 97.4; O2SAT 96
[2016-09-10 01:15] VITALS: PULSE 87
[2016-09-10 04:00] VITALS: BP 111/64; PULSE 72; RESP 17; TEMP 97; O2SAT 98
[2016-09-10] MEDS: ACETAMINOPHEN/HYDROcodone 325 MG/5 MG TAB PO PRN (06:26)
[2016-09-10] MEDS: INSULIN ASPART SUPPLEMENTAL SCALE SQ SCH ×2 (06:26→11:00)
[2016-09-10 07:44] VITALS: PULSE 89
[2016-09-10] MEDS: CLOPIDOGREL 75 MG TAB PO SCH (08:28)
[2016-09-10] MEDS: ASPIRIN EC 81 MG TABEC PO SCH (08:28)
[2016-09-10] MEDS: NYSTAT/DIPHENHY/LIDO MOUTHWASH (Adult) 120ML SWISH-SWAL SCH ×2 (08:29→12:43)
[2016-09-10] MEDS: SODIUM CHLORIDE 0.9% FLUSH 10 ML FLUSH IV FLUSH SCH (08:29)
[2016-09-10] MEDS ORDERED: DEPA500T3 PO (12:39)
[2016-09-10] MEDS ORDERED: TOPA25TA8 PO (12:39)
--- NOTE | 2016-09-10 12:43 | HHI.FF ---
Face to Face Verification Diagnosis: (1) Recurrent falls (2) History of CVA (cerebrovascular accident) Physical Therapy Order: Evaluate and Treat Home Health Nursing Order: Nursing assessment with vital signs Instructions: home health nurse for medication management Therapy Manager Order: To Evaluate: Living conditions/environment I have seen patient Jonnathan Keller on 09/10/16. My clinical findings support the need for the requested home health care services because: Deconditioned w/ increased weakness I certify that my clinical findings support that this patient is homebound because: Unsafe to leave home unassisted Paco Felton MD September 10, 2016 12:43
--- NOTE | 2016-09-10 19:40 | HHI.PR ---
Subjective Remarks Patient seen this morning. Says he feels well. Has dressed himself. He says that headache is stable. Denies any chest pain or shortness of breath. Today he can tell me the date. Discussed with his godson over the phone, who is not allowed in the hospital due to trespassing. He is the patient's primary caregiver, and sounds sincere and competent.discussed with the godson the need to follow-up with primary care to go over cytology results. [place] conveys understanding Objective Vital Signs Date Time Temp Pulse Resp B/P Pulse Ox O2 Delivery O2 Flow Rate FiO2 09/10/16 08:30 Room Air 09/10/16 07:44 89 09/10/16 04:00 97.0 72 17 111/64 98 09/10/16 01:15 87 09/10/16 00:00 97.4 76 17 117/64 96 09/09/16 22:15 Room Air 09/09/16 20:00 98.2 83 17 121/67 96 I/O 09/09/16 09/09/16 09/09/16 09/10/16 09/10/16 09/10/16 07:00 15:00 23:00 07:00 15:00 23:00 Intake Total 720 ml 240 ml 240 ml Output Total 1700 ml 550 ml 300 ml Balance -980 ml -310 ml -60 ml Intake Oral 720 ml 240 ml 240 ml Output Urine Total 1700 ml 550 ml 300 ml # Bowel Movements 0 Result Diagram: 09/07/16 1300 09/07/16 1300 Objective Remarks GENERAL: sitting up in bed. Appears comfortable. alert and oriented 3. again, does not answer year despite multiple attempts. SKIN: Warm and dry. HEAD: Normocephalic. EYES: No scleral icterus. No injection or drainage. NECK: Supple, trachea midline. No JVD or lymphadenopathy. CARDIOVASCULAR: Regular rate and rhythm without murmurs, gallops, or rubs. RESPIRATORY: Breath sounds equal bilaterally. No accessory muscle use. GASTROINTESTINAL: Abdomen soft, non-tender, nondistended. MUSCULOSKELETAL: No cyanosis, or edema. BACK: Nontender without obvious deformity. No CVA tenderness. A/P Assessment and Plan 61-year-old male with a past medical history of CVA, CAD who presented with headache //Cephalgia: Imaging reviewed: Brain MRI with no acute process, does show old strokes. Brain MRI with no major branch vessel occlusion. C-spine MRI with disc protrusions and mild impression on the cervical cord. MRV brain negative. Head CT with no acute findings. Neurology on board, appreciate specialists input Depakote continued Topamax has been added Systemic Steroids (prednisone) for potential lupus etiology Oral [place] as needed and IV Dilaudid for breakthrough for pain -Lumbar Puncture performed 09/05, shows slight elevation of glucose and total protein, further specialty testing pending, follow-up neurology recommendations. -Pending screening results for autoimmunity, tick-bourne illnesses, and latent STDs for possible cause. -Positive ROBIN, however negative crithidia. Continue symptomatic treatment. Negative lupus testing. = prednisone has been discontinued. Pain appears to be functional. patient refusing SNF. discussed with cande over the phone, who says he will continue to be primary caregiver for the patient. //Coronary artery disease: Chronic. -Continue statin. Vague complaints of chest pain. Checked EKG which showed RBBB and no significant change from previous. Troponins negative 2. -Continue to monitor vitals. Continue aspirin and Plavix. //Diarrhea: Check C diff is negative. Will start probiotic. Reported diarrhea: neg C. difficile. = Improved. Monitor. //Multiple somatic complaints: Supportive care. Appreciate psychiatry input. No acute treatment at this time. //Reported confusion: Possible mild vascular dementia. Cognitive eval with speech therapy pending. //Thrush: Continue Magic mouthwash. //Positive ROBIN: Follow-up testing negative crithidia //Diabetes mellitus: Hold home metformin for now. SSI with Accu-Cheks. //DVT prophylaxis: SCDs Discharge Planning discharge home with caregiver. Patient will need to follow-up with primary care to go over results from cytology. Discussed with cande who conveys understanding. Paco Felton MD September 10, 2016 19:40
--- NOTE | 2016-09-10 19:41 | HHI.DS ---
Discharge Summary Admission Date Aug 28, 2016 at 01:08 Discharge Date: September 10, 2016 Admitting Diagnosis chest pain. Cephalgia (1) Cephalgia ICD Code: R51 (2) Chest pain ICD Code: R07.9 (3) Photophobia ICD Code: H53.149 (4) Expressive aphasia ICD Code: R47.01 (5) Receptive aphasia ICD Code: R47.01 (6) Spasticity ICD Code: R25.2 (7) Recurrent falls ICD Code: R29.6 (8) Acute onset of severe vertigo ICD Code: R42 Procedures lumbar puncture. Brief History - From Admission Mr. Keller is a 61 year old male. 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 He has a history of 3 'big' strokes and one 'small' stroke. He has no history of alcohol or drug abuse and has never smoked. 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 Last night he had an acute onset of a severe cephalgia at his frontal and bilateral temporal areas. He also complains of difficulty speaking both from word finding and word substitutions and from a sensation of spasticity of his lips and tongue. He has some photophobia, but also feels dizziness when he opens his eyes. His hearing is intact bilaterally, but he feels as if things are louder and he also feels that all the words he is hearing are not making it 'in' to his brain, though this has improved through time. His previous strokes have caused a chronic left sided hemiplegia (arm>leg). Despite this he has remained active and pushes himself to carry on normal functions. Nevertheless, starting about 2 months ago he has been feeling relatively weak and reports recurrent falls starting then (June). He denies fevers, chills or night sweats. He is not aware of any change to medications (he is on an SSRI). No nausea reported when seen. Additional areas of pain, which came with the onset of his cephalgia and neurologic symptoms where his right leg and chest. The leg and chest pains have improved. The cephalgia remains. He does have a history of CAD and has had a 5 vessel bypass surgery in the past and stent placements after bypass surgery (he can not recall the exact times during out visit, but says both are years ago). No other complaints. CBC/BMP: 09/07/16 1300 09/07/16 1300 Imaging Last Impressions Lumbar Puncture Fluoroscopy 09/05/16 0000 Signed Impressions: Service Date/Time: August 11:06 - CONCLUSION: Uncomplicated fluoroscopically guided lumbar puncture with pressures as above. Fausto Castro MD Head/Brain Mag Res Venography 08/28/16 0000 Signed Impressions: Service Date/Time: Sunday, August 28, 2016 10:52 - CONCLUSION: Negative MRV brain. Cole Heller MD Head Magnetic Resonance Angiography 08/28/16 0000 Signed Impressions: Service Date/Time: Sunday, August 28, 2016 09:23 - CONCLUSION: There is no evidence for major branch vessel occlusion. Hunter Valentine MD FACR Cervical Spine MRI 08/28/16 0000 Signed Impressions: Service Date/Time: Sunday, August 28, 2016 10:52 - CONCLUSION: Disc protrusions C4-5, C5-6, and C6-7 with evidence of progression of severity C5-7 when compared to prior MRI in December 2014. There is no evidence of some mild impression upon the cervical cord at these 2 levels. No evidence of syrinx and no intrinsic signal abnormalities within the cervical cord. Cole Heller MD Brain MRI 08/28/16 0000 Signed Impressions: Service Date/Time: Sunday, August 28, 2016 09:23 - CONCLUSION: 1. There is no restricted diffusion suggesting evolving area of ischemia. 2. There is evidence for an old stable infarct in the left mid Sylvian region. There is minimal increase in the amount of white matter changes in the left occipital cortex that could be evidence for an extension of a subacute infarction. Hunter Valentine MD FACR Head CT 08/27/162157 Signed Impressions: Service Date/Time: Saturday, August 27, 2016 22:20 - CONCLUSION: 1. Remote left MCA distribution and left occipital lobe infarcts. No acute findings compared with July 13. Fady Shah MD Chest X-Ray 08/[id number] Signed Impressions: Service Date/Time: Saturday, August 27, 2016 22:10 - CONCLUSION: 1. Minimal basilar atelectasis. No significant change from July 13. Fady Shah MD PE at Discharge GENERAL: Well-developed well-nourished. In no acute distress. Appears comfortable. SKIN: Warm and dry. No lesions noted. HEENT: Normocephalic. Pupils equal and round. CARDIOVASCULAR: Regular rate and rhythm. No murmur appreciated. RESPIRATORY: No accessory muscle use. Clear to auscultation. Breath sounds equal bilaterally. GASTROINTESTINAL: Abdomen soft, non-tender, nondistended. Bowel sounds x4. MUSCULOSKELETAL: No obvious deformities. No clubbing or cyanosis. No edema. NEUROLOGICAL: Awake and alert. Left-sided weakness. Normal speech. PSYCHIATRIC: Appropriate mood and odd affect; insight and judgment fair. Hospital Course Patient underwent extensive testing, with negative imaging for acute process as above, however MRI brain did show old infarcts. Neurology was consulted, adjusted Depakote and Topamax for headache, with some improvement. ROBIN screen was ordered, and positive, however negative crithidia testing. Discharged was delayed, as patient was waiting on his cande to get out of [facility]. Discussed with cande over the phone, who is his primary caregiver. He states that he has been taking care of the patient for a long time, we'll continue to assist in management of medications and follow-up with Dr. olvera. for problem-based summary from most recent progress note, please see below. 61-year-old male with a past medical history of CVA, CAD who presented with headache //Cephalgia: Imaging reviewed: Brain MRI with no acute process, does show old strokes. Brain MRI with no major branch vessel occlusion. C-spine MRI with disc protrusions and mild impression on the cervical cord. MRV brain negative. Head CT with no acute findings. Neurology on board, appreciate specialists input Depakote continued Topamax has been added Systemic Steroids (prednisone) for potential lupus etiology Oral Nichols as needed and IV Dilaudid for breakthrough for pain -Lumbar Puncture performed 09/05, shows slight elevation of glucose and total protein, further specialty testing pending, follow-up neurology recommendations. -Pending screening results for autoimmunity, tick-bourne illnesses, and latent STDs for possible cause. -Positive ROBIN, however negative crithidia. Continue symptomatic treatment. Negative lupus testing. = prednisone has been discontinued. Pain appears to be functional. patient refusing SNF. discussed with cande over the phone, who says he will continue to be primary caregiver for the patient. //Coronary artery disease: Chronic. -Continue statin. Vague complaints of chest pain. Checked EKG which showed RBBB and no significant change from previous. Troponins negative 2. -Continue to monitor vitals. Continue aspirin and Plavix. //Diarrhea: Check C diff is negative. Will start probiotic. Reported diarrhea: neg C. difficile. = Improved. Monitor. //Multiple somatic complaints: Supportive care. Appreciate psychiatry input. No acute treatment at this time. //Reported confusion: Possible mild vascular dementia. Cognitive eval with speech therapy pending. //Thrush: Continue Magic mouthwash. //Positive ROBIN: Follow-up testing negative crithidia //Diabetes mellitus: Hold home metformin for now. SSI with Accu-Cheks. //DVT prophylaxis: SCDs Discharge Planning discharge home with caregiver. Patient will need to follow-up with primary care to go over results from cytology. Discussed with cande who conveys understanding. Pt Condition on Discharge: Good Discharge Disposition: Disch w/ Home Health Serv Discharge Time: > 30 minutes Discharge Instructions DIET: Follow Instructions for: Heart Healthy Diet Speech Therapy-Diet Recommends: Regular Activities you can perform: Regular-No Restrictions Activities to Avoid: Driving Follow up Referrals: Neurology - 1 Week with Fausto Coe MD PCP Follow-up - 1 Week with Jerel Zepeda DO New Medications: Divalproex ER (Depakote ER) 500 Mg Leander 500 MG PO HS headache Days 30 TAB Topiramate (Topamax) 25 Mg Tab 25 MG PO HS headache Days 30 TAB Continued Medications: Aspirin DR (Aspirin Adult Low Strength) 81 Mg Tabdr 81 MG PO DAILY TAB Atorvastatin (Lipitor) 80 Mg Tab 80 MG PO HS Cholesterol Management #30 Ref 0 TAB Clopidogrel (Clopidogrel) 75 Mg Tab 75 MG PO DAILY Blood Clot Prevention #30 Ref 0 TAB Donepezil (Donepezil) 10 Mg Tab 10 MG PO HS Dementia #30 Ref 0 TAB Hydrocodone-Acetaminophen (Lortab) 5-325 Mg Tab 1 TAB PO Q6H PRN PAIN #28 Ref 0 TAB Metformin (Metformin) 1,000 Mg Tab 1000 MG PO BIDPC With meals Blood Sugar Management #60 Ref 0 TAB Nitroglycerin SL (Nitroglycerin SL) 0.4 Mg Subl 0.4 MG SL DIRECTED ONE TABLET UNDER THE TONGUE NEEDED FOR CHEST PAIN, MAY REPEAT EVERY FIVE MINUTES FOR A TOTAL OF 3 DOSES OR CALL 911 IF NO RELIEF PRN CHEST PAIN #100 Ref 0 TAB.SL Ondansetron Odt (Ondansetron Odt) 4 Mg Tab 4 MG SL Q6HR PRN Nausea/Vomiting Ref 0 TAB Pantoprazole (Pantoprazole) 40 Mg Tab 40 MG PO BID Reflux #30 Ref 0 TAB Discontinued Medications: Baclofen (Baclofen) 10 Mg Tab 10 MG PO Q8HR PRN MUSCLE SPASM Ref 0 TAB Gabapentin (Gabapentin) 300 Mg Cap 300 MG PO TID #90 Ref 0 CAP Midodrine (Midodrine) 5 Mg Tab 5 MG PO TID@07,12,17 low blood pressure #90 TAB Sertraline (Sertraline) 100 Mg Tab 100 MG PO DAILY #30 Ref 0 TAB Paco Felton MD September 10, 2016 19:41
== END 2016-09-10 13:15 | disposition home health service (06) ==
LOC: NEPC 21:38 → INTOOBSV 08-28 01:08 → NEDA 08-28 01:08 → NEPGCP 08-28 13:59 → N04B 09-04 17:23
PROVIDERS: ADMIT Internal Medicine; ATTEND Internal Medicine
DX: R51 Headache (principal); R07.9 Chest pain, unspecified; D64.9 Anemia, unspecified; I25.10 Atherosclerotic heart disease of native coronary artery without angina pectoris; R47.01 Aphasia; I69.354 Hemiplegia and hemiparesis following cerebral infarction affecting left non-dominant side; R42 Dizziness and giddiness; I10 Essential (primary) hypertension; J44.9 Chronic obstructive pulmonary disease, unspecified; J45.909 Unspecified asthma, uncomplicated; J98.11 Atelectasis; R29.6 Repeated falls; I45.10 Unspecified right bundle-branch block; K21.9 Gastro-esophageal reflux disease without esophagitis; F43.23 Adjustment disorder with mixed anxiety and depressed mood; F03.90 Unspecified dementia, unspecified severity, without behavioral disturbance, psychotic disturbance, mood disturbance, and anxiety; K92.2 Gastrointestinal hemorrhage, unspecified; E78.5 Hyperlipidemia, unspecified; M19.90 Unspecified osteoarthritis, unspecified site; E78.00 Pure hypercholesterolemia, unspecified; E11.9 Type 2 diabetes mellitus without complications; B37.9 Candidiasis, unspecified; Z79.02 Long term (current) use of antithrombotics/antiplatelets; Z79.82 Long term (current) use of aspirin; Z95.1 Presence of aortocoronary bypass graft; Z95.5 Presence of coronary angioplasty implant and graft; Z79.84 Long term (current) use of oral hypoglycemic drugs; W01.0XXA Fall on same level from slipping, tripping and stumbling without subsequent striking against object, initial encounter
CPT/HCPCS: 62270; 70450; 70544; 70546; 70551; 71010; 72141; 77003; 80048; 80053; 80164; 81001; 82040; 82042; 82272; 82550; 82784; 82945; 82948; 83516; 83520; 83605; 84157; 84436; 84443; 84450; 84460; 84480; 84484; 85025; 85610; 85652; 85730; 86038; 86039; 86140; 86160; 86225; 86235; 86255; 86430; 86431; 86592; 86617; 86703; 87070; 87102; 87205; 87206; 87493; 89051; 92507; 92523; 92610; 93005; 96360; 96361; 97110; 97116; 97162; 99285; A9579; G0378; G8987; G8988; G8996; G8997; G8998; J1100; J1170; J1815; J7030; J7512

== ENCOUNTER 2017-08-07 10:25 | Emergency (ER) | payer MEDICAID ==
[~2017-08-07] VITALS: Ht 177.8 cm; Wt 68.0 kg
[~2017-08-07 10:25] MED LIST changes: -ASPI1TAB91 PO; +ASPI81TA16 PO; -BACL10TA PO; +DEPA500T3 PO; -GABA300C5 PO; -MIDO5TAB PO; -SERT-129 PO; +TOPI25 PO
[2017-08-07 10:42] VITALS: BP 112/76; PULSE 48; RESP 17; TEMP 97.7; O2SAT 100
[2017-08-07] MEDS ORDERED: NITROGLYCERIN 0.4 MG SL 25 TABS/BTL SL ONE (11:00)
[2017-08-07] MEDS ORDERED: SODIUM CHLORIDE 0.9% FLUSH 10 ML FLUSH IVF PRN (11:00)
[2017-08-07 11:13] VITALS: O2SAT 100
--- NOTE | 2017-08-07 11:15 | RADRPT ---
EXAM DATE/TIME: 08/07/2017 11:04 [facility] COMPARISON: CHEST PA & LAT, August 23, 2016, 1:49. INDICATIONS : Short of breath, with wheezing. Mid sternal chest pains radiating into left shoulder and axillary reg ion. MEDICAL HISTORY : Myocardial infarction. SURGICAL HISTORY : CABG. 3 stents. ENCOUNTER: Initial ACUITY: 1 day PAIN SCORE: 8/10 LOCATION: Left chest FINDINGS: PA and lateral views of the chest demonstrate the lungs to be symmetrically aerated without evidence of mass, infiltrate or effusion. The cardiomediastinal contours are unremarkable and stable. Evidenc e of previous cardiothoracic surgery. Osseous structures are intact. CONCLUSION: No acute disease. No significant change has occurred. Carlyle Maldonado MD on August 07, 2017 at 11:13 Board Certified Radiologist. This report was verified electronically.
[2017-08-07 11:18] VITALS: BP 106/69; PULSE 59; RESP 16; O2SAT 100
[2017-08-07 11:52] LABS: AUTOMATED NEUTROPHIL # 2.4 TH/MM3 (1.8-7.7); BASOPHIL # 0.1 TH/MM3 (0-0.2); BASOPHIL % 1.3 % (0.0-2.0); EOSINOPHIL # 0.9 TH/MM3 (0-0.4); EOSINOPHIL % 16.5 % (0.0-4.0); HEMATOCRIT 40.1 % (39.0-51.0); HEMOGLOBIN 13.4 GM/DL (13.0-17.0); LYMPH % 28.7 % (9.0-44.0); LYMPHOCYTE # 1.5 TH/MM3 (1.0-4.8); MEAN CELL VOLUME 90.8 FL (80.0-100.0); MEAN CORPUSCULAR HEMOGLOBIN 30.4 PG (27.0-34.0); MEAN CORPUSCULAR HGB CONC 33.4 % (32.0-36.0); MONOCYTE # 0.4 TH/MM3 (0-0.9); NEUT % 45.5 % (16.0-70.0); PLATELET COUNT 204 TH/MM3 (150-450); RED BLOOD COUNT 4.42 MIL/MM3 (4.50-5.90); RED CELL DISTRIBUTION WIDTH 13.6 % (11.6-17.2); WHITE BLOOD COUNT 5.2 TH/MM3 (4.0-11.0)
[2017-08-07 12:01] LABS: PROTHROMBIN TIME - PATIENT 10.3 SEC (9.8-11.6)
[2017-08-07 12:20] LABS: ALBUMIN 3.4 GM/DL (3.4-5.0); ALKALINE PHOSPHATASE 74 U/L (45-117); ALT (GPT) 23 U/L (12-78); AST (GOT) 18 U/L (15-37); BLOOD UREA NITROGEN 5 MG/DL (7-18); CALCIUM 8.7 MG/DL (8.5-10.1); CHLORIDE 108 MEQ/L (98-107); CREATININE 0.91 MG/DL (0.60-1.30); GLOMERULAR FILTRATION RATE 84 ML/MIN (>89); GLUCOSE,RANDOM 155 MG/DL (74-106); MAGNESIUM 1.7 MG/DL (1.5-2.5); SODIUM (NA) 140 MEQ/L (136-145); TOTAL BILIRUBIN ADULT 0.6 MG/DL (0.2-1.0); TOTAL PROTEIN 6.6 GM/DL (6.4-8.2); TROPONIN I LESS THAN 0.02 NG/ML (0.02-0.05)
--- NOTE | 2017-08-07 12:54 | PD ---
HPI Chief Complaint: Chest Pain Time Seen by Provider: 10:48 Travel History International Travel<30 days: No Contact w/Intl Traveler<30days: No Traveled to known affect area: No History of Present Illness HPI 62 y/o male presents with central sharp chest pain that has been present over the past couple of days. He was given aspirin and 3 nitroglycerin without relief. 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 Horner. He states he had a stress test 1 month ago at [facility] that was normal. He states that he is having no other concurrent complaints. Severity is moderate. Quality is sharp. He denies specific modifying factors. He does not recall his last cardiac catheterization. PFSH Past Medical History Arthritis: No Asthma: Yes Blood Disorders: No Anxiety: Yes Depression: Yes Heart Rhythm Problems: No Cancer: No Cardiac Catheterization: Yes (CORONARY STENT) Cardiovascular Problems: Yes (CAGB,STENTS, HTN) High Cholesterol: Yes Chemotherapy: No Chest Pain: Yes Congestive Heart Failure: No COPD: No Cerebrovascular Accident: Yes (CVA X3) Coronary Artery Disease: Yes Diabetes: Yes Patient Takes Glucophage: Yes ( 5812) Diminished Hearing: No Endocrine: Yes Gastrointestinal Disorders: Yes (gastric ulcers) GERD: Yes Glaucoma: No Genitourinary: No Heparin Induced Thrombocytopen: No Hypertension: Yes Immune Disorder: No Implanted Vascular Access Dvce: Yes Musculoskeletal: Yes (arthritis) Psychiatric: No Reproductive: No Respiratory: Yes (asthma and bronchitis) Immunizations Current: No Migraines: No Myocardial Infarction: No Radiation Therapy: No Sleep Apnea: No Thyroid Disease: No Tetanus Vaccination: < 5 Years PNEUMOCCOCAL Vaccine (Year): 1 ?: Not Past Surgical History Abdominal Surgery: No AICD: No Arteriovenous Shunt: No Body Medical Devices: 3 PINS LEFT HIP Cardiac Surgery: No Coronary Artery Bypass Graft: Yes ( OCTOBER 2011, 5 VESSELS) Ear Surgery: No Endocrine Surgery: No Eye Surgery: No Genitourinary Surgery: No Gynecologic Surgery: No Insulin Pump: No Joint Replacement: No Neurologic Surgery: No Oral Surgery: No Pacemaker: No Thoracic Surgery: Yes Tonsillectomy: Yes Other Surgery: Yes (SINUS SURGERY, CABG, STENT x 3) Family History Family Myocardial Infarction: No Social History Alcohol Use: No (never) Tobacco Use: No Substance Use: No Allergies-Medications (Allergen,Severity, Reaction): Coded Allergies: bee venom protein (honey bee) (Unverified Allergy, Severe, THROAT SWELLS, 12/24/16) hornet venom (Unverified Allergy, Severe, SWELLS UP, 12/24/16) penicillin G (Unverified Allergy, Severe, SWELLS UP, 12/24/16) Reported Meds & Prescriptions Reported Meds & Active Scripts Active Plavix (Clopidogrel Bisulfate) 75 Mg Tab 75 Mg PO DAILY Depakote ER (Divalproex Sodium) 500 Mg Leander 500 Mg PO HS 30 Days Reported Pantoprazole (Pantoprazole Sodium) 40 Mg Tab 40 Mg PO BID Nitroglycerin SL (Nitroglycerin) 0.4 Mg Subl 0.4 Mg SL DIRECTED PRN ONE TABLET UNDER THE TONGUE NEEDED FOR CHEST PAIN, MAY REPEAT EVERY FIVE MINUTES FOR A TOTAL OF 3 DOSES OR CALL 911 IF NO RELIEF Metformin (Metformin HCl) 1,000 Mg Tab 1,000 Mg PO BIDPC With meals Aspirin Adult Low Strength (Aspirin) 81 Mg Tabdr 81 Mg PO DAILY Lipitor (Atorvastatin Calcium) 80 Mg Tab 80 Mg PO HS Review of Systems Except as stated in HPI: all other systems reviewed are Neg Physical Exam Narrative GENERAL: 62-year-old male in no apparent distress SKIN: Focused skin assessment warm/dry. HEAD: Atraumatic. Normocephalic. EYES: Pupils equal and round. No scleral icterus. No injection or drainage. ENT: No nasal bleeding or discharge. Mucous membranes pink and moist. NECK: Trachea midline. CARDIOVASCULAR: Regular rate and rhythm. RESPIRATORY: No accessory muscle use. Clear to auscultation. Breath sounds equal bilaterally. GASTROINTESTINAL: Abdomen soft, non-tender, nondistended. MUSCULOSKELETAL: No obvious deformities. No clubbing. No cyanosis. No edema. NEUROLOGICAL: Awake and alert. moves all extremities. Normal speech. Data Data Last Documented VS Vital Signs Date Time Temp Pulse Resp B/P (MAP) Pulse Ox O2 Delivery O2 Flow Rate FiO2 08/07/17 15:56 08/07/17 15:55 55 16 99 Room Air 08/07/17 11:13 2.00 08/07/17 10:42 97.7 Orders Orders Electrocardiogram (08/07/17 10:48) Ckmb (Isoenzyme) Profile (08/07/17 10:48) Complete Blood Count With Diff (08/07/17 10:48) Comprehensive Metabolic Panel (08/07/17 10:48) Magnesium (Mg) (08/07/17 10:48) Prothrombin Time / Inr (Pt) (08/07/17 10:48) Act Partial Throm Time (Ptt) (08/07/17 10:48) Troponin I (08/07/17 10:48) Ecg Monitoring (08/07/17 10:48) Bilateral Bp Monitoring (08/07/17 10:48) Iv Access Insert/Monitor (08/07/17 10:48) Oximetry (08/07/17 10:48) Sodium Chloride 0.9% Flush (Ns Flush) (08/07/17 11:00) Nitroglycerin Sl (Nitrostat Sl) (08/07/17 11:00) Chest, Pa & Lat (08/07/17 10:48) Electrocardiogram (08/07/17 15:00) Ckmb (Isoenzyme) Profile (08/07/17 15:00) Troponin I (08/07/17 15:00) Ct Pulmonary Angiogram (08/07/17 ) Iohexol 350 Inj (Omnipaque 350 Inj) (08/07/17 13:20) Ed Discharge Order (08/07/17 15:46) Labs Laboratory Tests Test 08/07/17 11:03 08/07/17 14:50 White Blood Count 5.2 TH/MM3 Red Blood Count 4.42 MIL/MM3 Hemoglobin 13.4 GM/DL Hematocrit 40.1 % Mean Corpuscular Volume 90.8 FL Mean Corpuscular Hemoglobin 30.4 PG Mean Corpuscular Hemoglobin Concent 33.4 % Red Cell Distribution Width 13.6 % Platelet Count 204 TH/MM3 Mean Platelet Volume 9.0 FL Neutrophils (%) (Auto) 45.5 % Lymphocytes (%) (Auto) 28.7 % Monocytes (%) (Auto) 8.0 % Eosinophils (%) (Auto) 16.5 % Basophils (%) (Auto) 1.3 % Neutrophils # (Auto) 2.4 TH/MM3 Lymphocytes # (Auto) 1.5 TH/MM3 Monocytes # (Auto) 0.4 TH/MM3 Eosinophils # (Auto) 0.9 TH/MM3 Basophils # (Auto) 0.1 TH/MM3 CBC Comment DIFF FINAL Differential Comment Prothrombin Time 10.3 SEC Prothromb Time International Ratio 1.0 RATIO Activated Partial Thromboplast Time 24.4 SEC Blood Urea Nitrogen 5 MG/DL Creatinine 0.91 MG/DL Random Glucose 155 MG/DL Total Protein 6.6 GM/DL Albumin 3.4 GM/DL Calcium Level 8.7 MG/DL Magnesium Level 1.7 MG/DL Alkaline Phosphatase 74 U/L Aspartate Amino Transf (AST/SGOT) 18 U/L Alanine Aminotransferase (ALT/SGPT) 23 U/L Total Bilirubin 0.6 MG/DL Sodium Level 140 MEQ/L Potassium Level 4.5 MEQ/L Chloride Level 108 MEQ/L Carbon Dioxide Level 25.0 MEQ/L Anion Gap 7 MEQ/L Estimat Glomerular Filtration Rate 84 ML/MIN Total Creatine Kinase 70 U/L 61 U/L Troponin I LESS THAN 0.02 NG/ML LESS THAN 0.02 NG/ML MDM Medical Decision Making Medical Screen Exam Complete: Yes Emergency Medical Condition: Yes Medical Record Reviewed: Yes (pmh confirmed) Interpretation(s) CBC & BMP Diagram 08/07/17 11:03 Total Protein 6.6, Albumin 3.4, Calcium Level 8.7, Magnesium Level 1.7, Alkaline Phosphatase 74, Aspartate Amino Transf (AST/SGOT) 18, Alanine Aminotransferase (ALT/SGPT) 23, Total Bilirubin 0.6 Last 24 hours Impressions Chest X-Ray 08/07/17 1048 Signed Impressions: Service Date/Time: , August 07, 2017 11:04 - CONCLUSION: No acute disease. No significant change has occurred. Carlyle Maldonado MD Differential Diagnosis Musculoskeletal, gastritis, atypical cardiac Narrative Course We will check blood work, chest x-ray and reevaluate Initial testing without acute process will discuss with his tube cutter operator Patient updated and agrees to discharge. He will be placed on Plavix as he is not currently taking that as discussed with his tube cutter operator. Patient denies any new complaints and states that they are feeling better. Patient happy with care, all questions answered. Patient knows that follow up is incumbent on them and to return to the emergency room immediately if new or worsening symptoms develop. Patient given strict return precautions, vitals reviewed and are normal , agrees to further workup as an outpatient. Physician Communication Physician Communication dr horner states she did a cardiac cath last month that did not show any significant disease and she recommended medical management. She recommends for patient to have 4 hour troponin and have 75 mg daily Plavix added to patient's regimen dr horner updated and states to discharge patient Diagnosis Primary Impression: Atypical chest pain Referrals: Hetal Horner MD call for appointment friday Patient Instructions: General Instructions Additional Instructions: return as needed, tylenol as needed Med/Other Pt SpecificInfo: Prescription(s) given Scripts Clopidogrel (Plavix) 75 Mg Tab 75 MG PO DAILY for Blood Clot Prevention, #15 TAB 0 Refills Prov: Xochitl Liao MD 08/07/17 Disposition: 01 DISCHARGE HOME Condition: Stable Xochitl Liao MD Aug 07, 2017 12:54
[2017-08-07] MEDS ORDERED: IOHEXOL 350 MG/ML 10 ML VIAL (for RAD DIAG) IVCONTRAST ONE (13:20)
--- NOTE | 2017-08-07 13:33 | RADRPT ---
EXAM DATE/TIME: 08/07/2017 13:12 [facility] COMPARISON: CT PULMONARY ANGIOGRAM, August 23, 2016, 2:56. INDICATIONS : Chest pain for 2-3 days. IV CONTRAST: 72 cc Omnipaque 350 (iohexol) IV RADIATION DOSE: 9.33 CTDIvol (mGy) MEDICAL HISTORY : Cerebrovascular disease. Cardiovascular disease Hypertension.Diabetes. SURGICAL HISTORY : None. ENCOUNTER: Initial ACUITY: 1 day PAIN SCALE: 4/10 LOCATION: chest TECHNIQUE: Volumetric scanning of the chest was performed using a pulmonary embolism protocol MIP images were re constructed. Using automated exposure control and adjustment of the mA and/or kV according to patien t size, radiation dose was kept as low as reasonably achievable to obtain optimal diagnostic quality images. DICOM format image data is available electronically for review and comparison. Follow-up recommendations for detected pulmonary nodules are based at a minimum on nodule size and pa tient risk factors according to Fleischner Society Guidelines. FINDINGS: PULMONARY ARTERIES: No filling defects are seen in the pulmonary arteries through the segmental level. LUNGS: No acute pulmonary infiltrates. Stable chronic interstitial changes and a small bulla in the left danielito g base. No change compared to the prior study. PLEURAE: There is no pleural thickening or pleural effusion. MEDIASTINUM: There is good visualization of the great vessels of the middle mediastinum. No evidence of mediastin al or hilar adenopathy/mass. MUSCULOSKELETAL: Within normal limits for patient age. MISCELLANEOUS: The visualized upper abdominal organs demonstrate no acute abnormality. CONCLUSION: 1. No evidence of pulmonary embolism. 2. Stable CT exam compared to the prior study. Carlyle Maldonado MD on August 07, 2017 at 13:30 Board Certified Radiologist. This report was verified electronically.
[2017-08-07] MEDS ORDERED: PLAV75TA29 PO (14:47)
[2017-08-07 15:22] LABS: TROPONIN I LESS THAN 0.02 NG/ML (0.02-0.05)
[2017-08-07 15:55] VITALS: BP 124/81; PULSE 55; RESP 16; O2SAT 99
--- NOTE | 2017-08-08 11:24 | EKG ---
Date Performed: 08/07/2017 Time Performed: 14:44:40 PTAGE: 62 years EKG: SINUS BRADYCARDIA WITH FIRST DEGREE AV BLOCK BORDERLINE LEFT AXIS DEVIATION RIGHT BUNDLE BR ANCH BLOCK MINIMAL VOLTAGE CRITERIA FOR LVH, CONSIDER NORMAL VARIANT ABNORMAL ECG PREVIOUS TRACING : 08/07/2017 10.44 Since the previous tracing, no significant change noted DOCTOR: Fausto Walker Interpretating Date/Time 08/08/2017 11:23:41
--- NOTE | 2017-08-08 11:24 | EKG ---
Date Performed: 08/07/2017 Time Performed: 10:44:34 PTAGE: 62 years EKG: Sinus rhythm WITH FIRST DEGREE AV BLOCK MARKED LEFT AXIS DEVIATION RIGHT BUNDLE BRANCH BLOCK ABNORMAL ECG PREVIOUS TRACING 09/04/16 Since the previous tracing, no significant change noted DOCTOR: Fausto Walker Interpretating Date/Time 08/08/2017 11:23:33
== END 2017-08-07 16:15 | disposition home or self-care (01) ==
LOC: NEPE 10:25
DX: R07.89 Other chest pain (principal); I44.0 Atrioventricular block, first degree; I45.10 Unspecified right bundle-branch block; R00.1 Bradycardia, unspecified; R94.31 Abnormal electrocardiogram [ECG] [EKG]; I10 Essential (primary) hypertension; E11.9 Type 2 diabetes mellitus without complications; I25.10 Atherosclerotic heart disease of native coronary artery without angina pectoris; Z95.1 Presence of aortocoronary bypass graft
CPT/HCPCS: 71046; 71275; 80053; 82550; 83735; 84484; 85025; 85610; 85730; 93005; 99285; Q9967

== ENCOUNTER 2017-10-06 16:43 | Emergency (ER) | payer MEDICAID ==
[~2017-10-06] VITALS: Ht 175.3 cm; Wt 70.0 kg
[~2017-10-06 16:43] MED LIST changes: -CLOP75TA PO; -DONE10TA7 PO; -HYDR-3533 PO; -ONDA4TAB7 SL; +PLAV75TA29 PO; -TOPI25 PO
[2017-10-06 16:45] VITALS: BP 116/62; PULSE 93; RESP 16; TEMP 98.1; O2SAT 99
[2017-10-06 17:20] VITALS: BP 126/66; PULSE 83; RESP 16; O2SAT 95
[2017-10-06] MEDS ORDERED: VALP250 PO (17:41)
[2017-10-06] MEDS ORDERED: LISI10TA3 PO (17:42)
[2017-10-06 17:43] VITALS: BP 109/68; PULSE 90; RESP 18; O2SAT 95
[2017-10-06] MEDS ORDERED: BUSP1TAB PO (17:43)
--- NOTE | 2017-10-06 17:55 | PD ---
HPI Chief Complaint: Skin Problem Time Seen by Provider: 17:11 Travel History International Travel<30 days: No Contact w/Intl Traveler<30days: No Traveled to known affect area: No History of Present Illness HPI Patient is a 62-year-old male presents emergency department for evaluation of headache and right groin pain. Patient states he has a history of dizziness after a stroke and has some problems with gait, he states he had a trip and fall 3 days ago landed on his dog, his dog became angry and bit him on his right thigh. His chief complaint is actually the right thigh pain. He states is also noticed a significant amount of swelling in this groin area but denies any numbness or tingling distally. Denies any loss of consciousness denies any chest pain shortness breath abdominal pain neck pain back pain. States symptoms are moderate, for the past 3 days, gradually worsening, context and associated signs symptoms as above Patient does have a history of stroke leaving some residual deficits in mental capacity. PFSH Past Medical History Arthritis: No Asthma: Yes Blood Disorders: No Anxiety: Yes Depression: Yes Heart Rhythm Problems: No Cancer: No Cardiac Catheterization: Yes (CORONARY STENT X 3) Cardiovascular Problems: Yes High Cholesterol: Yes Chemotherapy: No Chest Pain: Yes Congestive Heart Failure: Yes COPD: No Cerebrovascular Accident: Yes Coronary Artery Disease: Yes Diabetes: Yes Patient Takes Glucophage: Yes Diminished Hearing: Yes (HEARING LOSS R/T STROKES, NO HEARING AIDS) Endocrine: Yes Gastrointestinal Disorders: Yes (gastric ulcers) GERD: Yes Glaucoma: No Genitourinary: No Headaches: Yes (See EMR) Heparin Induced Thrombocytopen: No Hypertension: Yes Immune Disorder: No Implanted Vascular Access Dvce: Yes Musculoskeletal: Yes (arthritis) Psychiatric: No Reproductive: No Respiratory: Yes (asthma and bronchitis) Immunizations Current: No Migraines: No Myocardial Infarction: No Pneumonia: Yes Radiation Therapy: No Sleep Apnea: No Thyroid Disease: No Ulcer: Yes PNEUMOCCOCAL Vaccine (Year): 1 Past Surgical History Abdominal Surgery: No AICD: No Arteriovenous Shunt: No Body Medical Devices: 3 PINS LEFT HIP Cardiac Surgery: No Coronary Artery Bypass Graft: Yes ( OCTOBER 2011, 5 VESSELS) Ear Surgery: No Endocrine Surgery: No Eye Surgery: No Genitourinary Surgery: No Gynecologic Surgery: No Insulin Pump: No Joint Replacement: No Neurologic Surgery: No Oral Surgery: No Pacemaker: No Thoracic Surgery: Yes Tonsillectomy: Yes Other Surgery: Yes (SINUS SURGERY, CABG, STENT x 3, RIGHT SHOULDER OLD FX) Social History Alcohol Use: No Tobacco Use: No Substance Use: No Allergies-Medications (Allergen,Severity, Reaction): Coded Allergies: bee venom protein (honey bee) (Unverified Allergy, Severe, THROAT SWELLS, 10/06/17) hornet venom (Unverified Allergy, Severe, SWELLS UP, 10/06/17) penicillin G (Unverified Allergy, Severe, SWELLS UP, 10/06/17) Reported Meds & Prescriptions Reported Meds & Active Scripts Active Plavix (Clopidogrel Bisulfate) 75 Mg Tab 75 Mg PO DAILY Reported Buspirone (Buspirone HCl) 7.5 Mg Tab 7.5 Mg PO DIRECTED PRN Lisinopril 10 Mg Tab Unknown Dose PO HS Depakene (Valproic Acid) 250 Mg Cap 250 Mg PO TID Pantoprazole (Pantoprazole Sodium) 40 Mg Tab 40 Mg PO BID Nitroglycerin SL (Nitroglycerin) 0.4 Mg Subl 0.4 Mg SL DIRECTED PRN ONE TABLET UNDER THE TONGUE NEEDED FOR CHEST PAIN, MAY REPEAT EVERY FIVE MINUTES FOR A TOTAL OF 3 DOSES OR CALL 911 IF NO RELIEF Metformin (Metformin HCl) 1,000 Mg Tab 1,000 Mg PO BIDPC With meals Aspirin Adult Low Strength (Aspirin) 81 Mg Tabdr 81 Mg PO DAILY Lipitor (Atorvastatin Calcium) 80 Mg Tab 80 Mg PO HS Review of Systems Except as stated in HPI: all other systems reviewed are Neg Physical Exam Narrative GENERAL: Well-developed well-nourished, no obvious distress peer SKIN: Focused skin assessment warm/dry. There is a softball sized hematoma in the right groin the anterior medial aspect just over the femoral artery, is nonpulsatile. There is significant surrounding bruising as the subcutaneous blood and started to spread. HEAD: Atraumatic. Normocephalic. EYES: Pupils equal and round. No scleral icterus. No injection or drainage. ENT: No nasal bleeding or discharge. Mucous membranes pink and moist. NECK: Trachea midline. No JVD. CARDIOVASCULAR: Regular rate and rhythm. No murmur appreciated. RESPIRATORY: No accessory muscle use. Clear to auscultation. Breath sounds equal bilaterally. GASTROINTESTINAL: Abdomen soft, non-tender, nondistended. Hepatic and splenic margins not palpable. MUSCULOSKELETAL: No obvious deformities. No clubbing. No cyanosis. No edema. NEUROLOGICAL: Awake and alert. No obvious cranial nerve deficits. Motor grossly within normal limits. Normal speech. Distally post motor and sensory intact in both lower extremities, dorsalis pedis and posterior tibial pulses are 2+ and equal bilaterally. PSYCHIATRIC: Somewhat odd affect and smiles constantly. Data Data Last Documented VS Vital Signs Date Time Temp Pulse Resp B/P (MAP) Pulse Ox O2 Delivery O2 Flow Rate FiO2 10/06/17 17:58 95 Room Air 10/06/17 17:43 90 18 10/06/17 16:45 98.1 Orders Orders Electrocardiogram (10/06/17 ) Electrocardiogram (10/06/17 17:49) Basic Metabolic Panel (Bmp) (10/06/17 17:49) Complete Blood Count With Diff (10/06/17 17:49) Act Partial Throm Time (Ptt) (10/06/17 17:49) Prothrombin Time / Inr (Pt) (10/06/17 17:49) Chest, Single Ap (10/06/17 17:49) Ct Brain W/O Iv Contrast(Rout) (10/06/17 17:49) Ecg Monitoring (10/06/17 17:49) Iv Access Insert/Monitor (10/06/17 17:49) Oximetry (10/06/17 17:49) Sodium Chloride 0.9% Flush (Ns Flush) (10/06/17 18:00) Cta Runoff W Iv Contrast W 3d (10/06/17 ) Morphine Inj (Morphine Inj) (10/06/17 18:45) Labs Laboratory Tests Test 10/06/17 17:25 White Blood Count 6.2 TH/MM3 Red Blood Count 4.15 MIL/MM3 Hemoglobin 12.7 GM/DL Hematocrit 37.7 % Mean Corpuscular Volume 90.8 FL Mean Corpuscular Hemoglobin 30.6 PG Mean Corpuscular Hemoglobin Concent 33.7 % Red Cell Distribution Width 14.0 % Platelet Count 241 TH/MM3 Mean Platelet Volume 8.5 FL Neutrophils (%) (Auto) 68.3 % Lymphocytes (%) (Auto) 19.5 % Monocytes (%) (Auto) 5.4 % Eosinophils (%) (Auto) 5.8 % Basophils (%) (Auto) 1.0 % Neutrophils # (Auto) 4.2 TH/MM3 Lymphocytes # (Auto) 1.2 TH/MM3 Monocytes # (Auto) 0.3 TH/MM3 Eosinophils # (Auto) 0.4 TH/MM3 Basophils # (Auto) 0.1 TH/MM3 CBC Comment DIFF FINAL Differential Comment Prothrombin Time 10.7 SEC Prothromb Time International Ratio 1.1 RATIO Activated Partial Thromboplast Time 24.1 SEC MDM Medical Decision Making Medical Screen Exam Complete: Yes Emergency Medical Condition: Yes Differential Diagnosis Hematoma, fall, head injury, coagulopathy, pseudoaneurysm Narrative Course Patient room to the emergency department, he appears well in obvious distress, has hematoma right over the femoral artery, a CTA of his lower extremities been ordered to evaluate for possible pseudoaneurysm versus arterial injury. Patient will be discussed with Dr. Irwin Pizarro at 1900 shift change to follow- up CT examination disposition appropriately. Fish Reece MD October 06, 2017 17:55
[2017-10-06 17:58] VITALS: O2SAT 95
--- NOTE | 2017-10-06 18:20 | RADRPT ---
EXAM DATE: 10/06/2017 6:17 PM EDT AGE/SEX: 62 years / Male INDICATIONS: Palpitations, fell CLINICAL DATA: This is the patient's initial encounter. Patient reports that signs and symptoms have been present for 2 days and indicates a pain score of 6/10. MEDICAL/SURGICAL HISTORY: Cardiovascular disease. Diabetes mellitus type II. Hypertension. CA BG. [place] [facility] [place]. . FINDINGS: A single AP view of the chest demonstrates the lungs to be symmetrically aerated without evidence of mass, infiltrate or effusion. The cardiomediastinal contours are unremarkable except previous CABG. Osseous structures are intact. CONCLUSION: No active disease. Previous CABG. Remote right humerus fracture. Electronically signed by: Fady Shah MD 10/06/2017 6:19 PM EDT
[2017-10-06 18:24] LABS: AUTOMATED NEUTROPHIL # 4.2 TH/MM3 (1.8-7.7); BASOPHIL # 0.1 TH/MM3 (0-0.2); EOSINOPHIL # 0.4 TH/MM3 (0-0.4); EOSINOPHIL % 5.8 % (0.0-4.0); HEMATOCRIT 37.7 % (39.0-51.0); HEMOGLOBIN 12.7 GM/DL (13.0-17.0); LYMPH % 19.5 % (9.0-44.0); LYMPHOCYTE # 1.2 TH/MM3 (1.0-4.8); MEAN CELL VOLUME 90.8 FL (80.0-100.0); MEAN CORPUSCULAR HEMOGLOBIN 30.6 PG (27.0-34.0); MEAN CORPUSCULAR HGB CONC 33.7 % (32.0-36.0); MEAN PLATELET VOLUME 8.5 FL (7.0-11.0); MONO % 5.4 % (0.0-8.0); MONOCYTE # 0.3 TH/MM3 (0-0.9); NEUT % 68.3 % (16.0-70.0); PLATELET COUNT 241 TH/MM3 (150-450); RED BLOOD COUNT 4.15 MIL/MM3 (4.50-5.90); WHITE BLOOD COUNT 6.2 TH/MM3 (4.0-11.0)
[2017-10-06 18:40] LABS: INTERNATIONAL NORMALIZED RATIO 1.1 RATIO; PROTHROMBIN TIME - PATIENT 10.7 SEC (9.8-11.6)
[2017-10-06] MEDS ORDERED: MORPHINE SULFATE 4 MG/ML INJ IV PUSH ONE ×2 (18:45→21:45)
[2017-10-06 18:48] LABS: BICARBONATE 25.6 MEQ/L (21.0-32.0); CALCIUM 8.8 MG/DL (8.5-10.1); CREATININE 1.02 MG/DL (0.60-1.30)
[2017-10-06 18:54] VITALS: BP 109/71; PULSE 73; RESP 14
[2017-10-06] MEDS: SODIUM CHLORIDE 0.9% FLUSH 10 ML FLUSH IVF PRN ×2 (19:03→21:56)
--- NOTE | 2017-10-06 20:45 | RADRPT ---
EXAM DATE: 10/06/2017 8:31 PM EDT AGE/SEX: 62 years / Male INDICATIONS: Cephalgia. CLINICAL DATA: This is the patient's initial encounter. Patient reports that signs and symptoms have been present for 1 day and indicates a pain score of 5/10. MEDICAL/SURGICAL HISTORY: Cardiovascular disease. Hypertension. Diabetes. Coronary artery stent. RADIATION DOSE: 56.35 CTDI (mGy) COMPARISON: [facility] [place]RAIN [place]/O [place]AST, 08/27/2016. . TECHNIQUE: CT of the head without contrast. Using automated exposure control and adjustment of the mA and/or kV according to patient size, radiation dose was kept as low as reasonably achievable to ob tain optimal diagnostic quality images. FINDINGS: Cerebrum: Remote left MCA infarct, stable from 2017. Posterior Fossa: The cerebellum and brainstem are intact. The 4th ventricle is midline. The cerebe llopontine angle is unremarkable. Extracranial: The visualized portion of the orbits is intact. Retention cyst right maxillary sinus. Mucosal thickening ethmoid air cells. Skull: The calvaria is intact. No evidence of skull fracture. CONCLUSION: 1. No acute findings. Stable remote left MCA infarct and small left occipital infarct. Electronically signed by: Fady Shah MD 10/06/2017 8:43 PM EDT
[2017-10-06] MEDS ORDERED: IOHEXOL 350 MG/ML 10 ML VIAL (for RAD DIAG) IVCONTRAST ONE (20:54)
[2017-10-06] MEDS ORDERED: METOCLOPRAMIDE HCL 10 MG/2 ML VIAL IV PUSH ONE (21:45)
--- NOTE | 2017-10-06 21:54 | RADRPT ---
EXAM DATE: 10/06/2017 9:42 PM EDT AGE/SEX: 62 years / Male INDICATIONS: Right lower extremity hematoma over femoral artery. CLINICAL DATA: This is the patient's initial encounter. Patient reports that signs and symptoms have been present for 1 day and indicates a pain score of 4/10. MEDICAL/SURGICAL HISTORY: Cardiovascular disease. Diabetes. Hyperparathyroidism. CABG. Coronary artery stent. RADIATION DOSE: 2.50 CTDI (mGy) COMPARISON: No prior [place] exams available for comparison. TECHNIQUE: Volumetric scanning was performed using a multi-row detector CT scanner during bolus infu maribel of 76 ml Omnipaque 350 (iohexol) nonionic water-soluble contrast as a single exam dose. The d my was post processed with a variety of visualization algorithms including full volume maximum inten sity projection, multi-planar sliding thin slab reformation, curved planar reformation, and surface r endering techniques. Using automated exposure control and adjustment of the mA and/or kV according t o patient size, radiation dose was kept as low as reasonably achievable to obtain optimal diagnostic quality images. FINDINGS: There is a 6.5 x 3.1 cm hematoma in the subcutaneous tissues of the inner right thigh. This does not result in any compression on the right femoral artery. The distal thoracic aorta and abdominal aorta are patent with mild to moderate calcific atherosclerot ic change. No aneurysm or stenosis. Celiac, superior mesenteric and renal arteries are patent. Inferior mesenteric artery is patent. Both iliac arteries, common femoral and superficial femoral arteries are patent. Popliteals are paten t to the level of the trifurcation. There is at least two-vessel runoff bilaterally. No acute findings within the abdomen and pelvis. Moderate coronary calcifications are noted. CONCLUSION: 1. 6.5 x 3.1 cm hematoma in the subcutaneous tissues of the inner right thigh. No compression on the adjacent femoral artery. No hemodynamically significant stenosis identified on CTA runoff. Electronically signed by: Fady Shah MD 10/06/2017 9:53 PM EDT
[2017-10-06] MEDS ORDERED: PERC5TAB12 PO (22:09)
--- NOTE | 2017-10-06 22:09 | PD ---
Data Data Last Documented VS Vital Signs Date Time Temp Pulse Resp B/P (MAP) Pulse Ox O2 Delivery O2 Flow Rate FiO2 10/06/17 18:54 73 14 109/71 (84) 10/06/17 17:58 95 Room Air 10/06/17 16:45 98.1 Orders Orders Electrocardiogram (10/06/17 17:49) Basic Metabolic Panel (Bmp) (10/06/17 17:49) Complete Blood Count With Diff (10/06/17 17:49) Act Partial Throm Time (Ptt) (10/06/17 17:49) Prothrombin Time / Inr (Pt) (10/06/17 17:49) Chest, Single Ap (10/06/17 17:49) Ct Brain W/O Iv Contrast(Rout) (10/06/17 17:49) Ecg Monitoring (10/06/17 17:49) Iv Access Insert/Monitor (10/06/17 17:49) Oximetry (10/06/17 17:49) Sodium Chloride 0.9% Flush (Ns Flush) (10/06/17 18:00) Cta Runoff W Iv Contrast W 3d (10/06/17 ) Morphine Inj (Morphine Inj) (10/06/17 18:45) Iohexol 350 Inj (Omnipaque 350 Inj) (10/06/17 20:54) Morphine Inj (Morphine Inj) (10/06/17 21:45) Metoclopramide Inj (Reglan Inj) (10/06/17 21:45) Labs Laboratory Tests Test 10/06/17 17:25 White Blood Count 6.2 TH/MM3 Red Blood Count 4.15 MIL/MM3 Hemoglobin 12.7 GM/DL Hematocrit 37.7 % Mean Corpuscular Volume 90.8 FL Mean Corpuscular Hemoglobin 30.6 PG Mean Corpuscular Hemoglobin Concent 33.7 % Red Cell Distribution Width 14.0 % Platelet Count 241 TH/MM3 Mean Platelet Volume 8.5 FL Neutrophils (%) (Auto) 68.3 % Lymphocytes (%) (Auto) 19.5 % Monocytes (%) (Auto) 5.4 % Eosinophils (%) (Auto) 5.8 % Basophils (%) (Auto) 1.0 % Neutrophils # (Auto) 4.2 TH/MM3 Lymphocytes # (Auto) 1.2 TH/MM3 Monocytes # (Auto) 0.3 TH/MM3 Eosinophils # (Auto) 0.4 TH/MM3 Basophils # (Auto) 0.1 TH/MM3 CBC Comment DIFF FINAL Differential Comment Prothrombin Time 10.7 SEC Prothromb Time International Ratio 1.1 RATIO Activated Partial Thromboplast Time 24.1 SEC Blood Urea Nitrogen 9 MG/DL Creatinine 1.02 MG/DL Random Glucose 241 MG/DL Calcium Level 8.8 MG/DL Sodium Level 136 MEQ/L Potassium Level 3.9 MEQ/L Chloride Level 101 MEQ/L Carbon Dioxide Level 25.6 MEQ/L Anion Gap 9 MEQ/L Estimat Glomerular Filtration Rate 74 ML/MIN MDM Supervised Visit with DOMITILA: No Narrative Course The patient was initially evaluated by the previous provider and signed out to me the beginning my shift pending CTA runoff of the lower extremities looking for a pseudoaneurysm or active extravasation as well as CT head. See his note for further details. Briefly this is a 62-year-old male with history of CVA, CAD, CABG, diabetes, here for evaluation of right thigh pain, swelling, and ecchymosis after tripping and falling on his dog 3 days ago. At that time the dog apparently bit him in his right thigh. On exam the patient has a moderate sized hematoma to the right medial/proximal thigh with significant surrounding ecchymosis. There is no warmth or erythema. No fluctuance. This area is moderately tender. The patient presented today because his pain has significantly increased. He is also complaining of a headache. Vital signs are within normal limits. There are no focal neurologic findings on exam. CBC is essentially unremarkable. BMP is remarkable for random glucose 241, otherwise unremarkable. Coags are within normal limits. Chest x-ray: No active disease. Previous CABG. Remote right humerus fracture. CT head: No acute findings. Stable remote left MCA infarct and small left occipital infarct. CTA runoff: CONCLUSION: 1. 6.5 x 3.1 cm hematoma in the subcutaneous tissues of the inner right thigh. No compression on the adjacent femoral artery. No hemodynamically significant stenosis identified on CTA runoff.' Patient was made aware of all findings. He was provided morphine by the previous provider. On my assessment he continues to complain of pain to the right lower extremity. All compartments in the right lower extremity are supple. There is an obvious hematoma to the right medial/proximal thigh with surrounding ecchymosis. Distal pulses brisk and equal bilaterally, and bilateral feet are warm with normal capillary refill. He will be given another dose pain medication. He is stable for discharge home outpatient follow-up with his primary care physician this week. Advised resting, icing, compression. He was informed on when to return to the emergency department. He verbalizes understanding and agreement with plan. Diagnosis Primary Impression: Hematoma of right thigh Qualified Codes: S70.11XA - Contusion of right thigh, initial encounter Additional Impression: Cephalgia Qualified Codes: R51 - Headache Referrals: Primary Care Physician 3 days Additional Instruction: Follow-up with your primary care physician this week. Return to the emergency department for worsening symptoms or any other concerns. Scripts Oxycodone-Acetaminophen (Percocet) 5-325 mg Tab 1-2 TAB PO Q6H Y for PAIN, #15 TAB 0 Refills Prov: Irwin Pizarro MD 10/06/17 Disposition: 01 DISCHARGE HOME Condition: Stable Irwin Pizarro MD October 06, 2017 22:09
[2017-10-06 22:20] VITALS: BP 97/59
--- NOTE | 2017-10-07 13:46 | EKG ---
Date Performed: 10/06/2017 Time Performed: 17:26:42 PTAGE: 62 years EKG: Sinus rhythm WITH FIRST DEGREE AV BLOCK MARKED LEFT AXIS DEVIATION RIGHT BUNDLE BRANCH BLOCK VOLTAGE CRITERIA FOR LVH POSSIBLE ANTERIOR MYOCARDIAL INFARCTION ABNORMAL ECG PREVIOUS TRACING : 08/07/2017 14.44 Loss of R-waves anterolateral compared to previous, cannot rule out ongoing injury. DOCTOR: Edvin Osorio Interpretating Date/Time 10/07/2017 13:44:41
== END 2017-10-06 22:39 | disposition home or self-care (01) ==
LOC: NEPC 16:43
DX: S70.11XA Contusion of right thigh, initial encounter (principal); W54.0XXA Bitten by dog, initial encounter; W01.0XXA Fall on same level from slipping, tripping and stumbling without subsequent striking against object, initial encounter; R51 Headache; R94.31 Abnormal electrocardiogram [ECG] [EKG]; E11.9 Type 2 diabetes mellitus without complications; I11.0 Hypertensive heart disease with heart failure; I50.9 Heart failure, unspecified; I25.10 Atherosclerotic heart disease of native coronary artery without angina pectoris
CPT/HCPCS: 70450; 71045; 75635; 80048; 85025; 85610; 85730; 93005; 96374; 96375; 96376; 99285; J2270; J2765; Q9967

== ENCOUNTER 2018-03-26 17:36 | Inpatient (IN) ==
--- NOTE | 2018-03-26 18:16 | XR ---
EXAM DATE: 03/26/2018 5:57 PM EST AGE/SEX: 63 years / Male INDICATIONS: Chest pain for 2 hours prior to coming into ER. Pain is left sided. CLINICAL DATA: This is the patient's initial encounter. Patient reports that signs and symptoms have been present for 1 day and indicates a pain score of 10/10. MEDICAL/SURGICAL HISTORY: . Cardiovascular disease. Diabetes mellitus type II. Hypertension. C ABG. COMPARISON: [facility] – [place]ST SINGLE AP, 10/06/2017. . FINDINGS: A single AP view of the chest demonstrates the lungs to be symmetrically aerated without evidence of mass, focal consolidation, or effusion. The cardiomediastinal contours are unremarkable. Sternotomy wires. Surgical clips again project over the left upper hemithorax. Partially imaged stable healed r ight humerus fracture. CONCLUSION: No acute cardiopulmonary findings. Electronically signed by: Genoveva Jiménez MD 03/26/2018 6:14 PM EST
[2018-03-26] MEDS ORDERED: Morphine Sulfate Inj 2 MG/ML Vial IV.PUSH ONE (18:19)
--- NOTE | 2018-03-26 18:50 | ED ---
HPI General Chief Complaint: Chest Pain Stated Complaint: CHEST PAIN Time Seen by Provider: 03/26/18 17:44 Source: patient and family Mode of arrival: ambulatory Limitations: no limitations History of Present Illness HPI narrative: Patient is a 63-year-old male presenting to the [facility] department for evaluation of chest pain. Patient states his symptoms started 3 hours prior to arrival. He reports that he felt out of it, his heart was pounding and he felt short of breath. He reports nausea and dizziness as well. Pain is in his upper chest and radiates to his neck and shoulders. He symptoms started while he was at [facility] with his nephew. He states that the food did not taste right. After they ate he was able to walk to the bus stop. While sitting at the bus stop a privacy officer noticed that he did not look well and called 911. Past medical history significant for diabetes, coronary artery disease, CVA, AMI, migraines, anxiety. Patient rates his chest pain a 7 out of 10, stabbing, constant. No alleviating factors, no known exacerbating factors. Patient denies any illicit drug use. He denies any tobacco use. MD complaint: Reports chest pain STEMI Alert: No Onset (ago): hour(s) Duration: constant Onset: during rest and after eating Pain location: Reports substernal Severity: moderate Severity scale (1-10): 7 Quality: Reports sharp Pain radiation: Reports neck and other (Shoulders) Relieving factors: nothing Exacerbating factors: nothing Associated symptoms: Reports nausea, dyspnea and palpitations Treatments prior to arrival chest pain: Reports aspirin and nitroglycerin Related Data Home Medications Medication Instructions Recorded Confirmed aspirin 81 mg PO DAILY 03/27/18 03/27/18 atorvastatin [Lipitor] 40 mg PO DAILY 03/27/18 03/27/18 buspirone 10 mg PO BID 03/27/18 03/27/18 clopidogrel [Plavix] 75 mg PO DAILY 03/27/18 03/27/18 divalproex [Depakote] 125 mg PO TID 03/27/18 03/27/18 lisinopril 2.5 mg PO DAILY 03/27/18 03/27/18 lorazepam 0.5 mg PO BID PRN 03/27/18 03/27/18 meclizine 50 mg PO BID PRN 03/27/18 03/27/18 metformin 500 mg PO BID 03/27/18 03/27/18 mirtazapine [Remeron] 15 mg PO DAILY 03/27/18 03/27/18 pantoprazole 40 mg PO DAILY 03/27/18 03/27/18 tamsulosin [Flomax] 0.4 mg PO DAILY 03/27/18 03/27/18 tizanidine 4 mg PO HS PRN 03/27/18 03/27/18 topiramate 200 mg PO BID 03/27/18 03/27/18 Allergies Allergy/AdvReac Type Severity Reaction Status Date / Time bee venom protein (honey bee) Allergy Severe THROAT Verified 03/26/18 20:11 SWELLS hornet venom Allergy Severe SWELLS UP Verified 03/26/18 20:11 penicillin G Allergy Severe SWELLS UP Verified 03/26/18 20:11 Review of Systems ROS: all other systems reviewed are negative COUNTS INCLUDE 234 BEDS AT THE [facility] Medical History Medical History Anxiety (Acute) CVA (cerebral vascular accident) (Acute) Depression (Acute) Diabetes (Acute) Hypertension (Acute) Surgical History Surgical History History of heart artery stent (Acute) Hx of CABG (Acute) Family History Family History Other CVA (cerebral vascular accident) Diabetes mellitus Social History Social History Substance History: No History of Abuse Second Hand Smoke Exposure: No Smoking Status: Never smoker How Often Do You Have a Drink Containing Alcohol: Never Recent Travel in [facility] within the Last 8 Weeks: No Recent Out of Country Travel within the Last 8 Weeks: No Immunization History Tetanus Immunization: >5 Years Exam Narrative Exam Narrative: GENERAL: Well-developed, well-nourished, alert male. Appears uncomfortable, in no acute distress SKIN: Focused skin assessment warm/dry. HEAD: Atraumatic. Normocephalic. EYES: Pupils equal and round. No scleral icterus. No injection or drainage. ENT: No nasal bleeding or discharge. Mucous membranes pink and moist. NECK: Trachea midline. No JVD. CARDIOVASCULAR: Mildly tachycardic. No murmur appreciated. RESPIRATORY: No accessory muscle use. Clear to auscultation. Breath sounds equal bilaterally. GASTROINTESTINAL: Abdomen soft, non-tender, nondistended. Hepatic and splenic margins not palpable. MUSCULOSKELETAL: No obvious deformities. No clubbing. No cyanosis. No edema. NEUROLOGICAL: Awake and alert. No obvious cranial nerve deficits. Motor grossly within normal limits. Normal speech. PSYCHIATRIC: Appropriate mood and affect; insight and judgment normal. Course Initial Documented Vital Signs Temperature 98.2 F 03/26/18 18:03 Pulse Rate 101 H 03/26/18 18:03 Respiratory Rate 18 03/26/18 18:03 Blood Pressure 119/75 03/26/18 18:03 Pulse Oximetry 97 03/26/18 18:03 Last Documented Vital Signs Temperature 98.7 F 03/27/18 15:39 Pulse Rate 64 03/27/18 15:39 Respiratory Rate 20 03/27/18 15:39 Blood Pressure 115/70 03/27/18 16:39 Pulse Oximetry 97 03/27/18 15:39 Medical Decision Making DOMITILA Attestation DOMITILA supervised visit: Yes Attestation: I, Dr. Rodney, have reviewed the advance practice practitioner' s documentation and am in agreement, met with the patient face to face, made the diagnosis, and the medical decision making was done by me. *My assessment and Findings:No STEMI on EKG MDM Narrative Medical decision making narrative: Patient presented for evaluation of chest pain. Labs and imaging ordered and pending. IV access established, patient was placed on telemetry monitoring continuous pulse oximetry. He was given 324 mg of chewable aspirin and 3 sublingual nitroglycerin by EMS. Morphine was ordered for pain. Nitro paste ordered to anterior chest wall. Initial EKG reviewed by my attending physician. Shows sinus tachycardia no STEMI, right bundle branch block. Labs reviewed, initial set of cardiac enzymes were negative. Labs are essentially unremarkable with no acute findings. Patient continued to complain of a weird chest sensation, shortness of breath. For this reason a CTA pulmonary angiogram was ordered. It was negative for pulmonary embolus but showed significant gastric distention. This was then followed by a CT scan of the abdomen and pelvis without contrast that showed moderate constipation and severe distention, mural thickening versus soft tissue mass at the proximal duodenum. Discussed with my attending physician, patient will have an NG tube placed. He will be admitted to medicine. Dr. Rodríguez accepted admit. Patient was advised in all findings and plan of care, he is agreeable. He did admit at that time that he has had some weight loss and his appetite has not been good for several weeks. Patient's questions were answered. Admit orders placed. Patient is resting comfortably at this time. Medical Screen Exam Complete: Yes Emergency Medical Condition: Yes Differential Diagnosis Differential Diagnosis: ACS versus [place] versus anxiety versus metabolic abnormality versus cardiac arrhythmia versus other Medical Records Medical records reviewed: Yes I reviewed the patient's medical records. Lab Data Result diagrams: 03/27/18 06:53 03/27/18 06:53 Lab Results 03/26/18 03/26/18 03/26/18 Range/Units 18:20 18:20 18:20 WBC 4.5 (4.0-11.0) th/mm3 RBC 4.23 L (4.50-5.90) mil/mm3 Hgb 12.7 L (13.0-17.0) gm/dL Hct 38.1 L (39.0-51.0) % MCV 90.2 (80.0-100.0) fL MCH 30.0 (27.0-34.0) pg MCHC 33.2 (32.0-36.0) % RDW 14.2 (11.6-17.2) % Plt Count 241 (150-450) th/mm3 MPV 8.2 (7.0-11.0) fL Neut % (Auto) 74.0 H (16.0-70.0) % Lymph % (Auto) 17.0 (9.0-44.0) % York % (Auto) 4.6 (0.0-8.0) % Eos % (Auto) 3.2 (0.0-4.0) % Baso % (Auto) 1.2 (0.0-2.0) % Neut # (Auto) 3.3 (1.8-7.7) th/mm3 Lymph # (Auto) 0.8 L (1.0-4.8) th/mm3 York # (Auto) 0.2 (0.0-0.9) th/mm3 Eos # (Auto) 0.1 (0.0-0.4) th/mm3 Baso # (Auto) 0.1 (0.0-0.2) th/mm3 WBC Differential . Differential Comment Auto diff final PT 10.9 (9.8-11.6) sec INR 1.1 Ratio APTT 26.6 (23.4-31.7) sec Sodium 144 (136-145) meq/L Potassium 4.2 (3.5-5.1) meq/L Chloride 111 H (98-107) meq/L Carbon Dioxide 23.1 (21.0-32.0) meq/L Anion Gap 10 (5-15) meq/L BUN 12 (7-18) mg/dL Creatinine 1.05 (0.60-1.30) mg/dL Estimated GFR 71 L (>89) mL/min POC Glucose (68-110) mg/dl Random Glucose 226 H (74-106) mg/dL Calcium 8.8 (8.5-10.1) mg/dL Magnesium 1.6 (1.5-2.5) mg/dL Total Bilirubin 0.2 (0.2-1.0) mg/dL AST 14 L (15-37) U/L ALT 16 (12-78) U/L Alkaline Phosphatase 102 (45-117) U/L Total Creatine Kinase 52 (39-308) U/L Troponin I Less than 0.02 L (0.02-0.05) ng/mL Total Protein 7.0 (6.4-8.2) g/dL Albumin 3.4 (3.4-5.0) g/dL Lipase 165 (73-393) U/L Tumor Marker AFP (0.5-8.0) ng/mL Carcinoembryonic Ag (0.2-5.0) ng/mL 03/27/18 03/27/18 03/27/18 Range/Units 03:10 06:53 06:53 WBC 5.7 (4.0-11.0) th/mm3 RBC 4.09 L (4.50-5.90) mil/mm3 Hgb 12.5 L (13.0-17.0) gm/dL Hct 37.3 L (39.0-51.0) % MCV 91.2 (80.0-100.0) fL MCH 30.6 (27.0-34.0) pg MCHC 33.6 (32.0-36.0) % RDW 14.0 (11.6-17.2) % Plt Count 219 (150-450) th/mm3 MPV 8.0 (7.0-11.0) fL Neut % (Auto) 57.7 (16.0-70.0) % Lymph % (Auto) 25.4 (9.0-44.0) % York % (Auto) 6.7 (0.0-8.0) % Eos % (Auto) 8.9 H (0.0-4.0) % Baso % (Auto) 1.3 (0.0-2.0) % Neut # (Auto) 3.3 (1.8-7.7) th/mm3 Lymph # (Auto) 1.4 (1.0-4.8) th/mm3 York # (Auto) 0.4 (0.0-0.9) th/mm3 Eos # (Auto) 0.5 H (0.0-0.4) th/mm3 Baso # (Auto) 0.1 (0.0-0.2) th/mm3 WBC Differential . Differential Comment Auto diff final PT (9.8-11.6) sec INR Ratio APTT (23.4-31.7) sec Sodium 145 (136-145) meq/L Potassium 4.7 (3.5-5.1) meq/L Chloride 114 H (98-107) meq/L Carbon Dioxide 24.1 (21.0-32.0) meq/L Anion Gap 7 (5-15) meq/L BUN 10 (7-18) mg/dL Creatinine 0.92 (0.60-1.30) mg/dL Estimated GFR 83 L (>89) mL/min POC Glucose (68-110) mg/dl Random Glucose 130 H (74-106) mg/dL Calcium 8.6 (8.5-10.1) mg/dL Magnesium (1.5-2.5) mg/dL Total Bilirubin (0.2-1.0) mg/dL AST (15-37) U/L ALT (12-78) U/L Alkaline Phosphatase (45-117) U/L Total Creatine Kinase 47 47 (39-308) U/L Troponin I Less than 0.02 L Less than 0.02 L (0.02-0.05) ng/mL Total Protein (6.4-8.2) g/dL Albumin (3.4-5.0) g/dL Lipase (73-393) U/L Tumor Marker AFP (0.5-8.0) ng/mL Carcinoembryonic Ag (0.2-5.0) ng/mL 03/27/18 03/27/18 03/27/18 Range/Units 08:14 11:40 15:49 WBC (4.0-11.0) th/mm3 RBC (4.50-5.90) mil/mm3 Hgb (13.0-17.0) gm/dL Hct (39.0-51.0) % MCV (80.0-100.0) fL MCH (27.0-34.0) pg MCHC (32.0-36.0) % RDW (11.6-17.2) % Plt Count (150-450) th/mm3 MPV (7.0-11.0) fL Neut % (Auto) (16.0-70.0) % Lymph % (Auto) (9.0-44.0) % York % (Auto) (0.0-8.0) % Eos % (Auto) (0.0-4.0) % Baso % (Auto) (0.0-2.0) % Neut # (Auto) (1.8-7.7) th/mm3 Lymph # (Auto) (1.0-4.8) th/mm3 York # (Auto) (0.0-0.9) th/mm3 Eos # (Auto) (0.0-0.4) th/mm3 Baso # (Auto) (0.0-0.2) th/mm3 WBC Differential Differential Comment PT (9.8-11.6) sec INR Ratio APTT (23.4-31.7) sec Sodium (136-145) meq/L Potassium (3.5-5.1) meq/L Chloride (98-107) meq/L Carbon Dioxide (21.0-32.0) meq/L Anion Gap (5-15) meq/L BUN (7-18) mg/dL Creatinine (0.60-1.30) mg/dL Estimated GFR (>89) mL/min POC Glucose 118 H 114 H (68-110) mg/dl Random Glucose (74-106) mg/dL Calcium (8.5-10.1) mg/dL Magnesium (1.5-2.5) mg/dL Total Bilirubin (0.2-1.0) mg/dL AST (15-37) U/L ALT (12-78) U/L Alkaline Phosphatase (45-117) U/L Total Creatine Kinase (39-308) U/L Troponin I (0.02-0.05) ng/mL Total Protein (6.4-8.2) g/dL Albumin (3.4-5.0) g/dL Lipase (73-393) U/L Tumor Marker AFP 2.2 (0.5-8.0) ng/mL Carcinoembryonic Ag 0.7 (0.2-5.0) ng/mL //18 Range/Units 17:35 WBC (4.0-11.0) th/mm3 RBC (4.50-5.90) mil/mm3 Hgb (13.0-17.0) gm/dL Hct (39.0-51.0) % MCV (80.0-100.0) fL MCH (27.0-34.0) pg MCHC (32.0-36.0) % RDW (11.6-17.2) % Plt Count (150-450) th/mm3 MPV (7.0-11.0) fL Neut % (Auto) (16.0-70.0) % Lymph % (Auto) (9.0-44.0) % York % (Auto) (0.0-8.0) % Eos % (Auto) (0.0-4.0) % Baso % (Auto) (0.0-2.0) % Neut # (Auto) (1.8-7.7) th/mm3 Lymph # (Auto) (1.0-4.8) th/mm3 York # (Auto) (0.0-0.9) th/mm3 Eos # (Auto) (0.0-0.4) th/mm3 Baso # (Auto) (0.0-0.2) th/mm3 WBC Differential Differential Comment PT (9.8-11.6) sec INR Ratio APTT (23.4-31.7) sec Sodium (136-145) meq/L Potassium (3.5-5.1) meq/L Chloride (98-107) meq/L Carbon Dioxide (21.0-32.0) meq/L Anion Gap (5-15) meq/L BUN (7-18) mg/dL Creatinine (0.60-1.30) mg/dL Estimated GFR (>89) mL/min POC Glucose 112 H (68-110) mg/dl Random Glucose (74-106) mg/dL Calcium (8.5-10.1) mg/dL Magnesium (1.5-2.5) mg/dL Total Bilirubin (0.2-1.0) mg/dL AST (15-37) U/L ALT (12-78) U/L Alkaline Phosphatase (45-117) U/L Total Creatine Kinase (39-308) U/L Troponin I (0.02-0.05) ng/mL Total Protein (6.4-8.2) g/dL Albumin (3.4-5.0) g/dL Lipase (73-393) U/L Tumor Marker AFP (0.5-8.0) ng/mL Carcinoembryonic Ag (0.2-5.0) ng/mL Imaging Data Radiologist's impression: Chest X-Ray 03/26/18 17:45 CONCLUSION: No acute cardiopulmonary findings. Chest CTA 03/26/18 19:45 CONCLUSION: 1. Negative for pulmonary embolus. Dependent atelectasis in the lungs. 2. Severe gastric distention with large air-fluid level present. 3. Multiple calcified gallstones. Abdomen/Pelvis CT 03/26/18 21:19 CONCLUSION: 1. Marked gaseous and fluid distention of the stomach suggesting gastric outlet obstruction. There is some questionable mural thickening or soft tissue mass in the proximal duodenum. Recommend direct visualization or upper GI series for further evaluation. 2. Moderate constipation. No hydronephrosis or obstructive uropathy. Abdomen X-Ray 03/26/18 23:18 CONCLUSION: Visualized bowel gas pattern is nonobstructive. There is a nasogastric tube with tip in the distal stomach. Discharge Plan Discharge Disposition Patient Disposition: 30 Still Patient Discharge Condition Condition: Stable Discharge Details Diagnosis: Atypical chest pain, Gastric outlet obstruction Physicians Team ED Provider: Damian Rodney ED Midlevel Provider: Joselin Villareal Primary Care Provider: UNKNOWN, Attending Provider: Izaiah Griffith Other Providers: Dannielle Goldsmith Status ED Status: Left Department Discharge Information Discharge Date/Time: 03/27/18 03:52
[2018-03-26 18:54] LABS: Baso # (Auto) 0.1 th/mm3 (0.0-0.2); Baso % (Auto) 1.2 % (0.0-2.0); Eos # (Auto) 0.1 th/mm3 (0.0-0.4); Eos % (Auto) 3.2 % (0.0-4.0); Hematocrit 38.1 % (39.0-51.0); Hemoglobin 12.7 gm/dL (13.0-17.0); Lymph # (Auto) 0.8 th/mm3 (1.0-4.8); Mean Corpuscular HGB Conc 33.2 % (32.0-36.0); Mean Corpuscular Volume 90.2 fL (80.0-100.0); Mean Platelet Volume 8.2 fL (7.0-11.0); Mono # (Auto) 0.2 th/mm3 (0.0-0.9); Mono % (Auto) 4.6 % (0.0-8.0); Neut # (Auto) 3.3 th/mm3 (1.8-7.7); Platelet Count 241 th/mm3 (150-450); Red Blood Count 4.23 mil/mm3 (4.50-5.90); Red Cell Distribution Width 14.2 % (11.6-17.2); White Blood Count 4.5 th/mm3 (4.0-11.0)
[2018-03-26 19:10] LABS: Activated Partial Thrombo Time 26.6 sec (23.4-31.7); INR 1.1 Ratio; Prothrombin Time 10.9 sec (9.8-11.6)
[2018-03-26 19:35] LABS: Albumin 3.4 g/dL (3.4-5.0); Anion Gap 10 meq/L (5-15); Aspartate Aminotransferase 14 U/L (15-37); Blood Urea Nitrogen 12 mg/dL (7-18); Calcium 8.8 mg/dL (8.5-10.1); Carbon Dioxide 23.1 meq/L (21.0-32.0); Chloride 111 meq/L (98-107); Glomerular Filtration Rate 71 mL/min (>89); Glucose,Random 226 mg/dL (74-106); Lipase 165 U/L (73-393); Magnesium 1.6 mg/dL (1.5-2.5); Potassium 4.2 meq/L (3.5-5.1); Sodium 144 meq/L (136-145)
[2018-03-26 19:36] LABS: Alanine Aminotransferase 16 U/L (12-78); Alkaline Phosphatase 102 U/L (45-117)
[2018-03-26 19:39] LABS: Creatine Kinase 52 U/L (39-308)
--- NOTE | 2018-03-26 20:38 | CT ---
EXAM DATE: 03/26/2018 8:14 PM EST AGE/SEX: 63 years / Male INDICATIONS: Chest pains, shortness of breath CLINICAL DATA: This is the patient's initial encounter. Patient reports that signs and symptoms have been present for 1 day and indicates a pain score of 8/10. MEDICAL/SURGICAL HISTORY: Cerebrovascular disease. Diabetes. Hypertension. None. RADIATION DOSE: 13.75 CTDI (mGy) COMPARISON: [facility] [place], CT PULMONARY ANGIOGRAM, 08/07/2017. . TECHNIQUE: Volumetric scanning was performed using a multi-row detector CT scanner during bolus infu maribel of 74 ml Omnipaque 350 (iohexol) nonionic water-soluble contrast as a single exam dose. The denzel a was post processed with a variety of visualization algorithms including full volume maximum intensi ty projection and sliding thin slab reformation. Using automated exposure control and adjustment of the mA and/or kV according to patient size, radiation dose was kept as low as reasonably achievable t o obtain optimal diagnostic quality images. DICOM format image data is available electronically for review and comparison. FINDINGS: No filling defects identified to suggest pulmonary embolic disease. There is dependent atelectasis in the lungs. No significant pleural or pericardial effusion. Dense coronary calcifications. Upper abdomen reveals marked gastric distention probably from some form of mechanical over functional gastric outlet obstruction. This is new since prior exam in July. Multiple calcified gallstones pre sent. CONCLUSION: 1. Negative for pulmonary embolus. Dependent atelectasis in the lungs. 2. Severe gastric distention with large air-fluid level present. 3. Multiple calcified gallstones. Electronically signed by: Fady Shah MD 03/26/2018 8:37 PM EST
[2018-03-26] MEDS ORDERED: Simethicone 80 MG Chew Tablet PO ONE (21:17)
--- NOTE | 2018-03-26 22:02 | CT ---
EXAM DATE: 03/26/2018 9:55 PM EST AGE/SEX: 63 years / Male INDICATIONS: Abdominal pain. CLINICAL DATA: This is the patient's initial encounter. Patient reports that signs and symptoms have been present for 1 day and indicates a pain score of 5/10. MEDICAL/SURGICAL HISTORY: Cerebrovascular disease. Diabetes. Hypertension. CABG. Coronary mamta nt. RADIATION DOSE: 6.64 CTDI (mGy) COMPARISON: [facility], CT ABDOMEN AND PELVIS W/ CONTRAST, 02/12/2018. . TECHNIQUE: Multiple contiguous axial images were obtained through the abdomen. Images were obtained using multiple row detector helical technique. Using automated exposure control and adjustment of the mA and/or kV according to patient size, radiation dose was kept as low as reasonably achievable to o btain optimal diagnostic quality images. DICOM format image data is available electronically for rev iew and comparison. FINDINGS: Lung bases demonstrate some dependent atelectasis. There is marked gaseous and fluid distention of th e stomach. There is questionable mural thickening in the proximal duodenum which could be resulting i n gastric outlet obstruction. Recommend direct visualization of this area or upper GI series. Multiple gallstones present in gallbladder. No acute findings in the liver, spleen, adrenals, kidneys or pancreas. There is no bowel obstruction. Moderate constipation is present. No free air or free fluid. No acute bony abnormalities. CONCLUSION: 1. Marked gaseous and fluid distention of the stomach suggesting gastric outlet obstruction. There i s some questionable mural thickening or soft tissue mass in the proximal duodenum. Recommend direct v isualization or upper GI series for further evaluation. 2. Moderate constipation. No hydronephrosis or obstructive uropathy. Electronically signed by: Fady Shah MD 03/26/2018 10:00 PM EST
--- NOTE | 2018-03-26 23:45 | XR ---
EXAM DATE: 03/26/2018 11:42 PM EST AGE/SEX: 63 years / Male INDICATIONS: Vomiting. CLINICAL DATA: This is the patient's subsequent encounter. Patient reports that signs and symptoms h ave been present for 1 day and indicates a pain score of 0/10. MEDICAL/SURGICAL HISTORY: None. None. COMPARISON: [facility], XR ABDOMEN FLAT AND UPRIGHT, 06/22/2015. . FINDINGS: A single erect view of the abdomen demonstrates the lower lungs to be clear.No evidence of free intra peritoneal gas.The visualized bowel loops are unremarkable. A nasogastric tube is present, coiled in the stomach and tip near the gastric outlet. CONCLUSION: Visualized bowel gas pattern is nonobstructive. There is a nasogastric tube with tip in the distal st omach. Electronically signed by: Tin Alvarez MD 03/26/2018 11:44 PM EST
[2018-03-27] MEDS ORDERED: Acetaminophen 325 MG Tablet PO PRN (00:55)
[2018-03-27] MEDS ORDERED: Dextrose 50% in Water 50 ML Vial IV.PUSH PRN (00:55)
[2018-03-27] MEDS ORDERED: Sodium Chloride 0.9% 2 ML Flush PRN IV.FLUSH (01:13)
[2018-03-27] MEDS: Morphine Sulfate Inj 2 MG/ML Vial IV.PUSH PRN ×6 (02:22→20:54)
[2018-03-27 03:54] LABS: Creatine Kinase 47 U/L (39-308)
--- NOTE | 2018-03-27 04:49 | P.HP ---
History of Present Illness Service: [facility] Primary Care Physician: UNKNOWN History of Present Illness: 63-year-old male with a past medical history significant for previous CVA, coronary artery disease, hypertension, hyperlipidemia, diabetes mellitus and BPH presents the emergency department for the evaluation of chest pain and shortness of breath that began at approximately 3 PM yesterday. The patient endorses associated nausea without emesis. He states that today he also had associated anorexia. He complains of a 25 pound unintentional weight loss but cannot specify a time frame. He denies any bloody or black stools. No fever/ chills. No lateralizing signs/symptoms. Review of Systems All other systems reviewed negative except as stated in HPI [facility] - History History Provided By: Patient - Medical History Medical History: Medical History (Last Updated 03/27/18 @ 04:35 by Deborah Rodríguez MD) BPH (benign prostatic hyperplasia) CVA (cerebral vascular accident) Diabetes Hyperlipidemia Hypertension Anxiety Depression - Surgical History Surgical History: Surgical History (Last Updated 03/27/18 @ 04:35 by Deborah Rodríguez MD) History of heart artery stent Hx of CABG Hx of tonsillectomy - Family History Family History: Family History (Last Updated 03/27/18 @ 04:36 by Deborah Rodríguez MD) Other CVA (cerebral vascular accident) Diabetes mellitus - Tobacco History Second Hand Smoke Exposure: No Tobacco Use In Past 30 Days: No Smoking Status: Never smoker - Alcohol History How Often Do You Have a Drink Containing Alcohol: Never - Substance Use History Substance History: No History of Abuse - Travel History Recent Travel in the [place] Within the Last 8 Weeks: No Recent Travel Out of the Country Within the Last 8 Weeks: No - Immunization History Tetanus Immunization: >5 Years Medications and Allergies Active Medications: Active Medications Acetaminophen (Tylenol) 650 mg PO Q4H PRN PRN Reason: Temp > 100.4 Dextrose (D50w Vial) 50 ml IV.PUSH UNSCH PRN PRN Reason: PER HYPOGLYCEMIA PROTOCOL Glucagon (Glucagon Inj) 1 mg OTHER PRN PRN PRN Reason: for Hypoglycemia Protocol Lactated Ringer's (Lr 1000 Ml Inj) 1,000 mls @ 84 mls/hr IV.CONT .[id number] [facility] Last Admin: 03/27/18 02:23 Dose: 84 mls/hr Insulin Aspart (Novolog Insulin Correctional Sugar Inj) 0 unit SQ ACHS BENJI; Protocol Morphine Sulfate (Morphine Inj) 2 mg IV.PUSH Q3H PRN PRN Reason: pain > 4 Last Admin: 03/27/18 02:22 Dose: 2 mg Ondansetron HCl (Zofran Inj) 4 mg IV.PUSH Q6H PRN PRN Reason: NAUSEA OR VOMITING Sodium Chloride (Ns Flush) 2 ml IV.FLUSH BID BENJI Sodium Chloride (Ns Flush) 2 ml IV.FLUSH PRN PRN PRN Reason: FLUSH AFTER USING IV ACCESS Allergies Allergy/AdvReac Type Severity Reaction Status Date / Time bee venom protein (honey bee) Allergy Severe THROAT Verified 03/26/18 20:11 SWELLS hornet venom Allergy Severe SWELLS UP Verified 03/26/18 20:11 penicillin G Allergy Severe SWELLS UP Verified 03/26/18 20:11 Home Medications Medication Instructions Recorded Confirmed Type aspirin 81 mg PO DAILY 03/27/18 03/27/18 History atorvastatin [Lipitor] 40 mg PO DAILY 03/27/18 03/27/18 History buspirone 10 mg PO BID 03/27/18 03/27/18 History clopidogrel [Plavix] 75 mg PO DAILY 03/27/18 03/27/18 History divalproex [Depakote] 125 mg PO TID 03/27/18 03/27/18 History lisinopril 2.5 mg PO DAILY 03/27/18 03/27/18 History lorazepam 0.5 mg PO BID PRN 03/27/18 03/27/18 History meclizine 50 mg PO BID PRN 03/27/18 03/27/18 History metformin 500 mg PO BID 03/27/18 03/27/18 History mirtazapine [Remeron] 15 mg PO DAILY 03/27/18 03/27/18 History pantoprazole 40 mg PO DAILY 03/27/18 03/27/18 History tamsulosin [Flomax] 0.4 mg PO DAILY 03/27/18 03/27/18 History tizanidine 4 mg PO HS PRN 03/27/18 03/27/18 History topiramate 200 mg PO BID 03/27/18 03/27/18 History Exam Vital signs: Vital Signs 03/26/18 18:03 03/26/18 18:38 03/26/18 20:09 Temperature 98.2 F Pulse Rate 101 H 102 H 90 Respiratory Rate 18 23 18 Blood Pressure 119/75 119/75 109/70 Pulse Oximetry 97 97 100 03/26/18 22:00 Temperature Pulse Rate 76 Respiratory Rate 20 Blood Pressure 120/78 Pulse Oximetry Intake & Output 03/26/18 03/26/18 03/27/18 06:59 18:59 06:59 Weight 61.235 kg 61.235 kg Other: Date of Last Bowel Movement 03/25/18 Weight On Admission 61.235 kg Narrative: Gen.: No acute distress Head: Normocephalic. Atraumatic. EENT: Pupils equal round and reactive to light. Nose without drainage. Airway intact. Throat without injection. Cardiovascular: Regular rate and rhythm. No murmurs, rubs or gallops. Respiratory: Lungs clear to auscultation bilaterally. No wheezes or rhonchi. Abdomen: Soft, nondistended. No peritoneal signs. Minimally tender to palpation. Musculoskeletal: No gross deformities. No edema. Skin: No obvious rashes or erythema. Neuro: Sensory and motor grossly intact. Cranial nerves II through XII grossly intact. Results - Labs CBC & Chem 7: 03/26/18 18:20 03/26/18 18:20 Labs: Laboratory Results - last 24 hr 03/26/18 03/26/18 03/26/18 18:20 18:20 18:20 WBC 4.5 RBC 4.23 L Hgb 12.7 L Hct 38.1 L MCV 90.2 MCH 30.0 MCHC 33.2 RDW 14.2 Plt Count 241 MPV 8.2 Neut % (Auto) 74.0 H Lymph % (Auto) 17.0 Nicol[place] % (Auto) 4.6 Eos % (Auto) 3.2 Baso % (Auto) 1.2 Neut # (Auto) 3.3 Lymph # (Auto) 0.8 L [place] # (Auto) 0.2 Eos # (Auto) 0.1 Baso # (Auto) 0.1 WBC Differential . Differential Comment Auto diff final PT 10.9 INR 1.1 APTT 26.6 Sodium 144 Potassium 4.2 Chloride 111 H Carbon Dioxide 23.1 Anion Gap 10 BUN 12 Creatinine 1.05 Estimated GFR 71 L Random Glucose 226 H Calcium 8.8 Magnesium 1.6 Total Bilirubin 0.2 AST 14 L ALT 16 Alkaline Phosphatase 102 Total Creatine Kinase 52 Troponin I Less than 0.02 L Total Protein 7.0 Albumin 3.4 Lipase 165 03/27/18 03:10 WBC RBC Hgb Hct MCV MCH MCHC RDW Plt Count MPV Neut % (Auto) Lymph % (Auto) Nicol[place] % (Auto) Eos % (Auto) Baso % (Auto) Neut # (Auto) Lymph # (Auto) [place] # (Auto) Eos # (Auto) Baso # (Auto) WBC Differential Differential Comment PT INR APTT Sodium Potassium Chloride Carbon Dioxide Anion Gap BUN Creatinine Estimated GFR Random Glucose Calcium Magnesium Total Bilirubin AST ALT Alkaline Phosphatase Total Creatine Kinase 47 Troponin I Less than 0.02 L Total Protein Albumin Lipase - Imaging Impressions Chest X-Ray 03/26/18 17:45 CONCLUSION: No acute cardiopulmonary findings. Chest CTA 03/26/18 19:45 CONCLUSION: 1. Negative for pulmonary embolus. Dependent atelectasis in the lungs. 2. Severe gastric distention with large air-fluid level present. 3. Multiple calcified gallstones. Abdomen/Pelvis CT 03/26/18 21:19 CONCLUSION: 1. Marked gaseous and fluid distention of the stomach suggesting gastric outlet obstruction. There is some questionable mural thickening or soft tissue mass in the proximal duodenum. Recommend direct visualization or upper GI series for further evaluation. 2. Moderate constipation. No hydronephrosis or obstructive uropathy. Abdomen X-Ray 03/26/18 23:18 CONCLUSION: Visualized bowel gas pattern is nonobstructive. There is a nasogastric tube with tip in the distal stomach. Caprini VTE Risk Assessment Caprini VTE Risk Assessment: Moderate/High Risk (score >= 2) Caprini Risk Assessment Model: Point Value = 1 Point Value = 2 Point Value = 3 Point Value = 5 Age 41-60 Minor surgery BMI > 25 kg/m2 Swollen legs Varicose veins or History of unexplained or recurrent spontaneous Oral contraceptives or hormone replacement Sepsis (< 1 month) Serious lung disease, including pneumonia (< 1 month) Abnormal pulmonary function Acute myocardial infarction Congestive heart failure (< 1 month) History of inflammatory bowel disease Medical patient at bed rest Age 61-74 Arthroscopic surgery Major open surgery (> 45 min) Laparoscopic surgery (> 45 min) Malignancy Confined to bed (> 72 hours) Immobilizing plaster cast Central venous access Age >= 75 History of VTE Family history of VTE Factor V Leiden Prothrombin [id number] Lupus anticoagulant Anticardiolipin antibodies Elevated serum homocysteine Heparin-induced thrombocytopenia Other congenital or acquired thrombophilia Stroke (< 1 month) Elective arthroplasty Hip, pelvis, or leg fracture Acute spinal cord injury (< 1 month) Prophylaxis Regimen: Total Risk Factor Score Risk Level Prophylaxis Regimen 0-1 Low Early ambulation 2 Moderate Order ONE of the following: *Sequential Compression Device (SCD) *Heparin 5000 units SQ BID 3-4 Higher Order ONE of the following medications: *Heparin 5000 units SQ TID *Enoxaparin/Lovenox 40 mg SQ daily (WT < 150 kg, CrCl > 30 mL/min) *Enoxaparin/Lovenox 30 mg SQ daily (WT < 150 kg, CrCl > 10-29 mL/min) *Enoxaparin/Lovenox 30 mg SQ BID (WT < 150 kg, CrCl > 30 mL/min) AND/OR *Sequential Compression Device (SCD) 5 or more Highest Order ONE of the following medications: *Heparin 5000 units SQ TID (Preferred with Epidurals) *Enoxaparin/Lovenox 40 mg SQ daily (WT < 150 kg, CrCl > 30 mL/min) *Enoxaparin/Lovenox 30 mg SQ daily (WT < 150 kg, CrCl > 10-29 mL/min) *Enoxaparin/Lovenox 30 mg SQ BID (WT < 150 kg, CrCl > 30 mL/min) AND *Sequential Compression Device (SCD) Assessment and Plan - Plan Assessment/plan: 1. Gastric outlet obstruction CT of the abdomen/pelvis significant for gaseous and fluid distention of the stomach suggestive of gastric outlet obstruction with questionable mural thickening or soft tissue mass in the proximal duodenum NG tube N.p.o. Gastroenterology consulted, appreciate recommendations Concern for neoplastic process given mass and unintentional weight loss 2. Chest pain Patient with significant cardiac history Initial troponin negative EKG significant for sinus tachycardia and right bundle branch block without ST segment elevation or depression, personally reviewed ACS rule out pending; serial troponins/EKGs 3. Diabetes mellitus Holding home metformin Sliding-scale insulin Monitor blood glucose 4. Hypertension/hyperlipidemia/BPH Holding home medications as patient n.p.o. Vasotec prn 5. Migraines Patient denies any history of seizure Resume home medications once tolerating p.o. FEN: N.p.o. Electrolytes: Monitor and replete as needed NS at 84 cc/hour Holding pharmacologic anticoagulation for probable endoscopy
[2018-03-27] MEDS: Sod Chloride 0.9% Inj 1,000 ML IV.CONT SCH ×2 (05:06→17:34)
[2018-03-27 07:47] LABS: Baso # (Auto) 0.1 th/mm3 (0.0-0.2); Baso % (Auto) 1.3 % (0.0-2.0); Eos # (Auto) 0.5 th/mm3 (0.0-0.4); Eos % (Auto) 8.9 % (0.0-4.0); Hematocrit 37.3 % (39.0-51.0); Hemoglobin 12.5 gm/dL (13.0-17.0); Lymph # (Auto) 1.4 th/mm3 (1.0-4.8); Lymph % (Auto) 25.4 % (9.0-44.0); Mean Corpuscular HGB Conc 33.6 % (32.0-36.0); Mean Corpuscular Hemoglobin 30.6 pg (27.0-34.0); Mean Corpuscular Volume 91.2 fL (80.0-100.0); Mono # (Auto) 0.4 th/mm3 (0.0-0.9); Mono % (Auto) 6.7 % (0.0-8.0); Neut # (Auto) 3.3 th/mm3 (1.8-7.7); Neut % (Auto) 57.7 % (16.0-70.0); Platelet Count 219 th/mm3 (150-450); Red Blood Count 4.09 mil/mm3 (4.50-5.90); White Blood Count 5.7 th/mm3 (4.0-11.0)
[2018-03-27 08:07] LABS: Anion Gap 7 meq/L (5-15); Blood Urea Nitrogen 10 mg/dL (7-18); Calcium 8.6 mg/dL (8.5-10.1); Carbon Dioxide 24.1 meq/L (21.0-32.0); Chloride 114 meq/L (98-107); Glomerular Filtration Rate 83 mL/min (>89); Glucose,Random 130 mg/dL (74-106); Potassium 4.7 meq/L (3.5-5.1); Sodium 145 meq/L (136-145)
[2018-03-27 08:11] LABS: Creatine Kinase 47 U/L (39-308)
[2018-03-27] MEDS: Insulin NovoLOG Aspart Correctional Sugar Inj SQ SCH ×4 (08:19→21:22)
--- NOTE | 2018-03-27 09:35 | P.PNADD ---
Addendum to Inpatient Note Reason for Addendum: Additional Documentation Additional information: pt. seen and examined. C/o abd pain radiating up to chest wall, + nausea, NGT to LIS. No sob. recent UTI with blood urine 2 weeks ago, went [facility]. No urinary sx now. GI consult pending. Keep NPO, NGT to LIS.
--- NOTE | 2018-03-27 14:02 | P.CONGI ---
History of Present Illness Consult date: 03/27/18 Consult reason: Possible gastric outlet obstruction Gastric distention Possible duodenal mass Chief complaint: Chest Pain, Gastric Outlet Obstruction History of Present Illness: This patient is a 63-year-old male patient with past medical history significant for CVA, coronary artery disease, hypertension, hyperlipidemia, diabetes and BPH. This patient presented to the emergency department with complaint of chest wall pain and shortness of breath onset yesterday afternoon. Patient also reported nausea without vomiting. Upon consultation, patient reports decreased appetite with 20-25 pound unintentional weight loss over a 4- month span of time. Patient reports generalized fatigue over the last month. Patient endorses lower abdominal cramping for the last 2 days. Patient denies having had any abdominal surgeries in the past. Patient also reports increasing episodes of soft brown bowel movements after most meals. Patient states he has never had an EGD but does report having a colonoscopy in 2017. Colonoscopy revealed internal and external hemorrhoids. Exam done due to patient having bloody diarrhea at the time. Patient endorses having recent urinary tract infection with hematuria 2 weeks ago. He states he was treated with antibiotics and infection was cleared. He denies any further hematuria. Patient denies any use of alcohol or tobacco products. He reports significant family history of cancer and states his maternal grandfather from stomach cancer and his maternal grandmother had lung cancer. CT abdomen and pelvis done on admission revealed fluid distention in the stomach suggestive of possible gastric outlet obstruction, possible duodenal mass. Our service has been consulted to evaluate patient for the above. <Fallon Shrestha - Last Filed: 03/27/18 13:49> Review of Systems All other systems reviewed negative except as stated in HPI <Fallon Shrestha - Last Filed: 03/27/18 13:49> PMFSH - History History Provided By: Patient - Medical History Medical History: Medical History (Last Reviewed 03/27/18 @ 06:48 by Marek Fenton) BPH (benign prostatic hyperplasia) CVA (cerebral vascular accident) Diabetes Hyperlipidemia Hypertension Anxiety Depression - Surgical History Surgical History: Surgical History (Last Reviewed 03/27/18 @ 06:48 by Marek Fenton) History of heart artery stent Hx of CABG Hx of tonsillectomy - Family History Family History: Family History (Last Updated 03/27/18 @ 04:36 by Deborah Rodríguez MD) Other CVA (cerebral vascular accident) Diabetes mellitus - Tobacco History Second Hand Smoke Exposure: No Tobacco Use In Past 30 Days: No Smoking Status: Never smoker - Alcohol History How Often Do You Have a Drink Containing Alcohol: Never - Substance Use History Substance History: No History of Abuse - Travel History Recent Travel in the [place] Within the Last 8 Weeks: No Recent Travel Out of the Country Within the Last 8 Weeks: No - Immunization History Tetanus Immunization: >5 Years <Fallon Shrestha - Last Filed: 03/27/18 13:49> - Medical History Medical History: Medical History (Last Reviewed 03/27/18 @ 06:48 by Marek Fenton) BPH (benign prostatic hyperplasia) CVA (cerebral vascular accident) Diabetes Hyperlipidemia Hypertension Anxiety Depression - Surgical History Surgical History: Surgical History (Last Reviewed 03/27/18 @ 06:48 by Marek Fenton) History of heart artery stent Hx of CABG Hx of tonsillectomy - Family History Family History: Family History (Last Updated 03/27/18 @ 04:36 by Deborah Rodríguez MD) Other CVA (cerebral vascular accident) Diabetes mellitus <Dannielle Goldsmith - Last Filed: 03/27/18 19:09> Medications and Allergies Active Medications: Active Medications Acetaminophen (Tylenol) 650 mg PO Q4H PRN PRN Reason: Temp > 100.4 Dextrose (D50w Vial) 50 ml IV.PUSH UNSCH PRN PRN Reason: PER HYPOGLYCEMIA PROTOCOL Enalaprilat (Vasotec Inj) 2.5 mg IV.PUSH Q6H PRN PRN Reason: SBP>160, DBP>90 Glucagon (Glucagon Inj) 1 mg OTHER PRN PRN PRN Reason: for Hypoglycemia Protocol Lactated Ringer's (Lr 1000 Ml Inj) 1,000 mls @ 84 mls/hr IV.CONT .[id number] [facility] Last Infusion: 03/27/18 05:07 Dose: Infused Sodium Chloride (Ns Inj) 1,000 mls @ 84 mls/hr IV.CONT .[id number] [facility] Last Admin: 03/27/18 05:06 Dose: 84 mls/hr Insulin Aspart (Novolog Insulin Correctional Sugar Inj) 0 unit SQ ACHS [facility]; Protocol Last Admin: 03/27/18 11:45 Dose: Not Given Morphine Sulfate (Morphine Inj) 2 mg IV.PUSH Q3H PRN PRN Reason: pain > 4 Last Admin: 03/27/18 09:02 Dose: 2 mg Ondansetron HCl (Zofran Inj) 4 mg IV.PUSH Q6H PRN PRN Reason: NAUSEA OR VOMITING Last Admin: 03/27/18 09:03 Dose: 4 mg Sodium Chloride (Ns Flush) 2 ml IV.FLUSH BID [facility] Sodium Chloride (Ns Flush) 2 ml IV.FLUSH PRN PRN PRN Reason: FLUSH AFTER USING IV ACCESS <Fallon Shrestha - Last Filed: 03/27/18 13:49> Active Medications: Active Medications Acetaminophen (Tylenol) 650 mg PO Q4H PRN PRN Reason: Temp > 100.4 Dextrose (D50w Vial) 50 ml IV.PUSH UNSCH PRN PRN Reason: PER HYPOGLYCEMIA PROTOCOL Enalaprilat (Vasotec Inj) 2.5 mg IV.PUSH Q6H PRN PRN Reason: SBP>160, DBP>90 Glucagon (Glucagon Inj) 1 mg OTHER PRN PRN PRN Reason: for Hypoglycemia Protocol Lactated Ringer's (Lr 1000 Ml Inj) 1,000 mls @ 84 mls/hr IV.CONT .[id number] [facility] Last Admin: 03/27/18 14:21 Dose: Not Given Sodium Chloride (Ns Inj) 1,000 mls @ 84 mls/hr IV.CONT .[id number] [facility] Last Admin: 03/27/18 17:34 Dose: 84 mls/hr Insulin Aspart (Novolog Insulin Correctional Sugar Inj) 0 unit SQ ACHS [facility]; Protocol Last Admin: 03/27/18 17:35 Dose: Not Given Morphine Sulfate (Morphine Inj) 2 mg IV.PUSH Q3H PRN PRN Reason: pain > 4 Last Admin: 03/27/18 17:33 Dose: 2 mg Ondansetron HCl (Zofran Inj) 4 mg IV.PUSH Q6H PRN PRN Reason: NAUSEA OR VOMITING Last Admin: 03/27/18 09:03 Dose: 4 mg Sodium Chloride (Ns Flush) 2 ml IV.FLUSH BID [facility] Last Admin: 03/27/18 14:16 Dose: 2 ml Sodium Chloride (Ns Flush) 2 ml IV.FLUSH PRN PRN PRN Reason: FLUSH AFTER USING IV ACCESS <Dannielle Goldsmith Last Filed: 03/27/18 19:09> Allergies Allergy/AdvReac Type Severity Reaction Status Date / Time bee venom protein (honey bee) Allergy Severe THROAT Verified 03/26/18 20:11 SWELLS hornet venom Allergy Severe SWELLS UP Verified 03/26/18 20:11 penicillin G Allergy Severe SWELLS UP Verified 03/26/18 20:11 Home Medications Medication Instructions Recorded Confirmed Type aspirin 81 mg PO DAILY 03/27/18 03/27/18 History atorvastatin [Lipitor] 40 mg PO DAILY 03/27/18 03/27/18 History buspirone 10 mg PO BID 03/27/18 03/27/18 History clopidogrel [Plavix] 75 mg PO DAILY 03/27/18 03/27/18 History divalproex [Depakote] 125 mg PO TID 03/27/18 03/27/18 History lisinopril 2.5 mg PO DAILY 03/27/18 03/27/18 History lorazepam 0.5 mg PO BID PRN 03/27/18 03/27/18 History meclizine 50 mg PO BID PRN 03/27/18 03/27/18 History metformin 500 mg PO BID 03/27/18 03/27/18 History mirtazapine [Remeron] 15 mg PO DAILY 03/27/18 03/27/18 History pantoprazole 40 mg PO DAILY 03/27/18 03/27/18 History tamsulosin [Flomax] 0.4 mg PO DAILY 03/27/18 03/27/18 History tizanidine 4 mg PO HS PRN 03/27/18 03/27/18 History topiramate 200 mg PO BID 03/27/18 03/27/18 History Exam Vital signs: Vital Signs 03/26/18 18:03 03/26/18 18:38 03/26/18 20:09 Temperature 98.2 F Pulse Rate 101 H 102 H 90 Respiratory Rate 18 23 18 Blood Pressure 119/75 119/75 109/70 Pulse Oximetry 97 97 100 03/26/18 22:00 03/27/18 05:03 03/27/18 07:46 Temperature 98.1 F 98.2 F Pulse Rate 76 75 62 Respiratory Rate 20 16 18 Blood Pressure 120/78 106/55 L 128/75 Pulse Oximetry 95 95 03/27/18 08:00 03/27/18 09:00 03/27/18 10:06 Temperature Pulse Rate 62 Respiratory Rate 18 Blood Pressure Pulse Oximetry 95 03/27/18 11:53 Temperature 98.1 F Pulse Rate 67 Respiratory Rate 20 Blood Pressure 111/68 Pulse Oximetry 96 Intake & Output 03/26/18 03/27/18 03/27/18 18:59 06:59 18:59 Intake Total 326 / 326 Output Total 600 / 600 Balance -274 / -274 Weight 61.235 kg 61.235 kg Intake: IV 326 / 326 LR 1000 mL Inj 1,000 ML @ 84 326 / 326 mls/hr IV.CONT .[id number] [facility] Rx# :[id number] Oral 0 / 0 Output: Urine 500 / 500 Gastric Drainage 100 / 100 Right Nare Nasogastric Tube 100 / 100 Other: Date of Last Bowel Movement 03/25/18 Weight On Admission 61.235 kg - Routine HEENT Exam Head: Present: normocephalic - Routine Respiratory Exam Present: CTA bilaterally. Absent: accessory muscle use - Routine Cardiovascular Exam Present: S1, S2 - Routine Abdominal Exam Present: soft, normoactive bowel sounds. Absent: tenderness, distended, guarding, firm - Routine Extremities Exam Absent: edema - Routine Skin Exam Present: dry, warm - Routine Neurological Exam Present: alert, oriented X3 <Shrestha,Fallon - Last Filed: 03/27/18 13:49> Vital signs: Vital Signs 03/26/18 20:09 03/26/18 22:00 03/27/18 05:03 Temperature 98.1 F Pulse Rate 90 76 75 Respiratory Rate 18 20 16 Blood Pressure 109/70 120/78 106/55 L Pulse Oximetry 100 95 03/27/18 07:46 03/27/18 08:00 03/27/18 09:00 Temperature 98.2 F Pulse Rate 62 62 Respiratory Rate 18 Blood Pressure 128/75 Pulse Oximetry 95 95 03/27/18 10:06 03/27/18 11:53 03/27/18 15:39 Temperature 98.1 F 98.7 F Pulse Rate 67 64 Respiratory Rate 18 20 20 Blood Pressure 111/68 96/61 L Pulse Oximetry 96 97 03/27/18 16:39 Temperature Pulse Rate Respiratory Rate Blood Pressure 115/70 Pulse Oximetry Intake & Output 03/27/18 03/27/18 03/28/18 06:59 18:59 06:59 Intake Total 326 / 326 1000 / 1000 Output Total 600 / 600 Balance -274 / -274 1000 / 1000 Weight 61.235 kg Intake: IV 326 / 326 1000 / 1000 LR 1000 mL Inj 1,000 ML @ 84 326 / 326 mls/hr IV.CONT .[id number] Rx# :[id number] NS Inj 1,000 ML @ 84 mls/hr IV. 1000 / 1000 CONT .[id number] [facility] Rx#:[id number] Oral 0 / 0 Output: Urine 500 / 500 Gastric Drainage 100 / 100 Right Nare Nasogastric Tube 100 / 100 Other: Date of Last Bowel Movement 03/25/18 Weight On Admission 61.235 kg <Dannielle Goldsmith - Last Filed: 03/27/18 19:09> Results - Labs CBC & Chem 7: 03/27/18 06:53 03/27/18 06:53 Labs: Laboratory Results - last 24 hr 03/26/18 03/26/18 03/26/18 18:20 18:20 18:20 WBC 4.5 RBC 4.23 L Hgb 12.7 L Hct 38.1 L MCV 90.2 MCH 30.0 MCHC 33.2 RDW 14.2 Plt Count 241 MPV 8.2 Neut % (Auto) 74.0 H Lymph % (Auto) 17.0 [place] % (Auto) 4.6 Eos % (Auto) 3.2 Baso % (Auto) 1.2 Neut # (Auto) 3.3 Lymph # (Auto) 0.8 L [place] # (Auto) 0.2 Eos # (Auto) 0.1 Baso # (Auto) 0.1 WBC Differential . Differential Comment Auto diff final PT 10.9 INR 1.1 APTT 26.6 Sodium 144 Potassium 4.2 Chloride 111 H Carbon Dioxide 23.1 Anion Gap 10 BUN 12 Creatinine 1.05 Estimated GFR 71 L POC Glucose Random Glucose 226 H Calcium 8.8 Magnesium 1.6 Total Bilirubin 0.2 AST 14 L ALT 16 Alkaline Phosphatase 102 Total Creatine Kinase 52 Troponin I Less than 0.02 L Total Protein 7.0 Albumin 3.4 Lipase 165 03/27/18 03/27/18 03/27/18 03:10 06:53 06:53 WBC 5.7 RBC 4.09 L Hgb 12.5 L Hct 37.3 L MCV 91.2 MCH 30.6 MCHC 33.6 RDW 14.0 Plt Count 219 MPV 8.0 Neut % (Auto) 57.7 Lymph % (Auto) 25.4 [place] % (Auto) 6.7 Eos % (Auto) 8.9 H Baso % (Auto) 1.3 Neut # (Auto) 3.3 Lymph # (Auto) 1.4 [place] # (Auto) 0.4 Eos # (Auto) 0.5 H Baso # (Auto) 0.1 WBC Differential . Differential Comment Auto diff final PT INR APTT Sodium 145 Potassium 4.7 Chloride 114 H Carbon Dioxide 24.1 Anion Gap 7 BUN 10 Creatinine 0.92 Estimated GFR 83 L POC Glucose Random Glucose 130 H Calcium 8.6 Magnesium Total Bilirubin AST ALT Alkaline Phosphatase Total Creatine Kinase 47 47 Troponin I Less than 0.02 L Less than 0.02 L Total Protein Albumin Lipase 03/27/18 03/27/18 08:14 11:40 WBC RBC Hgb Hct MCV MCH MCHC RDW Plt Count MPV Neut % (Auto) Lymph % (Auto) [place] % (Auto) Eos % (Auto) Baso % (Auto) Neut # (Auto) Lymph # (Auto) [place] # (Auto) Eos # (Auto) Baso # (Auto) WBC Differential Differential Comment PT INR APTT Sodium Potassium Chloride Carbon Dioxide Anion Gap BUN Creatinine Estimated GFR POC Glucose 118 H 114 H Random Glucose Calcium Magnesium Total Bilirubin AST ALT Alkaline Phosphatase Total Creatine Kinase Troponin I Total Protein Albumin Lipase - Imaging Impressions Chest X-Ray 03/26/18 17:45 CONCLUSION: No acute cardiopulmonary findings. Chest CTA 03/26/18 19:45 CONCLUSION: 1. Negative for pulmonary embolus. Dependent atelectasis in the lungs. 2. Severe gastric distention with large air-fluid level present. 3. Multiple calcified gallstones. Abdomen/Pelvis CT 03/26/18 21:19 CONCLUSION: 1. Marked gaseous and fluid distention of the stomach suggesting gastric outlet obstruction. There is some questionable mural thickening or soft tissue mass in the proximal duodenum. Recommend direct visualization or upper GI series for further evaluation. 2. Moderate constipation. No hydronephrosis or obstructive uropathy. Abdomen X-Ray 03/26/18 23:18 CONCLUSION: Visualized bowel gas pattern is nonobstructive. There is a nasogastric tube with tip in the distal stomach. <Fallon Shrestha - Last Filed: 03/27/18 13:49> - Labs CBC & Chem 7: 03/27/18 06:53 03/27/18 06:53 Labs: Laboratory Results - last 24 hr 03/26/18 03/26/18 03/27/18 18:20 18:20 03:10 WBC RBC Hgb Hct MCV MCH MCHC RDW Plt Count MPV Neut % (Auto) Lymph % (Auto) [place] % (Auto) Eos % (Auto) Baso % (Auto) Neut # (Auto) Lymph # (Auto) [place] # (Auto) Eos # (Auto) Baso # (Auto) WBC Differential Differential Comment PT 10.9 INR 1.1 APTT 26.6 Sodium 144 Potassium 4.2 Chloride 111 H Carbon Dioxide 23.1 Anion Gap 10 BUN 12 Creatinine 1.05 Estimated GFR 71 L POC Glucose Random Glucose 226 H Calcium 8.8 Magnesium 1.6 Total Bilirubin 0.2 AST 14 L ALT 16 Alkaline Phosphatase 102 Total Creatine Kinase 52 47 Troponin I Less than 0.02 L Less than 0.02 L Total Protein 7.0 Albumin 3.4 Lipase 165 Tumor Marker AFP Carcinoembryonic Ag 03/27/18 03/27/18 03/27/18 06:53 06:53 08:14 WBC 5.7 RBC 4.09 L Hgb 12.5 L Hct 37.3 L MCV 91.2 MCH 30.6 MCHC 33.6 RDW 14.0 Plt Count 219 MPV 8.0 Neut % (Auto) 57.7 Lymph % (Auto) 25.4 [place] % (Auto) 6.7 Eos % (Auto) 8.9 H Baso % (Auto) 1.3 Neut # (Auto) 3.3 Lymph # (Auto) 1.4 [place] # (Auto) 0.4 Eos # (Auto) 0.5 H Baso # (Auto) 0.1 WBC Differential . Differential Comment Auto diff final PT INR APTT Sodium 145 Potassium 4.7 Chloride 114 H Carbon Dioxide 24.1 Anion Gap 7 BUN 10 Creatinine 0.92 Estimated GFR 83 L POC Glucose 118 H Random Glucose 130 H Calcium 8.6 Magnesium Total Bilirubin AST ALT Alkaline Phosphatase Total Creatine Kinase 47 Troponin I Less than 0.02 L Total Protein Albumin Lipase Tumor Marker AFP Carcinoembryonic Ag 03/27/18 03/27/18 03/27/18 11:40 15:49 17:35 WBC RBC Hgb Hct MCV MCH MCHC RDW Plt Count MPV Neut % (Auto) Lymph % (Auto) [place] % (Auto) Eos % (Auto) Baso % (Auto) Neut # (Auto) Lymph # (Auto) [place] # (Auto) Eos # (Auto) Baso # (Auto) WBC Differential Differential Comment PT INR APTT Sodium Potassium Chloride Carbon Dioxide Anion Gap BUN Creatinine Estimated GFR POC Glucose 114 H 112 H Random Glucose Calcium Magnesium Total Bilirubin AST ALT Alkaline Phosphatase Total Creatine Kinase Troponin I Total Protein Albumin Lipase Tumor Marker AFP 2.2 Carcinoembryonic Ag 0.7 - Imaging Impressions Chest CTA 03/26/18 19:45 CONCLUSION: 1. Negative for pulmonary embolus. Dependent atelectasis in the lungs. 2. Severe gastric distention with large air-fluid level present. 3. Multiple calcified gallstones. Abdomen/Pelvis CT 03/26/18 21:19 CONCLUSION: 1. Marked gaseous and fluid distention of the stomach suggesting gastric outlet obstruction. There is some questionable mural thickening or soft tissue mass in the proximal duodenum. Recommend direct visualization or upper GI series for further evaluation. 2. Moderate constipation. No hydronephrosis or obstructive uropathy. Abdomen X-Ray 03/26/18 23:18 CONCLUSION: Visualized bowel gas pattern is nonobstructive. There is a nasogastric tube with tip in the distal stomach. <Dannielle Goldsmith - Last Filed: 03/27/18 19:09> Assessment and Plan (1) Gastric outlet obstruction Status: Acute Code(s): K31.1 - Adult hypertrophic pyloric stenosis - Plan This patient is a 63-year-old male patient with past medical history significant for CVA, coronary artery disease, hypertension, hyperlipidemia, diabetes and BPH. This patient presented to the emergency department with complaint of chest wall pain and shortness of breath onset yesterday afternoon. Patient also reported nausea without vomiting. Upon consultation, patient reports decreased appetite with 20-25 pound unintentional weight loss over a 4- month span of time. Patient reports generalized fatigue over the last month. Patient endorses lower abdominal cramping for the last 2 days. Patient denies having had any abdominal surgeries in the past. Patient also reports increasing episodes of soft brown bowel movements after most meals. Patient states he has never had an EGD but does report having a colonoscopy in 2017. Colonoscopy revealed internal and external hemorrhoids. Exam done due to patient having bloody diarrhea at the time. Patient endorses having recent urinary tract infection with hematuria 2 weeks ago. He states he was treated with antibiotics and infection was cleared. He denies any further hematuria. Patient denies any use of alcohol or tobacco products. He reports significant family history of cancer and states his maternal grandfather from stomach cancer and his maternal grandmother had lung cancer. CT abdomen and pelvis done on admission revealed fluid distention in the stomach suggestive of possible gastric outlet obstruction, possible duodenal mass. Our service has been consulted to evaluate patient for the above. Possible gastric outlet obstruction Possible duodenal mass 03/26/2018 CT abdomen and pelvis revealed the following- 1. Marked gaseous and fluid distention of the stomach suggesting gastric outlet obstruction. There is some questionable mural thickening or soft tissue mass in the proximal duodenum. Recommend direct visualization or upper GI series for further evaluation. 2. Moderate constipation. No hydronephrosis or obstructive uropathy. Hemoglobin 12.5 hematocrit 37.3 Plan -NG to low intermittent wall suction -Maintain n.p.o. -Obtain consent for EGD -IV hydration -Analgesic and antiemetics as per attending -Supportive care -Further recommendations to follow This patient has been seen by myself and Dr. Goldsmith and this note is written on his behalf - Attending Attestation Dr. Goldsmith <Fallon hSrestha - Last Filed: 03/27/18 13:49> (1) Gastric outlet obstruction Status: Acute Code(s): K31.1 - Adult hypertrophic pyloric stenosis - Plan Patient was seen and examined, agree with above note, questionable malignancy or gastric outlet obstruction, patient will need upper endoscopy will plan on doing that tomorrow <Dannielle Goldsmith - Last Filed: 03/27/18 19:09>
[2018-03-27] MEDS: Sodium Chloride 0.9% 2 ML Flush BID IV.FLUSH SCH ×2 (14:16→20:55)
--- NOTE | 2018-03-27 14:45 | ECG ---
Date Performed: 03/26/2018 Time Performed: 18:16:37 PTAGE: 63 years EKG: SINUS TACHYCARDIA MARKED LEFT AXIS DEVIATION RIGHT BUNDLE BRANCH BLOCK MODERATE VOLTAGE CRI TERIA FOR LVH, CONSIDER NORMAL VARIANT POSSIBLE ANTERIOR MYOCARDIAL INFARCTION ABNORMAL ECG Since the PREVIOUS TRACING , no significant change noted PREVIOUS TRACIN10/06/2017 17.26 DOCTOR: Nathaly Salmeron Interpretating Date/Time 03/27/2018 14:33:43
--- NOTE | 2018-03-27 14:45 | ECG ---
Date Performed: 03/27/2018 Time Performed: 03:12:32 PTAGE: 63 years EKG: Sinus rhythm WITH FIRST DEGREE AV BLOCK MARKED LEFT AXIS DEVIATION RIGHT BUNDLE BRANCH BLOCK ABNORMAL ECG Since t he PREVIOUS TRACING , no significant change noted PREVIOUS TRACIN03/26/2018 18.16 DOCTOR: Nathaly Salmeron Interpretating Date/Time 03/27/2018 14:33:35
[2018-03-27 17:08] LABS: Carcinoembryonic Antigen 0.7 ng/mL (0.2-5.0)
[2018-03-27 17:11] LABS: Alpha Fetoprotein Tumor Marker 2.2 ng/mL (0.5-8.0)
[2018-03-27] MEDS ORDERED: Morphine Inj 4 MG/ML Vial IV.PUSH ONE (23:44)
[2018-03-28] MEDS: Morphine Sulfate Inj 2 MG/ML Vial IV.PUSH PRN ×4 (02:48→20:24)
[2018-03-28] MEDS: Sod Chloride 0.9% Inj 1,000 ML IV.CONT SCH ×2 (06:38→18:54)
[2018-03-28] MEDS: Sodium Chloride 0.9% 2 ML Flush BID IV.FLUSH SCH ×2 (08:02→20:20)
[2018-03-28] MEDS: Insulin NovoLOG Aspart Correctional Sugar Inj SQ SCH ×4 (08:13→20:19)
[2018-03-28 09:20] LABS: Hematocrit 38.8 % (39.0-51.0); Hemoglobin 13.2 gm/dL (13.0-17.0); Mean Corpuscular Hemoglobin 30.4 pg (27.0-34.0); Mean Corpuscular Volume 89.5 fL (80.0-100.0); Mean Platelet Volume 7.9 fL (7.0-11.0); Platelet Count 219 th/mm3 (150-450); Red Blood Count 4.34 mil/mm3 (4.50-5.90); Red Cell Distribution Width 14.2 % (11.6-17.2); White Blood Count 6.3 th/mm3 (4.0-11.0)
[2018-03-28 09:45] LABS: Anion Gap 9 meq/L (5-15); Blood Urea Nitrogen 5 mg/dL (7-18); Calcium 8.4 mg/dL (8.5-10.1); Carbon Dioxide 22.8 meq/L (21.0-32.0); Chloride 113 meq/L (98-107); Glomerular Filtration Rate Greater Than 89 mL/min (>89); Glucose,Random 97 mg/dL (74-106); Potassium 3.5 meq/L (3.5-5.1); Sodium 145 meq/L (136-145)
--- NOTE | 2018-03-28 11:52 | P.PNIM ---
Subjective Interval history: follow up: Patient has NG tube to [facility] patient offers no new concerns/complaints at this time patient reports that he is concerned about possible cancer Physical Exam Vital signs: Last Vital Signs Temp 97.5 F L 03/28/18 08:00 Pulse 84 03/28/18 08:00 Resp 18 03/28/18 08:00 BP 154/90 H 03/28/18 08:00 Pulse Ox 98 03/28/18 08:00 Narrative: General: Thin 63 year old male patient, no acute distress Head: Normocephalic. Atraumatic. Cardiovascular: Regular rate and rhythm. Respiratory: Lungs clear to auscultation bilaterally. No wheezes or rhonchi. Gastrointestinal: Soft, nondistended. No peritoneal signs. Minimally tender to palpation. NG tube to [facility] Musculoskeletal: No gross deformities. No edema. Skin: No obvious rashes or erythema. Neuro: Sensory and motor grossly intact. Results Labs CBC & Chem 7: 03/28/18 08:22 03/28/18 08:22 Assessment and Plan Assessment (1) Gastric outlet obstruction: Code(s): K31.1 - Adult hypertrophic pyloric stenosis Status: Acute Plan 1. Gastric outlet obstruction CT of the abdomen/pelvis significant for gaseous and fluid distention of the stomach suggestive of gastric outlet obstruction with questionable mural thickening or soft tissue mass in the proximal duodenum NG tube to [facility] NPO Gastroenterology consulted, appreciate recommendations Concern for neoplastic process given mass and unintentional weight loss Plan for EGD today - patient may need surgical consult depending on EGD results 2. Chest pain - resolved after NG tube placed Patient with significant cardiac history troponin < 0.02 x 3 EKG significant for sinus tachycardia and right bundle branch block without ST segment elevation or depression resolved after NG tube placed - likely secondary to gastric outlet obstruction 3. Diabetes mellitus Holding home metformin Sliding-scale insulin Monitor blood glucose 4. Hypertension/hyperlipidemia/BPH Holding home medications as patient n.p.o. Vasotec prn 5. Migraines Patient denies any history of seizure Resume home medications once tolerating p.o. FEN: NPO Electrolytes: Monitor and replete as needed NS at 84 cc/hour Holding pharmacologic anticoagulation for probable endoscopy changed to inpatient status Discussed with patient, nurse and supervising physician Dr. Griffith Progress Note: Quality VTE Deep Vein Thrombosis/Pulmonary Embolism Present on Admission: No
[2018-03-28] MEDS ORDERED: Morphine Inj 4 MG/ML Vial IV.PUSH ONE (21:19)
--- NOTE | 2018-03-28 23:28 | XR ---
EXAM DATE: 03/28/2018 11:20 PM EST AGE/SEX: 63 years / Male INDICATIONS: Abdomen pain and limited bowel sounds. CLINICAL DATA: This is the patient's subsequent encounter. Patient reports that signs and symptoms h ave been present for 2 days and indicates a pain score of 3/10. MEDICAL/SURGICAL HISTORY: . Cardiovascular disease. Diabetes mellitus type II. Hypertension. CABG. COMPARISON: No prior exams available for comparison. FINDINGS: The nasogastric tube is in good position in the distal stomach. The abdominal bowel gas pattern is normal. No abnormal masses, calcifications, or organomegaly is s een. The osseous structures are unremarkable. Left acetabulum has been previously fixated CONCLUSION: NG tube in the distal stomach. Bowel gas pattern is normal Electronically signed by: Jeremy Angel MD 03/28/2018 11:27 PM EST
[2018-03-28] MEDS ORDERED: HYDROmorphone PF Inj 2 MG/ML Vial IV.PUSH ONE (23:54)
[2018-03-29] MEDS: Pantoprazole Inj 40 MG Vial IV.PUSH SCH ×2 (01:11→13:57)
[2018-03-29] MEDS: Morphine Sulfate Inj 2 MG/ML Vial IV.PUSH PRN (02:30)
[2018-03-29] MEDS: Sod Chloride 0.9% Inj 1,000 ML IV.CONT SCH ×2 (03:26→17:35)
[2018-03-29] MEDS ORDERED: HYDROmorphone PF Inj 2 MG/ML Vial IV.PUSH ONE (03:50)
[2018-03-29 05:15] LABS: Baso # (Auto) 0.1 th/mm3 (0.0-0.2); Baso % (Auto) 0.8 % (0.0-2.0); Eos # (Auto) 0.8 th/mm3 (0.0-0.4); Eos % (Auto) 10.7 % (0.0-4.0); Hematocrit 36.7 % (39.0-51.0); Hemoglobin 12.7 gm/dL (13.0-17.0); Lymph # (Auto) 1.6 th/mm3 (1.0-4.8); Lymph % (Auto) 20.4 % (9.0-44.0); Mean Corpuscular HGB Conc 34.7 % (32.0-36.0); Mean Corpuscular Hemoglobin 30.6 pg (27.0-34.0); Mean Corpuscular Volume 88.3 fL (80.0-100.0); Mean Platelet Volume 7.9 fL (7.0-11.0); Mono # (Auto) 0.5 th/mm3 (0.0-0.9); Mono % (Auto) 6.9 % (0.0-8.0); Neut # (Auto) 4.7 th/mm3 (1.8-7.7); Neut % (Auto) 61.2 % (16.0-70.0); Platelet Count 212 th/mm3 (150-450); Red Blood Count 4.16 mil/mm3 (4.50-5.90); Red Cell Distribution Width 13.7 % (11.6-17.2); White Blood Count 7.7 th/mm3 (4.0-11.0)
[2018-03-29 05:45] LABS: Anion Gap 10 meq/L (5-15); Blood Urea Nitrogen 7 mg/dL (7-18); Calcium 8.2 mg/dL (8.5-10.1); Carbon Dioxide 24.1 meq/L (21.0-32.0); Chloride 110 meq/L (98-107); Glomerular Filtration Rate Greater Than 89 mL/min (>89); Glucose,Random 84 mg/dL (74-106); Potassium 3.4 meq/L (3.5-5.1); Sodium 144 meq/L (136-145)
[2018-03-29] MEDS ORDERED: Potassium Chlor 20 mEq Premix 20 MEQ/100 ML PIGGYBACK IV.SIG ONE (08:35)
[2018-03-29] MEDS: Insulin NovoLOG Aspart Correctional Sugar Inj SQ SCH ×4 (09:33→23:25)
--- NOTE | 2018-03-29 09:39 | P.PNIM ---
Subjective Interval history: Follow up: Gastric outlet obstruction Patient has NG tube to LI patient offers no new concerns/complaints at this time patient reports that he is concerned/anious regarding procedure today Physical Exam Vital signs: Last Vital Signs Temp 98.6 F 03/29/18 07:41 Pulse 79 03/29/18 07:41 Resp 20 03/29/18 07:41 BP 161/64 H 03/29/18 07:41 Pulse Ox 96 03/29/18 07:41 Narrative: General: Thin 63 year old male patient, no acute distress Head: Normocephalic. Atraumatic. Cardiovascular: Regular rate and rhythm. Respiratory: Lungs clear to auscultation bilaterally. No wheezes or rhonchi. Gastrointestinal: Soft, nondistended. No peritoneal signs. Minimally tender to palpation. NG tube to [facility] Musculoskeletal: No gross deformities. No edema. Skin: No obvious rashes or erythema. Neuro: Sensory and motor grossly intact. Results Labs CBC & Chem 7: 03/29/18 05:00 03/29/18 05:00 Assessment and Plan Assessment (1) Gastric outlet obstruction: Code(s): K31.1 - Adult hypertrophic pyloric stenosis Status: Acute Plan 1. Gastric outlet obstruction CT of the abdomen/pelvis significant for gaseous and fluid distention of the stomach suggestive of gastric outlet obstruction with questionable mural thickening or soft tissue mass in the proximal duodenum NG tube to [facility] NPO Gastroenterology consulted, appreciate recommendations Concern for neoplastic process given mass and unintentional weight loss EGD was not done yesterday Plan for EGD today - patient may need surgical consult depending on EGD results 2. Chest pain - resolved after NG tube placed Patient with significant cardiac history troponin < 0.02 x 3 EKG significant for sinus tachycardia and right bundle branch block without ST segment elevation or depression resolved after NG tube placed - likely secondary to gastric outlet obstruction 3. Diabetes mellitus Holding home metformin Sliding-scale insulin Monitor blood glucose 4. Hypertension/hyperlipidemia/BPH Holding home medications as patient n.p.o. Vasotec prn 5. Migraines Patient denies any history of seizure Resume home medications once tolerating p.o. 6. Hypokalemia Potassium 3.4 replaced IV FEN: NPO Electrolytes: Monitor and replete as needed NS at 84 cc/hour Holding pharmacologic anticoagulation for probable endoscopy Discussed with patient, nurse and supervising physician Dr. Griffith Progress Note: Quality VTE Deep Vein Thrombosis/Pulmonary Embolism Present on Admission: No
[2018-03-29] MEDS: Sodium Chloride 0.9% 2 ML Flush BID IV.FLUSH SCH ×2 (10:32→23:25)
--- NOTE | 2018-03-29 12:09 | GIPROC ---
[facility] [address] [facility]. [facility], [address] EGD PROCEDURE REPORT EXAM DATE: 03/29/2018 PATIENT NAME: Jonnathan Keller MR #: [id number] BIRTHDATE: 1955 ATTENDING: Kevin Meade MD ORDER #: [id number] LEAVE COORDINATOR: Ritika Chaparro and Milena Dash STATUS: inpatient INDICATIONS: The patient is a 63 yr old male here for an EGD due to epigastric abdominal pain, nausea, and vomiting PROCEDURE PERFORMED: EGD w/ biopsy EGD w/ dilation of gastric outlet MEDICATIONS: Per Anesthesia and None. TOPICAL ANESTHETIC: none CONSENT: The patient understands the risks and benefits of the procedure and understands that these risks include, but are not limited to: sedation, allergic reaction, infection, perforation and/or bleeding. Alternative means of evaluation and treatment include, among others: physical exam, x-rays, and/or surgical intervention. The patient elects to proceed with this endoscopic procedure. medical equipment was checked for proper function. Hand hygiene and appropriate measures for infection prevention was taken. After the risks, benefits and alternatives of the procedure were thoroughly explained, Informed consent was verified, confirmed and timeout was successfully executed by the treatment team. The patient was anesthetized with topical anesthesia and the Pentax EG-[id number] endoscope was introduced through the mouth and advanced to the second portion of the duodenum. Retroflexed views revealed no abnormalities The gastroscope was then slowly withdrawn and removed. ESOPHAGUS: The mucosa of the esophagus appeared normal. STOMACH: There was mild antral gastropathy noted. Cold forcep biopsies were taken at the antrum and angularis. Small and traversable stenosis was found at the pylorus. Using a TTS-balloon the stricture was dilated up to 12mm. Two large non-bleeding, linear, deep and clean-based ulcers with surrounding edema were found at the pylorus. Biopsies were taken at edge of the ulcers and at the center of the ulcers. DUODENUM: The duodenal mucosa appeared normal in the entire duodenum. ADVERSE EVENTS: There were no complications. IMPRESSIONS: 1. The esophagus appeared normal 2. There was mild antral gastropathy noted [T2] 3. Stenosis was found at the pylorus; Using a TTS-balloon the stricture was dilated up to 12mm 4. Two large ulcers were found at the pylorus; biopsies were taken 5. Normal duodenal mucosa in the entire duodenum 6. Retroflexed views revealed no abnormalities RECOMMENDATIONS: Await biopsy results. Biopsy results will not be ready for 7-10 days. If you don't hear from us in two weeks, call our office for biopsy results. PATIENT CONDITION: stable DISPOSITION: Inpatient REPEAT EXAM: Return as needed for EGD Kevin Meade MD eSigned: Kevin Meade MD 03/29/2018 12:08 PM cc: PATIENT NAME: Jonnathan Keller MR#: [id number]
[2018-03-29] MEDS ORDERED: Diatrizoate Meglum/Diatrizoate Sod Liq 9 ML UDC PO ONE (14:00)
--- NOTE | 2018-03-29 17:36 | CT ---
EXAM DATE: 03/29/2018 5:30 PM EST AGE/SEX: 63 years / Male INDICATIONS: Abdominal pain, gastric outlet obstruction CLINICAL DATA: This is the patient's initial encounter. Patient reports that signs and symptoms have been present for 1 day and indicates a pain score of 4/10. MEDICAL/SURGICAL HISTORY: Diabetes. Hypertension. CABG. Tonsillectomy. Heart Artery Stent ORAL CONTRAST: Prescribed oral contrast ingested. RADIATION DOSE: 6.64 CTDI (mGy) COMPARISON: [facility], CT ABDOMEN & PELVIS W/O CONTRAST, 03/26/2018. [facility], CT ABDOMEN AND PELVIS W/ CO NTRAST, 02/12/2018. . TECHNIQUE: Multiple contiguous axial images were obtained through the abdomen and pelvis following b olus infusion of 90ML ml Omnipaque 350 (iohexol) nonionic water-soluble contrast as a single exam d ose. Prescribed oral contrast ingested. Using automated exposure control and adjustment of the mA an d/or kV according to patient size, radiation dose was kept as low as reasonably achievable to obtain optimal diagnostic quality images. DICOM format image data is available electronically for review an d comparison. FINDINGS: Lower Lungs: The visualized lower lungs are clear. Liver: The liver has a homogeneous density without space-occupying lesion. There is no dilation of th e biliary tree. Calcified gallstones are noted within the gallbladder. Spleen: Homogeneous density without enlargement. Pancreas: Unremarkable without mass or calcification. Kidneys: Normal in size and shape. No evidence of mass or hydronephrosis. Adrenal Glands: Unremarkable. Aorta: The aorta and proximal iliac vessels are grossly unremarkable without aneurysmal dilation. Bowel/Mesentery: The previously noted gastric outlet obstruction and markedly distended stomach have resolved. The bowel loops are grossly unremarkable. The cecum and sigmoid colon have a normal config uration. Abdominal Wall: Intact. Retroperitoneum: No evidence of adenopathy in the retrocrural, para-aortic, or deep pelvic regions. Bladder: Contours are smooth. Reproductive Organs: Prostate is enlarged. Inguinal: The inguinal region is unremarkable without evidence of adenopathy. Bony Structures: Degenerative changes and mild scoliosis are noted throughout the lumbar spine. CONCLUSION: 1. Resolution of the previously noted gastric outlet obstruction and markedly distended stomach. 2. Cholelithiasis. 3. Enlarged prostate. 4. Degenerative changes and mild scoliosis of the lumbar spine. Electronically signed by: Fish Greene MD 03/29/2018 5:35 PM EST
[2018-03-30] MEDS: Pantoprazole Inj 40 MG Vial IV.PUSH SCH ×2 (00:11→12:02)
[2018-03-30] MEDS: Sod Chloride 0.9% Inj 1,000 ML IV.CONT SCH ×2 (06:01→18:17)
[2018-03-30 06:48] LABS: Anion Gap 9 meq/L (5-15); Blood Urea Nitrogen 7 mg/dL (7-18); Calcium 8.1 mg/dL (8.5-10.1); Carbon Dioxide 25.1 meq/L (21.0-32.0); Chloride 110 meq/L (98-107); Glomerular Filtration Rate Greater Than 89 mL/min (>89); Glucose,Random 98 mg/dL (74-106); Potassium 3.2 meq/L (3.5-5.1); Sodium 144 meq/L (136-145)
[2018-03-30] MEDS: Sodium Chloride 0.9% 2 ML Flush BID IV.FLUSH SCH ×2 (08:39→21:08)
[2018-03-30] MEDS ORDERED: Mag Sulf 1 gm/100 ml Premix 100 ML IV.SIG ONE (10:40)
[2018-03-30] MEDS: Insulin NovoLOG Aspart Correctional Sugar Inj SQ SCH ×4 (11:21→21:09)
--- NOTE | 2018-03-30 11:37 | P.PNIM ---
Subjective Interval history: Patient says he is feeling better. Denies any chest pain or shortness of breath. Physical Exam Vital signs: Vital Signs 03/29/18 12:08 03/29/18 12:15 03/29/18 12:30 Temperature 98.1 F Pulse Rate 96 H 103 H 91 H Respiratory Rate 18 20 18 Blood Pressure 137/77 132/79 136/82 Pulse Oximetry 99 100 98 03/29/18 16:08 03/29/18 19:46 03/29/18 23:38 Temperature 98.2 F 97.7 F 97.7 F Pulse Rate 84 72 88 Respiratory Rate 20 22 20 Blood Pressure 94/58 L 120/70 127/81 Pulse Oximetry 97 98 97 03/30/18 04:00 03/30/18 06:01 03/30/18 08:00 Temperature 98.8 F 97.6 F 98.1 F Pulse Rate 61 62 62 Respiratory Rate 20 16 17 Blood Pressure 113/64 134/61 117/57 L Pulse Oximetry 97 97 96 Intake & Output 03/29/18 03/30/18 03/30/18 18:59 06:59 18:59 Intake Total 1800 / 1800 1560 / 1560 Output Total 2600 / 2600 Balance 1800 / 1800 -1040 / -1040 Weight 58.6 kg Intake: IV 1100 / 1100 1000 / 1000 NS Inj 1,000 ML @ 84 mls/hr IV. 1000 / 1000 1000 / 1000 CONT .[id number] [facility] Rx#:[id number] KCl 20 mEq Premix Inj 20 meq In 100 / 100 100 ml @ 50 mls/hr IV.SIG ONCE ONE Rx#:[id number] Oral 500 / 500 560 / 560 Anesthesia Amount 200 / 200 Output: Urine 2600 / 2600 Narrative: GENERAL: Patient sitting up in bed. Appears comfortable. Alert and oriented x3. SKIN: Warm and dry. HEAD: Normocephalic. EYES: No scleral icterus. No injection or drainage. NECK: Supple, trachea midline. No JVD CARDIOVASCULAR: Regular rate and rhythm without murmurs, gallops, or rubs. RESPIRATORY: Breath sounds equal bilaterally. No accessory muscle use. GASTROINTESTINAL: Abdomen soft, non-tender, nondistended. MUSCULOSKELETAL: No cyanosis, or edema. BACK: Nontender without obvious deformity. No CVA tenderness. Results - Labs CBC & Chem 7: 03/29/18 05:00 03/30/18 05:20 Laboratory Results - last 24 hr 03/29/18 03/29/18 03/29/18 13:20 17:28 21:21 Sodium Potassium Chloride Carbon Dioxide Anion Gap BUN Creatinine Estimated GFR POC Glucose 96 110 275 H Random Glucose Calcium 03/30/18 03/30/18 05:20 07:55 Sodium 144 Potassium 3.2 L Chloride 110 H Carbon Dioxide 25.1 Anion Gap 9 BUN 7 Creatinine 0.74 Estimated GFR Greater than 89 POC Glucose 106 Random Glucose 98 Calcium 8.1 L - Imaging Impressions Abdomen/Pelvis CT 03/29/18 12:31 CONCLUSION: 1. Resolution of the previously noted gastric outlet obstruction and markedly distended stomach. 2. Cholelithiasis. 3. Enlarged prostate. 4. Degenerative changes and mild scoliosis of the lumbar spine. Assessment and Plan - Assessment (1) Gastric outlet obstruction Code(s): K31.1 - Adult hypertrophic pyloric stenosis Status: Acute - Plan // Gastric outlet obstruction CT of the abdomen/pelvis significant for gaseous and fluid distention of the stomach suggestive of gastric outlet obstruction with questionable mural thickening or soft tissue mass in the proximal duodenum NG tube to ILWS NPO Gastroenterology consulted, appreciate recommendations Concern for neoplastic process given mass and unintentional weight loss EGD was not done yesterday Plan for EGD today - patient may need surgical consult depending on EGD results = EGD showing gastric outlet obstruction with ulcers. Improved after dilation. Will advance diet to pured. Continue PPI. //Chest pain - resolved after NG tube placed Patient with significant cardiac history troponin < 0.02 x 3 EKG significant for sinus tachycardia and right bundle branch block without ST segment elevation or depression resolved after NG tube placed - likely secondary to gastric outlet obstruction //Diabetes mellitus Holding home metformin Sliding-scale insulin Monitor blood glucose //Hypertension/hyperlipidemia/BPH Holding home medications as patient n.p.o. Vasotec prn =resume home meds. //Migraines Patient denies any history of seizure Resume home medications 6. Hypokalemia Potassium 3.4 replaced IV FEN: NPO Electrolytes: Monitor and replete as needed NS at 84 cc/hour Holding pharmacologic anticoagulation for probable endoscopy Discussed with patient, nurse and supervising physician Dr. Griffith Discharge Planning: Resume home medications. Hopefully discharge home tomorrow if doing okay
[2018-03-30] MEDS: Potassium Chlor 20 mEq Premix 20 MEQ/100 ML PIGGYBACK IV.SIG SCH ×2 (11:45→13:06)
--- NOTE | 2018-03-30 13:49 | P.PNGI ---
Subjective Interval history: Patient laying supine in bed Talking on telephone Denies any nausea vomiting or abdominal pain, no reported bleeding Patient post EGD with pyloric dilatation. <ShresthaFallon - Last Filed: 03/30/18 13:41> Physical Exam Vital signs: Vital Signs 03/29/18 16:08 03/29/18 19:46 03/29/18 23:38 Temperature 98.2 F 97.7 F 97.7 F Pulse Rate 84 72 88 Respiratory Rate 20 22 20 Blood Pressure 94/58 L 120/70 127/81 Pulse Oximetry 97 98 97 03/30/18 04:00 03/30/18 06:01 03/30/18 08:00 Temperature 98.8 F 97.6 F 98.1 F Pulse Rate 61 62 62 Respiratory Rate 20 16 17 Blood Pressure 113/64 134/61 117/57 L Pulse Oximetry 97 97 96 03/30/18 12:00 Temperature 97.7 F Pulse Rate 83 Respiratory Rate 17 Blood Pressure 123/73 Pulse Oximetry 95 Intake & Output 03/29/18 03/30/18 03/30/18 18:59 06:59 18:59 Intake Total 1800 / 1800 1560 / 1560 200 / 200 Output Total 2600 / 2600 Balance 1800 / 1800 -1040 / -1040 200 / 200 Weight 58.6 kg Intake: IV 1100 / 1100 1000 / 1000 200 / 200 NS Inj 1,000 ML @ 84 mls/hr IV. 1000 / 1000 1000 / 1000 CONT .[id number] [facility] Rx#:[id number] Magnesium Sulfate 1 gm/D5W 100 100 / 100 ml Premix 100 ML @ 100 mls/hr IV.SIG ONCE ONE Rx#:[id number] KCl 20 mEq Premix Inj 20 meq In 100 / 100 100 / 100 100 ml @ 50 mls/hr IV.SIG Q2H [facility] Rx#:[id number] Oral 500 / 500 560 / 560 Anesthesia Amount 200 / 200 Output: Urine 2600 / 2600 - Constitutional no acute distress - Routine HEENT Exam Head: Present: normocephalic - Routine Respiratory Exam Present: CTA bilaterally. Absent: accessory muscle use - Routine Cardiovascular Exam Present: S1, S2 - Routine Abdominal Exam Present: soft, normoactive bowel sounds. Absent: tenderness, distended, guarding, firm - Routine Skin Exam Present: dry, warm - Routine Neurological Exam Present: alert, oriented X3 <Fallon Shrestha - Last Filed: 03/30/18 13:41> Vital signs: Vital Signs 03/29/18 16:08 03/29/18 19:46 03/29/18 23:38 Temperature 98.2 F 97.7 F 97.7 F Pulse Rate 84 72 88 Respiratory Rate 20 22 20 Blood Pressure 94/58 L 120/70 127/81 Pulse Oximetry 97 98 97 03/30/18 04:00 03/30/18 06:01 03/30/18 08:00 Temperature 98.8 F 97.6 F 98.1 F Pulse Rate 61 62 62 Respiratory Rate 20 16 17 Blood Pressure 113/64 134/61 117/57 L Pulse Oximetry 97 97 96 03/30/18 12:00 Temperature 97.7 F Pulse Rate 83 Respiratory Rate 17 Blood Pressure 123/73 Pulse Oximetry 95 Intake & Output 03/29/18 03/30/18 03/30/18 18:59 06:59 18:59 Intake Total 1800 / 1800 1560 / 1560 300 / 300 Output Total 2600 / 2600 Balance 1800 / 1800 -1040 / -1040 300 / 300 Weight 58.6 kg Intake: IV 1100 / 1100 1000 / 1000 300 / 300 NS Inj 1,000 ML @ 84 mls/hr IV. 1000 / 1000 1000 / 1000 CONT .[id number] [facility] Rx#:[id number] Magnesium Sulfate 1 gm/D5W 100 100 / 100 ml Premix 100 ML @ 100 mls/hr IV.SIG ONCE ONE Rx#:[id number] KCl 20 mEq Premix Inj 20 meq In 100 / 100 200 / 200 100 ml @ 50 mls/hr IV.SIG Q2H [facility] Rx#:[id number] Oral 500 / 500 560 / 560 Anesthesia Amount 200 / 200 Output: Urine 2600 / 2600 <Maria Teresa Land - Last Filed: 03/30/18 15:41> Results - Labs CBC & Chem 7: 03/29/18 05:00 03/30/18 05:20 Laboratory Results - last 24 hr 03/29/18 03/29/18 03/30/18 17:28 21:21 05:20 Sodium 144 Potassium 3.2 L Chloride 110 H Carbon Dioxide 25.1 Anion Gap 9 BUN 7 Creatinine 0.74 Estimated GFR Greater than 89 POC Glucose 110 275 H Random Glucose 98 Calcium 8.1 L Magnesium 03/30/18 03/30/18 03/30/18 05:20 07:55 12:46 Sodium Potassium Chloride Carbon Dioxide Anion Gap BUN Creatinine Estimated GFR POC Glucose 106 253 H Random Glucose Calcium Magnesium 1.8 - Imaging Impressions Abdomen/Pelvis CT 03/29/18 12:31 CONCLUSION: 1. Resolution of the previously noted gastric outlet obstruction and markedly distended stomach. 2. Cholelithiasis. 3. Enlarged prostate. 4. Degenerative changes and mild scoliosis of the lumbar spine. <Fallon Shrestha - Last Filed: 03/30/18 13:41> - Labs CBC & Chem 7: 03/29/18 05:00 03/30/18 05:20 Laboratory Results - last 24 hr 03/29/18 03/29/18 03/30/18 17:28 21:21 05:20 Sodium 144 Potassium 3.2 L Chloride 110 H Carbon Dioxide 25.1 Anion Gap 9 BUN 7 Creatinine 0.74 Estimated GFR Greater than 89 POC Glucose 110 275 H Random Glucose 98 Calcium 8.1 L Magnesium 03/30/18 03/30/18 03/30/18 05:20 07:55 12:46 Sodium Potassium Chloride Carbon Dioxide Anion Gap BUN Creatinine Estimated GFR POC Glucose 106 253 H Random Glucose Calcium Magnesium 1.8 - Imaging Impressions Abdomen/Pelvis CT 03/29/18 12:31 CONCLUSION: 1. Resolution of the previously noted gastric outlet obstruction and markedly distended stomach. 2. Cholelithiasis. 3. Enlarged prostate. 4. Degenerative changes and mild scoliosis of the lumbar spine. <Maria Teresa Land - Last Filed: 03/30/18 15:41> Assessment and Plan (1) Gastric outlet obstruction Status: Acute Code(s): K31.1 - Adult hypertrophic pyloric stenosis - Plan 03/29/2018 Gastric outlet obstruction 03/28/2018 patient post EGD with pyloric dilatation, findings as follows-- 1. The esophagus appeared normal 2. There was mild antral gastropathy noted [T2] 3. Stenosis was found at the pylorus; Using a TTS-balloon the stricture was dilated up to 12mm 4. Two large ulcers were found at the pylorus; biopsies were taken 5. Normal duodenal mucosa in the entire duodenum 6. Retroflexed views revealed no abnormalities 03/29/2018 CT abdomen and pelvis revealed the following-- 1 Resolution of the previously noted gastric outlet obstruction and markedly distended stomach. 2. Cholelithiasis. 3. Enlarged prostate. 4. Degenerative changes and mild scoliosis of the lumbar spine. No BM today, patient denies abdominal pain. Positive bowel sounds present patient endorses passing flatus Plan -Liquid diet -Continue PPI -Await biopsy results -Avoid NSAIDs -Patient currently prescribed Plavix -Monitor for bleeding -Monitor labs -Supportive care -Further recommendations to follow This patient has been seen by myself and Dr. Land and this note is written on his behalf - Attending Attestation Dr. Land <Fallon Shrestha - Last Filed: 03/30/18 13:41> (1) Gastric outlet obstruction Status: Acute Code(s): K31.1 - Adult hypertrophic pyloric stenosis - Attending Attestation Agree with the plan as above, findings discussed with the patient again. Will advance the diet to soft and check biopsy results. <Maria Teresa Land - Last Filed: 03/30/18 15:41>
[2018-03-30] MEDS: Divalproex 125 MG DR Tablet PO SCH ×2 (14:38→18:13)
[2018-03-30] MEDS ORDERED: Mirtazapine 15 MG Tablet PO SCH (21:00)
[2018-03-30] MEDS: Topiramate 200 MG Tablet PO SCH (21:09)
[2018-03-31] MEDS: Pantoprazole Inj 40 MG Vial IV.PUSH SCH ×2 (01:43→13:38)
[2018-03-31] MEDS: Sod Chloride 0.9% Inj 1,000 ML IV.CONT SCH (06:16)
[2018-03-31 07:42] LABS: Baso # (Auto) 0.1 th/mm3 (0.0-0.2); Baso % (Auto) 1.8 % (0.0-2.0); Eos # (Auto) 0.9 th/mm3 (0.0-0.4); Eos % (Auto) 13.5 % (0.0-4.0); Hematocrit 36.3 % (39.0-51.0); Hemoglobin 12.5 gm/dL (13.0-17.0); Lymph # (Auto) 1.6 th/mm3 (1.0-4.8); Mean Corpuscular HGB Conc 34.3 % (32.0-36.0); Mean Corpuscular Hemoglobin 30.5 pg (27.0-34.0); Mean Corpuscular Volume 88.7 fL (80.0-100.0); Mean Platelet Volume 8.1 fL (7.0-11.0); Mono # (Auto) 0.5 th/mm3 (0.0-0.9); Mono % (Auto) 7.6 % (0.0-8.0); Neut # (Auto) 3.3 th/mm3 (1.8-7.7); Neut % (Auto) 52.1 % (16.0-70.0); Platelet Count 209 th/mm3 (150-450); Red Blood Count 4.09 mil/mm3 (4.50-5.90); Red Cell Distribution Width 14.3 % (11.6-17.2); White Blood Count 6.4 th/mm3 (4.0-11.0)
[2018-03-31 07:58] LABS: Alanine Aminotransferase 15 U/L (12-78); Albumin 2.8 g/dL (3.4-5.0); Anion Gap 10 meq/L (5-15); Aspartate Aminotransferase 11 U/L (15-37); Blood Urea Nitrogen 7 mg/dL (7-18); Carbon Dioxide 23.6 meq/L (21.0-32.0); Chloride 114 meq/L (98-107); Glomerular Filtration Rate Greater Than 89 mL/min (>89); Glucose,Random 101 mg/dL (74-106); Magnesium 2.2 mg/dL (1.5-2.5); Phosphorus 2.6 mg/dL (2.5-4.9); Potassium 3.7 meq/L (3.5-5.1); Sodium 148 meq/L (136-145)
[2018-03-31 08:00] LABS: Alkaline Phosphatase 96 U/L (45-117); Total Protein 6.2 g/dL (6.4-8.2)
[2018-03-31] MEDS ORDERED: Lisinopril 5 MG Tablet PO SCH (09:00)
[2018-03-31 09:06] VITALS: RESP 16
[2018-03-31] MEDS ORDERED: Sodium Chloride 0.45 % Inj 500 ML IV.SIG ONE (09:11)
[2018-03-31] MEDS: Sodium Chloride 0.45 % Inj 1,000 ML IV.CONT SCH ×2 (09:33→18:42)
[2018-03-31] MEDS: Insulin NovoLOG Aspart Correctional Sugar Inj SQ SCH ×3 (09:38→18:43)
[2018-03-31] MEDS: Divalproex 125 MG DR Tablet PO SCH ×3 (09:39→18:19)
[2018-03-31] MEDS: Topiramate 200 MG Tablet PO SCH (09:39)
[2018-03-31] MEDS: Sodium Chloride 0.9% 2 ML Flush BID IV.FLUSH SCH (09:40)
--- NOTE | 2018-03-31 09:43 | P.PNIM ---
Subjective Interval history: He says he is feeling all right apart from poor sleep in the hospital. Denies any chest pain or shortness of breath. Denies any abdominal pain. Physical Exam Vital signs: Vital Signs 03/30/18 12:00 03/30/18 16:00 03/30/18 20:00 Temperature 97.7 F 97.8 F 98.3 F Pulse Rate 83 94 H 93 H Respiratory Rate 17 16 17 Blood Pressure 123/73 125/76 149/77 H Pulse Oximetry 95 95 98 03/31/18 00:00 03/31/18 04:00 03/31/18 05:53 Temperature 98.2 F 97.8 F 97.8 F Pulse Rate 78 63 78 Respiratory Rate 18 19 19 Blood Pressure 124/76 125/77 139/97 H Pulse Oximetry 94 L 95 97 03/31/18 08:00 Temperature 98.1 F Pulse Rate 63 Respiratory Rate 16 Blood Pressure 126/77 Pulse Oximetry 97 Intake & Output 03/30/18 03/31/18 03/31/18 18:59 06:59 18:59 Intake Total 1780 / 1780 1620 / 1620 Output Total 1999 1200 / 1200 Balance -220 / -220 420 / 420 Weight 60.72 kg Intake: IV 1300 / 1300 1000 / 1000 NS Inj 1,000 ML @ 84 mls/hr IV. 1000 / 1000 1000 / 1000 CONT .[id number] [facility] Rx#:[id number] Magnesium Sulfate 1 gm/D5W 100 100 / 100 ml Premix 100 ML @ 100 mls/hr IV.SIG ONCE ONE Rx#:[id number] KCl 20 mEq Premix Inj 20 meq In 200 / 200 100 ml @ 50 mls/hr IV.SIG Q2H [facility] Rx#:[id number] Oral 480 / 480 620 / 620 Output: Urine 1999 1200 / 1200 Other: Date of Last Bowel Movement 03/30/18 # Bowel Movements 1 Narrative: GENERAL: Patient sleeping, wakes up for exam. Appears comfortable. Alert and oriented x3. SKIN: Warm and dry. HEAD: Normocephalic. EYES: No scleral icterus. No injection or drainage. NECK: Supple, trachea midline. No JVD CARDIOVASCULAR: Regular rate and rhythm without murmurs, gallops, or rubs. RESPIRATORY: Breath sounds equal bilaterally. No accessory muscle use. GASTROINTESTINAL: Abdomen soft, non-tender, nondistended. MUSCULOSKELETAL: No cyanosis, or edema. BACK: Nontender without obvious deformity. No CVA tenderness. Results - Labs CBC & Chem 7: 03/31/18 05:05 03/31/18 05:05 Laboratory Results - last 24 hr 03/30/18 03/30/18 03/30/18 05:20 12:46 16:36 WBC RBC Hgb Hct MCV MCH MCHC RDW Plt Count MPV Neut % (Auto) Lymph % (Auto) [place] % (Auto) Eos % (Auto) Baso % (Auto) Neut # (Auto) Lymph # (Auto) [place] # (Auto) Eos # (Auto) Baso # (Auto) WBC Differential Differential Comment Sodium Potassium Chloride Carbon Dioxide Anion Gap BUN Creatinine Estimated GFR POC Glucose 253 H 161 H Random Glucose Calcium Phosphorus Magnesium 1.8 Total Bilirubin Direct Bilirubin Indirect Bilirubin AST ALT Alkaline Phosphatase Total Protein Albumin 03/30/18 03/31/18 03/31/18 21:00 05:05 05:05 WBC 6.4 RBC 4.09 L Hgb 12.5 L Hct 36.3 L MCV 88.7 MCH 30.5 MCHC 34.3 RDW 14.3 Plt Count 209 MPV 8.1 Neut % (Auto) 52.1 Lymph % (Auto) 25.0 [place] % (Auto) 7.6 Eos % (Auto) 13.5 H Baso % (Auto) 1.8 Neut # (Auto) 3.3 Lymph # (Auto) 1.6 [place] # (Auto) 0.5 Eos # (Auto) 0.9 H Baso # (Auto) 0.1 WBC Differential . Differential Comment Auto diff final Sodium 148 H Potassium 3.7 Chloride 114 H Carbon Dioxide 23.6 Anion Gap 10 BUN 7 Creatinine 0.79 Estimated GFR Greater than 89 POC Glucose 157 H Random Glucose 101 Calcium 8.0 L Phosphorus 2.6 Magnesium 2.2 Total Bilirubin 0.4 Direct Bilirubin 0.1 Indirect Bilirubin 0.3 AST 11 L ALT 15 Alkaline Phosphatase 96 Total Protein 6.2 L D Albumin 2.8 L 03/31/18 08:41 WBC RBC Hgb Hct MCV MCH MCHC RDW Plt Count MPV Neut % (Auto) Lymph % (Auto) [place] % (Auto) Eos % (Auto) Baso % (Auto) Neut # (Auto) Lymph # (Auto) [place] # (Auto) Eos # (Auto) Baso # (Auto) WBC Differential Differential Comment Sodium Potassium Chloride Carbon Dioxide Anion Gap BUN Creatinine Estimated GFR POC Glucose 98 Random Glucose Calcium Phosphorus Magnesium Total Bilirubin Direct Bilirubin Indirect Bilirubin AST ALT Alkaline Phosphatase Total Protein Albumin Assessment and Plan - Assessment (1) Gastric outlet obstruction Code(s): K31.1 - Adult hypertrophic pyloric stenosis Status: Acute - Plan // Gastric outlet obstruction CT of the abdomen/pelvis significant for gaseous and fluid distention of the stomach suggestive of gastric outlet obstruction with questionable mural thickening or soft tissue mass in the proximal duodenum NG tube to ILWS NPO Gastroenterology consulted, appreciate recommendations Concern for neoplastic process given mass and unintentional weight loss EGD was not done yesterday Plan for EGD today - patient may need surgical consult depending on EGD results = EGD showing gastric outlet obstruction with ulcers. Improved after dilation. Will advance diet to pured. Continue PPI. = 03/31. Discharge home. Follow-up with GI as outpatient go over biopsy results. //Chest pain - resolved after NG tube placed Patient with significant cardiac history troponin < 0.02 x 3 EKG significant for sinus tachycardia and right bundle branch block without ST segment elevation or depression likely secondary to gastric outlet obstruction = Resolved. //Diabetes mellitus Holding home metformin Sliding-scale insulin Monitor blood glucose //Hypernatremia. Iatrogenic. switch to 1/2 ns and recheck this afternoon. //Hypertension/hyperlipidemia/BPH Holding home medications as patient n.p.o. Vasotec prn =cont home meds. //Migraines Patient denies any history of seizure Resume home medications // Hypokalemia Potassium 3.4 replaced IV = Resolved. Discharge Planning: The discharge this afternoon if sodium improved. Need to follow-up with GI as outpatient. Patient conveys understanding.
--- NOTE | 2018-03-31 09:47 | P.DS ---
Date of admission: 03/28/18 11:29 Primary care physician: UNKNOWN Brief History from admission: 63-year-old male with a past medical history significant for previous CVA, coronary artery disease, hypertension, hyperlipidemia, diabetes mellitus and BPH presents the emergency department for the evaluation of chest pain and shortness of breath that began at approximately 3 PM yesterday. The patient endorses associated nausea without emesis. He states that today he also had associated anorexia. He complains of a 25 pound unintentional weight loss but cannot specify a time frame. He denies any bloody or black stools. No fever/ chills. No lateralizing signs/symptoms. DS: Diagnosis - Discharge Diagnosis (1) Gastric outlet obstruction Status: Acute DS: Summary Hospital Course: // Gastric outlet obstruction CT of the abdomen/pelvis significant for gaseous and fluid distention of the stomach suggestive of gastric outlet obstruction with questionable mural thickening or soft tissue mass in the proximal duodenum NG tube to ILWS NPO Gastroenterology consulted, appreciate recommendations Concern for neoplastic process given mass and unintentional weight loss EGD was not done yesterday Plan for EGD today - patient may need surgical consult depending on EGD results = EGD showing gastric outlet obstruction with ulcers. Improved after dilation. Will advance diet to pured. Continue PPI. = 03/31. Discharge home. Follow-up with GI as outpatient go over biopsy results. //Chest pain - resolved after NG tube placed Patient with significant cardiac history troponin < 0.02 x 3 EKG significant for sinus tachycardia and right bundle branch block without ST segment elevation or depression likely secondary to gastric outlet obstruction = Resolved. //Diabetes mellitus Holding home metformin Sliding-scale insulin Monitor blood glucose //Hypernatremia. Iatrogenic. switch to 1/2 ns and recheck this afternoon. //Hypertension/hyperlipidemia/BPH Holding home medications as patient n.p.o. Vasotec prn =cont home meds. //Migraines Patient denies any history of seizure Resume home medications // Hypokalemia Potassium 3.4 replaced IV = Resolved. Discharge Planning: The discharge this afternoon if sodium improved. Need to follow-up with GI as outpatient. Patient conveys understanding. - Time Spent with Patient Total time spent providing and/or coordinating discharge services: Greater than 30 minutes - Quality: VTE Deep Vein Thrombosis/Pulmonary Embolism Present on Admission: No Exam Vital signs: Vital Signs 03/30/18 12:00 11/19/18 16:00 03/30/18 20:00 Temperature 97.7 F 97.8 F 98.3 F Pulse Rate 83 94 H 93 H Respiratory Rate 17 16 17 Blood Pressure 123/73 125/76 149/77 H Pulse Oximetry 95 95 98 03/31/18 00:00 03/31/18 04:00 03/31/18 05:53 Temperature 98.2 F 97.8 F 97.8 F Pulse Rate 78 63 78 Respiratory Rate 18 19 19 Blood Pressure 124/76 125/77 139/97 H Pulse Oximetry 94 L 95 97 03/31/18 08:00 Temperature 98.1 F Pulse Rate 63 Respiratory Rate 16 Blood Pressure 126/77 Pulse Oximetry 97 Intake & Output 03/30/18 03/31/18 03/31/18 18:59 06:59 18:59 Intake Total 1780 / 1780 1620 / 1620 Output Total 1999 / 1999 1200 / 1200 Balance -220 / -220 420 / 420 Weight 60.72 kg Intake: IV 1300 / 1300 1000 / 1000 NS Inj 1,000 ML @ 84 mls/hr IV. 1000 / 1000 1000 / 1000 CONT .[id number] [facility] Rx#:[id number] Magnesium Sulfate 1 gm/D5W 100 100 / 100 ml Premix 100 ML @ 100 mls/hr IV.SIG ONCE ONE Rx#:[id number] KCl 20 mEq Premix Inj 20 meq In 200 / 200 100 ml @ 50 mls/hr IV.SIG Q2H [facility] Rx#:[id number] Oral 480 / 480 620 / 620 Output: Urine 1999 / 1999 1200 / 1200 Other: Date of Last Bowel Movement 03/30/18 # Bowel Movements 1 Results Procedures completed during hospitalization: EGD with pyloric dilation. Please see report. Pending studies at discharge: Pending at discharge 03/29/18 07:29 Surgical [PTH] Routine Labs on day of discharge: Labs from last 24 hours 03/31/18 03/31/18 03/31/18 08:41 05:05 05:05 WBC 6.4 RBC 4.09 L Hgb 12.5 L Hct 36.3 L MCV 88.7 MCH 30.5 MCHC 34.3 RDW 14.3 Plt Count 209 MPV 8.1 Neut % (Auto) 52.1 Lymph % (Auto) 25.0 [place] % (Auto) 7.6 Eos % (Auto) 13.5 H Baso % (Auto) 1.8 Neut # (Auto) 3.3 Lymph # (Auto) 1.6 [place] # (Auto) 0.5 Eos # (Auto) 0.9 H Baso # (Auto) 0.1 WBC Differential . Differential Comment Auto diff final Sodium 148 H Potassium 3.7 Chloride 114 H Carbon Dioxide 23.6 Anion Gap 10 BUN 7 Creatinine 0.79 Estimated GFR Greater than 89 POC Glucose 98 Random Glucose 101 Calcium 8.0 L Phosphorus 2.6 Magnesium 2.2 Total Bilirubin 0.4 Direct Bilirubin 0.1 Indirect Bilirubin 0.3 AST 11 L ALT 15 Alkaline Phosphatase 96 Total Protein 6.2 L D Albumin 2.8 L 03/30/18 03/30/18 03/30/18 21:00 16:36 12:46 WBC RBC Hgb Hct MCV MCH MCHC RDW Plt Count MPV Neut % (Auto) Lymph % (Auto) [place] % (Auto) Eos % (Auto) Baso % (Auto) Neut # (Auto) Lymph # (Auto) [place] # (Auto) Eos # (Auto) Baso # (Auto) WBC Differential Differential Comment Sodium Potassium Chloride Carbon Dioxide Anion Gap BUN Creatinine Estimated GFR POC Glucose 157 H 161 H 253 H Random Glucose Calcium Phosphorus Magnesium Total Bilirubin Direct Bilirubin Indirect Bilirubin AST ALT Alkaline Phosphatase Total Protein Albumin 03/30/18 05:20 WBC RBC Hgb Hct MCV MCH MCHC RDW Plt Count MPV Neut % (Auto) Lymph % (Auto) [place] % (Auto) Eos % (Auto) Baso % (Auto) Neut # (Auto) Lymph # (Auto) [place] # (Auto) Eos # (Auto) Baso # (Auto) WBC Differential Differential Comment Sodium Potassium Chloride Carbon Dioxide Anion Gap BUN Creatinine Estimated GFR POC Glucose Random Glucose Calcium Phosphorus Magnesium 1.8 Total Bilirubin Direct Bilirubin Indirect Bilirubin AST ALT Alkaline Phosphatase Total Protein Albumin - Impressions ITS Impressions Chest X-Ray 03/26/18 17:45 CONCLUSION: No acute cardiopulmonary findings. Chest CTA 03/26/18 19:45 CONCLUSION: 1. Negative for pulmonary embolus. Dependent atelectasis in the lungs. 2. Severe gastric distention with large air-fluid level present. 3. Multiple calcified gallstones. Abdomen X-Ray 03/28/18 22:47 CONCLUSION: NG tube in the distal stomach. Bowel gas pattern is normal Abdomen/Pelvis CT 03/29/18 12:31 CONCLUSION: 1. Resolution of the previously noted gastric outlet obstruction and markedly distended stomach. 2. Cholelithiasis. 3. Enlarged prostate. 4. Degenerative changes and mild scoliosis of the lumbar spine. Discharge Plan - Discharge Disposition Patient Disposition: 01 Discharge Home - Discharge Condition Condition: Stable - Discharge Order Discharge Orders: Discharge Order (Routine); Ordered 03/31/18 Ordered By: Paco Felton - Discharge Details Anticipated Discharge Date: 03/31/18 Discharge Comment: ok for dc home if sodium returns in normal range - Physicians Team Primary Care Provider: UNKNOWN, Attending Provider: Paco Felton Other Providers: Dannielle Goldsmith MD
[2018-03-31 16:46] VITALS: BP 106/64; PULSE 72; TEMP 98.2; O2SAT 96
[2018-03-31 16:59] LABS: Anion Gap 10 meq/L (5-15); Blood Urea Nitrogen 8 mg/dL (7-18); Calcium 8.2 mg/dL (8.5-10.1); Carbon Dioxide 21.5 meq/L (21.0-32.0); Chloride 114 meq/L (98-107); Glomerular Filtration Rate Greater Than 89 mL/min (>89); Glucose,Random 130 mg/dL (74-106); Potassium 4.2 meq/L (3.5-5.1); Sodium 145 meq/L (136-145)
--- NOTE | 2018-03-31 17:03 | P.PNGI ---
Subjective Interval history: 929 Patient awake and alert Completed breakfast meal-soft diet Denied any abdominal pain nausea vomiting or difficulty swallowing <Fallon Shrestha - Last Filed: 03/31/18 16:58> Physical Exam Vital signs: Vital Signs 03/30/18 20:00 03/31/18 00:00 03/31/18 04:00 Temperature 98.3 F 98.2 F 97.8 F Pulse Rate 93 H 78 63 Respiratory Rate 17 18 19 Blood Pressure 149/77 H 124/76 125/77 Pulse Oximetry 98 94 L 95 03/31/18 05:53 03/31/18 08:00 03/31/18 09:00 Temperature 97.8 F 98.1 F Pulse Rate 78 63 63 Respiratory Rate 19 16 Blood Pressure 139/97 H 126/77 Pulse Oximetry 97 97 03/31/18 12:00 03/31/18 16:00 Temperature 97.8 F 98.2 F Pulse Rate 81 72 Respiratory Rate 16 16 Blood Pressure 131/72 106/64 Pulse Oximetry 98 96 Intake & Output 03/30/18 03/31/18 03/31/18 18:59 06:59 18:59 Intake Total 1780 / 1780 1620 / 1620 Output Total 1999 / 1999 1200 / 1200 Balance -220 / -220 420 / 420 Weight 60.72 kg Intake: IV 1300 / 1300 1000 / 1000 NS Inj 1,000 ML @ 84 mls/hr IV. 1000 / 1000 1000 / 1000 CONT .[id number] [facility] Rx#:[id number] Magnesium Sulfate 1 gm/D5W 100 100 / 100 ml Premix 100 ML @ 100 mls/hr IV.SIG ONCE ONE Rx#:[id number] KCl 20 mEq Premix Inj 20 meq In 200 / 200 100 ml @ 50 mls/hr IV.SIG Q2H [facility] Rx#:[id number] Oral 480 / 480 620 / 620 Output: Urine 1999 / 1999 1200 / 1200 Other: Date of Last Bowel Movement 03/30/18 # Bowel Movements 1 - Constitutional no acute distress - Routine HEENT Exam Head: Present: normocephalic - Routine Respiratory Exam Present: CTA bilaterally. Absent: accessory muscle use - Routine Abdominal Exam Present: soft, normoactive bowel sounds. Absent: tenderness, distended, guarding, firm - Routine Skin Exam Present: dry, warm - Routine Neurological Exam Present: alert, oriented X3 <Fallon Shrestha - Last Filed: 03/31/18 16:58> Vital signs: Vital Signs 03/31/18 12:00 03/31/18 16:00 Temperature 97.8 F 98.2 F Pulse Rate 81 72 Respiratory Rate 16 16 Blood Pressure 131/72 106/64 Pulse Oximetry 98 96 Intake & Output 03/31/18 04/01/18 04/01/18 18:59 06:59 18:59 Intake Total 1000 / 1000 Balance 1000 / 1000 Intake: IV 1000 / 1000 NS Inj 1,000 ML @ 84 mls/hr IV. 1000 / 1000 CONT .[id number] [facility] Rx#:[id number] 1/ Normal Saline Inj 1,000 ML 0 / 0 @ 125 mls/hr IV.CONT .Q8H [facility] Rx#:[id number] Other: Date of Last Bowel Movement 03/31/18 <Maria Teresa Land - Last Filed: 04/01/18 09:30> Results - Labs CBC & Chem 7: 03/31/18 05:05 03/31/18 05:05 Laboratory Results - last 24 hr 03/30/18 03/31/18 03/31/18 21:00 05:05 05:05 WBC 6.4 RBC 4.09 L Hgb 12.5 L Hct 36.3 L MCV 88.7 MCH 30.5 MCHC 34.3 RDW 14.3 Plt Count 209 MPV 8.1 Neut % (Auto) 52.1 Lymph % (Auto) 25.0 [place] % (Auto) 7.6 Eos % (Auto) 13.5 H Baso % (Auto) 1.8 Neut # (Auto) 3.3 Lymph # (Auto) 1.6 [place] # (Auto) 0.5 Eos # (Auto) 0.9 H Baso # (Auto) 0.1 WBC Differential . Differential Comment Auto diff final Sodium 148 H Potassium 3.7 Chloride 114 H Carbon Dioxide 23.6 Anion Gap 10 BUN 7 Creatinine 0.79 Estimated GFR Greater than 89 POC Glucose 157 H Random Glucose 101 Calcium 8.0 L Phosphorus 2.6 Magnesium 2.2 Total Bilirubin 0.4 Direct Bilirubin 0.1 Indirect Bilirubin 0.3 AST 11 L ALT 15 Alkaline Phosphatase 96 Total Protein 6.2 L D Albumin 2.8 L 03/31/18 03/31/18 03/31/18 08:41 09:53 12:48 WBC RBC Hgb Hct MCV MCH MCHC RDW Plt Count MPV Neut % (Auto) Lymph % (Auto) [place] % (Auto) Eos % (Auto) Baso % (Auto) Neut # (Auto) Lymph # (Auto) [place] # (Auto) Eos # (Auto) Baso # (Auto) WBC Differential Differential Comment Sodium Cancelled Potassium Cancelled Chloride Cancelled Carbon Dioxide Cancelled Anion Gap Cancelled BUN Cancelled Creatinine Cancelled Estimated GFR Cancelled POC Glucose 98 133 H Random Glucose Cancelled Calcium Cancelled Phosphorus Magnesium Total Bilirubin Direct Bilirubin Indirect Bilirubin AST ALT Alkaline Phosphatase Total Protein Albumin - Procedures EGD with pyloric dilation. Please see report. <Fallon Shrestha - Last Filed: 03/31/18 16:58> - Labs CBC & Chem 7: 03/31/18 05:05 03/31/18 16:18 Laboratory Results - last 24 hr 03/31/18 03/31/18 03/31/18 09:53 12:48 16:18 Sodium Cancelled 145 Potassium Cancelled 4.2 Chloride Cancelled 114 H Carbon Dioxide Cancelled 21.5 Anion Gap Cancelled 10 BUN Cancelled 8 Creatinine Cancelled 0.81 Estimated GFR Cancelled Greater than 89 POC Glucose 133 H Random Glucose Cancelled 130 H Calcium Cancelled 8.2 L 03/31/18 18:18 Sodium Potassium Chloride Carbon Dioxide Anion Gap BUN Creatinine Estimated GFR POC Glucose 135 H Random Glucose Calcium <Maria Teresa Land - Last Filed: 04/01/18 09:30> Assessment and Plan (1) Gastric outlet obstruction Status: Acute Code(s): K31.1 - Adult hypertrophic pyloric stenosis - Plan 03/29/2018 Gastric outlet obstruction 03/28/2018 patient post EGD with pyloric dilatation, findings as follows-- 1. The esophagus appeared normal 2. There was mild antral gastropathy noted [T2] 3. Stenosis was found at the pylorus; Using a TTS-balloon the stricture was dilated up to 12mm 4. Two large ulcers were found at the pylorus; biopsies were taken 5. Normal duodenal mucosa in the entire duodenum 6. Retroflexed views revealed no abnormalities 03/29/2018 CT abdomen and pelvis revealed the following-- 1 Resolution of the previously noted gastric outlet obstruction and markedly distended stomach. 2. Cholelithiasis. 3. Enlarged prostate. 4. Degenerative changes and mild scoliosis of the lumbar spine. No BM today, patient denies abdominal pain. Positive bowel sounds present patient endorses passing flatus 03/30/2018 Patient tolerated soft diet well without any reported discomfort or difficulty swallowing. Patient agrees to follow-up with GI for biopsy results and EGD as needed Plan -Soft diet -Continue PPI -biopsy results pending -Avoid NSAIDS -Patient to follow-up with GI post discharge-patient verbalized understanding and agreement This patient has been seen by myself and Dr. Land and this note is written on his behalf - Attending Attestation Dr. Land <Fallon Shrestha - Last Filed: 03/31/18 16:58> (1) Gastric outlet obstruction Status: Acute Code(s): K31.1 - Adult hypertrophic pyloric stenosis - Attending Attestation Agree with the above assessment and plan. Will sign off for now and follow up at [facility] office. <Maria Teresa Land - Last Filed: 04/01/18 09:30>
== END 2018-03-31 19:22 | disposition home or self-care (01) ==
LOC: NEPC 17:36 → INTOOBSV 22:37 → NEDA 22:37 → NEPGCP 03-27 04:14 → N04 03-30 05:45
PROVIDERS: ADMIT Internal Medicine; ATTEND Internal Medicine